=== PATIENT | female | born 1960 | race Caucasian/White ===

== ENCOUNTER 2018-08-04 09:00 | Outpatient (RCR) | payer MEDICAID, SELFPAY ==
--- NOTE | 2018-07-29 12:14 | HP.PTEVAL_ITS ---
Patient's Visit Information IVETTE SAMUEL is a 57 year old F referred to Physical Therapy by Hank Norton DPM with a diagnosis of Post Tib Tendonitits. Date of Evaluation: 07/29/18 Physical Therapist: Shira Hardy DPT - Visit Plan Frequency: 2x /Week Duration: 4 Weeks Plan: Ultrasound and manual therapy along posterior tib tunnel- exercise for balance and flex - Subjective Findings: Patient reports that she has tendonitis in the right foot- this flare up has been going on for a few months. Has had PT on this foot before and it was doing well- but she has seen a decline. They are planning to do new orthotics. Wears sneakers everyday. Pain is located along the medial side of the ankle. Does radiate to the mid calf but no pain in the toes. Describes the pain as dull and achy. No N/T in the toes. Is not doing anything for her foot. Eases: ice, anti-inflammatories. Best:5/10 Worst: 8/10 Agg: getting out of bed in the am. X-rays taken at Dr. Knight office. Sleep: disturbed- gets tight like a russell horse. Normally wears tennis shoes- does not wear shoes in the house- slippers. 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 PMHx: arthritis, thyroid Meds: synthroid, Meloxicam but has changed to a new med to see if it helps - Objective Posture: FH, RS, increased kyphosis- does correct with VC's but does not mainta. Gait: no deviation noted- mild pes planus. Stairs:asc/desc 8 recip with 1 HR. HR/TR: able no pain. SLS: 3 sec then LOB. Observation: moderate edema in posterior tib tunnel. Palpation: tendeer along posterior tib tunnel. ROM:DF: 3 degrees, PF: 60 degrees, Ever: 20 degrees, Inv: 10 degrees. Strength: ANkle: 4/5 throughout available range, Knee: 4+/5. Flex: Gastroc: severe, Soleus: mo derate - Goals Goal 1:: Patient will be I with HEP and progression Goal Time Frame: 4-6 Weeks Goal 2:: Patient will SLS for 15 sec without LOB Goal Time Frame: 4-6 Weeks Goal 3:: Patient will demo no tenderness to palpation Goal Time Frame: 4-6 Weeks Goal 4:: Patient will report 0/10 pain in the ankle for 1 week Goal Time Frame: 4-6 Weeks - Rehabilitation Potential Physical Therapy Diagnosis: Patient presents with hypomoblity- she has decreased ROM, strenth and muscular endurance leading to increased pain with ADL's. Rehabilitation Potential: Fair - Anticipated Interventions Patient/Client Instruction: Educate patient on: Benefits of Fitness Program Therapeutic Exercise to Include: Strength training, Endurance training, Balance training, Coordination, Agility training, Body mechanics, Postural training, Flexibilty training, Gait and locomotor training, Passive ROM, Active ROM, Dynamic Lumbar Stabilization For the Purpose of:: To improve muscle performance and motor function TENS: Yes Cryotherapy (ice pack, ice massage): Yes Thermo therapy (hot pack): Yes Ultrasound (thermal/non thermal): Yes Thank you for the opportunity to evaluate your patient. For Medicare and Medicare HMO plans, please review the plan of care and approve it. It will need to be FAXED BACK to us at [phone] for Medicare purposes. For Medicare only, by signing this I certify the plan of care. Please let me know if there are questions or concerns regarding this plan of care. Physician S ignature: Date:
--- NOTE | 2019-01-10 12:41 | HP.PT.NRP ---
HP - Discharge Summary (1) - Patient Information IVETTE SAMUEL was seen in my office for initial evaluation on 07/29/18. The following Plan of Care was established for this patient: Initial Frequency: 2x /Week Initial Duration: 4 Weeks - Anticipated Interventions Patient/Client Instruction: Educate patient on: Benefits of Fitness Program Therapeutic Exercise to Include: Strength training, Endurance training, Balance training, Coordination, Agility training, Body mechanics, Postural training, Flexibilty training, Gait and locomotor training, Passive ROM, Active ROM, Dynamic Lumbar Stabilization For the Purpose of:: To improve muscle performance and motor function TENS: Yes Cryotherapy (ice pack, ice massage): Yes Thermo therapy (hot pack): Yes Ultrasound (thermal/non thermal): Yes This patient was last seen in our office . Pertinent comments regarding their Physical therapy will appear below: Patient has not attended physical therapy is over 30 days- appropriate to be d/c from PT and return to MD as needed for further evaluation. At this point I will be discontinuing this patient from physical therapy. I would be happy to see this patient again in the future if found appropriate by the physician. Thank you! ALESHIA RojasT
== END 2018-08-04 19:00 | disposition home or self-care (01) ==
LOC: PT 09:00
PROVIDERS: Family Provider Family Medicine; PCP Family Medicine; Referring Provider Podiatrist; Visit Provider Podiatrist
DX: M76.821 Posterior tibial tendinitis, right leg (principal); M21.41 Flat foot [pes planus] (acquired), right foot
CPT/HCPCS: 97035; 97140; 97161

== ENCOUNTER → 2018-10-11 | Outpatient (CLI) | payer MEDICAID, SELFPAY ==
--- NOTE | 2018-10-11 13:11 | MRI_ITS ---
STUDY: MRI RIGHT ANKLE WITHOUT CONTRAST REASON FOR EXAM: Female, 57 years old. Ankle pain, posterior tibial tendinitis TECHNIQUE: Standardized fat and water weighted pulse sequences were obtained in all 3 orthogonal planes. COMPARISON: None. FINDINGS: Normal subcutis adipose space. 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 However, the distal tibialis posterior tendon is thickened with some abnormal signal consistent with tendinosis but without discrete tear. Mild tenosynovitis. There is tenosynovitis of the flexor digitorum longus tendon sheath, without a tendinosis or tendon tear. There is tenosynovitis of the flexor hallucis longus tendon sheath, with pooling of fluid in the Knot of [place], which may be acting as an entrapping lesion upon the plantar cutaneous nerves. Normal peroneus longus and brevis tendons. Normal tibialis anterior tendon. Normal extensor hallucis longus tendon. Normal extensor digitorum longus tendons. Normal Achilles tendon and teno-osseous insertion. Normal plantar fascia. Normal plantar calcaneal tubercles. Normal intrinsic muscles of the rearfoot. Normal distal tibiofibular syndesmotic ligamentous complex. Normal lateral ligamentous complex. Normal subtalar ligaments and sinus tarsi. Normal deltoid ligamentous complexes. Normal plantar calcaneonavicular (spring) ligament. Normal tibiotalar articulation. Normal talar dome. Normal subtalar articulations. Normal talonavicular articulation. Normal calcaneocuboid articulation. Normal navicular-cuneiform articulations. 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 However, associated tibialis posterior tendinitis and tenosynovitis but no discrete tendon tear. Flexor digitorum longus and flexor hallucis longus tenosynovitis with pooling of the fluid at the knot of Edwar. Electronically Signed: Adán Collins MD at 11:59 EDT Tel , Service support ,
== END | disposition home or self-care (01) ==
LOC: MRI 12:59
PROVIDERS: Family Provider Family Medicine; PCP Family Medicine; Referring Provider Podiatrist; Visit Provider Podiatrist
DX: M76.821 Posterior tibial tendinitis, right leg (principal)
CPT/HCPCS: 73721

== ENCOUNTER → 2019-02-24 | Outpatient (CLI) | payer MEDICAID, SELFPAY ==
[2019-02-24 12:49] LABS: Erythrocyte Sedimentation Rate 14 mm/hr (0-30)
[2019-02-24 13:03] LABS: Absolute Lymphocyte Count 1.29 X10^3/uL (0.83-4.51); Basophil# 0.07 X10^3/uL; Basophil% 1.5 % (0-1); Eosinophils% 2.1 % (0-5); Hematocrit 45.2 % (37-47); Hemoglobin 14.4 g/dL (12.0-15.0); Lymphocyte # 1.29 X10^3/ul (4.0); Lymphocyte % 27.6 % (19-41); Mean Corp Hgb Conc 31.9 g/dL (32-36); Mean Corpuscular Volume 90.9 fL (81-99); Mean Platelet Vol. 9.7 fl (6.2-12.0); Monocyte# 0.23 X10^3/uL; Monocyte% 4.9 % (0-10); NRBC Flagged by Analyzer 0 % (0-5); Neutrophil # 2.98 X10^3/uL (2.7-7.7); Neutrophil % 63.7 % (47-70); Platelet Count 301 K/mm3 (150-450); RBC Distribution Width CV 13.7 % (11.6-14.6); RBC Distribution Width SD 46.1 fl (35.1-43.9); Red Blood Count 4.97 M/mm3 (4.2-5.4); White Blood Count 4.7 K/mm3 (4.4-11.0)
[2019-02-24 13:16] LABS: Anion Gap 6 (5-15); BUN 19 mg/dL (7-18); BUN/Creat Ratio 24.3 RATIO (10-20); CRP, High Sensitivity Cardiac 9.22 mg/L; Calcium,Total 8.9 mg/dL (8.5-10.1); Chloride 104 mmol/L (98-107); Cholesterol 212 mg/dL (200); Creatinine, Serum 0.78 mg/dL (0.55-1.02); EST Glomerular Filtration Rate 80 mL/min (>60); Est Glom Filt Rate - Afr Amer 97 mL/min (>60); Free T3 2.8 pg/mL (2.18-3.98); Glucose 83 mg/dL (74-106); High Density Lipoprotein 60 mg/dL; Potassium 3.9 mmol/L (3.5-5.1); Rheumatoid Factor < 10.0 IU/mL (<15); Sodium Level 139 mmol/L (136-145); Thyroid Stim Hormone (TSH) 4.19 uIU/mL (0.358-3.74); Triglycerides 73 mg/dL; Very Low Density Lipoprotein 15 mg/dL (5-40)
[2019-02-24 13:22] LABS: Vitamin D,25 Hydroxy 30.4 ng/mL (29.95-100.01)
[2019-02-27 16:30] LABS: ANTINUCLEAR ANTIBODIES DIRECT Negative (Negative)
== END | disposition home or self-care (01) ==
LOC: MFPLAB 10:50
PROVIDERS: Family Provider Family Medicine; PCP Family Medicine; Referring Provider Family Medicine; Visit Provider Family Medicine
DX: Z00.00 Encounter for general adult medical examination without abnormal findings (principal); E03.9 Hypothyroidism, unspecified; M19.90 Unspecified osteoarthritis, unspecified site
CPT/HCPCS: 36415; 80048; 80061; 82306; 84436; 84443; 84481; 85025; 85652; 86038; 86141; 86431

== ENCOUNTER → 2019-06-05 11:16 | Outpatient (CLI) | payer OTHER, SELFPAY ==
[2019-06-05 13:26] LABS: Free T3 1.9 pg/mL (2.18-3.98); T4 Total, Thyroxin 13.5 ug/dL (4.8-13.9)
== END ==
PROVIDERS: PCP Family Medicine; Referring Provider Family Medicine; Visit Provider Family Medicine
DX: E03.9 Hypothyroidism, unspecified (principal)
CPT/HCPCS: 36415; 84436; 84443; 84481

== ENCOUNTER → 2019-09-15 | Outpatient (CLI) | payer OTHER, SELFPAY ==
[2019-09-15 12:25] LABS: Erythrocyte Sedimentation Rate 16 mm/hr (0-30)
[2019-09-15 12:32] LABS: AST(SGOT) 22 U/L (15-37); Alanine Aminotransfer ALT/SGPT 33 U/L (13-56); Alkaline Phosphatase 73 U/L (45-117); Anion Gap 4 (5-15); BUN 19 mg/dL (7-18); BUN/Creat Ratio 24.3 RATIO (10-20); CRP < 2.90 mg/L (0.0-3.0); Calcium,Total 9.1 mg/dL (8.5-10.1); Chloride 105 mmol/L (98-107); Creatinine, Serum 0.78 mg/dL (0.55-1.02); EST Glomerular Filtration Rate 80 mL/min (>60); Est Glom Filt Rate - Afr Amer 97 mL/min (>60); Globulin 3.9 g/dL (2.2-4.2); Glucose 86 mg/dL (74-106); Protein, Total 7.9 g/dL (6.4-8.2); Rheumatoid Factor < 10.0 IU/mL (<15); Sodium Level 138 mmol/L (136-145)
[2019-09-15 12:46] LABS: Absolute Lymphocyte Count 1.21 X10^3/uL (0.83-4.51); Absolute Neutrophil Count 2.3 X10^3/uL (2.0-7.7); Basophil# 0.03 X10^3/uL; Basophil% 0.8 % (0-1); Eosinophil# 0.05 X10^3/uL; Eosinophils% 1.3 % (0-5); Hematocrit 43.8 % (37-47); Hemoglobin 14.3 g/dL (12.0-15.0); Lymphocyte # 1.21 X10^3/ul (4.0); Lymphocyte % 31.2 % (19-41); Mean Corp Hgb Conc 32.6 g/dL (32-36); Mean Corpuscular Hgb 29.8 pg (27.0-32.0); Mean Corpuscular Volume 91.3 fL (81-99); Monocyte# 0.27 X10^3/uL; NRBC Flagged by Analyzer 0 % (0-5); Neutrophil # 2.31 X10^3/uL (2.7-7.7); Neutrophil % 59.4 % (47-70); Platelet Count 242 K/mm3 (150-450); RBC Distribution Width CV 13.8 % (11.6-14.6); RBC Distribution Width SD 46.2 fl (35.1-43.9); White Blood Count 3.9 K/mm3 (4.4-11.0)
[2019-09-15 13:37] LABS: Hepatitis B Surf AB - EMP Non-Reactive; Hepatitis B Surface Antigen Non-Reactive (Nonreactive); Hepatitis C Antibody Non-Reactive (Nonreactive)
[2019-09-17 09:23] LABS: ANTINUCLEAR ANTIBODIES DIRECT Negative (Negative)
[2019-09-19 05:55] LABS: CCP IgG Antibodies 8 units (0-19); Hepatitis B Core AB IgM Negative (Negative)
== END | disposition home or self-care (01) ==
LOC: MFPLAB 09:42
PROVIDERS: PCP Family Medicine; Visit Provider Internal Medicine Rheumatology
DX: M06.4 Inflammatory polyarthropathy (principal); M79.7 Fibromyalgia; M17.0 Bilateral primary osteoarthritis of knee; M15.4 Erosive (osteo)arthritis; M21.41 Flat foot [pes planus] (acquired), right foot; E03.9 Hypothyroidism, unspecified
CPT/HCPCS: 36415; 80053; 85025; 85652; 86038; 86140; 86200; 86431; 86705; 86706; 86803; 87340

== ENCOUNTER → 2020-01-30 | Outpatient (CLI) | payer OTHER, SELFPAY ==
[2019-10-30 14:00] VITALS: BMI 29.4
[2020-01-30 12:22] LABS: T4 Free Direct 1.33 ng/dL (0.76-1.46); Thyroid Stim Hormone (TSH) 2.07 uIU/mL (0.358-3.74)
== END | disposition home or self-care (01) ==
PROVIDERS: PCP Family Medicine; Referring Provider Internal Medicine Endocrinology, Diabetes & Metabolism; Visit Provider Internal Medicine Endocrinology, Diabetes & Metabolism
DX: E03.8 Other specified hypothyroidism (principal); E06.3 Autoimmune thyroiditis
CPT/HCPCS: 36415; 84439; 84443

== ENCOUNTER → 2020-08-06 10:34 | Outpatient (CLI) | payer OTHER, SELFPAY ==
[2019-10-30 14:00] VITALS: BMI 29.4
[2020-08-06 13:08] LABS: Anion Gap 4 (5-15); BUN 18 mg/dL (7-18); BUN/Creat Ratio 25.4 RATIO (10-20); Calcium,Total 8.9 mg/dL (8.5-10.1); Chloride 106 mmol/L (98-107); Cholesterol 232 mg/dL (200); Creatinine, Serum 0.71 mg/dL (0.55-1.02); EST Glomerular Filtration Rate 89 mL/min (>60); Est Glom Filt Rate - Afr Amer 108 mL/min (>60); Free T3 2.7 pg/mL (2.18-3.98); Glucose 77 mg/dL (74-106); High Density Lipoprotein 73 mg/dL; Potassium 3.9 mmol/L (3.5-5.1); Sodium Level 139 mmol/L (136-145); T4 Free Direct 1.26 ng/dL (0.76-1.46); Thyroid Stim Hormone (TSH) 5.45 uIU/mL (0.358-3.74); Triglycerides 57 mg/dL; Very Low Density Lipoprotein 11 mg/dL (5-40)
== END ==
PROVIDERS: PCP Family Medicine; Referring Provider Family Medicine; Visit Provider Family Medicine
DX: E03.9 Hypothyroidism, unspecified (principal)
CPT/HCPCS: 36415; 80048; 80061; 84439; 84443; 84481

== ENCOUNTER → 2020-08-16 | Outpatient (CLI) | payer OTHER, SELFPAY ==
[2019-10-30 14:00] VITALS: BMI 29.4
== END | disposition home or self-care (01) ==
LOC: MFPLAB 13:39 → LABSPEC 13:40
PROVIDERS: PCP Family Medicine; Referring Provider Family Medicine; Visit Provider Family Medicine
DX: Z20.822 Contact with and (suspected) exposure to COVID-19 (principal)
CPT/HCPCS: 87635; U0002

== ENCOUNTER → 2020-09-23 09:05 | Outpatient (CLI) | payer OTHER, SELFPAY ==
[2019-10-30 14:00] VITALS: BMI 29.4
[2020-09-23 10:24] LABS: Absolute Lymphocyte Count 1.09 X10^3/uL (0.83-4.51); Absolute Neutrophil Count 2.3 X10^3/uL (2.0-7.7); Basophil# 0.07 X10^3/uL; Basophil% 1.8 % (0-1); Eosinophil# 0.12 X10^3/uL; Eosinophils% 3.1 % (0-5); Hematocrit 43.6 % (37-47); Hemoglobin 13.7 g/dL (12.0-15.0); Lymphocyte # 1.09 X10^3/ul (0.83-4.51); Lymphocyte % 28.1 % (19-41); Mean Corp Hgb Conc 31.4 g/dL (32-36); Mean Corpuscular Hgb 28.7 pg (27.0-32.0); Mean Corpuscular Volume 91.2 fL (81-99); Mean Platelet Vol. 10.1 fl (6.2-12.0); Monocyte# 0.25 X10^3/uL; Monocyte% 6.4 % (0-10); NRBC Flagged by Analyzer 0 % (0-5); Neutrophil # 2.34 X10^3/uL (2.7-7.7); Neutrophil % 60.3 % (47-70); Platelet Count 243 K/mm3 (150-450); RBC Distribution Width CV 14.4 % (11.6-14.6); RBC Distribution Width SD 48.4 fl (35.1-43.9); Red Blood Count 4.78 M/mm3 (4.2-5.4); White Blood Count 3.9 K/mm3 (4.4-11.0)
[2020-09-23 11:12] LABS: Thyroid Stim Hormone (TSH) 0.08 uIU/mL (0.358-3.74)
== END ==
PROVIDERS: PCP Family Medicine; Visit Provider Family Medicine
DX: E03.9 Hypothyroidism, unspecified (principal)
CPT/HCPCS: 36415; 84443; 85025

== ENCOUNTER → 2020-11-25 16:12 | Outpatient (CLI) | payer OTHER, SELFPAY ==
[2019-10-30 14:00] VITALS: BMI 29.4
[2020-11-25 18:01] LABS: Erythrocyte Sedimentation Rate 6 mm/hr (0-30)
[2020-11-25 18:02] LABS: Absolute Lymphocyte Count 1.54 X10^3/uL (0.83-4.51); Absolute Neutrophil Count 3.8 X10^3/uL (2.0-7.7); Basophil# 0.06 X10^3/uL; Eosinophils% 1.7 % (0-5); Hematocrit 45.6 % (37-47); Hemoglobin 14.7 g/dL (12.0-15.0); Lymphocyte # 1.54 X10^3/ul (0.83-4.51); Lymphocyte % 25.8 % (19-41); Mean Corp Hgb Conc 32.2 g/dL (32-36); Mean Corpuscular Hgb 28.9 pg (27.0-32.0); Mean Corpuscular Volume 89.6 fL (81-99); Mean Platelet Vol. 10.1 fl (6.2-12.0); Monocyte# 0.43 X10^3/uL; Monocyte% 7.2 % (0-10); NRBC Flagged by Analyzer 0 % (0-5); Neutrophil # 3.84 X10^3/uL (2.7-7.7); Neutrophil % 64.1 % (47-70); Platelet Count 296 K/mm3 (150-450); RBC Distribution Width SD 46.5 fl (35.1-43.9); Red Blood Count 5.09 M/mm3 (4.2-5.4)
[2020-11-25 18:50] LABS: ALB/GLOB Ratio 1.2 RATIO (0.9-2.4); AST(SGOT) 23 U/L (15-37); Alanine Aminotransfer ALT/SGPT 32 U/L (13-56); Albumin, Serum 4.2 g/dL (3.2-5.0); Alkaline Phosphatase 81 U/L (45-117); Anion Gap 6 (5-15); BUN 18 mg/dL (7-18); BUN/Creat Ratio 26.2 RATIO (10-20); CRP < 2.90 mg/L (0.0-3.0); Calcium,Total 9.2 mg/dL (8.5-10.1); Chloride 104 mmol/L (98-107); Creatinine, Serum 0.69 mg/dL (0.55-1.02); EST Glomerular Filtration Rate 93 mL/min (>60); Est Glom Filt Rate - Afr Amer 112 mL/min (>60); Globulin 3.6 g/dL (2.2-4.2); Glucose 87 mg/dL (74-106); Potassium 3.6 mmol/L (3.5-5.1); Protein, Total 7.8 g/dL (6.4-8.2); Sodium Level 140 mmol/L (136-145)
== END ==
PROVIDERS: PCP Family Medicine; Visit Provider Internal Medicine Rheumatology
DX: M06.4 Inflammatory polyarthropathy (principal); M79.7 Fibromyalgia; M17.0 Bilateral primary osteoarthritis of knee; M21.41 Flat foot [pes planus] (acquired), right foot; E03.9 Hypothyroidism, unspecified
CPT/HCPCS: 36415; 80053; 85025; 85652; 86140

== ENCOUNTER → 2021-09-10 | Outpatient (CLI) | payer OTHER, SELFPAY ==
[2021-09-10 13:21] LABS: T4 Free Direct 1.51 ng/dL (0.76-1.46)
== END | disposition home or self-care (01) ==
LOC: BIMLAB 11:24
PROVIDERS: PCP Family Medicine; Referring Provider Internal Medicine Endocrinology, Diabetes & Metabolism; Visit Provider Internal Medicine Endocrinology, Diabetes & Metabolism
DX: E03.8 Other specified hypothyroidism (principal); E06.3 Autoimmune thyroiditis
CPT/HCPCS: 36415; 84439; 84443

== ENCOUNTER → 2022-01-20 | Outpatient (CLI) | payer OTHER, SELFPAY ==
[2022-01-20 12:13] LABS: T4 Free Direct 1.49 ng/dL (0.76-1.46); Thyroid Stim Hormone (TSH) 1.17 uIU/mL (0.358-3.74)
== END | disposition home or self-care (01) ==
LOC: LAB 10:29
PROVIDERS: PCP Family Medicine; Referring Provider Internal Medicine Endocrinology, Diabetes & Metabolism; Visit Provider Internal Medicine Endocrinology, Diabetes & Metabolism
DX: E03.8 Other specified hypothyroidism (principal); E06.3 Autoimmune thyroiditis
CPT/HCPCS: 36415; 84439; 84443

== ENCOUNTER → 2022-03-13 | Outpatient (CLI) | payer OTHER, SELFPAY ==
[2022-03-13 12:42] LABS: Absolute Lymphocyte Count 1.37 X10^3/uL (0.83-4.51); Absolute Neutrophil Count 3.1 X10^3/uL (2.0-7.7); Basophil# 0.05 X10^3/uL; Eosinophil# 0.08 X10^3/uL; Eosinophils% 1.6 % (0-5); Hematocrit 46.8 % (37-47); Hemoglobin 15.5 g/dL (12.0-15.0); Lymphocyte # 1.37 X10^3/ul (0.83-4.51); Lymphocyte % 27.7 % (19-41); Mean Corp Hgb Conc 33.1 g/dL (32-36); Mean Corpuscular Volume 90.5 fL (81-99); Mean Platelet Vol. 9.9 fl (6.2-12.0); Monocyte# 0.34 X10^3/uL; Monocyte% 6.9 % (0-10); NRBC Flagged by Analyzer 0 % (0-5); Neutrophil # 3.09 X10^3/uL (2.7-7.7); Neutrophil % 62.6 % (47-70); Platelet Count 302 K/mm3 (150-450); RBC Distribution Width SD 46.5 fl (35.1-43.9); Red Blood Count 5.17 M/mm3 (4.2-5.4); White Blood Count 4.9 K/mm3 (4.4-11.0)
[2022-03-13 13:12] LABS: ALB/GLOB Ratio 1.1 RATIO (0.9-2.4); AST(SGOT) 23 U/L (15-37); Alanine Aminotransfer ALT/SGPT 29 U/L (13-56); Albumin, Serum 4.1 g/dL (3.2-5.0); Alkaline Phosphatase 76 U/L (45-117); Anion Gap 9 (5-15); BUN 21 mg/dL (7-18); BUN/Creat Ratio 29.6 RATIO (10-20); CRP < 2.90 mg/L (0.0-3.0); Calcium,Total 9.3 mg/dL (8.5-10.1); Chloride 105 mmol/L (98-107); Cholesterol 248 mg/dL (200); Creatinine, Serum 0.71 mg/dL (0.55-1.02); EST Glomerular Filtration Rate 89 mL/min (>60); Est Glom Filt Rate - Afr Amer 107 mL/min (>60); Globulin 3.8 g/dL (2.2-4.2); Glucose 89 mg/dL (74-106); High Density Lipoprotein 63 mg/dL; Potassium 4.1 mmol/L (3.5-5.1); Protein, Total 7.9 g/dL (6.4-8.2); Sodium Level 140 mmol/L (136-145); Triglycerides 111 mg/dL; Very Low Density Lipoprotein 22 mg/dL (5-40)
[2022-03-13 14:01] LABS: Erythrocyte Sedimentation Rate 32 mm/hr (0-30)
== END | disposition home or self-care (01) ==
LOC: BFHLAB 10:27
PROVIDERS: PCP Family Medicine; Visit Provider Family Medicine
DX: Z00.00 Encounter for general adult medical examination without abnormal findings (principal); M13.0 Polyarthritis, unspecified
CPT/HCPCS: 36415; 80053; 80061; 85025; 85652; 86140

== ENCOUNTER → 2022-04-16 | Outpatient (CLI) | payer OTHER, SELFPAY ==
--- NOTE | 2022-04-16 11:51 | RAD_ITS ---
STUDY: X-RAY - LUMBAR SPINE REASON FOR EXAM: Female, 61 years old. LOWER BACK PAIN/ HIP PAIN TECHNIQUE: XR Spine Lumbar Min 4 Views COMPARISON: None FINDINGS: Normal lumbar lordosis. There is no substantial scoliosis. There is a normal alignment of the vertebrae. There is multilevel endplate spondylosis of the lumbar vertebrae. Normal disc space heights. Stool in the colon suggesting constipation. RAD/L/S Spine Min 4 Views IMPRESSION: There is multilevel endplate spondylosis of the lumbar vertebrae. Stool in the colon suggesting constipation. Electronically Signed: Kaiser Mcadams MD at 19:48 EST ,
== END | disposition home or self-care (01) ==
LOC: MTRAD 11:50
PROVIDERS: PCP Family Medicine; Referring Provider Family Medicine; Visit Provider Family Medicine
DX: M54.16 Radiculopathy, lumbar region (principal)
CPT/HCPCS: 72110

== ENCOUNTER → 2022-06-16 | Outpatient (CLI) | payer OTHER, SELFPAY | END | disposition home or self-care (01) | LOC: LABSPEC 15:36 | PROVIDERS: PCP Family Medicine; Visit Provider Family Medicine | DX: J06.9 Acute upper respiratory infection, unspecified (principal) | CPT/HCPCS: 87633 ==

== ENCOUNTER → 2022-07-17 | Outpatient (CLI) | payer OTHER, SELFPAY ==
[2022-07-17 13:10] LABS: T4 Free Direct 1.38 ng/dL (0.76-1.46); Thyroid Stim Hormone (TSH) 2.92 uIU/mL (0.358-3.74)
== END | disposition home or self-care (01) ==
LOC: LAB 11:54
PROVIDERS: PCP Family Medicine; Referring Provider Internal Medicine Endocrinology, Diabetes & Metabolism; Visit Provider Internal Medicine Endocrinology, Diabetes & Metabolism
DX: E03.8 Other specified hypothyroidism (principal); E06.3 Autoimmune thyroiditis
CPT/HCPCS: 36415; 84439; 84443

== ENCOUNTER → 2022-07-27 | Outpatient (CLI) | payer OTHER, SELFPAY ==
--- NOTE | 2022-07-27 17:03 | MRI_ITS ---
STUDY: MRI LUMBAR SPINE WITHOUT CONTRAST REASON FOR EXAM: Female, 61 years old. Left lumbar radiculopathy, s/p 6 weeks PT TECHNIQUE: Standardized fat and water weighted pulse sequences were obtained in the sagittal and axial planes. COMPARISON: None FINDINGS: T12-L1: Normal endplates. Normal disc height, hydration and morphology. Normal bilateral facet joints. Normal central canal and bilateral lateral recesses. Normal bilateral intervertebral neural foramina. Normal lumbar lordosis. There is grade 1 anterolisthesis at L4-5. There is no substantial scoliosis. Normal conus medullaris that terminates at the T12 level. L1-2: Normal endplates. Normal disc height, hydration and morphology. Normal bilateral facet joints. Normal central canal and bilateral lateral recesses. Normal bilateral intervertebral neural foramina. L2-3: Normal endplates. Normal disc height, hydration and morphology. Mild spurring of the bilateral facet joints. Normal central canal and bilateral lateral recesses. Normal bilateral intervertebral neural foramina. L3-4: Disc bulge. Spurring of the bilateral facet joints. Normal central canal and bilateral lateral recesses. Normal bilateral intervertebral neural foramina. L4-5: Disc bulge and spurring. Facet and ligamentum flavum hypertrophy. Moderate canal stenosis. Neural foramina are patent. L5-S1: Normal endplates. Normal disc height, hydration and morphology. Mild spurring of the bilateral facet joints. Normal central canal and bilateral lateral recesses. Normal bilateral intervertebral neural foramina. Normal visualized sacral ala. Normal visualized paraspinous soft tissue structures. MRI/Spine Lumbar (Routine) IMPRESSION: Degenerative change with L4-5 canal stenosis. Electronically Signed: Casey Arizmendi MD at 18:14 EDT ,
== END | disposition home or self-care (01) ==
LOC: MRI 16:52
PROVIDERS: PCP Family Medicine; Referring Provider Family Medicine; Visit Provider Family Medicine
DX: M54.16 Radiculopathy, lumbar region (principal)
CPT/HCPCS: 72148

== ENCOUNTER 2022-08-07 10:26 | Outpatient (RCR) | payer OTHER, SELFPAY | END 2022-08-07 10:35 | disposition home or self-care (01) | LOC: PT 10:26 | PROVIDERS: PCP Family Medicine; Referring Provider Family Medicine; Visit Provider Family Medicine | DX: M54.16 Radiculopathy, lumbar region (principal) ==

== ENCOUNTER → 2022-09-08 | Outpatient (CLI) | payer OTHER, SELFPAY ==
[2022-09-11 13:08] LABS: Lyme IgG P18 Ab Absent (.); Lyme IgG P23 Ab Absent (.); Lyme IgG P28 Ab Absent (.); Lyme IgG P30 Ab Absent (.); Lyme IgG P39 Ab Absent (.); Lyme IgG P41 Ab Present (.); Lyme IgG P45 Ab Absent (.); Lyme IgG P58 Ab Absent (.); Lyme IgG P66 Ab Absent (.); Lyme IgG P93 Ab Absent (.); Lyme IgG WB Interpretation Negative (.); Lyme IgM P23 Ab Absent (.); Lyme IgM P39 Ab Absent (.); Lyme IgM P41 Ab Absent (.); Lyme IgM WB Interpretation Negative (.)
== END | disposition home or self-care (01) ==
LOC: BFHLAB 10:20
PROVIDERS: PCP Family Medicine; Referring Provider Family Medicine; Visit Provider Family Medicine
DX: S30.860A Insect bite (nonvenomous) of lower back and pelvis, initial encounter (principal); W57.XXXA Bitten or stung by nonvenomous insect and other nonvenomous arthropods, initial encounter
CPT/HCPCS: 36415; 86617

== ENCOUNTER 2022-10-20 11:00 | Outpatient (RCR) | payer OTHER, SELFPAY ==
--- NOTE | 2022-04-27 10:58 | HP.PTEVAL ---
Patient's Visit Information IVETTE SAMUEL is a 61 year old F referred to Physical Therapy by Dr. Shital Cobian MD with a diagnosis of Lumbar Back Pain. Date of Evaluation: 04/27/22 Physical Therapist: Shira Hardy DPT - Visit Plan Frequency: 1x/Week Duration: 4 Weeks Plan: Aquatics: focus on LE and Core s/s. HEP Given IE: Postural education, lumbar roll, scapular retractions - Subjective Patient reports that she has had left hip pain for years that comes and goes. Now its progressed and its in the left side of her back radiates and radiates down to the toes. She has N/T in the whole left foot. Back pain started about 3 weeks ago but she has Fibro and arthritis- she takes Duflexican and Meloxicam but she still hurts and is tired. Back Pain: Worst: 12/17 Agg: walking Eases: heat, cold and medications Yesterday she felt okay but today the cold weather is making it worse. Best: 07/17. Describes the pain as dull and achy. The pain that radiates down her leg- she does not feel it in the leg just in the foot- the pain is there most of the time. Sleep: not disturbed. Went to chiro- weekly but it does not feel that it helped- adjustment made it worse. X-rays which showed multilevel endplate spondylosis of the lumbar vertebra. No MRI at this time. No loss or change in bowel or bladder. 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 She participates in [employer] 2x a week. PMHx/Meds: Synthroid, Meloxicam, Duflexican - Objective Posture: FH, RS- can correct with verbal cues but does not maintain. Gait: no deviation- good arm swing and trunk rotation. HR/TR: able with UE A. SLS: weight shift but does not SLS ROM: lumbar: severe restriction, pain with flexion- all other motions WFL, Hip/Knee/Ankle: WFL Strength: Core: poor, Hip: 4-/5 throughout Knee: 4/5, Ankle: 5/5. Flex: HS: severe, Gastroc: severe. Palpation: tender to touch on the left parapsinals of L3-sacrum and along bilateral gluts. Special Tests: dec numbness with prone positioning. Reflex: WFL at bilateral patella. Sensation: WFL to gross touch bilateral LE - Special Tests L/S Slump test left side: Positive L/S Slump test right side: Negative L/S Left Straight Leg Raise: Positive L/S Right Straight Leg Raise: Negative - Balance/Special Test Scores Oswestry Low Back Score: 12 - Goals Goal 1:: Patient will be I with HEP and progression Goal Time Frame: 4-6 Weeks Goal 2:: Patient will maintain proper posture t/o tx session to demo increased core s/s Goal Time Frame: 4-6 Weeks Goal 3:: Patient will report no radicular s/s for 1 week Goal Time Frame: 4-6 Weeks Goal 4:: Patient will report 80% improvement Goal Time Frame: 4-6 Weeks - Rehabilitation Potential Physical Therapy Diagnosis: Patient presents with hypomobility- she has decreased LE and core strength/stabilization, flex and muscular endurance leading to poor posture, increased pain with ADL's and radicular s/s in the left LE Rehabilitation Potential: Fair - Anticipated Interventions Patient/Client Instruction: Educate patient on: Benefits of Fitness Program Therapeutic Exercise to Include: Strength training, Endurance training, Balance training, Coordination, Agility training, Body mechanics, Postural training, Flexibilty training, Gait and locomotor training, Neuromotor development, In an aquatic setting, Dynamic Lumbar Stabilization, Scapular Strength/Stabilization For the Purpose of:: To improve muscle performance and motor function TENS: Yes Cryotherapy (ice pack, ice massage): Yes Thermo therapy (hot pack): Yes Ultrasound (thermal/non thermal): Yes For the Purpose of:: To decrease pain Thank you for the opportunity to evaluate your patient. For Medicare and Medicare HMO plans, please review the plan of care and approve it. It will need to be FAXED BACK to us at [phone] for Medicare purposes. For Medicare only, by signing this I certify the plan of care. Please let me know if there are questions or concerns regarding this plan of care. Physician Signature: Date:
--- NOTE | 2022-06-05 10:55 | HP.PTDCSUM_ITS ---
It has been my pleasure to treat IVETTE SAMUEL referred by Dr. Shital Cobian MD, with the diagnosis of Lumbar Back Pain for a total of 7 visit(s). Discharge Date: Please see the following information for a summary of their discharge status. Subjective: She reports that she doesn't really have pain in the back but does have numbness in her foot that comes and goes and achyness in her hip when she lays down. She does feel that therapy has helped some- and the numbness isnt there all day. She is using lumbar roll in her lumbar spine in the car. She is going to the gym in the AM and [place]. She would like to continue her gym program indep. LLE Pain Intensity (Out of 10): 8 % Improvement: 70 Objective/Function: Posture: FH, RS- can correct with verbal cues but does not maintain. Gait: no deviation- good arm swing and trunk rotation. HR/TR: able with UE A. SLS: weight shift but does not SLS ROM: lumbar: mod restriction, pain with flexion- all other motions WFL, Hip/Knee/Ankle: WFL Strength: Core: fair Hip: 4/5 throughout Knee: 4/5, Ankle: 5/5. Flex: HS: severe, Gastroc: severe. Palpation: tender to touch on the left parapsinals of L3-sacrum and along bilateral gluts. Reflex: WFL at bilateral patella. Sensation: WFL to gross touch bilateral LE Goal 1:: Patient will be I with HEP and progression Goal Progress: Progressing Goal 2:: Patient will maintain proper posture t/o tx session to demo increased core s/s Goal Progress: Progressing Goal 3:: Patient will report no radicular s/s for 1 week Goal Progress: Not Progressing Goal 4:: Patient will report 80% improvement Goal Progress: Progressing Plan: 06/05/22: Discharge to I HEP per pt request- encouraged HEP at pool at [facility]. *Add step ups and downs next. Aquatics: focus on LE and Core s/s If there are questions or concerns regarding this patient's physical therapy, [facility] feel free to call me at [phone]. Thank you for the referral of this patient. Sincerely, Shira Hardy, DPT Balance/Gait/Functional tests - Balance/Special Test Scores Oswestry Low Back Score: 11
--- NOTE | 2022-08-07 11:15 | HP.PTREVAL ---
Dr. Shital Cobian MD, It has been my pleasure to treat IVETTE SAMUEL over the last 8 visits for Lumbar Back Pain. Please see the progress note below for an update on the physical therapy plan of care! Subjective: Patient reports that the tingling in her foot was getting better in the pool but then she stopped and its getting worse again. The tingling is if she is sitting for a long time and gets up. If she goes and lays down immediately the tingling goes away. When she stands back up the tingling comes back immediately. She had an MRI last week and it showed Degenerative change with L4-5 canal stenosis. and they have having her meet with a back specialist next week. She would like to get in the pool one day and one day on land. She is off this summer- stating Aug 07- She feels that she has backslid from not being in the pool. She has achiness in her thigh as well as soreness in the back. Objective/Function: No significant changes since d/c with objective: Posture: FH, RS- can correct with verbal cues but does not maintain. Gait: no deviation- good arm swing and trunk rotation. HR/TR: able with UE A. SLS: weight shift but does not SLS ROM: lumbar: mod restriction, pain with flexion- all other motions WFL, Hip/Knee/Ankle: WFL Strength: Core: fair Hip: 4/5 throughout Knee: 4/5, Ankle: 5/5. Flex: HS: severe, Gastroc: severe. Palpation: tender to touch on the left parapsinals of L3-sacrum and along bilateral gluts. Reflex: WFL at bilateral patella. Sensation: WFL to gross touch bilateral LE Plan Plan: 08/07/22: Pt continues to have symptoms- is appropriate to continue pool 1x a week and land 1x a week- HEP on land for [facility]. 06/05/22: Discharge to I HEP per pt request- encouraged HEP at [facility] at [facility]. *Add step ups and downs next. Aquatics: focus on LE and Core s/s Balance/Gait/Functional tests - Balance/Special Test Scores Oswestry Low Back Score: 12 Goals Goal 1:: Patient will be I with HEP and progression Goal Time Frame: 4-6 Weeks Goal Progress: Progressing Goal 2:: Patient will maintain proper posture t/o tx session to demo increased core s/s Goal Time Frame: 4-6 Weeks Goal Progress: Progressing Goal 3:: Patient will report no radicular s/s for 1 week Goal Time Frame: 4-6 Weeks Goal Progress: Not Progressing Goal 4:: Patient will report 80% improvement Goal Time Frame: 4-6 Weeks Goal Progress: Progressing Anticipated Interventions Patient/Client Instruction: Educate patient on: Benefits of Fitness Program Therapeutic Exercise to Include: Strength training, Endurance training, Balance training, Coordination, Agility training, Body mechanics, Postural training, Flexibilty training, Gait and locomotor training, Neuromotor development, In an aquatic setting, Dynamic Lumbar Stabilization, Scapular Strength/Stabilization For the Purpose of:: To improve muscle performance and motor function TENS: Yes Cryotherapy (ice pack, ice massage): Yes Thermo therapy (hot pack): Yes Ultrasound (thermal/non thermal): Yes For the Purpose of:: To decrease pain Please do not hesitate to contact me at [phone] by phone or if you have questions or concerns regarding this new plan of care! Sincerely, ALESHIA RojasT
--- NOTE | 2022-09-24 13:32 | HP.PTREVAL_ITS ---
Dr. Shital Cobian MD, It has been my pleasure to treat IVETTE SAMUEL over the last 17 visits for Lumbar Back Pain. Please see the progress note below for an update on the physical therapy plan of care! Subjective: I HAVE NUMBENSS IN MY LEFT FOOT AND IF I SIT TOO LONG IT GETS WORSE. I ALSO HAVE PAIN IN MY L HIP. PATIENT ALSO REPORTS INTERMITTENT LBP. I DON'T WANT NO SHOTS. STATES SHE HAD A CONSULT WITH DR. GOODEN AND HE RECOMMENDED SHOTS. DENIES ANY FOLLOW UP WITH DR. CARLTON SINCE JULY 2022. Objective/Function: UPON EXAM TODAY THERE ARE NO SIGNIFCANT CHANGES EXCEPT: Lumbar mvmt loss: flex - MOD - C/O INCREASED CENTRAL LBP. ext - MOD - PATIENT DENIES INCREASED PAIN BUT INCREASED L FOOT NUMBNESS. R SG - MOD - DE NIES INCREASED PAIN. L SG - MOD - PATIENT C/O INCREASED LBP AND L FOOT NUMBNESS. Core strength: POOR. PATIENT IS APPROPRIATE TO RESUME PT TO WORK TOWARD INDEP EX PROGRAMS ON LAND AND IN THE WATER IF OK'D BY DR. CARLTON. PATIENT REPORTS DR. GOODEN DID NOT RECOMMEND PT. Plan Plan: RESUME AQUATIC THERAPY ONCE A WK AND LAND PT ONCE A WEEK PER ORIG POC WORKING TOWARD SAME GOALS X 10 VISITS. Balance/Gait/Functional tests - Balance/Special Test Scores Oswestry Low Back Score: 17 Goals Goal 1:: Patient will be I with HEP and progression Goal Time Frame: 4-6 Weeks Goal Progress: Progressing Goal 2:: Patient will maintain proper posture t/o tx session to demo increased core s/s Goal Time Frame: 4-6 Weeks Goal Progress: Progressing Goal 3:: Patient will report no radicular s/s for 1 week Goal Time Frame: 4-6 Weeks Goal Progress: Not Progressing Goal 4:: Patient will report 80% improvement Goal Time Frame: 4-6 Weeks Goal Progress: Progressing Anticipated Interventions Patient/Client Instruction: Educate patient on: Benefits of Fitness Program Therapeutic Exercise to Include: Strength training, Endurance training, Balance training, Coordination, Agility training, Body mechanics, Postural training, Flexibilty training, Gait and locomotor training, Neuromotor development, In an aquatic setting, Dynamic Lumbar Stabilization, Scapular Strength/Stabilization For the Purpose of:: To improve muscle performance and motor function TENS: Yes Cryotherapy (ice pack, ice massage): Yes Thermo therapy (hot pack): Yes Ultrasound (thermal/non thermal): Yes For the Purpose of:: To decrease pain Please do not hesitate to contact me at [phone] by phone or if you have questions or concerns regarding this new plan of care! Sincerely, Celine Lemons, PT, Cert MDT
== END 2022-10-20 19:00 | disposition home or self-care (01) ==
LOC: PT 11:00
PROVIDERS: PCP Family Medicine; Referring Provider Family Medicine; Visit Provider Family Medicine
DX: M54.50 Low back pain, unspecified (principal)
CPT/HCPCS: 97110; 97113; 97162; 97164

== ENCOUNTER → 2022-11-19 | Outpatient (CLI) | payer OTHER, SELFPAY ==
--- NOTE | 2022-11-19 10:33 | RAD_ITS ---
STUDY: X-RAY - UNILATERAL RIBS ( LEFT ) WITH CHEST REASON FOR EXAM: Female, 62 years old. Recent injury. Pain. TECHNIQUE - RIBS: 3 view(s) of the ribs. TECHNIQUE - CHEST: Single frontal view of the chest. COMPARISON: None. FINDINGS - RIBS: Generalized osteopenia with no displaced rib fracture identified. FINDINGS - CHEST: Low volume inspiration. There is no demonstrated pleural abnormality. Borderline cardiomegaly. Normal mediastinum and cj. Normal visualized pulmonary arteries. Normal visualized aortic arch and descending thoracic aorta. Normal visualized thoracic spine. Normal visualized ribs, clavicles, and shoulders. No abnormality of the visualized soft tissue structures of the upper abdomen. RAD/Ribs Uni Min 3V w/PA Chest IMPRESSION: RIBS: Osteopenia with no displaced rib fracture. CHEST: Borderline cardiomegaly with hypoaeration changes. No active or acute cardiopulmonary disease. Electronically Signed: Raymond Vo MD at 12:59 EDT ,
== END | disposition home or self-care (01) ==
LOC: RAD 10:31
PROVIDERS: PCP Family Medicine; Referring Provider Family Medicine; Visit Provider Family Medicine
DX: S29.9XXA Unspecified injury of thorax, initial encounter (principal); X58.XXXA Exposure to other specified factors, initial encounter
CPT/HCPCS: 71101

== ENCOUNTER → 2022-12-15 | Outpatient (CLI) | payer OTHER, SELFPAY ==
[2022-12-15 16:15] LABS: T4 Free Direct 1.51 ng/dL (0.76-1.46); Thyroid Stim Hormone (TSH) 2.18 uIU/mL (0.358-3.74)
== END | disposition home or self-care (01) ==
PROVIDERS: PCP Nurse Practitioner Family; Referring Provider Nurse Practitioner Family; Visit Provider Nurse Practitioner Family
DX: E03.9 Hypothyroidism, unspecified (principal)
CPT/HCPCS: 36415; 84439; 84443

== ENCOUNTER 2022-12-25 11:00 | Outpatient (RCR) | payer OTHER, SELFPAY ==
--- NOTE | 2022-12-25 11:19 | HP.PTDCSUM_ITS ---
Discharge Summary D/C summary: It has been my pleasure to treat IVETTE SAMUEL referred by Dr. Shital Cobian MD, with the diagnosis of LOW BACK PAIN for a total of 23 visit(s). Discharge Date: Please see the following information for a summary of their discharge status. Subjective Subjective: Patient reports that she feels that the pain medication keeps her going. She stopped taking the medication for 5 days and it was really bad. She feels that its summer and she is better. She has fibro so she knows that she will always have some soreness. She has a hard time getting to the pool- she feels that she can keep up the exercises when she can get there indep- she walks about 30 min after work- to keep her bone density up- since she sits so much for work. Pain LBP: Pain Intensity (Out of 10): 7 Left Foot: Pain Intensity (Out of 10): 0 Overall Improvement % Improvement: 80 Objective Objective/Function: Posture: FH, RS- can correct with verbal cues but does not maintain. Gait: no deviation- good arm swing and trunk rotation. HR/TR: able with UE A. SLS: weight shift but does not SLS ROM: lumbar: mod restriction, pain with flexion- all other motions WFL, Hip/Knee/Ankle: WFL Strength: Core: fair Hip: 4/5 throughout Knee: 4/5, Ankle: 5/5. Flex: HS: severe, Gastroc: severe. Palpation: tender to touch on the left parapsinals of L3-sacrum and along bilateral gluts. Reflex: WFL at bilateral patella. Sensation: WFL to gross touch bilateral LE Plan Plan: Discharge to [facility]- continue in pool at availability and walking as tolerated. D/C Information d/c sentence: If there are questions or concerns regarding this patient's physical therapy, please feel free to call me at [phone]. Thank you for the referral of this patient. Sincerely, Shira Hardy, DPT Balance/Gait/Functional tests Balance/Special Test Scores Oswestry Low Back Score: 15
== END 2022-12-25 15:20 | disposition home or self-care (01) ==
LOC: PT 11:00
PROVIDERS: PCP Family Medicine; Referring Provider Family Medicine; Visit Provider Family Medicine
DX: M48.061 Spinal stenosis, lumbar region without neurogenic claudication (principal)
CPT/HCPCS: 97110; 97113; 97164

== ENCOUNTER → 2023-04-16 | Outpatient (CLI) | payer OTHER, SELFPAY ==
[2023-04-16 15:49] LABS: Absolute Lymphocyte Count 1.33 X10^3/uL (0.83-4.51); Absolute Neutrophil Count 2.9 X10^3/uL (2.0-7.7); Basophil# 0.07 X10^3/uL; Basophil% 1.5 % (0-1); Eosinophil# 0.15 X10^3/uL; Eosinophils% 3.1 % (0-5); Hematocrit 48.1 % (37-47); Hemoglobin 14.8 g/dL (12.0-15.0); Lymphocyte # 1.33 X10^3/ul (0.83-4.51); Lymphocyte % 27.8 % (19-41); Mean Corp Hgb Conc 30.8 g/dL (32-36); Mean Corpuscular Hgb 27.9 pg (27.0-32.0); Mean Corpuscular Volume 90.8 fL (81-99); Mean Platelet Vol. 10.2 fl (6.2-12.0); Monocyte# 0.36 X10^3/uL; Monocyte% 7.5 % (0-10); NRBC Flagged by Analyzer 0 % (0-5); Neutrophil # 2.86 X10^3/uL (2.7-7.7); Neutrophil % 59.9 % (47-70); Platelet Count 305 K/mm3 (150-450); RBC Distribution Width CV 14.6 % (11.6-14.6); RBC Distribution Width SD 48.9 fl (35.1-43.9); White Blood Count 4.8 K/mm3 (4.4-11.0)
[2023-04-16 16:51] LABS: AST(SGOT) 98 U/L (15-37); Alanine Aminotransfer ALT/SGPT 376 U/L (13-56); Albumin, Serum 3.9 g/dL (3.2-5.0); Alkaline Phosphatase 182 U/L (45-117); Anion Gap 3 (5-15); BUN 21 mg/dL (7-18); BUN/Creat Ratio 27.7 RATIO (10-20); Calcium,Total 9.2 mg/dL (8.5-10.1); Chloride 106 mmol/L (98-107); Cholesterol 201 mg/dL (200); Creatinine, Serum 0.76 mg/dL (0.55-1.02); EST Glomerular Filtration Rate 82 mL/min (>60); Est Glom Filt Rate - Afr Amer 99 mL/min (>60); Globulin 3.9 g/dL (2.2-4.2); Glucose 86 mg/dL (74-106); High Density Lipoprotein 58 mg/dL; Protein, Total 7.8 g/dL (6.4-8.2); Sodium Level 140 mmol/L (136-145); Triglycerides 85 mg/dL; Very Low Density Lipoprotein 17 mg/dL (5-40)
[2023-04-17 08:58] LABS: Hemoglobin A1c 5.1 % (3.8-5.6)
== END | disposition home or self-care (01) ==
LOC: BFHLAB 11:23
PROVIDERS: PCP Family Medicine; Visit Provider Family Medicine
DX: Z00.00 Encounter for general adult medical examination without abnormal findings (principal); R63.1 Polydipsia
CPT/HCPCS: 36415; 80053; 80061; 83036; 85025

== ENCOUNTER → 2023-06-02 | Outpatient (CLI) | payer OTHER, SELFPAY ==
--- OUTSIDE RECORDS SUMMARY | 2023-06-02 11:37 | XMS RPT_ITS | CCD ---
Author Name Unknown Address [email or web address] [place] [address] Organization [facility] Care Team Providers Care Tool Setter Name Role Phone Usman Lackey MD Unavailable Jones DO, Jaspreet A Primary Care Provider Jones DO, Jaspreet A Primary Care Provider Jones DO, Jaspreet A Primary Care Provider Jones DO, Jaspreet A Primary Care Provider CAMI BOYCE Referring Unavailable JONES, JASPREET A Primary Care Unavailable CAMI BOYCE Referring Unavailable JONES, JASPREET A Primary Care Unavailable JONES, JASPREET A Primary Care Unavailable JONES, JASPREET A Primary Care Unavailable CAMI BOYCE Attending Unavailable Allergies Allergy Classification Reported Allergen(s) Allergy Type Date of Onset Reaction(s) Facility (2 sources) Penicillin; Translations: [PENICILLIN] Drug Allergy 11-15-2017 [facility] Work Phone: Medications Completed/Discontinued Medications Medication Drug Class(es) Dates Sig (Normalized) Sig (Original) [id number] 200 actuat albuterol 0.09 mg/actuat metered dose inhaler (7 sources) beta2-Adrenergic Agonist Start: 02-18-2019 End: 03-11-2022 take 2 puff(s) by inhalation every six hours as needed for wheezing albuterol HFA (PROAIR HFA) 90 mcg/actuation inhaler Indications: Atelectasis, bilateral , Viral URI with cough Inhale 2 Puffs as instructed every 6 hours as needed for Wheezing/Shortness of Breath. 1 Inhaler 0 02/18/2019 03/11/2022 Discontinued Problems Active Problems Problem Classification Problem Date Documented Date Episodic/Chronic Acquired foot deformities (1 source) Hallux rigidus, right foot; Translations: [Hallux rigidus, right foot] Onset: 05-29-2019 05-29-2019 Chronic Menopausal disorders (1 source) Atrophic vaginitis; Translations: [Postmenopausal atrophic vaginitis] Chronic Nonmalignant breast conditions (1 source) Mammographic breast tissue appearance; Translations: [Dense breast tissue on mammogram] 03-22-2023 Episodic Osteoarthritis (10 sources) Osteoarthritis of joint of bilateral hands; Translations: [Erosive (osteo)arthritis] Onset: 12-05-2018 12-05-2018 Chronic Other congenital anomalies (1 source) Other congenital malformations of lower limb(s), including pelvic girdle; Translations: [Other congenital malformations of lower limb(s), including pelvic girdle] Onset: 05-29-2019 05-29-2019 Chronic Other lower respiratory disease (1 source) Cough; Translations: [Cough] Episodic Other screening for suspected conditions (not mental disorders or infectious disease) (8 sources) Patient encounter status; Translations: [Encounter for screening mammogram for malignant neoplasm of breast] Onset: 03-22-2023 Episodic Other upper respiratory infections (1 source) Sore throat symptom; Translations: [Acute pharyngitis, unspecified] Episodic Thyroid disorders (10 sources) Hypothyroidism; Translations: [Hypothyroidism, unspecified] Onset: 01-06-2018 01-06-2018 Chronic Unclassified (1 source) Dense breast tissue on mammogram; Translations: [Dense breast tissue on mammogram] Onset: 03-22-2023 Past or Other Problems Problem Classification Problem Date Documented Da te Episodic/Chronic Acquired foot deformities (1 source) Flat foot [pes planus] (acquired), right foot; Translations: [Flat foot [pes planus] (acquired), right foot] Onset: 05-29-2019 05-29-2019 Episodic Other acquired deformities (1 source) Acquired deformity of joint of foot ; Translations: [Other acquired deformities of right foot] Onset: 05-29-2019 05-29-2019 Episodic Other connective tissue disease (1 source) Disorder of posterior tibial muscle tendon; Translations: [Unspecified disorder of synovium and tendon, unspecified ankle and foot] Onset: 05-29-2019 05-29-2019 Episodic Other connective tissue disease (1 source) Metatarsalgia, right foot; Translations: [Metatarsalgia, right foot] Onset: 05-29-2019 05-29-2019 Episodic Other connective tissue disease (1 source) Posterior tibial tendinitis, right leg; Translations: [Posterior tibial tendinitis, right leg] Onset: 05-29-2019 05-29-2019 Episodic Other non-traumatic joint disorders (1 source) Sinus tarsi syndrome; Translations: [Pain in right ankle and joints of right foot] Onset: 05-29-2019 05-29-2019 Episodic Unclassified (1 source) Problem Results Test Name Value Interpretation Reference Range Facil ity Vital Signs Date Time Vital Sign Value Performing Clinician Facility 03-11-2022 10:14-0400 Body height 152.4 cm Cami Boyce APRN.PROCESS TREATER Work Phone: [facility] 03-11-2022 10:14-0400 Body weight 74.39 kg Cami Boyce APRN.PROCESS TREATER Work Phone: [facility] 03-11-2022 10:14-0400 Diastolic blood pressure 78 mm[Hg] Cami Boyce APRN.PROCESS TREATER Work Phone: [facility] 03-11-2022 10:14-0400 Systolic blood pressure 126 mm[Hg] Cami Boyce APRN.PROCESS TREATER Work Phone: [facility] 10-03-2021 11:09-0400 Body temperature 99.19 [degF] Naheed Gunderson APRN.PROCESS TREATER Work Phone: [facility] 10-03-2021 11:09-0400 Body weight 72.58 kg Naheed Gunderson APRN.PROCESS TREATER Work Phone: [facility] 10-03-2021 11:09-0400 Diastolic blood pressure 78 mm[Hg] Naheed Gunderson APRN.PROCESS TREATER Work Phone: [facility] 10-03-2021 11:09-0400 Heart rate 94 /min Naheed Gunderson APRN.PROCESS TREATER Work Phone: [facility] 10-03-2021 11:09-0400 Respiratory rate 22 /min Naheed Gunderson APRN.PROCESS TREATER Work Phone: [facility] 10-03-2021 11:09-0400 SaO2% (BldA) [Mass fraction] 94 % Naheed Gunderson APRN.PROCESS TREATER Work Phone: [facility] 10-03-2021 11:09-0400 Systolic blood pressure 110 mm[Hg] Naheed Gunderson APRN.PROCESS TREATER Work Phone: [facility] NEGATED: Highlighted [id number] 13:57-0500 BMI (Body Mass Index) 29.92 kg/m2 Gillian Daniel SALESPERSON ART OBJECTS [facility] Work Phone: NEGATED: Highlighted [id number] 13:57-0500 Body weight 73.94 kg Gillian Daniel SALESPERSON ART OBJECTS [facility] Work Phone: NEGATED: Highlighted [id number] 13:57-0500 Body weight 74 kg Gillian Daniel SALESPERSON ART OBJECTS [facility] Work Phone: NEGATED: Highlighted [id number] 13:57-0500 BP Diastolic 84 mm[Hg] Gillian Daniel SALESPERSON ART OBJECTS [facility] Work Phone: NEGATED: Highlighted [id number] 13:57-0500 BP Systolic 129 mm[Hg] Gillian Daniel SALESPERSON ART OBJECTS [facility] Work Phone: NEGATED: Highlighted [id number] 13:57-0500 Heart rate 2+ Gillian Daniel SALESPERSON ART OBJECTS [facility] Work Phone: NEGATED: Highlighted [id number] 13:57-0500 Height 157.48 cm Gillian Daniel SALESPERSON ART OBJECTS [facility] Work Phone: NEGATED: Highlighted [id number] 13:57-0500 Height 157 cm Gillian Daniel SALESPERSON ART OBJECTS [facility] Work Phone: NEGATED: Highlighted [id number] 13:57-0500 Pulse (Heart Rate) 71 /min Gillian Sanchez SALESPERSON ART OBJECTS [facility] Work Phone: Encounters Encounter Date Encounter Type Care Provider Facility Start: 05-19-2023 End: 05-19-2023 ambulatory CAMI BOYCE Facility:[facility] Start: 04-20-2023 Telephone encounter Liane crane MD Work Phone: Mammography Procedures Date Procedure Procedure Detail Performing Clinician Start: 01-06-2022 KATHERIN ANDREWS RT Faustino Carpenter STRATEGIC ACCOUNT EXECUTIVE.PROCESS TREATER Work Phone: Start: 10-24-2021 End: 10-24-2021 Screening mammography bi 2-view breast inc cad Jennie Blakely MD Work Phone: Start: 10-03-2021 STREP A MOLECULAR (POC) Naheed Gunderson APRN.PROCESS TREATER Work Phone: Start: 10-23-2020 Mammography Naheed Gunderson APRN.PROCESS TREATER Work Phone: Start: 05-29-2019 End: 05-29-2019 Blood pressure within normal parameters - no follow-up required Usman Lackey MD Work Phone: Start: 05-29-2019 End: 05-29-2019 BMI documented as above normal parameters - follow-up documented Usman Lackey MD Work Phone: Start: 05-29-2019 End: 05-29-2019 Documentation of current medications Usman Lackey MD Work Phone: Start: 05-29-2019 End: 05-29-2019 Pain assessment documented as positive - follow-up documented Usman Lackey MD Work Phone: Start: 05-29-2019 End: 05-29-2019 Tobacco non-user Usman Lackey MD Work Phone: Start: 08-26-2018 Colonoscopy Naheed Gunderson APRN.PROCESS TREATER Work Phone: Start: 01-12-2018 Lipid 1996 panel - S martin or Plasma Screen [facility] Start: 01-06-2018 Adult depression screening assessment Naheed Gunderson APRN.PROCESS TREATER Work Phone: NEGATED: Highlighted rowStart: 05-29-2019 End: 05-29-2019 Documentation of current medications Gillian Sanchez LPN Plan of Treatment Date Care Activity Detail Author Start: 08-26-2028 Colonoscopy COLONOSCOPY [facility] Start: 08-26-2028 COLORECTAL CANCER SCREENING COLORECTAL CANCER SCREENING [facility] Start: 08-26-2028 Screening for malign ant neoplasm of colon [facility] Start: 03-22-2024 Mammography Mammogram Screening [facility] Start: 03-22-2024 Screening for malign ant neoplasm of breast Mammogram Screening [facility] Start: 07-16-2023 HPV TESTING HPV TESTING [facility] Start: 07-16-2023 PAP TESTING PAP TESTING [facility] Start: 07-16-2023 Screening for malign ant neoplasm of cervix [facility] Start: 01-12-2023 Lipid 1996 panel - Serum or Plasma Lipid Screening [facility] Start: 01-12-2023 Lipid panel Lipid Screening [facility] Start: 01-12-2023 LIPID SCREEN LIPID SCREEN [facility] Start: 01-08-2023 Covid-19 Vaccine ( season) Covid-19 Vaccine () [facility] Start: 01-08-2023 Influenza vaccination Influenza Vacc ine (#1) [facility] Start: 10-24-2022 Mammography [facility] Start: 05-10-2022 Depression Assessment Depression Ass essment [facility] Start: 01-08-2022 Influenza vaccination [facility] Start: 10-23-2021 Mammography MAMMOGRAM [facility] Start: 10-03-2021 End: 10-17-2021 Influenza virus A and B RNA and SARS-CoV-2 (COVID-19) N gene panel - Respiratory specimen by AVILA with probe detection [facility] Work Phone: Immunizations Immunization Date Immunization Notes Care Provider Ada thompson 01-15-2016 hepatitis A vaccine, adult dosage Naheed Gunderson APRN.PROCESS TREATER Work Phone: [facility] 05-07-2015 hepatitis A vaccine, adult dosage Naheed Gunderson APRN.PROCESS TREATER Work Phone: [facility] 05-11-2009 tetanus toxoid, redu ike diphtheria toxoid, and acellular pertussis vaccine, adsorbed Naheed Gunderson APRN.PROCESS TREATER Work Phone: [facility] Payers Date Payer Category Payer Unknown MMO MMO [employer] [id number] 2019-Present [phone] [address] [place] [address] PPO [id number] 2019 Unknown [id number] 2019 Unknown [id number] Social History Date Type Detail Facility Start: 11-15-2017 End: 03-11-2022 Tobacco smoking status NHIS Never smoked tobacco [facility] Start: 11-15-2017 End: 03-11-2022 Tobacco use and exposure Smokeless tobacco non-user [facility] Start: 10-03-2021 End: 03-16-2023 Alcohol intake Current non-drinker of alcohol (finding) [facility] Start: 1960 Sex Assigned At Not on file [facility] Start: 10-14-2021 End: 01-06-2022 Exposure to SARS-CoV-2 (event) Not sure [facility] Start: 01-06-2018 End: 03-16-2023 History of Social function [facility] Start: 01-06-2018 End: 03-16-2023 Tobacco use panel [facility] Adult Depression Screening Assessment 0 [facility] NEGATED: Highlighted rowStart: 05-29-2019 End: 05-29-2019 Alcohol use Alcohol use [facility] Work Phone: NEGATED: Highlighted rowStart: 05-29-2019 End: 05-29-2019 Details of drug misuse behavior Details of drug misuse behavior [facility] Work Phone: NEGATED: Highlighted rowStart: 05-29-2019 End: 05-29-2019 How many days of moderate to strenuous exercise, like a brisk walk, did you do in the last 7 days? How many days of moderate to strenuous exercise, like a brisk walk, did you do in the last 7 days? [facility] Work Phone: NEGATED: Highlighted rowStart: 05-29-2019 End: 05-29-2019 Assertion Never smoker [facility] Work Phone: Clinical Notes 10-03-2021 to 05-19-2023 Letter - Coordinator, Mammography - 03/23/2023 12:49 PM Mukesh Camacho Mammo Tech - 03/22/2023 11:10 AM ESTPatient InstructionsCami Boyce APRN.PROCESS TREATER - 03/11/2022 10:09 AM EDT Note Date & Type Note Facility 05-19-2023 Note HNO ID: [id number] Author: OLIVIA BELCHER RDMS Service: ? Author Type: Geothermal Operations Manager Type: Progress Notes Filed: 05/19/2023 14:19 Note Text: Radiology Service Progress Note PATIENT NAME: Ivette Samuel DATE OF SERVICE: May 19, 2023 TIME: 2:19 PM PATIENT IDENTITY VERIFICATION COMPLETED USING TWO (2) IDENTIFIERS: Name and Date of confirmed by patient verbally. FALL SCREENING: Has the patient had 2 falls in the last year or 1 fall with injury or currently using an Ambulatory Assistive Device (Walker, Cane, Wheelchair, Crutches, etc.)? No PATIENT GENDER DATA: Female. status: : No status: NO. PATIENT RELEVANT IMPLANT DATA REVIEWED: Not Applicable RADIOLOGY DEPARTMENT: Ultrasound PERIPHERAL IV DATA: Not applicable SIGNED BY: Olivia Belcher RDMS May 19, 2023 2:19 PM [facility] 05-19-2023 Note HNO ID: [id number] Author: MUKESH MARVIN Mammo Tech Service: ? Author Type: Technologist Type: Progress Notes Filed: 05/19/2023 11:23 Note Text: Radiology Service Progress Note PATIENT NAME: Ivette Samuel DATE OF SERVICE: May 19, 2023 TIME: 11:23 AM PATIENT IDENTITY VERIFICATION COMPLETED USING TWO (2) IDENTIFIERS: Name and Date of confirmed by patient verbally. FALL SCREENING: Has the patient had 2 falls in the last year or 1 fall with injury or currently using an Ambulatory Assistive Device (Walker, Cane, Wheelchair, Crutches, etc.)? No PATIENT GENDER DATA: Female. status: : No status: NO. PATIENT RELEVANT IMPLANT DATA REVIEWED: Not Applicable RADIOLOGY DEPARTMENT: Mammography PERIPHERAL IV DATA: Not applicable SIGNED BY: Mukesh Marvin [employer] May 19, 2023 11:23 AM [facility] 03-23-2023 Miscellaneous Notes March 23, 2023 PID: [id number] Ivette Samuel [address] [place] [address] Dear Ms. Samuel, Your recent breast imaging exam on 03/22/2023 showed a possible finding that requires additional imaging studies for a complete evaluation. Most such findings are probably benign (not cancer). Your mammogram demonstrates that you have dense breast tissue, which could hide abnormalities. Dense breast tissue, in and of itself, is a relatively common condition. Therefore, this information is not provided to cause undue concern; rather, it is to raise your awareness and promote discussion with your health care provider regarding the presence of dense breast tissue in addition to other risk factors. If you have a healthcare provider who ordered/prescribed your screening mammogram: Please call [phone] or [phone]: [phone] to schedule an appointment for your additional imaging (if you have not already done so). If you DO NOT have a healthcare provider (ie you did not have an order/prescription for your screening mammogram): Please call to schedule an appointment for your additional imaging (if you have not already done so). You must have an order/prescription from your physician when calling to schedule your appointment. If your order/prescription is not electronic, you must bring the hard copy with you on the day of your exam to avoid delays. Your imaging studies and reports are kept on file at [facility] as part of your permanent medical record, and are available for your continuing care. Thank you for allowing us to help in meeting your health care needs. Sincerely, Dr. Gruber Interpreting Radiologist [facility] (Additional imaging) documented in this encounter [facility] 03-22-2023 Note HNO ID: [id number] Author: Mukesh Marvin Mammo Tech Service: ? Author Type: Technologist Type: Progress Notes Filed: 03/22/2023 11:36 AM Note Text: Radiology Service Progress Note PATIENT NAME: Ivette Samuel DATE OF SERVICE: March 22, 2023 TIME: 11:35 AM PATIENT IDENTITY VERIFICATION COMPLETED USING TWO (2) IDENTIFIERS: Name and Date of confirmed by patient verbally. FALL SCREENING: Has the patient had 2 falls in the last year or 1 fall with injury or currently using an Ambulatory Assistive Device (Walker, Cane, Wheelchair, Crutches, etc.)? No PATIENT GENDER DATA: Female. status: : No status: NO. PATIENT RELEVANT IMPLANT DATA REVIEWED: Not Applicable RADIOLOGY DEPARTMENT: Mammography PERIPHERAL IV DATA: Not applicable SIGNED BY: Damien Morgan March 22, 2023 11:35 AM [facility] 03-22-2023 History of Presen t illness Narrative Radiology Service Progress Note PATIENT NAME: Ivette Samuel DATE OF SERVICE: March 22, 2023 TIME: 11:35 AM PATIENT IDENTITY VERIFICATION COMPLETED USING TWO (2) IDENTIFIERS: Name and Date of confirmed by patient verbally. FALL SCREENING: Has the patient had 2 falls in the last year or 1 fall with injury or currently using an Ambulatory Assistive Device (Walker, Cane, Wheelchair, Crutches, etc.)? No PATIENT GENDER DATA: Female. status: : No status: NO. PATIENT RELEVANT IMPLANT DATA REVIEWED: Not Applicable RADIOLOGY DEPARTMENT: Mammography PERIPHERAL IV DATA: Not applicable SIGNED BY: Damien Morgan March 22, 2023 11:35 AM documented in this encounter [facility] 03-16-2023 Note HNO ID: [id number] Author: Cami Boyce APRN.PROCESS TREATER Service: ? Author Type: Nurse Practitioner Type: Progress Notes Filed: 03/16/2023 12:21 PM Note Text: Sliver Machine Operator offered: Patient declines. Ivette is a 62 year old who presents for an annual gynecologic exam with complaints of weight gain. Thinks due to stress - son has been sick. Postmenopausal: Yes mid 50's HRT use: No. Last Pap: 07/22/2018 normal HPV: 07/20/2018 negative History of abnormal pap: No Last mammogram: 2021 - dx imaging right negative History of abnormal mammogram: Yes has needed additional imaging Sexually active: Yes History of STDS: None Patient concerns for STD exposure: No. Time with current partner: 43 years Pain with intercourse: No Postcoital bleeding: No Hot flashes: No Night sweats: Yes, occasional Vaginal dryness: Yes All documentation from previous visit of 03/11/2022 was copied and pasted, documentation has been reviewed and edited as necessary for today's visit. OB History T2 L2 SAB1 IAB0 Ectopic0 Multiple0 Live Births2 Inspector General History LMP: Postmenopausal Age at Menarche: Age at First : Age at Menopause: Inspector General History Comments: Sexual Activity: Yes; Male Contraception: No contraception data on record PAST MEDICAL HISTORY Diagnosis Date Fibromyalgia Hypothyroidism Osteoarthritis PAST SURGICAL HISTORY Procedure Laterality Date COLONOSCOPY FLX DX W/COLLJ SPEC WHEN PFRMD 08/26/2018 Colonoscopy 10 yr interval LAPAROSCOPY DIAGNOSTIC 1994 FAMILY HISTORY Problem Relation Age of Onset Hypothyroidism Mother Hypertension Mother Stroke Mother Tourette syndrome Son Diabetes Maternal Aunt Cancer Maternal Aunt Thyroid Maternal Aunt SOCIAL HISTORY Social History Tobacco Use Smoking status: Never Smokeless tobacco: Never Vaping Use Vaping Use: Never used Substance Use Topics Alcohol use: No Drug use: No REVIEW OF SYSTEMS Abdomen: No abdominal pain, nausea, vomiting, diarrhea, or constipation. No bloating, early satiety, indigestion, or increased flatulence. Bladder: No dysuria, gross hematuria, urinary frequency, urinary urgency, or incontinence Breast: No breast lumps, nipple d/c, overlying skin changes, redness or skin retraction Allergies and current medication updated:Yes EXAM: BP 118/82 Ht 5' 0 (1.52m) Wt 169 lb (76.7kg) BMI 33.01 kg/(m2). GENERAL: pleasant, female in no apparent distress HEENT: Normocephalic, atraumatic, mucus membranes moist, and no lesions NECK: Supple, full range of motion, no adenopathy, and thyroid normal DERMATOLOGY: Normal, without lesions, non-icteric, and non-hirsute BREAST: soft, non-tender, symmetric, no dominant mass, normal nipple-areolar complex, no lymphadenopathy, and no nipple discharge CHEST: Normal inspiratory effort ABDOMEN: soft, non-tender, and no masses PELVIC: external genitalia normal, normal Bartholin's glands, urethra, Keyes's glands, no vulvar lesions, no cervical lesions, physiologic discharge present, normal appearing perineal body and perianal region BIMANUAL: uterus normal size, shape and consistency, no adnexal masses, and non-tender RECTOVAGINAL: deferred. NEURO: alert and oriented x3,exam grossly non-focal EXTREMITIES: normal ASSESSMENT/PLAN: 1) Health maintenance: Pap/HPV up to date. Mammogram ordered Mammogram up to date Nutrition, exercise and routine health maintenance exams reviewed. Calcium/Vitamin D supplementation information provided. Colon cancer screening: up to date with screening Unintended weight gain: - Eat primarily whole foods. Limit carbs, especially processed carbs. - Do not drink your calories - 30 grams of protein for your first meal of the day decreases your hunger during the day by up to 40 % Premier Protein or generic 30 gm protein 1 gm sugar - Walk for 15 minutes immediately a meal. 2) Follow up one year or sooner as needed Cami Boyce APRN.MIRA [facility] 03-11-2022 Instructions Cami Boyce APRN.MIRA - 03/11/2022 10:42 AM EDT Silicone based lubricant like Astroglide. Replens vaginal moisturizer and lubricant. Revaree vaginal hyaluronic acid vaginal suppositories documented in this encounter [facility] 03-11-2022 History of Presen t illness Narrative Sliver Machine Operator offered: Patient declines. Ivette is a 61 year old who presents for an annual gynecologic exam with complaints, vaginal dryness. Postmenopausal: Yes HRT use: No. Last Pap: 07/22/2018 normal HPV: 07/20/2018 negative History of abnormal pap: No Last mammogram: 2021 normal History of abnormal mammogram: Yes has needed additional imaging Sexually active: Yes History of STDS: None Patient concerns for STD exposure: No. Time with current partner: 42 years Pain with intercourse: Yes Postcoital bleeding: No Hot flashes: No Night sweats: Yes, occasional Vaginal dryness: Yes OB History T2 L2 SAB1 IAB0 Ectopic0 Multiple0 Live Births2 Inspector General History LMP: Postmenopausal Age at Menarche: Age at First : Age at Menopause: Inspector General History Comments: Sexual Activity: No sexual activity data on record; No partner data on record Contraception: No contraception data on record PAST MEDICAL HISTORY Diagnosis Date Hypothyroidism Osteoarthritis PAST SURGICAL HISTORY Procedure Laterality Date COLONOSCOPY FLX DX W/COLLJ SPEC WHEN PFRMD 08/26/2018 Colonoscopy LAPAROSCOPY DIAGNOSTIC 1994 FAMILY HISTORY Problem Relation Age of Onset Thyroid Mother Hypertension Mother Stroke Mother Colon Cancer Father Diabetes Maternal Aunt Cancer Maternal Aunt Thyroid Maternal Aunt SOCIAL HISTORY Social History Tobacco Use Smoking status: Never Smokeless tobacco: Never Vaping Use Vaping Use: Never used Substance Use Topics Alcohol use: No Drug use: No REVIEW OF SYSTEMS Abdomen: No abdominal pain, nausea, vomiting, diarrhea, or constipation. No bloating, early satiety, indigestion, or increased flatulence. Bladder: No dysuria, gross hematuria, urinary frequency, urinary urgency, or incontinence Breast: No breast lumps, nipple d/c, overlying skin changes, redness or skin retraction Allergies and current medication updated:Yes EXAM: BP 126/78 Ht 5' 0 (1.52m) Wt 164 lb (74.4kg) BMI 32.03 kg/(m^2). GENERAL: pleasant, female in no apparent distress HEENT: Normocephalic, atraumatic, mucus membranes moist, and no lesions NECK: Supple, full range of motion, no adenopathy, and thyroid normal DERMATOLOGY: Normal, without lesions, non-icteric, and non-hirsute BREAST: soft, non-tender, symmetric, no dominant mass, normal nipple-areolar complex, no lymphadenopathy, and no nipple discharge CHEST: Normal inspiratory effort ABDOMEN: soft, non-tender, and no masses PELVIC: external genitalia normal, normal Bartholin's glands, urethra, Keyes's glands, no vulvar lesions, no cervical lesions, physiologic discharge present, normal appearing perineal body and perianal region, vaginal rucker and cervix reddened with atrophy BIMANUAL: uterus normal size, shape and consistency, no adnexal masses, and non-tender RECTOVAGINAL: deferred. NEURO: alert and oriented x3,exam grossly non-focal EXTREMITIES: normal ASSESSMENT/PLAN: 1) Health maintenance: Pap/HPV up to date. Mammogram ordered Mammogram up to date Nutrition, exercise and routine health maintenance exams reviewed. Calcium/Vitamin D supplementation information provided. Colon cancer screening: up to date with screening 2. Postmenopausal atrophic vaginitis - ICD9: 627.3, ICD10: N95.2 - discussed treatment options of vaginal moisturizer and lubricant for SI, vaginal hyaluronic acid and vaginal estrogen. Prefers Revaree hyaluronic acid vaginal suppositories - use explained. - Silicone based lubricant recommended. 3) Follow up one year or sooner as needed Cami Boyce APRN.MIRA documented in this encounter [facility] 01-06-2022 History of Presen t illness Narrative Radiology Service Progress Note PATIENT NAME: Ivette Samuel DATE OF SERVICE: January 06, 2022 TIME: 10:30 AM PATIENT IDENTITY VERIFICATION COMPLETED USING TWO (2) IDENTIFIERS: Name and Date of confirmed by patient verbally. FALL SCREENING: Has the patient had 2 falls in the last year or 1 fall with injury or currently using an Ambulatory Assistive Device (Walker, Cane, Wheelchair, Crutches, etc.)? No PATIENT GENDER DATA: Female. status: : No status: NO. PATIENT RELEVANT IMPLANT DATA REVIEWED: Not Applicable RADIOLOGY DEPARTMENT: Mammography PERIPHERAL IV DATA: Not applicable SIGNED BY: Damien Ding January 06, 2022 10:30 AM documented in this encounter [facility] 10-24-2021 Miscellaneous Notes October 24, 2021 PID: [id number] Ivette Samuel [address] [facility] [address] [address] [place] [address] Dear Ms. Samuel, Your recent breast imaging exam on 10/24/2021 showed a possible finding that requires additional imaging studies for a complete evaluation. Most such findings are probably benign (not cancer). Your mammogram demonstrates that you have dense breast tissue, which could hide abnormalities. Dense breast tissue, in and of itself, is a relatively common condition. Therefore, this information is not provided to cause undue concern; rather, it is to raise your awareness and promote discussion with your health care provider regarding the presence of dense breast tissue in addition to other risk factors. If you have a healthcare provider who ordered/prescribed your screening mammogram: Please call [phone] or [phone]: [phone] to schedule an appointment for your additional imaging (if you have not already done so). If you DO NOT have a healthcare provider (ie you did not have an order/prescription for your screening mammogram): Please call to schedule an appointment for your additional imaging (if you have not already done so). You must have an order/prescription from your physician when calling to schedule your appointment. If your order/prescription is not electronic, you must bring the hard copy with you on the day of your exam to avoid delays. Your imaging studies and reports are kept on file at [facility] as part of your permanent medical record, and are available for your continuing care. Thank you for allowing us to help in meeting your health care needs. Sincerely, Dr. Mitchell Interpreting Radiologist [facility] (Additional imaging) documented in this encounter [facility] 10-24-2021 History of Presen t illness Narrative Radiology Service Progress Note PATIENT NAME: Ivette Samuel DATE OF SERVICE: October 24, 2021 TIME: 2:03 PM PATIENT IDENTITY VERIFICATION COMPLETED USING TWO (2) IDENTIFIERS: Name and Date of confirmed by patient verbally. FALL SCREENING: Has the patient had 2 falls in the last year or 1 fall with injury or currently using an Ambulatory Assistive Device (Walker, Cane, Wheelchair, Crutches, etc.)? No PATIENT GENDER DATA: Female. status: : No status: NO. PATIENT RELEVANT IMPLANT DATA REVIEWED: Not Applicable RADIOLOGY DEPARTMENT: Mammography PERIPHERAL IV DATA: Not applicable SIGNED BY: Damien Samson October 24, 2021 2:03 PM documented in this encounter [facility] 10-04-2021 Miscellaneous Notes Phone call placed patient advised (see prior provider encounter) Patient verbalized understanding, agreed with plan of care. Beba Banegas LPN ----- Message from Jeniffer Knapp APRN.PROCESS TREATER sent at 10/04/2021 8:21 AM EDT ----- Disregard previous note- the COVID test is POSITIVE> please advise patient. The CDC recommends that people refrain from work and isolate themselves until the following criteria are met: At least 24 hours have passed since last fever without the use of fever-reducing medications Other symptoms have improved At least 5 days have passed since symptoms first appeared Jeniffer Knapp APRN.CNP documented in this encounter [facility] 10-03-2021 History of Presen t illness Narrative CC: Patient presents with: Cough: chills, YOVANI ear pain, congestion x2 days HPI: Ivette Samuel is a 60 year old female who presents to the office with complaint of head congestion, cough, nonproductive, ear symptoms and fever for a few days. Symptoms are staying the same. Associated symptoms includes sore throat bodyaches. Denies nausea, vomiting and diarrhea. Treatments tried include nothing so far. with no relief of symptoms. Sick contacts: unknown. History of asthma, frequent episodes of bronchitis, chronic bronchitis, bronchiectasis or COPD: No Smoker: No Seasonal/environmental allergies: No The ROS is otherwise negative. The patient's pmh, medications, allergies, and past visits are reviewed. PHYSICAL EXAM: BP 110/78 Pulse 94 Temp 37.3 C (99.2 F) Resp 22 Wt 72.6 kg (160 lb) SpO2 94% BMI 31.25 kg/m General appearance: alert, cooperative, pleasant, in no acute distress Head: Normocephalic Eyes: EOM's intact, conjunctiva pink and moist, no icterus, sclera white, non-injected Ears: Right ear: External ear/canal- Normal, TM - clear with good landmarks. Left ear: External ear/canal- Normal, TM - clear with good landmarks Oropharynx:mild erythema, without exudates present Heart: Negative. RRR without obvious murmur, gallop, or rubs. No ectopy. Lungs: clear to auscultation, without rales or wheeze, good air exchange PAST MEDICAL HISTORY Diagnosis Date Hypothyroidism Osteoarthritis PAST SURGICAL HISTORY Procedure Laterality Date COLONOSCOPY FLX DX W/COLLJ SPEC WHEN PFRMD 08/26/2018 Colonoscopy LAPAROSCOPY DIAGNOSTIC 1994 ALLERGIES Penicillin MEDICATIONS meloxicam (MOBIC) 15 mg tablet Take 1 tablet by mouth once daily. levothyroxine (SYNTHROID) 150 mcg tablet Take 1 tablet by mouth daily before breakfast. glucosamine/msm/chondroitin A (GLTTOUOHARK-VMNATV-QIU ORAL) Take by mouth. ascorbic acid, vitamin C, (VITAMIN C) 500 mg tablet Take 500 mg by mouth once daily. VITAMIN B COMPLEX ORAL Take by mouth. MULTI-VITAMIN ORAL Take by mouth. Cholecalciferol, Vitamin D3, (VITAMIN D-3) 2,000 unit cap Take by mouth. albuterol HFA (PROAIR HFA) 90 mcg/actuation inhaler Inhale 2 Puffs as instructed every 6 hours as needed for Wheezing/Shortness of Breath. FAMILY HISTORY Problem Relation Age of Onset Thyroid Mother Hypertension Mother Stroke Mother Colon Cancer Father Diabetes Maternal Aunt Cancer Maternal Aunt Thyroid Maternal Aunt Social History Tobacco Use Smoking status: Never Smoker Smokeless tobacco: Never Used Vaping Use Vaping Use: Never used Substance Use Topics Alcohol use: No Drug use: No ASSESSMENT/PLAN: 1. Cough - ICD9: 786.2, ICD10: R05.9 (primary diagnosis) - COVID WITH FLUA+B, ROUTINE - STREP A MOLECULAR (POC) 2. Sore throat - ICD9: 462, ICD10: J02.9 - STREP A MOLECULAR (POC) - negative At this time instructed to try over the counter medication for supportive therapy. Waiting on viral swab results. Potential red flag symptoms discussed with the patient. Reviewed appropriate action plan to take if red flag symptoms occur. Patient agreeable to treatment plan. Naheed Gunderson APRN.CNP documented in this encounter [facility] Diagnosis Encounter for gynecological examination (general) (routine) without abnormal findings Encounter for screening mammogram for breast cancer [facility] Diagnosis Abnormal mammogram- Primary Abnormal mammogram, unspecified [facility] Diagnosis Abnormal mammogram Abnormal mammogram, unspecified [facility] Diagnosis Encounter for gynecological examination with abnormal finding- Primary Routine gynecological examination Postmenopausal atrophic vaginitis Encounter for screening mammogram for breast cancer Dense breast tissue on mammogram [facility] Diagnosis Encounter for screening mammogram for breast cancer Dense breast tissue on mammogram [facility] Diagnostic Procedure Only (Routine) - Pending Review Specialty Diagnoses / Procedures Referred By Leny hilliard Referred To Contact [facility] Diagnoses Abnormal mammogram Procedures KATHERIN DIAGNOSTIC RT DIAGNOSTIC MAMMOGRAPHY COMPUTER-AIDED DETCJ UNI Sharlene Carpenter APRN.CNP [address] [place] [place] [address] [facility] [address] [place] [address] Referral ID Status Reason Start Date Expiration Date Visits Requested Visits Authorized [id number] Pending Review Auto-Generat ed Referral 10/27/2021 11/26/2022 1 1 * Diagnostic Procedure Only (Routine) - Pending Review Specialty Diagnoses / Procedures Referred By Leny hilliard Referred To Contact [facility] Diagnoses Abnormal mammogram Procedures US BREAST LTD RT US BREAST UNI REAL TIME WITH IMAGE LIMITED Sharlene Carpenter APRN.CNP [address] [place] [address] [facility] [address] [place] [address] Referral ID Status Reason Start Date Expiration Date Visits Requested Visits Authorized [id number] Pending Review Auto-Generat ed Referral 10/27/2021 11/26/2022 1 1 [facility] for referral (narrative)* Diagnostic Procedure Only (Routine) - Pending Review Specialty Diagnoses / Procedures Referred By Contac t Referred To Contact [facility] Diagnoses Encounter for screening mammogram for breast cancer Dense breast tissue on mammogram Procedures KATHERIN SCREENING W JULIANA SCREENING DIGITAL BREAST TOMOSYNTHESIS BI SCREENING MAMMOGRAPHY BI 2-VIEW BREAST INC Cami Stein APRN.PROCESS TREATER [address] [place] [address] [facility] [address] [place] [address] Referral ID Status Reason Start Date Expiration Date Visits Requested Visits Authorized [id number] Pending Review Auto-Generat ed Referral 03/11/2022 04/10/2023 1 1 [facility] for visit Narrative* Diagnostic Procedure Only (Routine) - Closed Specialty Diagnoses / Procedures Referred By Leny t Referred To Contact [facility] Diagnoses Abnormal mammogram Procedures KATHERIN DIAGNOSTIC RT DIAGNOSTIC MAMMOGRAPHY COMPUTER-AIDED DETCSharlene Urias APRN.PROCESS TREATER [address] [place] [place] [address] [facility] [address] [place] [address] Referral ID Status Reason Start Date Expiration Date V isits Requested Visits Authorized [id number] Closed Auto-Generate d Referral 10/27/2021 11/26/2022 1 1 [facility] for visit Narrative* Diagnostic Procedure Only (Routine) - Closed Specialty Diagnoses / Procedures Referred By Leny t Referred To Contact [facility] Diagnoses Encounter for screening mammogram for breast cancer Dense breast tissue on mammogram Procedures KATHERIN SCREENING W JULIANA SCREENING DIGITAL BREAST TOMOSYNTHESIS BI SCREENING MAMMOGRAPHY BI 2-VIEW BREAST INC Cami Stein APRN.PROCESS TREATER [address] [place] [place] [address] [facility] [address] [place] [address] Referral ID Status Reason Start Date Expiration Date V isits Requested Visits Authorized [id number] Closed Auto-Generate d Referral 03/11/2022 04/10/2023 1 1 [facility] Summary Purpose Family History No Family History Records FoundNo Family History Records FoundThere may be information available, but it has not been provided by the sender.No Family History Records FoundNo Family History Records Found Advance Directives No Advanced Directives Records FoundDocuments on File Type Date Recorded 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 Assessments There may be information available, but it has not been provided by the sender. Review of System There may be information available, but it has not been provided by the sender. History of Present Illness There may be information available, but it has not been provided by the sender. Health Concerns Infection Onset Date Last Indicated Resolved Time COVID-19 Rule-Out 10/03/2021 10/03/2021 Infection Onset Date Last Indicated Resolved Time COVID-19 Confirmed 10/03/2021 10/03/2021 Additional Source Comments INFORMATION SOURCE (unrecogn ized section and content) DATE CREATED AUTHOR AUTHOR'S ORGANIZ ATION 12/05/2018 [facility] DATE CREATED AUTHOR AUTHOR'S ORGANIZ ATION 11/22/2020 [facility] ([place] DATE CREATED AUTHOR AUTHOR'S ORGANIZ ATION 05/20/2023 [facility] Reason for Visit (unrecogniz ed section and content) Reason Comments Cough chills, YOVANI ear pain , congestion x2 days Reason Comments Results Reason Comments Orders Reason Comments Well Woman Reason Comments Mammogram Result Call Back Source Comments (unrecognize d section and content) In the event this informatio n is protected by the Federal Confidentiality of Alcohol and Drug Abuse Patient Records regulations: The Federal rules restrict any use of the information to criminally investigate or prosecute any alcohol or drug abuse patient.[facility] the event this information is protected by the Federal Confidentiality of Alcohol and Drug Abuse Patient Records regulations: The Federal rules restrict any use of the information to criminally investigate or prosecute any alcohol or drug abuse patient.[facility] the event this information is protected by the Federal Confidentiality of Alcohol and Drug Abuse Patient Records regulations: The Federal rules restrict any use of the information to criminally investigate or prosecute any alcohol or drug abuse patient.[facility] the event this information is protected by the Federal Confidentiality of Alcohol and Drug Abuse Patient Records regulations: The Federal rules restrict any use of the information to criminally investigate or prosecute any alcohol or drug abuse patient.[facility] the event this information is protected by the Federal Confidentiality of Alcohol and Drug Abuse Patient Records regulations: The Federal rules restrict any use of the information to criminally investigate or prosecute any alcohol or drug abuse patient.[facility] the event this information is protected by the Federal Confidentiality of Alcohol and Drug Abuse Patient Records regulations: The Federal rules restrict any use of the information to criminally investigate or prosecute any alcohol or drug abuse patient.[facility] the event this information is protected by the Federal Confidentiality of Alcohol and Drug Abuse Patient Records regulations: The Federal rules restrict any use of the information to criminally investigate or prosecute any alcohol or drug abuse patient.[facility] the event this information is protected by the Federal Confidentiality of Alcohol and Drug Abuse Patient Records regulations: The Federal rules restrict any use of the information to criminally investigate or prosecute any alcohol or drug abuse patient.[facility] the event this information is protected by the Federal Confidentiality of Alcohol and Drug Abuse Patient Records regulations: The Federal rules restrict any use of the information to criminally investigate or prosecute any alcohol or drug abuse patient.[facility] the event this information is protected by the Federal Confidentiality of Alcohol and Drug Abuse Patient Records regulations: The Federal rules restrict any use of the information to criminally investigate or prosecute any alcohol or drug abuse patient.[facility] Care Teams (unrecognized sec tion and content) Tool Setter Relationship Specialty Start Date End Date JonesJaspreet joe Odette, [address] [address] PCP - General Family Practice 10/03/21 Tool Setter Relationship Specialty Start Date End Date Jaspreet Goldman DO [address] [place], [place] [id number] PCP - General Family Practice 10/03/21 Tool Setter Relationship Specialty Start Date End Date Jaspreet Goldman DO [address] [place], [place] [id number] PCP - General Family Practice 10/03/21 Tool Setter Relationship Specialty Start Date End Date Jaspreet Goldman DO [address] [place], [place] [address] PCP - General Family Practice 10/03/21 Tool Setter Relationship Specialty Start Date End Date Jaspreet Goldman DO [address] [place] [address] PCP - General Family Practice 10/03/21 Tool Setter Relationship Specialty Start Date End Date Jaspreet Goldman DO [address] [place] [address] PCP - General Family Medicine 10/03/21 Tool Setter Relationship Specialty Start Date End Date Jaspreet Goldman DO [address] [place] [address] PCP - General Family Medicine 10/03/21 Tool Setter Relationship Specialty Start Date End Date Jaspreet Goldman DO [address] [place] [address] PCP - General Family Medicine 10/03/21 Tool Setter Relationship Specialty Start Date End Date Jaspreet Goldman DO [address] [place] [address] PCP - General Family Medicine 10/03/21 FOR RECORDS PERTAINING TO PATIENTS WHO ARE OR HAVE BEEN ENROLLED IN A CHEMICAL DEPENDENCY/SUBSTANCEABUSE PROGRAM, SOME INFORMATION MAY BE OMITTED. This clinical summary was aggregated from multiple sources. Caution should be exercised in using it in the provision of clinical care. This summary normalizes information from multiple sources, and as a consequence, information in this document may materially change the coding, format and clinical context of patient data. In addition, data may be omitted in some cases. CLINICAL DECISIONS SHOULD BE BASED ON THE PRIMARY CLINICAL RECORDS. [facility] [employer] [facility]. provides no warranty or guarantee of the accuracy or completeness of information in this document.
[2023-06-02 16:17] LABS: AST(SGOT) 24 U/L (15-37); Alanine Aminotransfer ALT/SGPT 28 U/L (13-56); Albumin, Serum 3.9 g/dL (3.2-5.0); Alkaline Phosphatase 83 U/L (45-117); Bilirubin, Direct 0.15 mg/dL (0.00-0.30); GGTP 49 U/L (5-55); Globulin 3.6 g/dL (2.2-4.2); Protein, Total 7.5 g/dL (6.4-8.2)
[2023-06-02 16:48] LABS: Hepatitis B Surface Antibody Non-Reactive; Hepatitis C Antibody Non-Reactive (Nonreactive)
[2023-06-04 11:09] LABS: ANTINUCLEAR ANTIBODIES DIRECT Negative (Negative)
[2023-06-08 00:06] LABS: HEPATITIS B SURFACE AG Negative (Negative); Hep C Antibodies Non Reactive (Non Reactive); Hepatitis A AB, Total Positive (Negative); Hepatitis A IgM Antibody Negative (Negative); Hepatitis B Core AB IgM Negative (Negative); Lyme IgG P18 Ab Absent (.); Lyme IgG P23 Ab Absent (.); Lyme IgG P28 Ab Absent (.); Lyme IgG P30 Ab Absent (.); Lyme IgG P39 Ab Absent (.); Lyme IgG P41 Ab Present (.); Lyme IgG P45 Ab Absent (.); Lyme IgG P58 Ab Present (.); Lyme IgG P66 Ab Absent (.); Lyme IgG P93 Ab Absent (.); Lyme IgG WB Interpretation Negative (.); Lyme IgM P23 Ab Absent (.); Lyme IgM P39 Ab Present (.); Lyme IgM P41 Ab Absent (.); Lyme IgM WB Interpretation Negative (.)
== END | disposition home or self-care (01) ==
LOC: BFHLAB 11:12
PROVIDERS: PCP Family Medicine; Visit Provider Family Medicine
DX: R74.8 Abnormal levels of other serum enzymes (principal); M13.0 Polyarthritis, unspecified; K75.9 Inflammatory liver disease, unspecified
CPT/HCPCS: 36415; 80074; 80076; 82977; 86038; 86225; 86235; 86617; 86706; 86708; 86803

== ENCOUNTER → 2024-02-07 | Outpatient (CLI) | payer OTHER, SELFPAY | END | disposition home or self-care (01) | LOC: LABSPEC 13:14 | PROVIDERS: PCP Nurse Practitioner Family; Referring Provider Nurse Practitioner Family; Visit Provider Nurse Practitioner Family | DX: N39.0 Urinary tract infection, site not specified (principal) | CPT/HCPCS: 87086; 87088; 87186 ==

== ENCOUNTER 2024-04-11 10:30 | Outpatient (RCR) | payer OTHER, SELFPAY ==
--- NOTE | 2024-02-28 12:33 | HP.PTEVAL_ITS ---
Patient's Visit Information Visit Information Visit Information: IVETTE SAMEUL is a 63 year old F referred to Physical Therapy by PETE Hedrick with a diagnosis of M54.2, M54.6 - NECK AND THORACIC PAIN. Date of Evaluation: 02/28/24 Physical Therapist: Celine Lemons PT, Cert MDT Visit Plan Frequency: 2x /Week Duration: 4-6 Weeks Plan: Scapular Strengthening and B Pec/UT/Levator/Scalene Stretching to help reduce stress on Cervical Spine with Daily Activities. US at 1.3 W/CM2 100% to R Neck Musculature in Sitting. Moist Heat to Neck as needed. Instruction in Proper Posture Control, Ergonomics with ADL's and Appropriate Activity Modifications. Postural Strengthening. HEP Instructions. 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 Disability: NO Present symptoms: CENTRAL NECK PAIN. L UPPER ARM PAIN. PATIENT DENIES YOVANI UE NUMBNESS AND TINGLING. Present since: NOVEMBER 2023 Pain Scale: Worst - 7/10 Least - 3/10 Currently: 6/10 Commenced as a result of: NO APPARENT REASON OTHER THAN STRESS FROM TAKING CARE OF 27 YEAR OLD SON THAT IS SICK AND HAS A LOT OF PHYSICAL ISSUES - AUTOIMMUNE DZ. Symptoms at onset: NECK AND UPPER BACK PAIN. PATIENT REPORTS UPPER BACK PAIN WENT AWAY WITH BACK ADJUSTMENTS BY MI[facility]. Worse: LYING DOWN, MOVING UP/TURNING IT, BUMPS RIDING ON VAN Better: ICY HOT, ADJUTMENTS FROM GINNA CALLOWAY CNP X 5-6 Disturbed sleep: YES Previous history/Previous treatment: NO PRIOR NECK OR UPPER BACK PROBLEMS This episode: ADJUSTMENTS BY GINNA CALLOWAY CNP X 5-6 INCLUDING NECK AND UPPER BACK. Dizziness: NO Tinnitus: NO Nausea: NO Shortness of Breath: NO Difficulty Swollowing: NO Gait: NORMAL Accidents: NO Unexplained weight loss: NO Imaging: NO PMH/Recent major surgery: FIBROMYALGIA, OA, HYPOTHYROIDISM. H/O CHRONIC HAND PAIN. Objective Objective: Sitting Posture/Standing Posture: FORWARD HEAD AND ROUNDED SHOULDERS. INCREASED KYPHOSIS Active Correction of posture: BETTER. DECREASED NECK PAIN WITH ACTIVE AND PASSIVE POSTURE CORRECTION BUT L UPPER ARM PAIN PROVOKED IF MAINTAINS CORRECTION ACTIVELY. REPORTS SIGNIFICANT NECK PAIN REDUCTION AFTER A FEW MINUTES OF SITTING WITH LUMBAR SUPPORT. Other Observations: INDEP GAIT INTO PT WITHOUT AD. Sensory deficit: YOVANI UE LIGHT TOUCH SENSATION GROSSLY INTACT AND SYMMETRICAL ROM deficit: R ARM ELEVATION TO 132 DEG , L ARM ELEVATION TO 120 DEG. ELBOW, FOREARM, WRIST AND HAND AROM WFL. Motor deficit: R SHLD 4-/5, ELBOW 4/5, R BACKSIDE GRINDER 25 LBS, L SHLD 4-/5, ELBOW 4/5, L BACKSIDE GRINDER 14 LBS. Reflexes: 1+ YOVANI UE'S Dural Signs: POSITIVE L UE. Cervical Mvmt Loss: Flex: NIL Pro: NIL Ext: GILA Ret: GILA RSB: GILA LSB: GILA R Rot: GILA L Rot: MOD Postural strength: POOR Balance/Special Test Scores Oswestry Low Back Score: 21 Goals Goal 1:: DECREASE C/O NECK AND UE PAIN BY AT LEAST 50% TO EASE ADL'S. Goal Time Frame: 4-6 Weeks Goal 2:: INCREASE PAINFREE CERVICAL ROM TO EASE ADL'S Goal Time Frame: 4-6 Weeks Goal 3:: PATIENT WILL BE ABLE TO MAINTAIN IMPROVED POSTURE THROUGHOUT THERAPY SESSION WITHOUT CUEING TO DEMONSTRATE IMPROVED POSTURAL AWARENESS, STRENGTH AND FLEXIBILTY Goal Time Frame: 4-6 Weeks Goal 4:: INDEP HEP Goal Time Frame: 4-6 Weeks Rehabilitation Potential Physical Therapy Diagnosis: NECK AND POSTURAL STIFFNESS AND WEAKNESS WITH C/O NECK AND L UE PAIN. Rehabilitation Potential: Good Anticipated Interventions Patient/Client Instruction: Educate patient on: Condition, Plan of Care and Risk Factors For the Purpose of:: To improve self management Therapeutic Exercise to Include: Strength training, Body mechanics, Postural training, Flexibilty training, Neuromotor development and Scapular Strength/Stabilization For the Purpose of:: To decrease pain, To increase ROM, To improve muscle performance and motor function, To improve ability to perform ADL's, To increase tolerance to activity/condition/position, To improve ability of physical actions for home/community/work/leisure, To decrease soft tissue restriction, To increase flexibility/ROM and To improve self management Cryotherapy (ice pack, ice massage): Yes Thermo therapy (hot pack): Yes Ultrasound (thermal/non thermal): Yes For the Purpose of:: To decrease pain, To decrease swelling/inflammation and To improve nutrient delivery to tissue Text: Thank you for the opportunity to evaluate your patient. For Medicare and Medicare HMO plans, please review the plan of care and approve it. It will need to be FAXED BACK to us at [phone] for Medicare purposes. For Medicare only, by signing this I certify the plan of care. Please let me know if there are questions or concerns regarding this plan of care. Physician Signature: Date:
== END 2024-04-11 19:00 | disposition home or self-care (01) ==
LOC: PT 10:30
PROVIDERS: PCP Nurse Practitioner Family; Referring Provider Nurse Practitioner Family; Visit Provider Nurse Practitioner Family
DX: M54.2 Cervicalgia (principal); M54.6 Pain in thoracic spine
CPT/HCPCS: 97035; 97110; 97162; 97530

== ENCOUNTER → 2024-04-18 | Outpatient (CLI) | payer OTHER, SELFPAY ==
--- NOTE | 2024-04-18 11:46 | RAD_ITS ---
INDICATION: PAIN, RADICULOPATHY EXAMINATION/TECHNIQUE: X-RAY - XR Spine Cervical 4 or 5 Views COMPARISON: No relevant prior comparison study available FINDINGS: VERTEBRAE: Preserved vertebral body height. No fracture. No spondylolisthesis. Preservation of the normal cervical lordosis. No significant facet arthropathy. The neural foramina appear patent. DISCS: There is multilevel degenerative disc disease. NECK SOFT TISSUES: No prevertebral soft tissue widening. LUNG APICES: Clear. RAD/Cerv Spine 4 or 5 Views IMPRESSION: Multilevel degenerative disc disease. Electronically Signed: Luba Casey MD at 9:18 EST ,
== END | disposition home or self-care (01) ==
LOC: MTRAD 11:45
PROVIDERS: PCP Nurse Practitioner Family; Referring Provider Family Medicine; Visit Provider Family Medicine
DX: M54.12 Radiculopathy, cervical region (principal)
CPT/HCPCS: 72050

== ENCOUNTER → 2024-05-04 | Outpatient (CLI) | payer OTHER, SELFPAY ==
--- NOTE | 2024-05-04 10:04 | MRI_ITS ---
STUDY: MRI CERVICAL SPINE WITHOUT CONTRAST REASON FOR EXAM: Female, 63 years old. LT CERVICAL RADICULOPATHY, neck pain TECHNIQUE: Standardized fat and water weighted pulse sequences were obtained in the sagittal and axial planes. COMPARISON: Cervical spine radiographs 04/18/2024. FINDINGS: Normal foramen magnum and brainstem-cervical cord junction. Normal craniovertebral junction. Normal anterior atlantoaxial articulation. Normal odontoid process. Normal cervical lordosis. No suspicious recent or remote fractures of the vertebral bodies and posterior osseous elements. C2-3: Normal endplates. Mild disc space height narrowing. Minimal degenerative retrolisthesis of C2 on C3 is unchanged. Normal central canal and intervertebral neuroforamina. Ankylosis of the C2-C3 facet joints. C3-4: Normal endplates. Mild disc space height narrowing. Mild degenerative retrolisthesis of C3 on C4. Normal central canal and intervertebral neuroforamina. C4-5: Mild Modic type I degenerative vertebral marrow edema underneath the vertebral endplates. Normal disc height. Abnormal edema of the left C4 and left C5 articular pillars and left facet joint. No joint effusion. Normal right facet joint. Normal central canal and intervertebral neuroforamina. C5-6: Normal endplates. Normal disc height, signal and morphology. Normal central canal and intervertebral neural foramina. C6-7: Normal endplates. Normal disc height, signal and morphology. Normal central canal and intervertebral neural foramina. C7-T1 and T1-T2: Normal endplates. Normal disc height, signal and morphology. Normal central canal and intervertebral neural foramina. T2-T3, T3-T4, T4-T5, T5-T6 and T6-T7: (Sagittal only). Normal endplates. Normal disc height, signal and morphology. Normal central canal and intervertebral neuroforamina. Normal cervical cord. Normal upper thoracic spinal cord. Normal included midline brainstem and cerebellum. Normal visualized soft tissue structures. MRI/Spine Cervical (Routine) IMPRESSION: 1. 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 This is most likely the source of patients neck pain and left cervical radiculopathy. 2. Ankylosis of the C2-C3 facet joints with minimal anterolisthesis of C2 on C3. 3. Mild degenerative retrolisthesis of C3 on C4. 4. Normal central canal and cervical intervertebral neuroforamina. 5. No MRI evidence of cervical extruded disc fragment or cervical disc protrusion. 6. Normal cervical spinal cord. Electronically Signed: Christiano Sotomayor MD at 16:13 EST ,
== END | disposition home or self-care (01) ==
LOC: MRI 09:59
PROVIDERS: PCP Family Medicine; Referring Provider Family Medicine; Visit Provider Family Medicine
DX: M54.12 Radiculopathy, cervical region (principal); M50.30 Other cervical disc degeneration, unspecified cervical region
CPT/HCPCS: 72141

== ENCOUNTER → 2024-07-17 | Outpatient (CLI) | payer OTHER, SELFPAY | END | disposition home or self-care (01) | PROVIDERS: PCP Family Medicine; Referring Provider Nurse Practitioner Family; Visit Provider Nurse Practitioner Family | DX: N39.0 Urinary tract infection, site not specified (principal) | CPT/HCPCS: 87086; 87088 ==

== ENCOUNTER → 2024-08-29 | Outpatient (CLI) | payer OTHER, SELFPAY ==
[2024-08-29 15:58] LABS: Absolute Lymphocyte Count 1.99 X10^3/uL (0.83-4.51); Absolute Neutrophil Count 2.8 X10^3/uL (2.0-7.7); Basophil# 0.09 X10^3/uL; Basophil% 1.7 % (0-1); Eosinophils% 3.7 % (0-5); Hemoglobin 14.7 g/dL (12.0-15.0); Lymphocyte # 1.99 X10^3/ul (0.83-4.51); Lymphocyte % 36.6 % (19-41); Mean Corpuscular Hgb 28.9 pg (27.0-32.0); Mean Corpuscular Volume 90.6 fL (81-99); Mean Platelet Vol. 9.5 fl (6.2-12.0); Monocyte% 5.5 % (0-10); NRBC Flagged by Analyzer 0 % (0-5); Neutrophil # 2.84 X10^3/uL (2.7-7.7); Neutrophil % 52.3 % (47-70); Platelet Count 318 K/mm3 (150-450); RBC Distribution Width CV 13.5 % (11.6-14.6); RBC Distribution Width SD 45.3 fl (35.1-43.9); Red Blood Count 5.08 M/mm3 (4.2-5.4); White Blood Count 5.4 K/mm3 (4.4-11.0)
[2024-08-29 16:43] LABS: Color, Urine Straw (Yellow); Glucose, Dipstick Normal (Normal); Ketone-Dipstick Negative (Negative); Leukocyte Esterase-Dipstick Negative /ul (Negative); Nitrite-Dipstick Negative (Negative); Occult Blood-Urine Negative /ul (Negative); Protein-Dipstick Negative (Negative); Specific Gravity, Urine 1.015 (1.002-1.030); Urine Bilirubin Dipstick Negative (Negative); Urine Clarity Clear (Clear); Urine Urobilinogen Normal (Normal)
[2024-08-29 16:58] LABS: ALB/GLOB Ratio 1.3 RATIO (0.9-2.4); AST(SGOT) 23 U/L (<=31); Alanine Aminotransfer ALT/SGPT 22 U/L (<=34); Albumin, Serum 4.3 g/dL (3.4-4.8); Alkaline Phosphatase 80 U/L (35-104); Anion Gap 11 (5-15); BUN 14 mg/dL (4-19); BUN/Creat Ratio 19.2 RATIO (10-20); Calcium,Total 9.5 mg/dL (7.6-11.0); Carbon Dioxide 26.8 mmol/L (21.0-32.0); Chloride 102 mmol/L (98-108); Creatinine, Serum 0.72 mg/dL (0.70-1.20); EST Glomerular Filtration Rate 93 (>60); Globulin 3.2 g/dL (2.2-4.2); Glucose 85 mg/dL (70-99); Potassium 4.1 mmol/L (3.3-5.1); Protein, Total 7.5 g/dL (5.9-8.4); Sodium Level 139 mmol/L (133-145); Total Bilirubin 0.34 mg/dL (0.00-1.30); Vitamin B12 520 pg/mL (180-914); Vitamin D,25 Hydroxy 14.8 ng/mL (30-100)
[2024-08-31 13:08] LABS: ANTINUCLEAR ANTIBODIES DIRECT Negative (Negative)
== END | disposition home or self-care (01) ==
LOC: MTLAB 13:40
PROVIDERS: PCP Family Medicine; Referring Provider Family Medicine; Visit Provider Family Medicine
DX: R35.0 Frequency of micturition (principal); R53.83 Other fatigue; R76.8 Other specified abnormal immunological findings in serum; E03.9 Hypothyroidism, unspecified
CPT/HCPCS: 36415; 80053; 81002; 82306; 82607; 84439; 84443; 85025; 86038; 86225; 86235; 87086; 87088

== ENCOUNTER → 2024-12-02 | Outpatient (CLI) | payer OTHER, SELFPAY ==
--- NOTE | 2024-12-02 10:29 | US_ITS ---
PROCEDURE: KIDNEY AND BLADDER 12/02/2024 REASON FOR EXAM: UTI TECHNIQUE: KIDNEY AND BLADDER COMPARISON: none FINDINGS: Right kidney measures 10.9 cm and left kidney measures 10.2 cm. Extrarenal pelvis of the right kidney. Normal echotexture of bilateral kidneys. No hydronephrosis. No renal stones. Urinary bladder has postvoid volume of 129ml suggestive of urinary retention. US/Kidney and Bladder IMPRESSION: Urinary retention. No hydronephrosis. Reading Location: [facility]
--- OUTSIDE RECORDS SUMMARY | 2024-12-02 10:31 | XMS RPT_ITS | CCD ---
Author Organization [facility] Care Team Providers Care Road Crew Member Name Role Phone Usman Lackey MD Unavailable Dr. Srini Farooq Primary Care Provider Dr. Srini Farooq Referring Provider Dr. Mateus Dixon Attending Provider [phone] Jaspreet Carlton DO A Primary Care Provider Jaspreet Carlton DO A Primary Care Provider Jaspreet Carlton DO A Primary Care Provider Dr. Srini Farooq Referring Provider Dr. Mateus Dixon Attending Provider [phone] Dr. Jaspreet Carlton Primary Care Provider Dr. Jaspreet Carlton Referring Provider Dr. Yuriy Wallace Attending Provider [phone] Jaspreet Carlton DO A Primary Care Provider Jaspreet Carlton DO A Primary Care Provider DR JASPREET CARLTON DO A Primary Care Physician [phone] FAN CHAN Referring Unavailable JASPREET CARLTON Primary Care Unavailable Brodie OIL AND GAS LEASE PUMPER-C, Ginna Primary Care Provider Brodie OIL AND GAS LEASE PUMPER-CGinna Attending Provider [phone] Brodie OIL AND GAS LEASE PUMPER-C, Ginna Referring Provider [phone] Jaspreet Carlton DO Attending Provider Dr. Jaspreet Carlton DO Referring Provider Dr. Jaspreet Carlton DO Primary Care Provider Dr. Jaspreet Carlton DO Attending Provider [phone] Bianka TAYLOR, Dr. Vogel Referring Provider [phone] Brodei OIL AND GAS LEASE PUMPER-C, Ginna Attending Provider Brodie OIL AND GAS LEASE PUMPER-C, Ginna Referring Provider [phone] FAN SHETH DO Attending Unavailable BIANKA TAYLOR, DR VOGEL A Primary Care Unavailab le BRODIE BEAM DYER OPERATOR, GINNA Attending Unavailable BIANKA , DR JASPREET Pino Primary Care Unavailab le Bianka, Jaspreet Attending Unavailable Bianka, Jaspreet Referring Unavailable Bianka, Jaspreet Primary Care Unavailable Yanet Grimm Attending Unavailable Yanet Grimm Referring Unavailable Bianka, Jaspreet Primary Care Unavailable Brodie, Ginna Primary Care Unavailable Brodie, Ginna Attending Unavailable Brodie, Ginna Referring Unavailable Brodie, Ginna Primary Care Unavailable Bianka, Jaspreet Attending Unavailable Bianka, Jaspreet Referring Unavailable Bianka, Jaspreet Primary Care Unavailable Bianka, Jaspreet Attending Unavailable Bianka, Jaspreet Referring Unavailable Brodie, Ginna Referring Unavailable Brodie, Ginna Primary Care Unavailable Brodie, Ginna Attending Unavailable Bianka, Jaspreet Primary Care Unavailable Brodie, Ginna Attending Unavailable Brodie, Ginna Referring Unavailable KEENANSHARLENE Referring Unavailable BIANKA, JASPREET A Primary Care Unavailable BIANKA, JASPREET A Primary Care Unavailable ALVARO DUMAS Attending Unavailable KEENANSHARLENE MONTELONGO Attending Unavailable BIANKA, JASPREET A Primary Care Unavailable FAN CHAN Referring Unavailable BIANKA, JASPREET A Primary Care Unavailable BIANKA, JASPREET A Primary Care Unavailable MIKAL GRUBER Attending Unavailable Allergies Allergy Classification Reported Allergen(s) Allergy Type Date of Onset Reaction(s) Facility (11 sources) Penicillin; Translations: [PENICILLIN] Drug Allergy 8 Unknown, Rash [facility] Work Phone: (2 sources) Environmental Allergies: Uncoded; Translations: [Environmental Allergies: Uncoded] Allergy to substance 3 NEEDS [facility] (8 sources) Sulfonamides (Antibiotic); Translations: [SULFA (SULFONAMIDE ANTIBIOTICS)] Drug Allergy 5 Rash [facility] Medications Current Medications Medication Drug Class(es) Dates Sig (Normalized) Sig (Original) ascorbic acid 500 mg oral tablet (20 sources) Vitamin C take 1 tablet by mouth once daily ascorbic acid, vitamin C, (VITAMIN C) 500 mg tablet Take 500 mg by mouth once daily. Active Comment on above: Take 500 mg by mouth once daily. cephalexin 500 mg oral capsule (2 sources) Cephalosporin Antibacterial Start: 11-22-2024 End: 11-27-2024 take 1 capsule by mouth twice daily cephALEXin (KEFLEX) 500 mg capsule Indications: Urinary tract infection without hematuria, site unspecified Take 1 capsule by mouth two times a day for 5 days. 10 capsule 11/22/2024 11/27/2024 Active cholecalciferol 0.05 mg oral capsule (20 sources) Vitamin D Cholecalciferol, Vitamin D3, 50 mcg (2,000 unit) cap Take by mouth. Active Cholecalciferol, Vitamin D3, (VITAMIN D-3) 2,000 unit cap Take by mouth. 0 Active Comment on above: Take by mouth. DULoxetine 30 mg delayed release oral capsule (12 sources) Serotonin and Norepinephrine Reuptake Inhibitor Start: 02-09-2022 End: 03-17-2024 Duloxetine 30 mg capsule,delayed release(DR/EC) Active 30 mg PO August 19, 2022 12:00am Comment on above: TAKE 1 CAPSULE BY MO [facility] EVERY DAY FOR 30 DAYS levothyroxine sodium 0.137 mg oral tablet (20 sources) l-Thyroxine Start: 12-20-2021 SYNTHROID 137 mcg tablet 135 mcg. 12/20/2021 Active Start: 07-18-2021 End: 07-17-2022 take 1 tablet by mouth once daily Levothyroxine 137 mcg tablet Discontinued 137 ug PO DAILY July 17, 2022 2:41pm July 17, 2022 3:17pm Start: 03-06-2019 End: 03-17-2024 take 1 tablet by mouth once daily Levothyroxine (Synthroid) 150 mcg tablet Discontinued 150 ug PO DAILY October 30, 2019 2:45pm July 18, 2021 12:10pm Comment on above: Take 1 tablet by kristy daily before breakfast. 135 mcg. meloxicam 15 mg oral tablet (20 sources) Nonsteroidal Anti-inflammatory Drug Start: 01-26-2020 take 1 tablet by mouth once daily meloxicam (MOBIC) 15 mg tablet Take 1 tablet by mouth once daily. 30 tablet 5 01/26/2020 Active Comment on above: Take 1 tablet by kristy once daily. MULTI-VITAMIN ORAL (20 sources) MULTI-VITAMIN OR AL Take by mouth. Active MULTI-VITAMIN OR AL Take by mouth. 0 Active Comment on above: Take by mouth. nitrofurantoin, macrocrystals 25 mg / nitrofurantoin, monohydrate 75 mg oral capsule (4 sources) Nitrofuran Antibacterial Start: End: take 1 capsule by mouth twice daily at mealtime nitrofurantoin monohydrate and macrocrystal (MACROBID) 100 mg capsule Indications: Recurrent UTI (urinary tract infection) Take 1 capsule by mouth two times a day with meals for 7 days. 14 capsule 09/18/2024 09/25/2024 Active predniSONE 20 mg oral tablet (1 source) Start: End: predniSONE 20 mg oral tablet Dose : 40 mg = 2 tab(s), Oral, qDay, Take with food, X 7 day(s), # 14 tab(s), 0 Refill(s), 09/25/24 10:13:00 PM EDT Start Date: 09/18/24 Stop Date: 09/25/24 Status: Ordered Quantity: 14.0 Unit: tab(s) Repeat number: 1 triamcinolone acetonide 1 mg/ml topical cream (7 sources) Corticosteroid Start: triamcinolone acetonide (KENALOG) 0.1 % cream Indications: Allergic dermatitis Apply 1 application to affected area three times a day. Apply sparingly to area for rash/itching. 30 g 09/18/2024 Active Completed/Discontinued Medications Medication Drug Class(es) Dates Sig (Normalized) Sig (Original) [id number] actuat albuterol 0.09 mg/actuat metered dose inhaler (7 sources) beta2-Adrenergic Agonist Start: 02-18-2019 End: 03-11-2022 take 2 puff(s) by inhalation every six hours as needed for wheezing albuterol HFA (PROAIR HFA) 90 mcg/actuation inhaler Indications: Atelectasis, bilateral , Viral URI with cough Inhale 2 Puffs as instructed every 6 hours as needed for Wheezing/Shortness of Breath. 1 Inhaler 0 02/18/2019 03/11/2022 Discontinued Comment on above: Inhale 2 Puffs as in structed every 6 hours as needed for Wheezing/Shortness of Breath. clobetasol propionate 0.5 mg/ml topical cream (7 sources) Corticosteroid Start: 03-17-2024 End: 09-18-2024 clobetasol (TEMOVATE) 0.05 % cream Apply to affected area 2x/day for 2 weeks, then 1x/day for a week, than 1-3x/week for maintenance. 60 g 1 03/17/2024 09/18/2024 Discontinued diclofenac sodium 75 mg delayed release oral tablet (1 source) Nonsteroidal Anti-inflammatory Drug Start: 05-29-2019 DICLOFENAC SODIUM 75 MG TBEC 1 tablet twice daily DICLOFENAC SODIUM [id number] Susie Gonzalez LPN glucosamine/msm/c hondroitin A (GLUCOSAMINE-STEPHON DR-MSM ORAL) (7 sources) End: 03-11-2022 glucosamine/msm/ch ondroitin A (GLUCOSAMINE-CHOND R-MSM ORAL) Take by mouth. 0 03/11/2022 Discontinued glucosamine/msm/ chondroitin A (LFBNAYTYIBR-BVFEKA-XND ORAL) Take by mouth. 0 Active Comment on above: Take by mouth. VITAMIN B COMPLEX ORAL (11 sources) End: 03-17-2024 VITAMIN B COMPLEX ORAL Take by mouth. 03/17/2024 Discontinued (Other) VITAMIN B COMPLE X ORAL Take by mouth. 0 Active Comment on above: Take by mouth. Problems Active Problems Problem Classification Problem Date Documented Date Episodic/Chronic Acquired foot deformities (1 source) Hallux rigidus, right foot; Translations: [Hallux rigidus, right foot] Onset: 05-29-2019 05-29-2019 Chronic Administrative/social admission (20 sources) Patient encounter status; Translations: [Encounter for pre-employment examination] Episodic Allergic reactions (4 sources) Allergic disorder of skin; Translations: [Allergic contact dermatitis, unspecified cause] Onset: 09-18-2024 09-18-2024 Episodic Genitourinary symptoms and ill-defined conditions (5 sources) Dysuria; Translations: [Dysuria] Onset: 09-05-2024 Episodic Menopausal disorders (1 source) Atrophic vaginitis; Translations: [Postmenopausal atrophic vaginitis] Chronic Nonmalignant breast conditions (1 source) Mammographic breast tissue appearance; Translations: [Dense breast tissue on mammogram] 03-22-2023 Episodic Osteoarthritis (20 sources) Osteoarthritis of joint of bilateral hands; Translations: [Erosive (osteo)arthritis] Onset: 12-05-2018 12-05-2018 Chronic Other acquired deformities (7 sources) Degenerative spondylolisthesis; Translations: [Spondylolisthesis, site unspecified] 08-19-2022 Episodic Other congenital anomalies (1 source) Other congenital malformations of lower limb(s), including pelvic girdle; Translations: [Other congenital malformations of lower limb(s), including pelvic girdle] Onset: 05-29-2019 05-29-2019 Chronic Other lower respiratory disease (1 source) Cough; Translations: [Cough] Episodic Other screening for suspected conditions (not mental disorders or infectious disease) (8 sources) Mammography abnormal; Translations: [Other abnormal and inconclusive findings on diagnostic imaging of breast] Onset: 03-24-2024 Episodic Other upper respiratory infections (1 source) Sore throat symptom; Translations: [Acute pharyngitis, unspecified] Episodic Thyroid disorders (20 sources) 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; Translations: [Other specified hypothyroidism] Onset: 01-06-2018 Chronic Urinary tract infections (6 sources) Recurrent urinary tract infection; Translations: [Urinary tract infection, site not specified] Onset: 07-27-2024 09-18-2024 Episodic Past or Other Problems Problem Classification Problem [...] of right foot] Onset: 05-29-2019 05-29-2019 Episodic Spondylosis; intervertebral disc disorders; other back problems (16 sources) Lumbosacral radiculopathy; Translations: [Radiculopathy, lumbosacral region] Onset: 05-31-2024 08-19-2022 Episodic Comment on above: left side Unclassified (1 source) Problem Unclassified (1 source) Patient encounter status 09-22-2024 Results Test Name Value Interpretation Reference Range [facility] Cx Nom (U) ORGANISM ID: 1 >=100,000 CFU/ml Escherichia coli ORGANISM ID: 1 (ESCHERICHIA COLI) ANTIBIOTIC INTERPRETATION KHURRAM STATUS REFERENCE RANGE Ampicillin R >=32 F Susceptible <=8 , Intermediate >8 , Resistant >16 Cefazolin S <=4 F Susceptible 0-16 , Intermediate <0 or >16 , Resistant >16 For uncomplicated urinary tract infections, cefazolin results can be used to predict susceptibility or resistance to cephalexin. Ceftriaxone S <=1 F Susceptible <=1 , Intermediate >1 , Resistant >=4 Cefepime S <=1 F Susceptible <=2 , Susceptible-Dose Dependent >2 , Resistant >=16 Ertapenem S <=0.5 F Susceptible <=0.5 , Intermediate >.5 , Resistant >1 Meropenem S <=0.25 F Susceptible <=1 , Intermediate >1 , Resistant >2 Ampicillin/Sulbact I 16 F Susceptible <=8 , Intermediate >8 , Resistant >16 Piperacillin/Tazobac S <=4 F Susceptible <16 , Susceptible-Dose Dependent >=16 , Resistant >=32 Gentamicin S <=1 F Susceptible <=2 , Intermediate >2 , Resistant >=8 Tobramycin S <=1 F Susceptible <4 , Intermediate >=4 , Resistant >=8 Trimeth sulfameth S <=20 F Susceptible <=40 , Resistant >40 Ciprofloxacin S <=0.25 F Susceptible <0.5 , Intermediate >=.5 , Resistant >=1 Nitrofurantoin S <=16 F Susceptible <=32 , Intermediate >32 , Resistant >64 Abnormal [facility] Comment on above: Performed By: #### 6 30-4 ####[facility] [id number] [place] [id number] [facility] CNOVon 11-22-2024 CNOV Office Visit ([facility]) -------- PETRONA SANTIZO ([id number]) 1960 F Date Time Provider Department 11/22/24 11:45 AM ALVARO DUMAS During your visit today, we recorded the following information about you: Temperature Pulse Respiration Blood pressure 98.3 degrees 75/minute 20/minute 110/84 Weight 76 kg Alvaro Dumas APRN.CNP 11/22/2024 12:51 PM Signed Subjective Patient ID: Petrona is a 64 year old female who presents for Urinary Problem (Possible bladder infection, urgency, pain). The history is provided by the patient. No veterinarian small animal was used. Patient presents to office from home via personal vehicle with UTI s/s x2d +burning with urination +pressure +frequency +suprapubic pain Worsening during car rides S/s unrelieved with drinking cranberry juice and taking Azo Appt schedule for US of bladder on 12/02 and urologist December in [place] No fever, chills, N/V/D Denies STI risk, decline STI testing, no sexual intercourse in 2y Hx hypothyroid taking synthyroid daily Allergic to PCN and sulfa, denies anaphylaxis reaction to penicillin Admits to stressful job and family, son ASD and has medical issues No smoking, ETOH or street drug use PAST MEDICAL HISTORY Diagnosis Date Breast cyst, left Simple cyst 2023 Fibromyalgia Hypothyroidism Osteoarthritis Osteopenia 09/2024 PAST SURGICAL HISTORY Procedure Laterality Date COLONOSCOPY FLX DX W/COLLJ SPEC WHEN PFRMD 08/26/2018 Colonoscopy 10 yr interval LAPAROSCOPY DIAGNOSTIC 1994 ALLERGIES Penicillin and Sulfa (Sulfonamide Antibiotics) MEDICATIONS triamcinolone acetonide (KENALOG) 0.1 % cream Apply 1 application to affected area three times a day. Apply sparingly to area for rash/itching. SYNTHROID 137 mcg tablet 135 mcg. meloxicam (MOBIC) 15 mg tablet Take 1 tablet by mouth once daily. ascorbic acid, vitamin C, (VITAMIN C) 500 mg tablet Take 500 mg by mouth once daily. MULTI-VITAMIN ORAL Take by mouth. Cholecalciferol, Vitamin D3, 50 mcg (2,000 unit) cap Take by mouth. FAMILY HISTORY Problem Relation Age of Onset Hypothyroidism Mother Hypertension Mother Stroke Mother Tourette syndrome Son Diabetes Maternal Aunt Cancer Maternal Aunt Thyroid Maternal Aunt Social History Tobacco Use Smoking status: Never Smokeless tobacco: Never Vaping Use Vaping status: Never Used Substance Use Topics Alcohol use: No Drug use: No Objective BP 110/84 Pulse 75 Temp 36.8 ?C (98.3 ?F) Resp 20 Wt 76 kg (167 lb 8.8 oz) SpO2 96% BMI 28.53 kg/m? Physical Exam Vitals and nursing note reviewed. Constitutional: Appearance: Normal appearance. HENT: Head: Normocephalic. Right Ear: Tympanic membrane normal. Left Ear: Tympanic membrane normal. Mouth/Throat: Mouth: Mucous membranes are dry. Eyes: Extraocular Movements: Extraocular movements intact. Pupils: Pupils are equal, round, and reactive to light. Cardiovascular: Rate and Rhythm: Normal rate. Pulses: Normal pulses. Radial pulses are 2+ on the right side and 2+ on the left side. Heart sounds: Normal heart sounds. Pulmonary: Effort: Pulmonary effort is normal. Breath sounds: Normal breath sounds and air entry. Abdominal: General: Bowel sounds are normal. Palpations: Abdomen is soft. Tenderness: There is no right CVA tenderness or left CVA tenderness. Genitourinary: Comments: +suprapubic tenderness Musculoskeletal: General: Normal range of motion. Cervical back: Full passive range of motion without pain, normal range of motion and neck supple. Right lower leg: No edema. Left lower leg: No edema. Skin: General: Skin is warm and dry. Capillary Refill: Capillary refill takes less than 2 seconds. Neurological: General: No focal deficit present. Mental Status: She is alert and oriented to person, place, and time. Psychiatric: Attention and Perception: Attention normal. Behavior: Behavior normal. Thought Content: Thought content normal. Judgment: Judgment normal. Assessment AND Plan Urgency of urination Orders: UA DIP, URINE (POC) ASSESSMENT/PLAN: 1. Urgency of urination - ICD9: 788.63, ICD10: R39.15 (primary diagnosis) 2. Urinary tract infection without hematuria, site unspecified - ICD9: 599.0, ICD10: N39.0 - UA DIP, URINE (POC) UA positive for large mitch esterase and small hematuria - BACTERIAL CULTURE, URINE Will call if urine culture results are positive - CEPHALEXIN 500 MG CAPSULE Begin treatment with Keflex BID for 5 days and taken until completion - Patient education for prevention given including: increase PO fluids, good hand hygiene, good pericare, wiping from front to back, wearing cotton underwear and removing wet clothing - Conversation provided on coping mechanisms for stress including exercise, walking and speaking with counselor Allison Casas NP student TEACHING PROVIDER ( (more content not included)... Normal [facility] UA DIP, URINE (POC)on 2024 BILIRUBIN UA (POCT) Negative Negative [facility] CLARITY UA (POCT) Cloudy [facility] COLOR UA (POCT) Light yellow [facility] GLUCOSE UA (POCT) Negative Negative mg/dL [facility] Hemoglobin Ql (U) Small Abnormal Negative [facility] Interpretation and review of laboratory results Abnormal [facility] KETONE UA (POCT) Negative Negative mg/dL [facility] LEUKOCYTES UA (POCT) Large Abnormal [facility] NITRITE UA (POCT) Negative [facility] PH UA (POCT) 6 4.5 - 8.0 [facility] Protein Ql (U) Negative Negative mg/dL [facility] SPECIFIC GRAVITY UA (POCT) 1.015 1.005 - 1.030 [facility] UROBILINOGEN UA (POCT) 0.2 Mariah l E.U./dL [facility] Location:[address], [place], [place], [id number] [place] [address] POINT OF [facility]ARE [facility] 09-25-2024 [facility] -------- PETRONA SANTIZO ([id number]) 1960 F Date Time Provider Department 09/25/24 ALLEGRA GAMING [facility] During your visit today, we recorded the following information about you: Allegra Gaming APRN.CNP 09/25/2024 9:31 AM Signed Patient has not read her mychart results. Please reach out and inform her of the message related to the results Please advise Laila Escalante LPN 09/25/2024 1:56 PM Signed Pt updated on all testing results in her chart. Laila Escalante LPN Allergies As of Date: 09/25/2024 Noted Allergy Reaction PENICILLIN 11/15/2017 16 - Unknown SULFA (SULFONAMIDE ANTIBIOTICS) 09/18/2024 2 - Rash Date Reviewed: 09/18/2024 Reviewed by: Mikal Gruber APRN.QUALITY ASSURANCE SUPERVISOR TRIM - Fully Assessed Reason for Visit: Results [95] Prescriptions as of 09/25/2024 - nitrofurantoin monohydrate and macrocrystal (MACROBID) 100 mg capsule Take 1 capsule by mouth two times a day with meals for 7 days. - triamcinolone acetonide (KENALOG) 0.1 % cream Apply 1 application to affected area three times a day. Apply sparingly to area for rash/itching. - SYNTHROID 137 mcg tablet 135 mcg. - meloxicam (MOBIC) 15 mg tablet Take 1 tablet by mouth once daily. - ascorbic acid, vitamin C, (VITAMIN C) 500 mg tablet Take 500 mg by mouth once daily. - MULTI-VITAMIN ORAL Take by mouth. - Cholecalciferol, Vitamin D3, 50 mcg (2,000 unit) cap Take by mouth. 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 [*07/19/2021 Encounter Status:Closed by LAILA ESCALANTE on 09/25/24 Normal [facility] BD DXA - AXIAL SKELETONon BD DXA - AXIAL SKELETON * * *Final Report* * * DATE OF EXAM: Sep 22 2024 11:36AM [id number] - BD DXA - AXIAL SKELETON / PROCEDURE REASON: Encounter for screening for osteoporosis * * * * Physician Interpretation * * * * EXAMINATION: DXA BONE DENSITOMETRY BD DXA - AXIAL SKELETON, BD DXA TRABECLR BONE SCORE (TBS) PATIENT DEMOGRAPHICS: Age: 63 years, Gender: Female SCANNER INFORMATION: DXA Model: [facility] - [employer] C [id number] Date Scanned: 09/22/2024 11:36 AM CLINICAL HISTORY: DIAGNOSTIC Encounter for screening for osteoporosis . RISK FACTORS FOR OSTEOPOROSIS AND ASSOCIATED FRACTURES REPORTED BY THIS PATIENT: Please refer to Bone Health Questionnaire in the EMR CURRENT THERAPY: Please refer to Bone Health Questionnaire in the EMR TECHNICAL LIMITATIONS: None RESULTS: Lumbar spine (L1, L2, L3, L4): 0.863 g/cm2, T-score -1.7, Z-score 0.1 Right Femoral Neck: 0.673 g/cm2, T-score -1.6, Z-score -0.1 Right Total Hip: 0.867 g/cm2, T-score -0.6, Z-score 0.6 Left Femoral Neck: 0.576 g/cm2, T-score -1.7, Z-score -0.2 Left Total Hip: 0.855 g/cm2, T-score -0.7, Z-score 0.5 No comparison data - the patient has not had a previous bone density in the [facility] or the previous bone density was performed on a different DXA machine (new, updated model or different location) within the [facility]. VERTEBRAL FRACTURE ASSESSMENT Not performed. TRABECULAR BONE ASSESSMENT TBS score: 1.313 Bone micro-architecture: Normal (> 1.310) IMPRESSION: THE LOWEST T-SCORE IS -1.7 IN THE SPINE AND LEFT HIP 1) DIAGNOSIS (based on BMD alone): OSTEOPENIA Caution: Medical conditions other than osteoporosis may cause low bone density, such as osteomalacia or renal osteodystrophy. Clinical correlation is necessary. 2) FRACTURE RISK (Based on TBS adjusted FRAX): 10-year absolute fracture risk: - major osteoporotic fracture = 8.5 % - hip fracture = 0.9 % - A diagnosis of Osteoporosis, a 10 year probability of hip fracture greater than or equal to 3% or a 10 year probability of any major osteoporosis-related fracture greater than or equal to 20% should be considered for treatment. - DXA scanner generated FRAX calculations may slightly differ from online FRAX calculations due to differences in software versions. - All recommendations and calculations are to be considered as guidelines and should not replace sound clinical judgement - Caution: Fracture risk may be increased independent of BMD in patients with corticosteroid use, age greater than 65 years, or a history of prior fragility fracture. RECOMMENDATIONS: Follow-up in 2 years or as clinically indicated. Patients that are taking corticosteroids, are transplant recipients or have hyperparathyroidism should have annual follow-up. Follow-up scans should always be done on the same machine for accurate comparison. FOR MORE INFORMATION ABOUT DIAGNOSIS AND TREATMENT: [facility] Center for Osteoporosis and Metabolic Bone Disease:? www.ccf.org/arthritis/os ester National Osteoporosis Foundation:? www.nof.org International Society of Clinical Densitometry www.iscd.org Clear Coat Sprayer: MAX Transcribe Date/Time: Sep 22 2024 12:28P Dictated by : KENDRICK QUINONES MD This examination was interpreted and the report reviewed and electronically signed by: KENDRICK QUINONES MD on Sep 22 2024 12:30PM EST [id number] Normal [facility] BD DXA TRABECLR BONE SCORE ( TBS)on 09-22-2024 BD DXA TRABECLR BONE SCORE (TBS) * * *Final Report* * * DATE OF EXAM: Sep 22 2024 11:36AM [id number] - BD DXA TRABECLR BONE SCORE (TBS) / PROCEDURE REASON: Encounter for screening for osteoporosis * * * * Physician Interpretation * * * * EXAMINATION: DXA BONE DENSITOMETRY BD DXA - AXIAL SKELETON, BD DXA TRABECLR BONE SCORE (TBS) PATIENT DEMOGRAPHICS: Age: 63 years, Gender: Female SCANNER INFORMATION: DXA Model: [id number] - [employer] C [id number] Date Scanned: 09/22/2024 11:36 AM CLINICAL HISTORY: DIAGNOSTIC Encounter for screening for osteoporosis . RISK FACTORS FOR OSTEOPOROSIS AND ASSOCIATED FRACTURES REPORTED BY THIS PATIENT: Please refer to Bone Health Questionnaire in the EMR CURRENT THERAPY: Please refer to Bone Health Questionnaire in the EMR TECHNICAL LIMITATIONS: None RESULTS: Lumbar spine (L1, L2, L3, L4): 0.863 g/cm2, T-score -1.7, Z-score 0.1 Right Femoral Neck: 0.673 g/cm2, T-score -1.6, Z-score -0.1 Right Total Hip: 0.867 g/cm2, T-score -0.6, Z-score 0.6 Left Femoral Neck: 0.576 g/cm2, T-score -1.7, Z-score -0.2 Left Total Hip: 0.855 g/cm2, T-score -0.7, Z-score 0.5 No comparison data - the patient has not had a previous bone density in the [facility] or the previous bone density was performed on a different DXA machine (new, updated model or different location) within the [facility]. VERTEBRAL FRACTURE ASSESSMENT Not performed. TRABECULAR BONE ASSESSMENT TBS score: 1.313 Bone micro-architecture: Normal (> 1.310) IMPRESSION: THE LOWEST T-SCORE IS -1.7 IN THE SPINE AND LEFT HIP 1) DIAGNOSIS (based on BMD alone): OSTEOPENIA Caution: Medical conditions other than osteoporosis may cause low bone density, such as osteomalacia or renal osteodystrophy. Clinical correlation is necessary. 2) FRACTURE RISK (Based on TBS adjusted FRAX): 10-year absolute fracture risk: - major osteoporotic fracture = 8.5 % - hip fracture = 0.9 % - A diagnosis of Osteoporosis, a 10 year probability of hip fracture greater than or equal to 3% or a 10 year probability of any major osteoporosis-related fracture greater than or equal to 20% should be considered for treatment. - DXA scanner generated FRAX calculations may slightly differ from online FRAX calculations due to differences in software versions. - All recommendations and calculations are to be considered as guidelines and should not replace sound clinical judgement - Caution: Fracture risk may be increased independent of BMD in patients with corticosteroid use, age greater than 65 years, or a history of prior fragility fracture. RECOMMENDATIONS: Follow-up in 2 years or as clinically indicated. Patients that are taking corticosteroids, are transplant recipients or have hyperparathyroidism should have annual follow-up. Follow-up scans should always be done on the same machine for accurate comparison. FOR MORE INFORMATION ABOUT DIAGNOSIS AND TREATMENT: [facility] Center for Osteoporosis and Metabolic Bone Disease:? www.ccf.org/arthritis/os ester National Osteoporosis Foundation:? www.nof.org International Society of Clinical Densitometry www.iscd.org Clear Coat Sprayer: MAX Transcribe Date/Time: Sep 22 2024 12:28P Dictated by : KENDRICK QUINONES MD This examination was interpreted and the report reviewed and electronically signed by: KENDRICK QUINONES MD on Sep 22 2024 12:30PM EST [id number] -[id number] Normal [facility] DXA Femur [T-score] Bone den alma 09-22-2024 * * *Final Report* * * DATE OF EXAM: Sep 22 2024 11:36AM WRB 0801 - BD DXA TRABECLR BONE SCORE (TBS) / PROCEDURE REASON: Encounter for screening for osteoporosis * * * * Physician Interpretation * * * * EXAMINATION: DXA BONE DENSITOMETRY BD DXA - AXIAL SKELETON, BD DXA TRABECLR BONE SCORE (TBS) PATIENT DEMOGRAPHICS: Age: 63 years, Gender: Female SCANNER INFORMATION: DXA Model: MESIn - [employer] C [id number] Date Scanned: 09/22/2024 11:36 AM CLINICAL HISTORY: DIAGNOSTIC Encounter for screening for osteoporosis . RISK FACTORS FOR OSTEOPOROSIS AND ASSOCIATED FRACTURES REPORTED BY THIS PATIENT: Please refer to Bone Health Questionnaire in the EMR CURRENT THERAPY: Please refer to Bone Health Questionnaire in the EMR TECHNICAL LIMITATIONS: None RESULTS: Lumbar spine (L1, L2, L3, L4): 0.863 g/cm2, T-score -1.7, Z-score 0.1 Right Femoral Neck: 0.673 g/cm2, T-score -1.6, Z-score -0.1 Right Total Hip: 0.867 g/cm2, T-score -0.6, Z-score 0.6 Left Femoral Neck: 0.576 g/cm2, T-score -1.7, Z-score -0.2 Left Total Hip: 0.855 g/cm2, T-score -0.7, Z-score 0.5 No comparison data - the patient has not had a previous bone density in the [facility] or the previous bone density was performed on a different DXA machine (new, updated model or different location) within the [facility]. VERTEBRAL FRACTURE ASSESSMENT Not performed. TRABECULAR BONE ASSESSMENT TBS score: 1.313 Bone micro-architecture: Normal (> 1.310) DIVISION OF RADIOLOGY Provider, [facility] - 09/22/2024 * * *Final Report* * * DATE OF EXAM: Sep 22 2024 11:36AM WRB 0801 - BD DXA TRABECLR BONE SCORE (TBS) / PROCEDURE REASON: Encounter for screening for osteoporosis * * * * Physician Interpretation * * * * EXAMINATION: DXA BONE DENSITOMETRY BD DXA - AXIAL SKELETON, BD DXA TRABECLR BONE SCORE (TBS) PATIENT DEMOGRAPHICS: Age: 63 years, Gender: Female SCANNER INFORMATION: DXA Model: dev9k - [employer] C [id number] Date Scanned: 09/22/2024 11:36 AM CLINICAL HISTORY: DIAGNOSTIC Encounter for screening for osteoporosis . RISK FACTORS FOR OSTEOPOROSIS AND ASSOCIATED FRACTURES REPORTED BY THIS PATIENT: Please refer to Bone Health Questionnaire in the EMR CURRENT THERAPY: Please refer to Bone Health Questionnaire in the EMR TECHNICAL LIMITATIONS: None RESULTS: Lumbar spine (L1, L2, L3, L4): 0.863 g/cm2, T-score -1.7, Z-score 0.1 Right Femoral Neck: 0.673 g/cm2, T-score -1.6, Z-score -0.1 Right Total Hip: 0.867 g/cm2, T-score -0.6, Z-score 0.6 Left Femoral Neck: 0.576 g/cm2, T-score -1.7, Z-score -0.2 Left Total Hip: 0.855 g/cm2, T-score -0.7, Z-score 0.5 No comparison data - the patient has not had a previous bone density in the [facility] or the previous bone density was performed on a different DXA machine (new, updated model or different location) within the [facility]. VERTEBRAL FRACTURE ASSESSMENT Not performed. TRABECULAR BONE ASSESSMENT TBS score: 1.313 Bone micro-architecture: Normal (> 1.310) IMPRESSION IMPRESSION: THE LOWEST T-SCORE IS -1.7 IN THE SPINE AND LEFT HIP 1) DIAGNOSIS (based on BMD alone): OSTEOPENIA Caution: Medical conditions other than osteoporosis may cause low bone density, such as osteomalacia or renal osteodystrophy. Clinical correlation is necessary. 2) FRACTURE RISK (Based on TBS adjusted FRAX): 10-year absolute fracture risk: - major osteoporotic fracture = 8.5 % - hip fracture = 0.9 % - A diagnosis of Osteoporosis, a 10 year probability of hip fracture greater than or equal to 3% or a 10 year probability of any major osteoporosis-related fracture greater than or equal to 20% should be considered for treatment. - DXA scanner generated FRAX calculations may slightly differ from online FRAX calculations due to differences in software versions. - All recommendations and calculations are to be considered as guidelines and should not replace sound clinical judgement - Caution: Fracture risk may be increased independent of BMD in patients with corticosteroid use, age greater than 65 years, or a history of prior fragility fracture. RECOMMENDATIONS: Follow-up in 2 years or as clinically indicated. Patients that are taking corticosteroids, are transplant recipients or have hyperparathyroidism should have annual follow-up. Follow-up scans should always be done on the same machine for accurate comparison. FOR MORE INFORMATION ABOUT DIAGNOSIS AND TREATMENT: [facility] Center for Osteoporosis and Metabolic Bone Disease:? www.ccf.org/arthritis/os ester National Osteoporosis Foundation:? www.nof.org International Society of Clinical Densitometry www.iscd.org Clear Coat Sprayer: MAX Transcribe Date/Time: Sep 22 2024 12:28P Dictated by : KENDRICK QUINONES MD This examination was interpreted and the report reviewed and electronically signed by: KENDRICK QUINONES MD on Sep 22 2024 12:30PM EST [facility] DXA Skeletal system.axial Vi ews for bone densityon 09-22-2024 * * *Final Report* * * DATE OF EXAM: Sep 22 2024 11:36AM WRB 0804 - BD DXA - AXIAL SKELETON / PROCEDURE REASON: Encounter for screening for osteoporosis * * * * Physician Interpretation * * * * EXAMINATION: DXA BONE DENSITOMETRY BD DXA - AXIAL SKELETON, BD DXA TRABECLR BONE SCORE (TBS) PATIENT DEMOGRAPHICS: Age: 63 years, Gender: Female SCANNER INFORMATION: DXA Model: dev9k - [employer] C [id number] Date Scanned: 09/22/2024 11:36 AM CLINICAL HISTORY: DIAGNOSTIC Encounter for screening for osteoporosis . RISK FACTORS FOR OSTEOPOROSIS AND ASSOCIATED FRACTURES REPORTED BY THIS PATIENT: Please refer to Bone Health Questionnaire in the EMR CURRENT THERAPY: Please refer to Bone Health Questionnaire in the EMR TECHNICAL LIMITATIONS: None RESULTS: Lumbar spine (L1, L2, L3, L4): 0.863 g/cm2, T-score -1.7, Z-score 0.1 Right Femoral Neck: 0.673 g/cm2, T-score -1.6, Z-score -0.1 Right Total Hip: 0.867 g/cm2, T-score -0.6, Z-score 0.6 Left Femoral Neck: 0.576 g/cm2, T-score -1.7, Z-score -0.2 Left Total Hip: 0.855 g/cm2, T-score -0.7, Z-score 0.5 No comparison data - the patient has not had a previous bone density in the [facility] or the previous bone density was performed on a different DXA machine (new, updated model or different location) within the [facility]. VERTEBRAL FRACTURE ASSESSMENT Not performed. TRABECULAR BONE ASSESSMENT TBS score: 1.313 Bone micro-architecture: Normal (> 1.310) DIVISION OF RADIOLOGY Provider, Karolyn Atwood - 09/22/2024 * * *Final Report* * * DATE OF EXAM: Sep 22 2024 11:36AM WRB 0804 - BD DXA - AXIAL SKELETON / PROCEDURE REASON: Encounter for screening for osteoporosis * * * * Physician Interpretation * * * * EXAMINATION: DXA BONE DENSITOMETRY BD DXA - AXIAL SKELETON, BD DXA TRABECLR BONE SCORE (TBS) PATIENT DEMOGRAPHICS: Age: 63 years, Gender: Female SCANNER INFORMATION: DXA Model: dev9k - [employer] C [id number] Date Scanned: 09/22/2024 11:36 AM CLINICAL HISTORY: DIAGNOSTIC Encounter for screening for osteoporosis . RISK FACTORS FOR OSTEOPOROSIS AND ASSOCIATED FRACTURES REPORTED BY THIS PATIENT: Please refer to Bone Health Questionnaire in the EMR CURRENT THERAPY: Please refer to Bone Health Questionnaire in the EMR TECHNICAL LIMITATIONS: None RESULTS: Lumbar spine (L1, L2, L3, L4): 0.863 g/cm2, T-score -1.7, Z-score 0.1 Right Femoral Neck: 0.673 g/cm2, T-score -1.6, Z-score -0.1 Right Total Hip: 0.867 g/cm2, T-score -0.6, Z-score 0.6 Left Femoral Neck: 0.576 g/cm2, T-score -1.7, Z-score -0.2 Left Total Hip: 0.855 g/cm2, T-score -0.7, Z-score 0.5 No comparison data - the patient has not had a previous bone density in the [facility] or the previous bone density was performed on a different DXA machine (new, updated model or different location) within the [facility]. VERTEBRAL FRACTURE ASSESSMENT Not performed. TRABECULAR BONE ASSESSMENT TBS score: 1.313 Bone micro-architecture: Normal (> 1.310) IMPRESSION IMPRESSION: THE LOWEST T-SCORE IS -1.7 IN THE SPINE AND LEFT HIP 1) DIAGNOSIS (based on BMD alone): OSTEOPENIA Caution: Medical conditions other than osteoporosis may cause low bone density, such as osteomalacia or renal osteodystrophy. Clinical correlation is necessary. 2) FRACTURE RISK (Based on TBS adjusted FRAX): 10-year absolute fracture risk: - major osteoporotic fracture = 8.5 % - hip fracture = 0.9 % - A diagnosis of Osteoporosis, a 10 year probability of hip fracture greater than or equal to 3% or a 10 year probability of any major osteoporosis-related fracture greater than or equal to 20% should be considered for treatment. - DXA scanner generated FRAX calculations may slightly differ from online FRAX calculations due to differences in software versions. - All recommendations and calculations are to be considered as guidelines and should not replace sound clinical judgement - Caution: Fracture risk may be increased independent of BMD in patients with corticosteroid use, age greater than 65 years, or a history of prior fragility fracture. RECOMMENDATIONS: Follow-up in 2 years or as clinically indicated. Patients that are taking corticosteroids, are transplant recipients or have hyperparathyroidism should have annual follow-up. Follow-up scans should always be done on the same machine for accurate comparison. FOR MORE INFORMATION ABOUT DIAGNOSIS AND TREATMENT: [facility] Center for Osteoporosis and Metabolic Bone Disease:? www.ccf.org/arthritis/os ester National Osteoporosis Foundation:? www.nof.org International Society of Clinical Densitometry www.iscd.org Clear Coat Sprayer: MAX Transcribe Date/Time: Sep 22 2024 12:28P Dictated by : KENDRICK QUINONES MD This examination was interpreted and the report reviewed and electronically signed by: KENDRICK QUINONES MD on Sep 22 2024 12:30PM [facility] No Panel InformationOrdered By: [facility] Provider on 09-22-2024 LOWEST T-SCORE -1.7 [facility] No Panel Informationon 09-22 IMPRESSION: THE LOWEST T-SCORE IS -1.7 IN THE SPINE AND LEFT HIP 1) DIAGNOSIS (based on BMD alone): OSTEOPENIA Caution: Medical conditions other than osteoporosis may cause low bone density, such as osteomalacia or renal osteodystrophy. Clinical correlation is necessary. 2) FRACTURE RISK (Based on TBS adjusted FRAX): 10-year absolute fracture risk: - major osteoporotic fracture = 8.5 % - hip fracture = 0.9 % - A diagnosis of Osteoporosis, a 10 year probability of hip fracture greater than or equal to 3% or a 10 year probability of any major osteoporosis-related fracture greater than or equal to 20% should be considered for treatment. - DXA scanner generated FRAX calculations may slightly differ from online FRAX calculations due to differences in software versions. - All recommendations and calculations are to be considered as guidelines and should not replace sound clinical judgement - Caution: Fracture risk may be increased independent of BMD in patients with corticosteroid use, age greater than 65 years, or a history of prior fragility fracture. RECOMMENDATIONS: Follow-up in 2 years or as clinically indicated. Patients that are taking corticosteroids, are transplant recipients or have hyperparathyroidism should have annual follow-up. Follow-up scans should always be done on the same machine for accurate comparison. FOR MORE INFORMATION ABOUT DIAGNOSIS AND TREATMENT: [facility] Center for Osteoporosis and Metabolic Bone Disease:? www.ccf.org/arthritis/os ester National Osteoporosis Foundation:? www.nof.org International Society of Clinical Densitometry www.iscd.org Clear Coat Sprayer: MAX Transcribe Date/Time: Sep 22 2024 12:28P Dictated by : KENDRICK QUINONES MD This examination was interpreted and the report reviewed and electronically signed by: KENDRICK QUINONES MD on Sep 22 2024 12:30PM [facility] DIVISION OF RADIOLOGY Radiology Study observation (narrative) [facility] Bacteria Ur Culton Bacteria identified Cx Nom (U) ORGANISM ID: 1 10,000 -<50,000 CFU/ml Normal urogenital lizet Normal [facility] Comment on above: Performed By: #### 6 30-4 ####[facility] LABCLIA [id number] [address] [facility] CNOVon 09-18-2024 CNOV Office Visit (UCWSTR ) -------- PETRONA SANTIZO ([id number]) 1960 F Date Time Provider Department 09/18/24 10:30 AM MIKAL GRUBER During your visit today, we recorded the following information about you: Temperature Pulse Respiration Blood pressure 98.8 degrees 95/minute 16/minute 128/82 Weight 77 kg Mikal Gruber APRN.CNP 09/18/2024 10:58 AM Signed Urinary Problem-When to Seek Help? Symptoms of a urinary problem may lead to a bladder infection. Women are at greater risk of a urinary tract infection than are men. Most urinary tract infections in women are caused by bacteria and involve the lower urinary tract including the bladder and urethra. Symptoms: Pain or burning when passing urine, urgency, frequency, blood in the urine, difficult emptying your bladder, and lower abdominal fullness or pressure. Common Causes: Sexual intercourse, menopause, constipation, uncontrolled diabetes, dehydration and feminine products such as tampons, and kidney stones. When to Get Help: Seek medical attention if you get frequent bladder infections, urinary concerns such as leakage, blood in the urine or frequent need to urinate. You may be recommended to get help from a specialist, such as a urologist. Diagnosis AND Treatment: Lab testing may include: urinalysis, and urine culture that can be collected in the lab or walk-in clinic. Most bladder infections can easily be treated. A physician, nurse practitioner or physician assistant professor of anthropology may treat with a short course of an antibiotic. Delaying treatment can lead to worsening symptoms, like a kidney infection. Self-Care: Avoid a full bladder, bubble baths, bath oils, food and beverages that may irritate the bladder such as caffeine. Avoid spermicide foam and diaphragms Void before and after sexual intercourse Wipe front to back after using the bathroom. Stay hydrated Stop Smoking Follow-up Care: Follow up testing is not needed in healthy young women if symptoms resolve. Mikal Gruber APRN.[facility] 09/18/2024 12:16 PM Addendum [facility] CLINIC NOTE Subjective Petrona Santizo is a 63 year old year old who presents to [facility] care today with complaint of C/o Frequency, urgency, burning with urination. Presence of blood in urine none. Color is yellow in appearance without odor. Denies suprapubic pain, flank pain or back pain. History of UTI's over the past year 3+, denies any history of kidney/renal or genital health issues in the past. Sates she will be seeing a Urology specialist in the next month. Was given Sulfa for the last UTI last week, yet now she has skin rash as well- itchy and red. Denies headaches, fever, sore throat, cough, shortness of breath, chest pains, Nausea, vomiting, changes in bowel or skin rashes. Aside from symptoms as described above, patient has no other complaints at this time. HPI: see above Review of Systems Constitutional: Negative for chills, fatigue and fever. Respiratory: Negative for cough, shortness of breath and wheezing. Cardiovascular: Negative for chest pain, palpitations and leg swelling. Gastrointestinal: Negative for diarrhea, nausea and vomiting. Genitourinary: Positive for dysuria, frequency and urgency. Negative for vaginal discharge. Musculoskeletal: Negative for myalgias. Skin: Positive for rash (itchy red rash). ALLERGIES Allergen Reactions Penicillin Unknown Sulfa (Sulfonamide * Rash Current Outpatient Medications on File Prior to Visit Medication Sig SYNTHROID 137 mcg tablet 135 mcg. meloxicam (MOBIC) 15 mg tablet Take 1 tablet by mouth once daily. ascorbic acid, vitamin C, (VITAMIN C) 500 mg tablet Take 500 mg by mouth once daily. MULTI-VITAMIN ORAL Take by mouth. Cholecalciferol, Vitamin D3, 50 mcg (2,000 unit) cap Take by mouth. No current facility-administered medications on file prior to visit. 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 Physical Exam Constitutional: General: She is not in acute distress. Appearance: Normal appearance. She is not ill-appearing or toxic-appearing. Cardiovascular: Rate and Rhythm: Normal rate and regular rhythm. Pulses: Normal pulses. Heart sounds: Normal heart sounds. No murmur heard. Pulmonary: Effort: Pulmonary effort is normal. Breath sounds: Normal breath sounds. Abdominal: General: Bowel sounds are normal. There is no distension. Palpations: Abdomen is soft. Tenderness: There is no abdominal tenderness (no suprapubic tenderness). There (more content not included)... Normal [facility] LABORATORYOrdered By: Flavio Godwin on 09-18-2024 Appearance (U) Slightly Cloudy *ABN* (09/18/24 8:22 PM) Invalid Interpretation Code Clear AO Auto Urine SS Bacteria LM.HPF (Urine sed) [#/Area] Negative (09/18/24 8:22 PM) Normal Negative AO Auto Urine SS Bilirubin Ql (U) Negative (09/18/24 8:22 PM) Normal Negative AO Auto Urine SS Color (U) Yellow (09/18/24 8:22 PM) Normal AO Auto Urine SS Glucose Test strip (U) [Mass/Vol] Negative Normal Negative AO Auto Urine SS Hemoglobin Auto test strip (U) [Mass/Vol] Negative (09/18/24 8:22 PM) Normal Negative AO Auto Urine SS Ketones Ql (U) Negative Normal Negative AO Auto Urine SS UA Leuk Est Trace (09/18/24 8:22 PM) Normal Negative AO Auto Urine SS UA Nitrite Negative (09/18/24 8:22 PM) Normal Negative AO Auto Urine SS UA pH 6.0 (09/18/24 8:22 PM) Normal 5.0 - 8.0 AO Auto Urine SS UA Protein Negative Normal Negative AO Auto Urine SS UA RBC Negative Normal 0-2 AO Auto Urine SS UA Renal Epithelial Rare /HPF Normal AO Au to Urine SS UA Spec Grav <=1.005 *ABN* (09/18/24 8:22 PM) Invalid Interpretation Code 1.015-1.025 AO Auto Urine SS UA Specimen Type Not Given (09/18/24 8:22 PM) Normal AO Auto Urine SS UA Squam Epithelial 3-5 /HPF Normal 0-20 AO Au to Urine SS UA Urobilinogen 0.2 E.U./dL Normal 0.2-1.0 AO Auto Urine SS WBC LM.HPF (Urine sed) [#/Area] 0-2 /HPF Normal 0-5 AO Auto Urine SS UAon 09-18-2024 Color (U) Yellow Normal [facility] Comment on above: Performed By: #### U AMIC, UA #### [address] [address] Glucose (U) [Mass/Vol] Negative Normal Negative [facility] Comment on above: Performed By: #### U AMIC, UA #### [id number] [place], [place] [address] Ketones Ql (U) Negative Normal Negative [facility] Comment on above: Performed By: #### U AMIC, UA #### [address] [place] [address] UA Appear Slightly Cloudy Abnormal Clear [facility] Comment on above: Performed By: #### U AMIC, UA #### [place] [address] UA Blood Negative Normal Negative [facility] Comment on above: Performed By: #### U AMIC, UA #### [place] [address] UA Leuk Est Trace Normal Negative [facility] Comment on above: Performed By: #### U AMIC, UA #### [place] [address] UA Nitrite Negative Normal Negative [facility] Comment on above: Performed By: #### U AMIC, UA #### [place] [address] UA pH 6.0 Normal 5.0 - 8.0 [facility] Comment on above: Performed By: #### U AMIC, UA #### [place] [address] UA Protein Negative Normal Negative [facility] Comment on above: Performed By: #### U AMIC, UA #### [place] [address] UA Spec Grav <=1.005 Abnormal 1.015-1.025 [facility] Comment on above: Performed By: #### U AMIC, UA #### [place] [address] UA Specimen Type Not Given Normal [facility] Comment on above: Performed By: #### U AMIC, UA #### [place] [address] UA Urobilinogen 0.2 E.U./dL Normal 0.2-1.0 [facility] Comment on above: Performed By: #### U AMIC, UA #### [place] [address] Urobilinogen (U) [Mass/Vol] Negative Normal Negative [facility] Comment on above: Performed By: #### U AMIC, UA #### [facility] [address] [place], [place] [address] UA DIP, URINE (POC)on 2024 BILIRUBIN UA (POCT) Negative Negative [facility] CLARITY UA (POCT) Clear [facility] COLOR UA (POCT) Yellow [facility] GLUCOSE UA (POCT) Negative Negative mg/dL [facility] Hemoglobin Ql (U) Trace-intact Abnormal Negative [facility] Interpretation and review of laboratory results Abnormal [facility] KETONE UA (POCT) Negative Negative mg/dL [facility] LEUKOCYTES U[facility] (POCT) [facility] NITRITE UA (POCT) Negative Negative [facility] PH UA (POCT) 6 4.5 - 8.0 [facility] [facility] Protein Ql (U) Negative Negative mg/dL [facility] SPECIFIC GRAVITY UA (POCT) 1.02 1.005 - 1.030 [facility] UROBILINOGEN UA (POCT) 2 Abnormal Mariah l E.U./dL [facility] Location:[address], [id number] [place] [address] POINT OF CARE [facility] UAMICon 09-18-2024 UA Bacteria Negative Normal Negative [facility] Comment on above: Performed By: #### U AMIC, UA #### [address] [place], [place] [address] UA RBC Negative Normal 0-2 [facility] Comment on above: Performed By: #### U AMIC, UA #### [address] [place], [place] [address] UA Renal Epithelial Rare Normal [facility] Comment on above: Performed By: #### U AMIC, UA #### [address] [place], [place] [address] UA Squam Epithelial 3-5 Normal 0-20 [facility] Comment on above: Performed By: #### U AMIC, UA #### [address] [place], [place] [address] UA WBC 0-2 Normal 0-5 [facility] Comment on above: Performed By: #### U AMIC, UA #### [address] [place], [place] [address] COLLIN w/ Reflex Mult Confirmon 09-15-2024 ANTI-DNA (DS)AB TNP Normal [facility] Comment on above: Performed By: #### L 503.0106, L100.0100, L400.2010, L3100.5450, L500.4050, L506.1001, L506.0400, M100.2200, L501.9520 #### [facility] [address] [place], [address] ANTI-KANDI-1 TNP Normal [facility] Comment on above: Performed By: #### L 503.0106, L100.0100, L400.2010, L3100.5450, L500.4050, L506.1001, L506.0400, M100.2200, L501.9520 #### [facility] [address] [place], [place], [id number] ANTI-SS-A TNP Normal [facility] Comment on above: Performed By: #### L 503.0106, L100.0100, L4.2010, L3100.5450, L500.4050, L506.1001, L506.0400, M100.2200, L501.9520 #### [facility] [address] [place], [place], [id number] Urine Cultureon 09-01-2024 URC Below infection leve l. Mixed Gram Positive Organisms [place] Count 1000-10,000 MIX[facility] Mixed contaminants. Submit a new specimen if indicated. Normal [facility] Comment on above: Performed By: #### L 503.0106, L100.0100, L400.2010, L3100.5450, L500.4050, L506.1001, L506.0400, M100.2200, L501.9520 #### [facility] [address] [place], [address] CBC W/Diff, Automatedon 04-2 -2024 Absolute Lymph 1.99 X10 3/uL Normal 0.83-4.51 [facility] Comment on above: Performed By: #### L 503.0106, L100.0100, L400.2010, L3100.5450, L500.4050, L506.1001, L506.0400, M100.2200, L501.9520 #### [facility] [address] [place], [address] Absolute Neut 2.8 X10 3/uL Normal 2.0-7.7 [facility] Comment on above: Performed By: #### L 503.0106, L100.0100, L400.2010, L3100.5450, L500.4050, L506.1001, L506.0400, M100.2200, L501.9520 #### [facility] [address] [place], [address] Basophils/100 WBC (Bld) 1.7 % High 0-1 [facility] Comment on above: Performed By: #### L 503.0106, L100.0100, L4.2010, L3100.5450, L500.4050, L506.1001, L506.0400, M100.2200, L501.9520 #### [facility] [address] [place], [address] Eosinophils/100 WBC (Bld) 3.7 % Normal 0-5 [facility] Comment on above: Performed By: #### L 503.0106, L100.0100, L400.2010, L3100.5450, L500.4050, L506.1001, L506.0400, M100.2200, L501.9520 #### [facility] [address] [place], [address] Erythrocyte distribution width (RBC) [Ratio] 13.5 % Normal 11.6-14.6 [facility] Comment on above: Performed By: #### L 503.0106, L100.0100, L400.2010, L3100.5450, L500.4050, L506.1001, L506.0400, M100.2200, L501.9520 #### [facility] [address] [place], [address] Hematocrit (Bld) [Volume fraction] 46.0 % Normal 37-47 [facility] Comment on above: Performed By: #### L 503.0106, L100.0100, L4.2010, L3100.5450, L500.4050, L506.1001, L506.0400, M100.2200, L501.9520 #### [facility] [address] [place], [address] Hemoglobin (Bld) [Mass/Vol] 14.7 g/dL Normal 12.0-15.0 [facility] Comment on above: Performed By: #### L 503.0106, L100.0100, L4.2010, L3100.5450, L500.4050, L506.1001, L506.0400, M100.2200, L501.9520 #### [facility] [address] [place], [address] IG% 0.200 Normal 0.0-0.9 [facility] Comment on above: Result Comment: IG% - Immature Granulocytes (promyelocytes, myelocytes and metamyelocytes) > 1% indicates that a LEFT SHIFT is Present. Performed By: #### L 503.0106, L100.0100, L400.2010, L3100.5450, L500.4050, L506.1001, L506.0400, M100.2200, L501.9520 #### [facility] [address] [place], [address] Lymphocytes/100 WBC (Bld) 36.6 % Normal 19-41 [facility] Comment on above: Performed By: #### L 503.0106, L100.0100, L400.2010, L3100.5450, L500.4050, L506.1001, L506.0400, M100.2200, L501.9520 #### [facility] [address] [place], [address] MCH (RBC) [Entitic mass] 28.9 pg Normal 27.0-32.0 [facility] Comment on above: Performed By: #### L 503.0106, L100.0100, L400.2010, L3100.5450, L500.4050, L506.1001, L506.0400, M100.2200, L501.9520 #### [facility] [address] [place], [address] MCHC (RBC) [Mass/Vol] 32.0 g/dL Normal 32-36 [facility] Comment on above: Performed By: #### L 503.0106, L100.0100, L400.2010, L3100.5450, L500.4050, L506.1001, L506.0400, M100.2200, L501.9520 #### [facility] [address] [place], [address] MCV (RBC) [Entitic vol] 90.6 fL Normal 81-99 [facility] Comment on above: Performed By: #### L 503.0106, L100.0100, L400.2010, L3100.5450, L500.4050, L506.1001, L506.0400, M100.2200, L501.9520 #### [facility] [address] [place], [address] Monocytes/100 WBC (Bld) 5.5 % Normal 0-10 [facility] Comment on above: Performed By: #### L 503.0106, L100.0100, L400.2010, L3100.5450, L500.4050, L506.1001, L506.0400, M100.2200, L501.9520 #### [facility] [address] [place], [address] Neutrophils/100 WBC (Bld) 52.3 % Normal 47-70 [facility] Comment on above: Performed By: #### L 503.0106, L100.0100, L400.2010, L3100.5450, L500.4050, L506.1001, L506.0400, M100.2200, L501.9520 #### [facility] [address] [place], [address] Nucleated RBC (Bld) [#/Vol] 0 10*3/uL Normal 0-5 [facility] Comment on above: Performed By: #### L 503.0106, L100.0100, L4.2010, L3100.5450, L500.4050, L506.1001, L506.0400, M100.2200, L501.9520 #### [facility] [address] [place], [address] Platelet mean volume (Bld) [Entitic vol] 9.5 fL Normal 6.2-12.0 [facility] Comment on above: Performed By: #### L 503.0106, L100.0100, L400.2010, L3100.5450, L500.4050, L506.1001, L506.0400, M100.2200, L501.9520 #### [facility] [address] [place], [address] Platelets (Bld) [#/Vol] 318 10*3/uL Normal 150-450 [facility] Comment on above: Performed By: #### L 503.0106, L100.0100, L400.2010, L3100.5450, L500.4050, L506.1001, L506.0400, M100.2200, L501.9520 #### [facility] [address] [place], [address] RBC (Bld) [#/Vol] 5.08 10*6/uL Normal 4.2-5.4 [facility] Comment on above: Performed By: #### L 503.0106, L100.0100, L400.2010, L3100.5450, L500.4050, L506.1001, L506.0400, M100.2200, L501.9520 #### [facility] [address] [place], [address] RDW SD 45.3 fl High 35.1-43.9 [facility] Comment on above: Performed By: #### L 503.0106, L100.0100, L400.2010, L3100.5450, L500.4050, L506.1001, L506.0400, M100.2200, L501.9520 #### [facility] [address] [place], [address] WBC (Bld) [#/Vol] 5.4 10*3/uL Normal 4.4-11.0 [facility] Comment on above: Performed By: #### L 503.0106, L100.0100, L400.2010, L3100.5450, L500.4050, L506.1001, L506.0400, M100.2200, L501.9520 #### [facility] [address] [place], [address] Comprehensive Metabolic Prof [facility] 08-29-2024 Albumin [Mass/Vol] 4.3 g/dL Normal 3.4-4.8 [facility] Comment on above: Performed By: #### L 503.0106, L100.0100, L400.2010, L3100.5450, L500.4050, L506.1001, L506.0400, M100.2200, L501.9520 #### [facility] [address] [place], [address] Albumin/Globulin [Mass ratio] 1.3 {ratio} Normal 0.9-2.4 [facility] Comment on above: Performed By: #### L 503.0106, L100.0100, L400.2010, L3100.5450, L500.4050, L506.1001, L506.0400, M100.2200, L501.9520 #### [facility] [address] [place], [address] ALK PHOS 80 U/L Normal 35-104 [facility] Comment on above: Performed By: #### L 503.0106, L100.0100, L400.2010, L3100.5450, L500.4050, L506.1001, L506.0400, M100.2200, L501.9520 #### [facility] [address] [place], [address] ALT [Catalytic activity/Vol] 22 U/L Normal <=34 [facility] Comment on above: Performed By: #### L 503.0106, L100.0100, L4.2010, L3100.5450, L500.4050, L506.1001, L506.0400, M100.2200, L501.9520 #### [facility] [address] [place], [address] AST [Catalytic activity/Vol] 23 U/L Normal <=31 [facility] Comment on above: Performed By: #### L 503.0106, L100.0100, L400.2010, L3100.5450, L500.4050, L506.1001, L506.0400, M100.2200, L501.9520 #### [facility] [address] [place], [address] Bilirubin [Mass/Vol] 0.34 mg/dL Normal 0.00-1.30 [facility] Comment on above: Performed By: #### L 503.0106, L100.0100, L400.2010, L3100.5450, L500.4050, L506.1001, L506.0400, M100.2200, L501.9520 #### [facility] [address] [place], [address] BUN/CRE 19.2 RATIO Normal 10-20 [facility] Comment on above: Performed By: #### L 503.0106, L100.0100, L400.2010, L3100.5450, L500.4050, L506.1001, L506.0400, M100.2200, L501.9520 #### [facility] [address] [place], [address] Calcium [Mass/Vol] 9.5 mg/dL Normal 7.6-11.0 [facility] Comment on above: Performed By: #### L 503.0106, L100.0100, L400.2010, L3100.5450, L500.4050, L506.1001, L506.0400, M100.2200, L501.9520 #### [facility] [address] [place], [address] Chloride [Moles/Vol] 102 mmol/L Normal 98-108 [facility] Comment on above: Performed By: #### L 503.0106, L100.0100, L400.2010, L3100.5450, L500.4050, L506.1001, L506.0400, M100.2200, L501.9520 #### [facility] [address] [place], [address] CO2 [Moles/Vol] 26.8 mmol/L Normal 21.0-32.0 [facility] Comment on above: Performed By: #### L 503.0106, L100.0100, L4.2010, L3100.5450, L500.4050, L506.1001, L506.0400, M100.2200, L501.9520 #### [facility] [address] [place], [address] Creatinine [Mass/Vol] 0.72 mg/dL Normal 0.70-1.20 [facility] Comment on above: Performed By: #### L 503.0106, L100.0100, L400.2010, L3100.5450, L500.4050, L506.1001, L506.0400, M100.2200, L501.9520 #### [facility] [address] [place], [address] GAP 11 Normal 5-15 [facility] Comment on above: Performed By: #### L 503.0106, L100.0100, L4.2010, L3100.5450, L500.4050, L506.1001, L506.0400, M100.2200, L501.9520 #### [facility] [address] [place], [address] GFR/1.73 sq M.predicted among non-blacks MDRD (S/P/Bld) [Vol rate/Area] 93 mL/min/{1.73_m2} Normal >60 [facility] Comment on above: Result Comment: mL/m in/1.73m2 CKD-EPI Creatinine Equation (2020) Performed By: #### L 503.0106, L100.0100, L4.2010, L3100.5450, L500.4050, L506.1001, L506.0400, M100.2200, L501.9520 #### [facility] [address] [place], [address] Globulin (S) [Mass/Vol] 3.2 g/dL Normal 2.2-4.2 [facility] Comment on above: Performed By: #### L 503.0106, L100.0100, L4, L3100.5450, L500.4050, L506.1001, L506.0400, M100.2200, L501.9520 #### [facility] [address] [place], [address] Glucose [Mass/Vol] 85 mg/dL Normal 70-99 [facility] Comment on above: Performed By: #### L 503.0106, L100.0100, L400.2010, L3100.5450, L500.4050, L506.1001, L506.0400, M100.2200, L501.9520 #### [facility] [address] [place], [address] Potassium [Moles/Vol] 4.1 mmol/L Normal 3.3-5.1 [facility] Comment on above: Performed By: #### L 503.0106, L100.0100, L4.2010, L3100.5450, L500.4050, L506.1001, L506.0400, M100.2200, L501.9520 #### [facility] [address] [place], [address] Sodium [Moles/Vol] 139 mmol/L Normal 133-145 [facility] Comment on above: Performed By: #### L 503.0106, L100.0100, L400.2010, L3100.5450, L500.4050, L506.1001, L506.0400, M100.2200, L501.9520 #### [facility] [address] [place], [address] T PROT 7.5 g/dL Normal 5.9-8.4 [facility] Comment on above: Performed By: #### L 503.0106, L100.0100, L400.2010, L3100.5450, L500.4050, L506.1001, L506.0400, M100.2200, L501.9520 #### [facility] [address] [place], [address] Urea nitrogen [Mass/Vol] 14 mg/dL Normal 4-19 [facility] Comment on above: Performed By: #### L 503.0106, L100.0100, L400.2010, L3100.5450, L500.4050, L506.1001, L506.0400, M100.2200, L501.9520 #### [facility] [address] [place], [address] T4 Free Directon 08-29-2024 T4 FREE DIRECT 1.80 ng/dL High 0.76-1.46 [facility] Comment on above: Performed By: #### L 503.0106, L100.0100, L400.2010, L3100.5450, L500.4050, L506.1001, L506.0400, M100.2200, L501.9520 #### [facility] [address] [place], [address] Thyroid Stim Hormone (TSH)on 08-29-2024 TSH 2.390 uIU/mL Normal 0.300-4.200 [facility] Comment on above: Performed By: #### L 503.0106, L100.0100, L4.2010, L3100.5450, L500.4050, L506.1001, L506.0400, M100.2200, L501.9520 #### [facility] [address] [place], [address] Urinalysis, Routine (Dipstic k)on 08-29-2024 BILIRUBIN URINE Negative Normal Negative [facility] Comment on above: Order Comment: Urine , Random Performed By: #### L 503.0106, L100.0100, L400.2010, L3100.5450, L500.4050, L506.1001, L506.0400, M100.2200, L501.9520 #### [facility] [address] [place], [address] Clarity (U) Clear Normal Clear [facility] Comment on above: Order Comment: Urine , Random Performed By: #### L 503.0106, L100.0100, L400.2010, L3100.5450, L500.4050, L506.1001, L506.0400, M100.2200, L501.9520 #### [facility] [address] [place], [address] Color (U) Straw Normal Yellow [facility] Comment on above: Order Comment: Urine , Random Performed By: #### L 503.0106, L100.0100, L400.2010, L3100.5450, L500.4050, L506.1001, L506.0400, M100.2200, L501.9520 #### [facility] [address] [place], [address] GLUCOSE, UR Normal Normal Normal [facility] Comment on above: Order Comment: Urine , Random Performed By: #### L 503.0106, L100.0100, L400.2010, L3100.5450, L500.4050, L506.1001, L506.0400, M100.2200, L501.9520 #### [facility] [address] [place], [address] KETONE UR Negative Normal Negative [facility] Comment on above: Order Comment: Urine , Random Performed By: #### L 503.0106, L100.0100, L400.2010, L3100.5450, L500.4050, L506.1001, L506.0400, M100.2200, L501.9520 #### [facility] [address] [place], [address] LEUK ESTERASE Negative Normal Negative [facility] Comment on above: Order Comment: Urine , Random Performed By: #### L 503.0106, L100.0100, L400.2010, L3100.5450, L500.4050, L506.1001, L506.0400, M100.2200, L501.9520 #### [facility] [address] [place], [address] Nitrite Ql (U) Negative Normal Negative [facility] Comment on above: Order Comment: Urine , Random Performed By: #### L 503.0106, L100.0100, L400.2010, L3100.5450, L500.4050, L506.1001, L506.0400, M100.2200, L501.9520 #### [facility] [address] [place], [address] OCCULT BLOOD-UR Negative Normal Negative [facility] Comment on above: Order Comment: Urine , Random Performed By: #### L 503.0106, L100.0100, L4.2010, L3100.5450, L500.4050, L506.1001, L506.0400, M100.2200, L501.9520 #### [facility] [address] [place], [address] pH UR 6.0 Normal 5.0 - 8.0 [facility] Comment on above: Order Comment: Urine , Random Performed By: #### L 503.0106, L100.0100, L4.2010, L3100.5450, L500.4050, L506.1001, L506.0400, M100.2200, L501.9520 #### [facility] [address] [place], [address] PROT DIPSTX Negative Normal Negative [facility] Comment on above: Order Comment: Urine , Random Performed By: #### L 503.0106, L100.0100, L400.2010, L3100.5450, L500.4050, L506.1001, L506.0400, M100.2200, L501.9520 #### [facility] [address] [place], [address] SP.GR. DIPSTX 1.015 Normal 1.002-1.030 [facility] Comment on above: Order Comment: Urine , Random Performed By: #### L 503.0106, L100.0100, L4.2010, L3100.5450, L500.4050, L506.1001, L506.0400, M100.2200, L501.9520 #### [facility] [address] [facility] [place], [address] UROBILI Normal Normal Normal [facility] Comment on above: Order Comment: Urine , Random Performed By: #### L 503.0106, L100.0100, L4, L3100.5450, L500.4050, L506.1001, L506.0400, M100.2200, L501.9520 #### [facility] [address] [facility] [place], [address] Vitamin B12on 08-29-2024 Cobalamin (Vitamin B12) [Mass/Vol] 520 pg/mL Normal 180-914 [facility] Comment on above: Performed By: #### L 503.0106, L100.0100, , L3100.5450, L500.4050, L506.1001, L506.0400, M100.2200, L501.9520 #### [facility] [address] [facility] [place], [address] Vitamin D,25 Hydroxyon 08-29 Vitamin D 25-OH 14.8 ng/mL Low 30-100 [facility] Comment on above: Result Comment: Yari min D Status Deficiency: <20 ng/mL (50nmol/L) Insufficiency: 20-30 ng/mL (50-75 nmol/L) Sufficiency: 30-100 ng/mL (75-250 nmol/L) Toxicity: >100 ng/mL (>250 nmol/L) Performed By: #### L 503.0106, L100.0100, L4, L3100.5450, L500.4050, L506.1001, L506.0400, M100.2200, L501.9520 #### [facility] [address] [facility] [place] [place], [address] Urine Cultureon 07-18-2024 URC Mixed Gram Pos Gram Neg Org [place] Count 50,000-80,000 MIX[facility] Mixed contaminants. Submit a new specimen if indicated. Normal [facility] Comment on above: Performed By: #### L 503.0106, L100.0100, L400.2011, L3100.5450, L500.4050, L506.1001, L506.0400, M100.2200, L501.9520 #### [facility] [address] [place], [address] Urine cultureOrdered By: Nancy Calloway on 07-17-2024 Bacteria identified Cx Nom (U) Mixed Gram Pos & Gram Neg Org Abnormal [facility] Spine Cervical (Routine)on 1 07-05-2023 Spine Cervical (Routine) [facility] [address] [place] [address] Spine Cervical (Routine) MR#: [id number] Acct: [id number] Name: PETRONA SANTIZO Rep #: [id number] : 1960 F 63 From: Christiano Sotomayor MD PCP: Dr. Jaspreet Carlton DO Status: REG CLI Study: Spine Cervical (Routine) Date of Exam: Exam# [id number] Ordering Dr: Jaspreet Carlton DO [id number] STUDY: MRI CERVICAL SPINE WITHOUT CONTRAST REASON FOR EXAM: Female, 63 years old. LT CERVICAL RADICULOPATHY, neck pain TECHNIQUE: Standardized fat and water weighted pulse sequences were obtained in the sagittal and axial planes. COMPARISON: Cervical spine radiographs 04/18/2024. FINDINGS: Normal foramen magnum and brainstem-cervical cord junction. Normal craniovertebral junction. Normal anterior atlantoaxial articulation. Normal odontoid process. Normal cervical lordosis. No suspicious recent or remote fractures of the vertebral bodies and posterior osseous elements. C2-3: Normal endplates. Mild disc space height narrowing. Minimal degenerative retrolisthesis of C2 on C3 is unchanged. Normal central canal and intervertebral neuroforamina. Ankylosis of the C2-C3 facet joints. C3-4: Normal endplates. Mild disc space height narrowing. Mild degenerative retrolisthesis of C3 on C4. Normal central canal and intervertebral neuroforamina. C4-5: Mild Modic type I degenerative vertebral marrow edema underneath the vertebral endplates. Normal disc height. Abnormal edema of the left C4 and left C5 articular pillars and left facet joint. No joint effusion. Normal right facet joint. Normal central canal and intervertebral neuroforamina. C5-6: Normal endplates. Normal disc height, signal and morphology. Normal central canal and intervertebral neural foramina. C6-7: Normal endplates. Normal disc height, signal and morphology. Normal central canal and intervertebral neural foramina. C7-T1 and T1-T2: Normal endplates. Normal disc height, signal and morphology. Normal central canal and intervertebral neural foramina. T2-T3, T3-T4, T4-T5, T5-T6 and T6-T7: (Sagittal only). Normal endplates. Normal disc height, signal and morphology. Normal central canal and intervertebral neuroforamina. Normal cervical cord. Normal upper thoracic spinal cord. Normal included midline brainstem and cerebellum. Normal visualized soft tissue structures. MRI/Spine Cervical (Routine) IMPRESSION: 1. 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 This is most likely the source of patients neck pain and left cervical radiculopathy. 2. Ankylosis of the C2-C3 facet joints with minimal anterolisthesis of C2 on C3. 3. Mild degenerative retrolisthesis of C3 on C4. 4. Normal central canal and cervical intervertebral neuroforamina. 5. No MRI evidence of cervical extruded disc fragment or cervical disc protrusion. 6. Normal cervical spinal cord. Electronically Signed: Christiano Sotomayor MD at 16:13 EST , CC: Dr. Jaspreet Carlton DO Clear Coat Sprayer: Signed Normal [facility] Cerv Spine 4 or 5 Viewson Cerv Spine 4 or 5 Views [facility] [address] [place] [address] Cerv Spine 4 or 5 Views MR#: [id number] Acct: [id number] Name: PETRONA SANTIZO Rep #: [id number] : 1960 F 63 From: Luba Casey MD PCP: PETE Hedrick Status: REG CLI Study: Cerv Spine 4 or 5 Views Date of Exam: 04/18/24 Exam# [id number] Ordering Dr: Jaspreet Carlton DO [id number] INDICATION: PAIN, RADICULOPATHY EXAMINATION/TECHNIQUE: X-RAY - XR Spine Cervical 4 or 5 Views COMPARISON: No relevant prior comparison study available FINDINGS: VERTEBRAE: Preserved vertebral body height. No fracture. No spondylolisthesis. Preservation of the normal cervical lordosis. No significant facet arthropathy. The neural foramina appear patent. DISCS: There is multilevel degenerative disc disease. NECK SOFT TISSUES: No prevertebral soft tissue widening. LUNG APICES: Clear. RAD/Cerv Spine 4 or 5 Views IMPRESSION: Multilevel degenerative disc disease. Electronically Signed: Luba Casey MD at 9:18 EST , CC: PETE Calloway; Dr. Jaspreet Carlton DO [employer]ayer: Signed [facility] [place] 04-17-2024 MIRAN Telephone (OBGYWM) -------- DARLYNPETRONA ([id number]) 1960 F Date Time Provider Department 04/17/24 FAN CHAN During your visit today, we recorded the following information about you: Fan Chan APRN.CNP 04/17/2024 7:18 AM Signed Please notify patient: Normal mammo. Because your breast tissue is dense, you are eligible for supplemental imaging with whole breast ultrasound. This test improves breast cancer detection and may result in the need for additional testing (biopsy, six-month follow up imaging or both). If you want to have this supplemental screening test, please check with your insurance to see if it is covered and what your dko-xi-vctbai expense will be. Please reach out through [employer] or by phone if you would like an order placed or if you would like to schedule an appointment to discuss further with an available provider. Whole breast ultrasound does not replace annual mammograms; this test is in addition to regular mammograms which are the most important way to screen for breast cancer. Can plan for annual mammo if US is declined. Fan Chan APRN.Starr Espinosa RN 04/17/2024 8:37 AM Signed Left message for patient to call office. GERMANIA Erwin Trisha, RN 04/17/2024 9:00 AM Signed Patient notified. Declined for now. Will call back for orders if she chooses to proceed. Alissa Nichols RN Allergies As of Date: 04/17/2024 Noted Allergy Reaction PENICILLIN 11/15/2017 16 - Unknown Date Reviewed: 03/17/2024 Reviewed by: Keenan, Sharlene, FAMILY MEDIATOR.QUALITY ASSURANCE SUPERVISOR TRIM - Fully Assessed Reason for Visit: Results [95] Prescriptions as of 04/17/2024 - clobetasol (TEMOVATE) 0.05 % cream Apply to affected area 2x/day for 2 weeks, then 1x/day for a week, than 1-3x/week for maintenance. - SYNTHROID 137 mcg tablet 135 mcg. - meloxicam (MOBIC) 15 mg tablet Take 1 tablet by mouth once daily. - ascorbic acid, vitamin C, (VITAMIN C) 500 mg tablet Take 500 mg by mouth once daily. - MULTI-VITAMIN ORAL Take by mouth. - Cholecalciferol, Vitamin D3, 50 mcg (2,000 unit) cap Take by mouth. 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 Return to annual screening mammogram is recommended. Annual mammogram will be due in 1 year. BI-RADS Category 1: Negative RISK: Based on the Tyrer-Cuzick (TC) risk assessment model, this patient has a 14.4% lifetime risk of developing breast cancer, meaning they are at average risk for developing breast cancer. However, this is only an estimate based on available history provided on the patient's questionnaire. We encourage all patients to talk with their providers about these results, further recommendations for managing breast health, and appropriate supplemental screening options if the patient has dense breast tissue. Interpreting Radiologist: Fabiola Maxwell M.D. Electronically signed on: 04/15/2024 Clear Coat Sprayer: JOSE Transcrikatherine Date/Time: Apr 15 2024 9:53A Dictated by : FABIOLA MAXWELL MD This examination was interpreted and the report reviewed and electronically signed by: FABIOLA MAXWELL MD on Apr 15 2024 10:06AM [facility] * * *Final Report* * * DATE OF EXAM: Apr 15 2024 10:01AM [facility] 0628 - MARCUS DIAG W JULIANA LT / PROCEDURE REASON: R92.8-Abnormal mammogram * * * * Physician Interpretation * * * * [facility] [address] [place] [address] #[id number] - MARCUS BOG W JULIANA LT HISTORY: Patient is 63 years old and is seen for diagnostic evaluation of abnormal mammogram in the left breast. Patient states no personal history of breast cancer. Patient states no personal history of other cancers. COMPARISON STUDIES: The present examination has been compared to prior imaging studies dated 03/22/2023 (mammogram), 05/19/2023 (ultrasound), 05/19/2023 (mammogram), 03/24/2024 (mammogram) and 04/15/2024 (ultrasound). MAMMOGRAM TECHNIQUE: The study was acquired using full field digital technology and interpreted from soft copy. Digital Breast Tomosynthesis (DBT) images were obtained and used to assist in the interpretation of this examination. Computer-aided detection was utilized by the radiologist in the interpretation of this examination. MAMMOGRAM FINDINGS: The breast is heterogeneously dense, which may obscure small masses. No suspicious masses, calcifications or other abnormalities are seen in the left breast. The previously described finding does not persist on the present exam. [facility] Provider, Karolyn Beaulieu [facility] - 04/15/2024 * * *Final Report* * * DATE OF EXAM: Apr 15 2024 10:01AM [facility] 0628 - MARCUS BOG W JULIANA / PROCEDURE REASON: R92.8-Abnormal mammogram * * * * Physician Interpretation * * * * [facility] [address] [place] [id number] #[id number] - MARCUS DIAG W JULIANA LT HISTORY: Patient is 63 years old and is seen for diagnostic evaluation of abnormal mammogram in the left breast. Patient states no personal history of breast cancer. Patient states no personal history of other cancers. COMPARISON STUDIES: The present examination has been compared to prior imaging studies dated 03/22/2023 (mammogram), 05/19/2023 (ultrasound), 05/19/2023 (mammogram), 03/24/2024 (mammogram) and 04/15/2024 (ultrasound). MAMMOGRAM TECHNIQUE: The study was acquired using full field digital technology and interpreted from soft copy. Digital Breast Tomosynthesis (DBT) images were obtained and used to assist in the interpretation of this examination. Computer-aided detection was utilized by the radiologist in the interpretation of this examination. MAMMOGRAM FINDINGS: The breast is heterogeneously dense, which may obscure small masses. No suspicious masses, calcifications or other abnormalities are seen in the left breast. The previously described finding does not persist on the present exam. IMPRESSION IMPRESSION: There is no mammographic evidence of malignancy. Return to annual screening mammogram is recommended. Annual mammogram will be due in 1 year. BI-RADS Category 1: Negative RISK: Based on the Tyrer-Cuzick (TC) risk assessment model, this patient has a 14.4% lifetime risk of developing breast cancer, meaning they are at average risk for developing breast cancer. However, this is only an estimate based on available history provided on the patient's questionnaire. We encourage all patients to talk with their providers about these results, further recommendations for managing breast health, and appropriate supplemental screening options if the patient has dense breast tissue. Interpreting Radiologist: Fabiola Maxwell M.D. Electronically signed on: 04/15/2024 Clear Coat Sprayer: JOSE Transcrikatherine Date/Time: Apr 15 2024 9:53A Dictated by : FABIOLA MAXWELL MD This examination was interpreted and the report reviewed and electronically signed by: FABIOLA MAXWELL MD on Apr 15 2024 10:06AM EST [facility] Radiology Study observation (narrative) [facility] DBT Breast - left diagnostic for implantOrdered By: Ccf Provider on 04-15-2024 [facility] MARCUS DIAG W JULIANA LTon 024 MARCUS DIAG W JULIANA LT * * *Final Report* * * DATE OF EXAM: Apr 15 2024 10:01AM [facility] 0628 - MARCUS SORIANOG W JULIANA LT / PROCEDURE REASON: R92.8-Abnormal mammogram * * * * Physician Interpretation * * * * [place] [id number] #[id number] - MARCUS SORIANOG W JULIANA LT HISTORY: Patient is 63 years old and is seen for diagnostic evaluation of abnormal mammogram in the left breast. Patient states no personal history of breast cancer. Patient states no personal history of other cancers. COMPARISON STUDIES: The present examination has been compared to prior imaging studies dated 03/22/2023 (mammogram), 05/19/2023 (ultrasound), 05/19/2023 (mammogram), 03/24/2024 (mammogram) and 04/15/2024 (ultrasound). MAMMOGRAM TECHNIQUE: The study was acquired using full field digital technology and interpreted from soft copy. Digital Breast Tomosynthesis (DBT) images were obtained and used to assist in the interpretation of this examination. Computer-aided detection was utilized by the radiologist in the interpretation of this examination. MAMMOGRAM FINDINGS: The breast is heterogeneously dense, which may obscure small masses. No suspicious masses, calcifications or other abnormalities are seen in the left breast. The previously described finding does not persist on the present exam. IMPRESSION: There is no mammographic evidence of malignancy. Return to annual screening mammogram is recommended. Annual mammogram will be due in 1 year. BI-RADS Category 1: Negative RISK: Based on the Tyrer-Cuzick (TC) risk assessment model, this patient has a 14.4% lifetime risk of developing breast cancer, meaning they are at average risk for developing breast cancer. However, this is only an estimate based on available history provided on the patient's questionnaire. We encourage all patients to talk with their providers about these results, further recommendations for managing breast health, and appropriate supplemental screening options if the patient has dense breast tissue. Interpreting Radiologist: Fabiola Maxwell M.D. Electronically signed on: 04/15/2024 Clear Coat Sprayer: JOSE Transcribe Date/Time: Apr 15 2024 9:53A Dictated by : FABIOLA MAXWELL MD This examination was interpreted and the report reviewed and electronically signed by: FABIOLA MAXWELL MD on Apr 15 2024 10:06AM EST [id number] Normal [facility] 04-04-2024 Antinuclear Ab Pattern Nuclear homogeneous Normal [facility] Comment on above: Result Comment: Perf ormed By: [facility] [employer] [address] [place] [address] Jet Worker: Mahesh Hansen III, M.D. CLIA#: [id number] Performed By: #### U SEEMA, UA #### [address] [address] Antinuclear Ab Screen Positive Abnormal Negative [facility] Comment on above: Result Comment: Anti -nuclear antibody test is used as an aid in diagnosis of systemic autoimmune diseases. Where positive and clinically warranted, follow-up using disease-specific testing is recommended. Low positive titers are not uncommon with advanced age, certain chronic infections, and malignancies among others. Test methodology: Indirect fluorescence immunoassay (IFA) using HEp-2 cells. Performed By: [facility] [employer] [address] [place] [address] Jet Worker: Mahesh Hansen III, M.D. CLIA#: [id number] Performed By: #### U SEEMA, UA #### [place] [address] Antinuclear Ab Titer 1:80 Normal [facility] Comment on above: Result Comment: Perf ormed By: [facility] [employer] [address] [place] [address] Jet Worker: Mahesh Hansen III, M.D. CLIA#: [id number] Performed By: #### U SEEMA, UA #### [address] [address] .Auto Diffon 04-01-2024 Basophil, Absolute 0.0 10 3/mcL Normal 0.0-0.2 [facility] Comment on above: Performed By: #### C MP, CBC, ADIFF, LIPID, ANAIFS, FT4, ANEU, TSH, GFR #### [address] [address] Basophils/100 WBC (Bld) 1.3 % Normal 0.0-2.5 [facility] Comment on above: Performed By: #### C MP, CBC, ADIFF, LIPID, ANAIFS, FT4, ANEU, TSH, GFR #### [address] [address] Eosinophil, Absolute 0.1 10 3/mcL Normal 0.0-0.7 [facility] Comment on above: Performed By: #### C MP, CBC, ADIFF, LIPID, ANAIFS, FT4, ANEU, TSH, GFR #### [address] [address] Eosinophils/100 WBC (Bld) 2.4 % Normal 0.0-7.0 [facility] Comment on above: Performed By: #### C MP, CBC, ADIFF, LIPID, ANAIFS, FT4, ANEU, TSH, GFR #### [address] [address] Lymphocyte, Absolute 1.1 10 3/mcL Normal 0.9-4.3 [facility] Comment on above: Performed By: #### C MP, CBC, ADIFF, LIPID, ANAIFS, FT4, ANEU, TSH, GFR #### [address] [address] Lymphocytes/100 WBC (Bld) 30.9 % Normal 20.0-40.0 [facility] Comment on above: Performed By: #### C MP, CBC, ADIFF, LIPID, ANAIFS, FT4, ANEU, TSH, GFR #### [address] [address] Monocyte, Absolute 0.3 10 3/mcL Normal 0.1-1.4 [facility] Comment on above: Performed By: #### C MP, CBC, ADIFF, LIPID, ANAIFS, FT4, ANEU, TSH, GFR #### [address] [address] Monocytes/100 WBC (Bld) 7.7 % Normal 2.0-13.0 [facility] Comment on above: Performed By: #### C MP, CBC, ADIFF, LIPID, ANAIFS, FT4, ANEU, TSH, GFR #### [address] [address] Neutrophils/100 WBC (Bld) 57.7 % Normal 50.0-75.0 [facility] Comment on above: Performed By: #### C MP, CBC, ADIFF, LIPID, ANAIFS, FT4, ANEU, TSH, GFR #### [address] [address] .GFRon 04-01-2024 GFR 88 ml/min/1.73sqm Normal [facility] Comment on above: Result Comment: GFR Population mean for , Non- Americans Ages 20-29 = 116 mL/min/1.73 sq.m. Ages 30-39 = 107 mL/min/1.73 sq.m. Ages 40-49 = 99 mL/min/1.73 sq.m. Ages 50-59 = 93 mL/min/1.73 sq.m. Ages 60-69 = 85 mL/min/1.73 sq.m. Ages 70+ = 75 mL/min/1.73 sq.m. Chronic Kidney Disease: Less than 60 mL/min/1.73 square meters End Stage Renal Disease: Less than 15 mL/min/1.73 square meters Performed By: #### C MP, CBC, ADIFF, LIPID, ANAIFS, FT4, ANEU, TSH, GFR #### [address] [address] GFR Non- 72 ml/min/1.73sqm [facility] Comment on above: Result Comment: GFR Population mean for , Non- Americans Ages 20-29 = 116 mL/min/1.73 sq.m. Ages 30-39 = 107 mL/min/1.73 sq.m. Ages 40-49 = 99 mL/min/1.73 sq.m. Ages 50-59 = 93 mL/min/1.73 sq.m. Ages 60-69 = 85 mL/min/1.73 sq.m. Ages 70+ = 75 mL/min/1.73 sq.m. Chronic Kidney Disease: Less than 60 mL/min/1.73 square meters End Stage Renal Disease: Less than 15 mL/min/1.73 square meters Performed By: #### C MP, CBC, ADIFF, LIPID, ANAIFS, FT4, ANEU, TSH, GFR #### [address] [address] .NEUABSon 04-01-2024 Neutrophil, Absolute 2.1 10 3/mcL Low 2.3-8.1 [facility] Comment on above: Performed By: #### C MP, CBC, ADIFF, LIPID, ANAIFS, FT4, ANEU, TSH, GFR #### [address] [address] CBCon 04-01-2024 Erythrocyte distribution width (RBC) [Ratio] 14.2 % Normal 11.5-15.5 [facility] Comment on above: Performed By: #### C MP, CBC, ADIFF, LIPID, ANAIFS, FT4, ANEU, TSH, GFR #### [address] [address] Hematocrit (Bld) [Volume fraction] 45.9 % Normal 34.0-46.0 [facility] Comment on above: Performed By: #### C MP, CBC, ADIFF, LIPID, ANAIFS, FT4, ANEU, TSH, GFR #### [address] [address] Hgb 15.2 G/dL Normal 12.0-16.0 [facility] Comment on above: Performed By: #### C MP, CBC, ADIFF, LIPID, ANAIFS, FT4, ANEU, TSH, GFR #### [address] [address] MCH (RBC) [Entitic mass] 29.6 pg Normal 27.0-33.0 [facility] Comment on above: Performed By: #### C MP, CBC, ADIFF, LIPID, ANAIFS, FT4, ANEU, TSH, GFR #### [address] [address] MCHC 33.1 G/dL Normal 32.0-36.0 [facility] Comment on above: Performed By: #### C MP, CBC, ADIFF, LIPID, ANAIFS, FT4, ANEU, TSH, GFR #### [address] [address] MCV (RBC) [Entitic vol] 89.4 fL Normal 80.0-99.0 [facility] Comment on above: Performed By: #### C MP, CBC, ADIFF, LIPID, ANAIFS, FT4, ANEU, TSH, GFR #### [address] [address] Platelet 269 10 3/mcL Normal 150-450 [facility] Comment on above: Performed By: #### C MP, CBC, ADIFF, LIPID, ANAIFS, FT4, ANEU, TSH, GFR #### [address] [address] Platelet mean volume (Bld) [Entitic vol] 7.7 fL Normal 6.6-10.5 [facility] Comment on above: Performed By: #### C MP, CBC, ADIFF, LIPID, ANAIFS, FT4, ANEU, TSH, GFR #### [address] [address] RBC 5.13 10 6/mcL Normal 4.10-5.30 [facility] Comment on above: Performed By: #### C MP, CBC, ADIFF, LIPID, ANAIFS, FT4, ANEU, TSH, GFR #### [address] [address] WBC 3.6 10 3/mcL Low 4.5-10.8 [facility] Comment on above: Performed By: #### C MP, CBC, ADIFF, LIPID, ANAIFS, FT4, ANEU, TSH, GFR #### [address] [address] CMPon 04-01-2024 Albumin Level 3.9 G/dL Normal 3.4-4.8 [facility] Comment on above: Performed By: #### C MP, CBC, ADIFF, LIPID, ANAIFS, FT4, ANEU, TSH, GFR #### [address] [address] Albumin/Globulin [Mass ratio] 1.2 {ratio} Normal 1.1-2.5 [facility] Comment on above: Performed By: #### C MP, CBC, ADIFF, LIPID, ANAIFS, FT4, ANEU, TSH, GFR #### [place] [address] ALP [Catalytic activity/Vol] 87 U/L Normal 40-135 [facility] Comment on above: Performed By: #### C MP, CBC, ADIFF, LIPID, ANAIFS, FT4, ANEU, TSH, GFR #### [place] [address] ALT [Catalytic activity/Vol] 30 U/L Normal 14-59 [facility] Comment on above: Performed By: #### C MP, CBC, ADIFF, LIPID, ANAIFS, FT4, ANEU, TSH, GFR #### [place] [address] AST [Catalytic activity/Vol] 17 U/L Normal 10-40 [facility] Comment on above: Performed By: #### C MP, CBC, ADIFF, LIPID, ANAIFS, FT4, ANEU, TSH, GFR #### [place] [address] Bili Total 0.7 mg/dL Normal 0.2-1.0 [facility] Comment on above: Result Comment: Use of this assay is not recommended for patients undergoing treatment with eltrombopag due to the potential for falsely elevated results. Performed By: #### C MP, CBC, ADIFF, LIPID, ANAIFS, FT4, ANEU, TSH, GFR #### [place] [address] BUN/Creatinine Ratio 19 ratio Normal 7-27 [facility] Comment on above: Performed By: #### C MP, CBC, ADIFF, LIPID, ANAIFS, FT4, ANEU, TSH, GFR #### [place] [address] Calcium [Mass/Vol] 9.2 mg/dL Normal 8.4-10.2 [facility] Comment on above: Performed By: #### C MP, CBC, ADIFF, LIPID, ANAIFS, FT4, ANEU, TSH, GFR #### [place] [id number] Chloride [Moles/Vol] 105 mmol/L Normal 98-107 [facility] Comment on above: Performed By: #### C MP, CBC, ADIFF, LIPID, ANAIFS, FT4, ANEU, TSH, GFR #### [address] [address] CO2 [Moles/Vol] 33 mmol/L High 23-31 [facility] Comment on above: Performed By: #### C MP, CBC, ADIFF, LIPID, ANAIFS, FT4, ANEU, TSH, GFR #### [address] [address] Creatinine [Mass/Vol] 0.80 mg/dL Normal 0.55-1.02 [facility] Comment on above: Result Comment: Test ing performed on Siemens Dimension EXL analyzer using a modified kinetic [place]iana technique. Performed By: #### C MP, CBC, ADIFF, LIPID, ANAIFS, FT4, ANEU, TSH, GFR #### [address] [address] Electrolyte Balance 5.0 mEq/L Normal 4.0-15.0 [facility] Comment on above: Performed By: #### C MP, CBC, ADIFF, LIPID, ANAIFS, FT4, ANEU, TSH, GFR #### [address] [address] Globulin 3.2 G/dL Normal [facility] Comment on above: Performed By: #### C MP, CBC, ADIFF, LIPID, ANAIFS, FT4, ANEU, TSH, GFR #### [address] [address] Glucose [Mass/Vol] 85 mg/dL Normal 80-115 [facility] Comment on above: Performed By: #### C MP, CBC, ADIFF, LIPID, ANAIFS, FT4, ANEU, TSH, GFR #### [address] [address] Potassium [Moles/Vol] 4.4 mmol/L Normal 3.5-5.1 [facility] Comment on above: Performed By: #### C MP, CBC, ADIFF, LIPID, ANAIFS, FT4, ANEU, TSH, GFR #### [address] [address] Sodium [Moles/Vol] 143 mmol/L Normal 136-145 [facility] Comment on above: Performed By: #### C MP, CBC, ADIFF, LIPID, ANAIFS, FT4, ANEU, TSH, GFR #### [address] [address] Total Protein 7.1 G/dL Normal 6.4-8.2 [facility] Comment on above: Performed By: #### C MP, CBC, ADIFF, LIPID, ANAIFS, FT4, ANEU, TSH, GFR #### [address] [address] Urea nitrogen [Mass/Vol] 15 mg/dL Normal 7-18 [facility] Comment on above: Performed By: #### C MP, CBC, ADIFF, LIPID, ANAIFS, FT4, ANEU, TSH, GFR #### [address] [address] FT4on 04-01-2024 Free T4 [Mass/Vol] 1.30 ng/dL Normal 0.76-1.46 [facility] Comment on above: Performed By: #### C MP, CBC, ADIFF, LIPID, ANAIFS, FT4, ANEU, TSH, GFR #### [address] [address] LABORATORYOrdered By: SYSTEM SYSTEM on 04-01-2024 Albumin BCP dye [Mass/Vol] 3.9 G/dL Normal 3.4 - 4.8 G/dL AO ADM SS Albumin/Globulin [Mass ratio] 1.2 {ratio} Normal 1.1 - 2.5 ratio AO ADM SS ALP [Catalytic activity/Vol] 87 U/L Normal 40 - 135 U/L AO ADM SS ALT With P-5'-P [Catalytic activity/Vol] 30 U/L Normal 14 - 59 U/L AO ADM SS AST With P-5'-P [Catalytic activity/Vol] 17 U/L Normal 10 - 40 U/L AO ADM SS Basophils (Bld) [#/Vol] 0.0 103/mcL Normal 0.0 - 0.2 10^3/mcL AO Workflow SS Basophils/100 WBC (Bld) 1.3 % Normal 0.0 - 2.5 % AO Workflow SS Bilirubin [Mass/Vol] 0.7 mg/dL Normal 0.2 - 1 .0 mg/dL AO ADM SS Comment on above: Interpretive Data: U se of this assay is not recommended for patients undergoing treatment with eltrombopag due to the potential for falsely elevated results. Calcium [Mass/Vol] 9.2 mg/dL Normal 8.4 - 10. 2 mg/dL AO ADM SS Chloride [Moles/Vol] 105 mmol/L Normal 98 - 10 7 mmol/L AO ADM SS CO2 [Moles/Vol] 33 mmol/L High 23 - 31 mmol/L AO ADM SS Creatinine [Mass/Vol] 0.80 mg/dL Normal 0.55 - 1.02 mg/dL AO ADM SS Comment on above: Interpretive Data: T esting performed on Siemens Dimension EXL analyzer using a modified kinetic [place] technique. Electrolyte Balance 5.0 mEq/L Normal 4.0 - 15 .0 mEq/L AO ADM SS Eosinophil, Absolute 0.1 103/mcL Normal 0.0 - 0 .7 10^3/mcL AO Workflow SS Eosinophils/100 WBC (Bld) 2.4 % Normal 0.0 - 7.0 % AO Workflow SS Erythrocyte distribution width (RBC) [Ratio] 14.2 % Normal 11.5 - 15.5 % AO Workflow SS Free T4 [Mass/Vol] 1.30 ng/dL Normal 0.76 - 1. 46 ng/dL AO ADM SS GFR/1.73 sq M.predicted among blacks MDRD (S/P/Bld) [Vol rate/Area] 88 ml/min/1.73sqm Invalid Interpretation Code AO Chemistry S Comment on above: Interpretive Data: GFR Population mean for , Non- Americans Ages 20-29 = 116 mL/min/1.73 sq.m. Ages 30-39 = 107 mL/min/1.73 sq.m. Ages 40-49 = 99 mL/min/1.73 sq.m. Ages 50-59 = 93 mL/min/1.73 sq.m. Ages 60-69 = 85 mL/min/1.73 sq.m. Ages 70+ = 75 mL/min/1.73 sq.m. Chronic Kidney Disease: Less than 60 mL/min/1.73 square meters End Stage Renal Disease: Less than 15 mL/min/1.73 square meters GFR/1.73 sq M.predicted among non-blacks MDRD (S/P/Bld) [Vol rate/Area] 72 ml/min/1.73sqm Invalid Interpretation Code AO Chemistry S Comment on above: Interpretive Data: GFR Population mean for , Non- Americans Ages 20-29 = 116 mL/min/1.73 sq.m. Ages 30-39 = 107 mL/min/1.73 sq.m. Ages 40-49 = 99 mL/min/1.73 sq.m. Ages 50-59 = 93 mL/min/1.73 sq.m. Ages 60-69 = 85 mL/min/1.73 sq.m. Ages 70+ = 75 mL/min/1.73 sq.m. Chronic Kidney Disease: Less than 60 mL/min/1.73 square meters End Stage Renal Disease: Less than 15 mL/min/1.73 square meters Globulin 3.2 G/dL Invalid Interpretation Code AO ADM SS Glucose [Mass/Vol] 85 mg/dL Normal 80 - 115 mg/dL AO ADM SS Hematocrit (Bld) [Volume fraction] 45.9 % Normal 34.0 - 46.0 % AO Workflow SS Hemoglobin (Bld) [Mass/Vol] 15.2 G/dL Normal 12.0 - 16.0 G/dL AO Workflow SS Lymphocytes (Bld) [#/Vol] 1.1 103/mcL Normal 0.9 - 4.3 10^3/mcL AO Workflow SS Lymphocytes/100 WBC (Bld) 30.9 % Normal 20.0 - 40.0 % AO Workflow SS MCH (RBC) [Entitic mass] 29.6 pg Normal 27.0 - 33.0 pg AO Workflow SS MCHC 33.1 G/dL Normal 32.0 - 36.0 G/dL AO Workflow SS MCV (RBC) [Entitic vol] 89.4 fL Normal 80.0 - 99.0 fL AO Workflow SS Monocytes (Bld) [#/Vol] 0.3 103/mcL Normal 0.1 - 1.4 10^3/mcL AO Workflow SS Monocytes/100 WBC (Bld) 7.7 % Normal 2.0 - 13.0 % AO Workflow SS Neutrophils (Bld) [#/Vol] 2.1 103/mcL Low 2.3 - 8.1 10^3/mcL AO Workflow SS Neutrophils/100 WBC (Bld) 57.7 % Normal 50.0 - 75.0 % AO Workflow SS Platelet mean volume (Bld) [Entitic vol] 7.7 fL Normal 6.6 - 10.5 fL AO Workflow SS Platelets (Bld) [#/Vol] 269 103/mcL Normal 150 - 450 10^3/mcL AO Workflow SS Potassium [Moles/Vol] 4.4 mmol/L Normal 3.5 - 5.1 mmol/L AO ADM SS Protein [Mass/Vol] 7.1 G/dL Normal 6.4 - 8.2 G/dL AO ADM SS RBC (Bld) [#/Vol] 5.13 106/mcL Normal 4.10 - 5.3 0 10^6/mcL AO Workflow SS Sodium [Moles/Vol] 143 mmol/L Normal 136 - 145 mmol/L AO ADM SS TSH Qn 0.67 m[IU]/L Normal 0.36 - 3.74 mcIU/mL AO ADM SS Urea nitrogen [Mass/Vol] 15 mg/dL Normal 7 - 18 mg/dL AO ADM SS Urea nitrogen/Creatinine [Mass ratio] 19 ratio Normal 7 - 27 ratio AO ADM SS WBC (Bld) [#/Vol] 3.6 103/mcL Low 4.5 - 10.8 10^3/mcL AO Workflow SS LABORATORYOrdered By: Patricia Appiah on 04-01-2024 Cholesterol [Mass/Vol] 255 mg/dL High 0 - 2 00 mg/dL AO ADM SS Comment on above: Interpretive Data: C holesterol Reference Interval: Less than 200 Desirable 200-239 Borderline high risk 240 and above High risk Cholesterol in HDL [Mass/Vol] 63 mg/dL High 40 - 60 mg/dL AO ADM SS Cholesterol in LDL [Mass/Vol] 176 mg/dL High 0 - 130 mg/dL AO ADM SS Triglyceride [Mass/Vol] 79 mg/dL Normal 0 - 150 mg/dL AO ADM SS Comment on above: Interpretive Data: T riglyceride Reference Interval: Less than 150 Normal 150-199 Borderline high risk 200-499 High risk 500 or higher Very high risk LIPIDon 04-01-2024 Cholesterol [Mass/Vol] 255 mg/dL High 0-200 [facility] Comment on above: Result Comment: Chol esterol Reference Interval: Less than 200 Desirable 200-239 Borderline high risk 240 and above High risk Performed By: #### C MP, CBC, ADIFF, LIPID, ANAIFS, FT4, ANEU, TSH, GFR #### [address] [address] Cholesterol in HDL [Mass/Vol] 63 mg/dL High 40-60 [facility] Comment on above: Performed By: #### C MP, CBC, ADIFF, LIPID, ANAIFS, FT4, ANEU, TSH, GFR #### [address] [address] Cholesterol in LDL [Mass/Vol] 176 mg/dL High 0-130 [facility] Comment on above: Performed By: #### C MP, CBC, ADIFF, LIPID, ANAIFS, FT4, ANEU, TSH, GFR #### [address] [address] Triglyceride [Mass/Vol] 79 mg/dL Normal 0-150 [facility] Comment on above: Result Comment: Trig lyceride Reference Interval: Less than 150 Normal 150-199 Borderline high risk 200-499 High risk 500 or higher Very high risk Performed By: #### C MP, CBC, ADIFF, LIPID, ANAIFS, FT4, ANEU, TSH, GFR #### [address] [address] TSHon 04-01-2024 TSH Qn 0.67 m[IU]/L Normal 0.36-3.74 [facility] Comment on above: Performed By: #### C MP, CBC, ADIFF, LIPID, ANAIFS, FT4, ANEU, TSH, GFR #### [address] [address] CNPNon 03-29-2024 CNPN Telephone ([facility]) -------- RHONDANorrisNahidPETRONA Pisano ([id number]) 1960 F Date Time Provider Department 03/29/24 GIRMA CARLOS During your visit today, we recorded the following information about you: Allergies As of Date: 03/29/2024 Noted Allergy Reaction PENICILLIN 11/15/2017 16 - Unknown Date Reviewed: 03/17/2024 Reviewed by: Sharlene Hussein APRN.QUALITY ASSURANCE SUPERVISOR TRIM - Fully Assessed Reason for Visit: Mammogram Result Call Back [[id number]] Cmt: left breast diag mamm cb per Prescriptions as of 03/29/2024 - clobetasol (TEMOVATE) 0.05 % cream Apply to affected area 2x/day for 2 weeks, then 1x/day for a week, than 1-3x/week for maintenance. - SYNTHROID 137 mcg tablet 135 mcg. - meloxicam (MOBIC) 15 mg tablet Take 1 tablet by mouth once daily. - ascorbic acid, vitamin C, (VITAMIN C) 500 mg tablet Take 500 mg by mouth once daily. - MULTI-VITAMIN ORAL Take by mouth. - Cholecalciferol, Vitamin D3, 50 mcg (2,000 unit) cap Take by mouth. 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 MIRAN Telephone ([facility]) -------- PETRONA SANTIZO ([id number]) 1960 F Date Time Provider Department 03/29/24 FAN CHAN During your visit today, we recorded the following information about you: Fan Chan APRN.MIRA 03/29/2024 10:33 AM Signed Please call patient and make sure she knows diagnostic breast imaging has been ordered. Fan Chan APRN.Debo López RN 03/29/2024 11:01 AM Signed Left message to call office. GERMANIA Simmons Trisha, RN 03/29/2024 11:35 AM Signed Patient notified and transferred to breast imaging scheduling department. Alissa Nichols RN Allergies As of Date: 03/29/2024 Noted Allergy Reaction PENICILLIN 11/15/2017 16 - Unknown Date Reviewed: 03/17/2024 Reviewed by: Sharlene Hussein APRN.QUALITY ASSURANCE SUPERVISOR TRIM - Fully Assessed Reason for Visit: Results [95] Primary Visit Diagnosis:Abnormal mammogram [R92.8] Order(s):US BREAST LTD LEFT [[id number]] Order #: [id number] FUTURE MARCUS DIAGNOSTIC LEFT [[id number]] Order #: [id number] FUTURE Prescriptions as of 03/29/2024 - clobetasol (TEMOVATE) 0.05 % cream Apply to affected area 2x/day for 2 weeks, then 1x/day for a week, than 1-3x/week for maintenance. - SYNTHROID 137 mcg tablet 135 mcg. - meloxicam (MOBIC) 15 mg tablet Take 1 tablet by mouth once daily. - ascorbic acid, vitamin C, (VITAMIN C) 500 mg tablet Take 500 mg by mouth once daily. - MULTI-VITAMIN ORAL Take by mouth. - Cholecalciferol, Vitamin D3, 50 mcg (2,000 unit) cap Take by mouth. 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 Patient states no personal history of breast cancer. Patient states no personal history of other cancers. COMPARISON STUDIES: The present examination has been compared to prior imaging studies dated 08/01/2018 (mammogram), 10/16/2019 (mammogram), 10/23/2020 (mammogram), 10/24/2021 (mammogram) and 03/22/2023 (mammogram). MAMMOGRAM TECHNIQUE: The study was acquired using full field digital technology and interpreted from soft copy. Digital Breast Tomosynthesis (DBT) images were obtained and used to assist in the interpretation of this examination. Computer-aided detection was utilized by the radiologist in the interpretation of this examination. MAMMOGRAM FINDINGS: The breasts are heterogeneously dense, which may obscure small masses. There is an asymmetry in the posterior depth medial left breast. No suspicious masses, calcifications or other abnormalities are seen in the right breast. IMPRESSION: Asymmetry in the left breast requires additional evaluation. Diagnostic mammogram with possible ultrasound is recommended. BI-RADS Category 0: Incomplete: Needs Additional Imaging Evaluation RISK: Based on the Tyrer-Cuzick (TC) risk assessment model, this patient has a 11.0% lifetime risk of developing breast cancer, meaning they are at average risk for developing breast cancer. However, this is only an estimate based on available history provided on the patient's questionnaire. We encourage all patients to talk with their providers about these results, further recommendations for managing breast health, and appropriate supplemental screening options if the patient has dense breast tissue. Interpreting Radiologist: Girma Carlos M.D. Electronically signed on: 03/28/2024 Clear Coat Sprayer: JOSE Transcribe Date/Time: Mar 24 2024 10:46A Dictated by: GIRMA CARLOS MD This examination was interpreted and the report reviewed and electronically signed by: GIRMA CARLOS MD on Mar 28 2024 10:32PM EST [id number] Normal [facility] CNOVon 03-17-2024 CNOV Office Visit (OBGYWM ) -------- PETRONA SANTIZO ([id number]) 1960 F Date Time Provider Department 03/17/24 11:00 AM SHARLENE HUSSEIN OBGYWM During your visit today, we recorded the following information about you: Blood pressure Weight Height 114/74 69.1 kg 1.632 m Sharlene Hussein APRN.CNP 03/17/2024 11:29 AM Signed Glass Cutting Machine Feeder offered: Patient declines. Russ is a 63 year old who presents for an annual gynecologic exam without complaints. Postmenopausal: Yes mid 50's HRT use: No. Last Pap: 07/22/2018 normal HPV: 07/20/2018 negative History of abnormal pap: No Last mammogram: 2022 abnormal, follow up benign History of abnormal mammogram: Yes has needed additional imaging Sexually active: not currently OB History T2 L2 SAB1 IAB0 Ectopic0 Multiple0 Live Births2 Benefit Specialist History LMP: Postmenopausal Age at Menarche: Age at First : Age at Menopause: Benefit Specialist History Comments: Sexual Activity: Yes; Male Contraception: No contraception data on record PAST MEDICAL HISTORY Diagnosis Date Breast cyst, left Simple cyst 2023 Fibromyalgia Hypothyroidism Osteoarthritis PAST SURGICAL HISTORY Procedure Laterality Date COLONOSCOPY FLX DX W/COLLJ SPEC WHEN PFRMD 08/26/2018 Colonoscopy 10 yr interval LAPAROSCOPY DIAGNOSTIC 1995 FAMILY HISTORY Problem Relation Age of Onset Hypothyroidism Mother Hypertension Mother Stroke Mother Tourette syndrome Son Diabetes Maternal Aunt Cancer Maternal Aunt Thyroid Maternal Aunt SOCIAL HISTORY Social History Tobacco Use Smoking status: Never Smokeless tobacco: Never Vaping Use Vaping status: Never Used Substance Use Topics Alcohol use: No Drug use: No REVIEW OF SYSTEMS Abdomen: No abdominal pain, nausea, vomiting, diarrhea, or constipation. No bloating, early satiety, indigestion, or increased flatulence. Bladder: No dysuria, gross hematuria, urinary frequency, urinary urgency, or incontinence Breast: No breast lumps, nipple d/c, overlying skin changes, redness or skin retraction Allergies and current medication updated:Yes SENSITIVE EXAM: The sensitive examination was discussed with the Patient or Patient's Authorized Oyster Tonger. As applicable, any other physician, advance practice provider, medical student, or other health professional student that will be observing or involved in the sensitive examination for educational or training purposes was discussed with the Patient or Authorized Oyster Tonger. The Patient or Authorized Oyster Tonger has agreed to proceed with the sensitive examination. (Sensitive examination includes inspection and/or palpation of the breasts, pelvis, prostate and anorectal regions). EXAM: There were no vitals taken for this visit. GENERAL: pleasant, female in no apparent distress HEENT: Normocephalic, atraumatic, mucus membranes moist, and no lesions DERMATOLOGY: Normal, without lesions, non-icteric, and non-hirsute BREAST: soft, non-tender, symmetric, no dominant mass, normal nipple-areolar complex, no lymphadenopathy, and no nipple discharge CHEST: Normal inspiratory effort ABDOMEN: soft, non-tender, and no masses PELVIC: external genitalia normal, normal Bartholin's glands, urethra, [place]'s glands, no vulvar lesions, no cervical lesions, physiologic discharge present, normal appearing perineal body and perianal region, +possible Lichen sclerosus to the perineum and anus areas BIMANUAL: uterus normal size, shape and consistency, no adnexal masses, and non-tender RECTOVAGINAL: deferred. NEURO: alert and oriented x3,exam grossly non-focal EXTREMITIES: normal ASSESSMENT/PLAN: 1) Health maintenance: Pap done with HPV. Mammogram ordered Nutrition, exercise and routine health maintenance exams reviewed. Calcium/Vitamin D supplementation information provided. Colon cancer screening: up to date with screening BMD: ordered 2) Follow up one year or sooner as needed 3) Clobetasol cream ordered Sharlene Hussein APRN.QUALITY ASSURANCE SUPERVISOR TRIM Allergies As of Date: 03/17/2024 Noted Allergy Reaction PENICILLIN 11/15/2017 16 - Unknown Date Reviewed: 03/17/2024 Reviewed by: Sharlene Hussein APRN.QUALITY ASSURANCE SUPERVISOR TRIM - Fully Assessed Reason for Visit: Well Woman [1463] Primary Visit Diagnosis:Encounter for gynecological examination (general) (routine) without abnormal findings [Z01.419] Other Visit Diagnoses:Encounter for screening for human papillomavirus (HPV) [Z11.51] Pap smear for cervical cancer screening [Z12.4] Encounter for screening mammogram for breast cancer [Z12.31] Encounter for screening for osteoporosis [Z13.820] Order(s):MARCUS SCREENING W JULIANA [[id number]] Order #: [id number] FUTURE PAP TEST [[id number]] Order #: [id number]. #:[id number] DXA-AXIAL SKELETON [[id number]] Order #: [id number] FUTURE BD DXA TRABECULAR BONE SCORE (TBS) [[id number]] Order #: [id number] FUTURE cl (more content not included)... Normal [facility] HIGH RISK HUMAN PAPILLOMA RENE (HPV), PCR FOR DETECTION AND GENOTYPINGon 03-17-2024 HPV 16 Ag Ql (Unsp spec) Not detected Normal Not detected [facility] Comment on above: Order Comment: Speci men Type: FLUID SPECIMENOrdering Facility: [facility] Address: [address] [place] [address] Performed By: #### H PVHRT ####[facility] [id number] [place] [address] [place] HPV 18 Ag Ql (Unsp spec) Not detected Normal Not detected [facility] Comment on above: Order Comment: Speci men Type: FLUID SPECIMENOrdering Facility: [facility] Address: [address] [place] [address] Performed By: #### H PVHRT ####[facility] [id number] [place] [address] [place] HPV 31+33+35+39+45+51+52+5 6+58+59+66+68 DNA AVILA+probe Ql (Cvx) Not detected Normal Not detected [facility] Comment on above: Order Comment: Speci men Type: FLUID SPECIMENOrdering Facility: [facility] Address: [address] [place] [address] Result Comment: High Risk HPV Other Type includes HPV types 31, 33, 35, 39, 45, 51, 52, 56, 58, 59, 66 and 68. Performed By: #### H PVHRT ####[facility] [id number] [place] [address] [place] PAP TESTon 03-17-2024 ADEQUACY Satisfactory for interpretation. Normal [facility] Comment on above: Order Comment: Speci men Type: FLUID SPECIMENOrdering Facility: [facility] Address: [address] [place] [address] Performed By: #### L [id number] ####[facility] [id number] [place] [address] [place] CASE REPORT Normal [facility] Comment on above: Order Comment: Speci men Type: FLUID SPECIMENOrdering Facility: [facility] Address: [address] [place] [address] Result Comment: Gyne cologic Cytology Report Case: [id number] Authorizing Provider: Sharlene Hussein APRN.QUALITY ASSURANCE SUPERVISOR TRIM Collected: 03/17/2024 11:20 AM Ordering Location: OB/Gynecology Received: 03/17/2024 12:20 PM First Screen: Ashish, Fan, CT, ASCP Specimen: Pap Test, ThinPrep, Cervix Performed By: #### L [id number] ####[facility] LAB[facility] [id number] [place] [address] [place] CLINICAL HISTORY, CYTOLOGY, WOOD INSPECTOR Normal [facility] Comment on above: Order Comment: Speci men Type: FLUID SPECIMENOrdering Facility: [facility] Address: [address] [place] [address] Result Comment: No M enses, Other (Specify) Post Menopausal Performed By: #### L [id number] ####[facility] [id number] [address] [id number] [address] [place] CYTOLOGY PAP OTHER INTERPRETATION Atrophic specimen. Normal [facility] Comment on above: Order Comment: Speci men Type: FLUID SPECIMENOrdering Facility: [facility] Address: [address] [place] [address] Performed By: #### L [id number] ####[facility] [id number] [facility] [address] [address] [place] FINAL PERFORMING LAB Normal [facility] Comment on above: Order Comment: Speci men Type: FLUID SPECIMENOrdering Facility: [facility] Address: [address] [place], [place] [id number] Result Comment: Tech nical component, fire observer screening performed at [facility], [address] [place] [address] CLIA# [id number] Diagnostic interpretation performed at [facility], [address] [place] [address] CLIA# [id number] Locomotive Mechanic: Mahesh Hansen M.D. Performed By: #### L [id number] ####[facility] [id number] [address] [address] [place] INTERPRETATION, CYTOLOGY, WOOD INSPECTOR Normal [facility] Comment on above: Order Comment: Speci men Type: FLUID SPECIMENOrdering Facility: [facility] Address: [address] [place] [address] Result Comment: Nega tive for intraepithelial lesion or malignancy. Performed By: #### L [id number] ####[facility] [id number] [address] [address] [place] PAP DISCLAIMER COMMENT The Pap Smear is a screening test for cervical cancer. False negative results occur with all screening tests, emphasizing the need for rescreening at recommended intervals, and clinical correlation. Normal [facility] Comment on above: Order Comment: Speci men Type: FLUID SPECIMENOrdering Facility: [facility] Address: [address] [place] [address] Performed By: #### L [id number] ####[facility] [id number] [place] [address] [place] PAP ELECTRICAL TEST TECHNICIAN COMMENT This specimen has be en analyzed by the ThinPrep Imaging System, an automated imaging and review system, which assists the laboratory in evaluating cells on ThinPrep Pap tests. Following automated imaging, selected urbano from every slide are reviewed by a fire observer. Normal [facility] Comment on above: Order Comment: Speci men Type: FLUID SPECIMENOrdering Facility: [facility] Address: [address] [id number] Performed By: #### L [id number] ####[facility] [id number] [place] [address] [place] Inital Evaluation (1) - PTon 02-28-2024 Inital Evaluation (1) - PT [facility] [place] [address] / REHABILITATION SERVICES INITIAL EVALUATION MR#: [id number] Acct: [id number] Name: PETRONA SANTIZO Rep #: [id number] : 1960 63 From: Celine Lemons PT, Cert. MDT Referring Dr.: PETE Hedrick Status: REG R CR Insurance: [facility] SELF PAY INSURANCE Patient's Visit Information Visit Information Visit Information: PETRONA SANTIZO is a 63 year old F referred to Physical Therapy by PETE Hedrick with a diagnosis of M54.2, M54.6 - NECK AND THORACIC PAIN. Date of Evaluation: 02/28/24 Physical Therapist: Celine Lemons PT, Cert MDT Visit Plan Frequency: 2x /Week Duration: 4-6 Weeks Plan: Scapular Strengthening and B Pec/UT/Levator/Scalene Stretching to help reduce stress on Cervical Spine with Daily Activities. US at 1.3 W/CM2 100% to R Neck Musculature in Sitting. Moist Heat to Neck as needed. Instruction in Proper Posture Control, Ergonomics with ADL's and Appropriate Activity Modifications. Postural Strengthening. HEP Instructions. 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 Disability: NO Present symptoms: CENTRAL NECK PAIN. L UPPER ARM PAIN. PATIENT DENIES YOVANI UE NUMBNESS AND TINGLING. Present since: NOVEMBER 2023 Pain Scale: Worst - 7/10 Least - 3/10 Currently: 10/17 Commenced as a result of: NO APPARENT REASON OTHER THAN STRESS FROM TAKING CARE OF 27 YEAR OLD SON THAT IS SICK AND HAS A LOT OF PHYSICAL ISSUES - AUTOIMMUNE DZ. Symptoms at onset: NECK AND UPPER BACK PAIN. PATIENT REPORTS UPPER BACK PAIN WENT AWAY WITH BACK ADJUSTMENTS BY QUALITY ASSURANCE SUPERVISOR TRIM. Worse: LYING DOWN, MOVING UP/TURNING IT, BUMPS RIDING ON VAN Better: ICY HOT, ADJUTMENTS FROM GINNA CALLOWAY CNP X 5-6 Disturbed sleep: YES Previous history/Previous treatment: NO PRIOR NECK OR UPPER BACK PROBLEMS This episode: ADJUSTMENTS BY GINNA CALLOWAY CNP X 5-6 INCLUDING NECK AND UPPER BACK. Dizziness: NO Tinnitus: NO Nausea: NO Shortness of Breath: NO Difficulty Swollowing: NO Gait: NORMAL Accidents: NO Unexplained weight loss: NO Imaging: NO PMH/Recent major surgery: FIBROMYALGIA, OA, HYPOTHYROIDISM. H/O CHRONIC HAND PAIN. Objective Objective: Sitting Posture/Standing Posture: FORWARD HEAD AND ROUNDED SHOULDERS. INCREASED KYPHOSIS Active Correction of posture: BETTER. DECREASED NECK PAIN WITH ACTIVE AND PASSIVE POSTURE CORRECTION BUT L UPPER ARM PAIN PROVOKED IF MAINTAINS CORRECTION ACTIVELY. REPORTS SIGNIFICANT NECK PAIN REDUCTION AFTER A FEW MINUTES OF SITTING WITH LUMBAR SUPPORT. Other Observations: INDEP GAIT INTO PT WITHOUT AD. Sensory deficit: YOVANI UE LIGHT TOUCH SENSATION GROSSLY INTACT AND SYMMETRICAL ROM deficit: R ARM ELEVATION TO 132 DEG , L ARM ELEVATION TO 120 DEG. ELBOW, FOREARM, WRIST AND HAND AROM WFL. Motor deficit: R SHLD 4-/5, ELBOW 4/5, R TALENT ACQUISITION COORDINATOR 25 LBS, L SHLD 4-/5, ELBOW 4/5, L TALENT ACQUISITION COORDINATOR 14 LBS. Reflexes: 1+ YOVANI UE'S Dural Signs: POSITIVE L UE. Cervical Mvmt Loss: Flex: NIL Pro: NIL Ext: GILA Ret: GILA RSB: GILA LSB: GILA R Rot: GILA L Rot: MOD Postural strength: POOR Balance/Special Test Scores Oswestry Low Back Score: 21 Goals Goal 1:: DECREASE C/O NECK AND UE PAIN BY AT LEAST 50% TO EASE ADL'S. Goal Time Frame: 4-6 Weeks Goal 2:: INCREASE PAINFREE CERVICAL ROM TO EASE ADL'S Goal Time Frame: 4-6 Weeks Goal 3:: PATIENT WILL BE ABLE TO MAINTAIN IMPROVED POSTURE THROUGHOUT THERAPY SESSION WITHOUT CUEING TO DEMONSTRATE IMPROVED POSTURAL AWARENESS, STRENGTH AND FLEXIBILTY Goal Time Frame: 4-6 Weeks Goal 4:: INDEP HEP Goal Time Frame: 4-6 Weeks Rehabilitation Potential Physical Therapy Diagnosis: NECK AND POSTURAL STIFFNESS AND WEAKNESS WITH C/O NECK AND L UE PAIN. Rehabilitation Potential: Good Anticipated Interventions Patient/Client Instruction: Educate patient on: Condition, Plan of Care and Risk Factors For the Purpose of:: To improve self management Therapeutic Exercise to Include: Strength training, Body mechanics, Postural training, Flexibilty training, Neuromotor development and Scapular Strength/Stabilization For the Purpose of:: To decrease pain, To increase ROM, To improve muscle performance and motor function, To improve ability to perform ADL's, To increase tolerance to activity/condition/posit ion, To improve ability of physical actions for home/community/work/leis ure, To decrease soft tissue restriction, To increase flexibility/ROM and To improve self management Cryotherapy (ice pack, ice massage): Yes Thermo therapy (hot pack): Yes Ultrasound (thermal/non thermal): Yes For the Purpose of:: To decrease pain, To decrease swelling/inflammation and To improve nutrient delivery to tissue Text: Thank you for the opportunity (more content not included)... [facility] Urine Cultureon 02-09-2024 [facility] Presumptive E. coli [place] Count >100,000 Presumptive E. coli: REACTION Ampicillin Islt KHURRAM >=32 Ampicillin+Sulbac Islt KHURRAM 16 I ceFAZolin Islt KHURRAM <=4 S Cefepime Islt KHURRAM <=0.12 S cefTRIAXone Islt KHURRAM <=0.25 S Ciprofloxacin Islt KHURRAM <=0.25 S B-Lactamase Extended Susc Islt NEG Gentamicin Islt KHURRAM <=1 S Imipenem Islt KHURRAM <=0.25 S levoFLOXacin Islt KHURRAM <=0.12 S Nitrofurantoin Islt KHURRAM <=16 S Pip+Tazo Islt KHURRAM <=4 S Tobramycin Islt KHURRAM <=1 S TMP SMX Islt KHURRAM <=20 S Normal [facility] Comment on above: Performed By: #### L 503.0106, L100.0100, L400.2010, L3100.5450, L500.4050, L506.1001, L506.0400, M100.2200, L501.9520 #### [facility] [address] [place], [address] Basophil percentageOrdered B y: Jaspreet Carlton on 06-02-2023 Bilirubin [Mass/Vol] 0.60 mg/dL 0.20-1.00 [facility] Comment on above: For patients on eltr ombopag therapy, use of Dimension Baker TBIL is not recommended. Protein [Mass/Vol] 7.5 g/dL 6.4-8.2 [facility] Direct bilirubinOrdered By: Jaspreet Carlton on 06-02-2023 Bilirubin.direct [Mass/Vol] 0.15 mg/dL 0.00-0.30 [facility] - Chemistry and C hemistry - challengeOrdered By: Jaspreet Carlton on 06-02-2023 ALP [Catalytic activity/Vol] 83 U/L 45-117 [facility] ALT [Catalytic activity/Vol] 28 U/L 13-56 [facility] Amylase [Catalytic activity/Vol] 49 U/L 5-55 [facility] Globulin (S) [Mass/Vol] 3.6 g/dL 2.2-4.2 [facility] No Panel InformationOrdered By: Jaspreet Carlton on 06-02-2023 Anti-Nuclear Antibody Screen Negative Negative [facility] Comment on above: Performed at: - [address] [id number] Director: Jose Lundberg PhD, Phone: [phone] Cent[employer] B Antibody Not Reportable [facility] Hepatitis C Antibody Non-Reactive Nonreactive [facility] Comment on above: Non Reactive: < 0.8 Equivocal: >/= 0.8 to < 1.0 Reactive: >/= 1.0[facility] recommends that a reactive/equivocal HCV antibody result be followed up by the HCV Nucleic Acid Amplificationtest ([id number]) KANDI-1 Antibody Not Reportable [facility] CYBER SECURITY ADMINISTRATOR Antibody Not Reportable [facility] SS-B IgG antibody assayOrder ed By: Jaspreet Carlton on 06-02-2023 Sjogrens syndrome-B extractable nuclear IgG Qn (S) Not Reportable [facility] Serum DNA double strand anti body assay (units/volume)Ordered By: Jaspreet Carlton on 06-02-2023 DNA double strand Ab Qn (S) Not Reportable [facility] Serum Scl-70 antibody assay (units/volume)Ordered By: Jaspreet Carlton on 06-02-2023 SCL-70 extractable nuclear Ab Qn (S) Not Reportable [facility] Serum hepatitis B virus surf jasmine antibody IgG detectionOrdered By: Jaspreet Carlton on 06-02-2023 HBV surface IgG Ql (S) Non-Reactive [facility] Comment on above: Non Reactive: Incons istent with immunity less than <10 mIU/mL Reactive: Consistent with immunity greater than or equal to 10 mIU/mL Lopez antibody assayOrdered By: Jaspreet Carlton on 06-02-2023 Lopez extractable nuclear Ab (S) [Titer] Not Reportable [facility] Thin prep Papanicolaou smear with manual screeningOrdered By: Jaspreet Carlton on 06-02-2023 Thin prep Papanicolaou smear with manual screening 3.9 g/dL 3.2-5.0 [facility] Thin prep Papanicolaou smear with manual screening 24 U/L 15-37 [facility] Absolute lymphocyte countOrd ered By: Jaspreet Carlton on 04-16-2023 Lymphocytes Auto (Unsp spec) [#/Vol] 1.33 10*3/uL 0.83-4.51 [facility] Basophil percentageOrdered B y: Jaspreet Carlton on 04-16-2023 Basophils/100 WBC (Bld) 1.5 % 0-1 [facility] Bilirubin [Mass/Vol] 0.50 mg/dL 0.20-1.00 [facility] Comment on above: For patients on eltr ombopag therapy, use of Dimension Baker TBIL is not recommended. Chloride [Moles/Vol] 106 mmol/L 98-107 [facility] Cholesterol [Mass/Vol] 201 mg/dL <200 [facility] Comment on above: <200 mg/dL Desirable 200-240 mg/dL Borderline >240 mg/dL High Risk Eosinophils/100 WBC (Bld) 3.1 % 0-5 [facility] Glucose [Mass/Vol] 86 mg/dL 74-106 [facility] Neutrophils (Bld) [#/Vol] 2.9 10*3/uL 2.0-7.7 [facility] Neutrophils/100 WBC (Bld) 59.9 % 47-70 [facility] Potassium [Moles/Vol] 4.0 mmol/L 3.5-5.1 [facility] Protein [Mass/Vol] 7.8 g/dL 6.4-8.2 [facility] Sodium [Moles/Vol] 140 mmol/L 136-145 [facility] Triglyceride [Mass/Vol] 85 mg/dL <199 [facility] Comment on above: The drugs N-Acetylcy steine and Metamizole may falsely depress this assay.Serum Triglycerides Reference Interval Normal <150 mg/dL Borderline high 150 - 199 mg/dL High 200 - 499 mg/dL Very High > or = 500 mg/dL WBC (Bld) [#/Vol] 4.8 10*3/uL 4.4-11.0 [facility] Blood erythrocytes count (nu mber/volume)Ordered By: Jaspreet Carlton on 04-16-2023 RBC (Bld) [#/Vol] 5.30 10*6/uL 4.2-5.4 [facility] Blood hemoglobin measurement (mass/volume)Ordered By: Jaspreet Carlton on 04-16-2023 Hemoglobin (Bld) [Mass/Vol] 14.8 g/dL 12.0-15.0 [facility] Blood lymphocytes/100 leukoc ytesOrdered By: Jaspreet Carlton on 04-16-2023 Lymphocytes/100 WBC (Bld) 27.8 % 19-41 [facility] Blood monocytes/100 leukocyt esOrdered By: Jaspreet Carlton on 04-16-2023 Monocytes/100 WBC (Bld) 7.5 % 0-10 [facility] Blood platelet mean volumeOr dered By: Jaspreet Carlton on 04-16-2023 Platelet mean volume (Bld) [Entitic vol] 10.2 fL 6.2-12.0 [facility] Determination of erythrocyte mean corpuscular volume (MCV)Ordered By: Jaspreet Carlton on 04-16-2023 MCV (RBC) [Entitic vol] 90.8 fL 81-99 [facility] Hematocrit Auto (Bld) [Volum e fraction]Ordered By: Jaspreet Carlton on 04-16-2023 Hematocrit (Bld) [Volume fraction] 48.1 % 37-47 [facility] Laboratory - Chemistry and C hemistry - challengeOrdered By: Jaspreet Carlton on 04-16-2023 ALP [Catalytic activity/Vol] 182 U/L 45-117 [facility] ALT [Catalytic activity/Vol] 376 U/L 13-56 [facility] CO2 [Moles/Vol] 31.0 mmol/L 21.0-32.0 [facility] Globulin (S) [Mass/Vol] 3.9 g/dL 2.2-4.2 [facility] Urea nitrogen/Creatinine [Mass ratio] 27.7 mg/mg 10-20 [facility] Laboratory - Hematology and Cell countsOrdered By: Jaspreet Carlton on 04-16-2023 Erythrocyte distribution width (RBC) [Entitic vol] 48.9 fL 35.1-43.9 [facility] Erythrocyte distribution width (RBC) [Ratio] 14.6 % 11.6-14.6 [facility] Immature granulocytes/100 WBC (Bld) 0.200 % 0.0-0.9 [facility] Comment on above: IG% - Immature Granu locytes (promyelocytes, myelocytes and metamyelocytes) > 1% indicates that a LEFT SHIFT is Present. MCH (RBC) [Entitic mass] 27.9 pg 27.0-32.0 [facility] Nucleated RBC/100 WBC (Bld) [Ratio] 0 % 0-5 [facility] MCHC Auto (RBC) [Mass/Vol]Or dered By: Jaspreet Carlton on 04-16-2023 MCHC (RBC) [Mass/Vol] 30.8 g/dL 32-36 [facility] No Panel InformationOrdered By: Jaspreet Carlton on 12-08-2023 Estimated GFR (MDRD) Amer 99 mL/min >60 [facility] Comment on above: GFR Calc Estimated GFR (MDRD) Non-Af Amer 82 mL/min >60 [facility] Comment on above: Non- GFR Calc Platelets bldOrdered By: Yael Carlton on 04-16-2023 Platelets (Bld) [#/Vol] 305 10*3/uL 150-450 [facility] Serum or plasma albumin paulina urement (mass/volume)Ordered By: Jaspreet Carlton on 04-16-2023 Albumin [Mass/Vol] 3.9 g/dL 3.2-5.0 [facility] Serum or plasma albumin/glob ulin mass ratioOrdered By: Jaspreet Carlton on 04-16-2023 Albumin/Globulin [Mass ratio] 1.0 {ratio} 0.9-2.4 [facility] Serum or plasma calcium paulina urement (mass/volume)Ordered By: Jaspreet Carlton on 04-16-2023 Calcium [Mass/Vol] 9.2 mg/dL 8.5-10.1 [facility] Serum or plasma cholesterol in HDL measurement (mass/volume)Ordered By: Jaspreet Carlton on 04-16-2023 Cholesterol in HDL [Mass/Vol] 58 mg/dL >40 [facility] Comment on above: The drugs N-Acetylcy steine and Metamizole may falsely depress this assay. Reference Range HDL <40 mg/dL Low HDL Cholesterol HDL >or= 60 mg/dL High HDL Cholesterol Serum or plasma cholesterol in VLDL measurement (mass/volume)Ordered By: Jaspreet Carlton on 04-16-2023 Cholesterol in VLDL [Mass/Vol] 17 mg/dL 5-40 [facility] Serum or plasma creatinine m easurement (mass/volume)Ordered By: Jaspreet Carlton on 04-16-2023 Creatinine [Mass/Vol] 0.76 mg/dL 0.55-1.02 [facility] Comment on above: The validity of the calculated GFR & GFRAA in patients over 70 years has not been determined. Clinical correlation is essential. Serum or plasma low density lipoprotein (LDL) cholesterol measurement (mass/volume)Ordered By: Jaspreet Carlton on 04-16-2023 Cholesterol in LDL [Mass/Vol] 126 mg/dL 0-130 [facility] Serum or plasma urea nitroge n measurement (mass/volume)Ordered By: Jaspreet Carlton on 04-16-2023 Urea nitrogen [Mass/Vol] 21 mg/dL 7-18 [facility] Thin prep Papanicolaou smear with manual screeningOrdered By: Jaspreet Carlton on 04-16-2023 Thin prep Papanicolaou smear with manual screening 98 U/L 15-37 [facility] Thin prep Papanicolaou smear with manual screening 3 5-15 [facility] Whole blood hemoglobin A1c/t otal hemoglobin ratio (mass fraction)Ordered By: Jaspreet Carlton on 04-16-2023 HbA1c (Bld) [Mass fraction] 5.1 % 3.8-5.6 [facility] Comment on above: Normal < 5.7 % Predi abetic 5.7 - 6.4 % Diabetic >or= 6.5 % Please note range changes. Laboratory - Chemistry and C hemistry - challengeOrdered By: Ginna Calloway on 12-15-2022 Free T4 [Mass/Vol] 1.51 ng/dL 0.76-1.46 [facility] No Panel InformationOrdered By: Ginna Calloway on 12-15-2022 Thyroid Stimulating Hormone (TSH) 2.18 uIU/mL 0.358-3.74 [facility] Cerebrospinal fluid Borrelia burgdorferi 18kd IgG antibody detection by immunoblotOrdered By: Dr. Carlton on 09-08-2022 B. burgdorferi 18kD IgG IB Ql (CSF) Absent . [facility] Cerebrospinal fluid Borrelia burgdorferi 23kD IgG antibody detection by immunoblotOrdered By: Dr. Carlton on 09-08-2022 B. burgdorferi 23kD IgG IB Ql (CSF) Absent . [facility] Cerebrospinal fluid Borrelia burgdorferi 23kD IgM antibody detection by immunoblotOrdered By: Dr. Carlton on 09-08-2022 B. burgdorferi 23kD IgM IB Ql (CSF) Absent . [facility] Cerebrospinal fluid Borrelia burgdorferi 28kD IgG antibody detection by immunoblotOrdered By: Dr. Carlton on 09-08-2022 B. burgdorferi 28kD IgG IB Ql (CSF) Absent . [facility] Cerebrospinal fluid Borrelia burgdorferi 39kD IgG antibody detection by immunoblotOrdered By: Dr. Carlton on 09-08-2022 B. burgdorferi 39kD IgG IB Ql (CSF) Absent . [facility] Cerebrospinal fluid Borrelia burgdorferi 39kD IgM antibody detection by immunoblotOrdered By: Dr. Carlton on 09-08-2022 B. burgdorferi 39kD IgM IB Ql (CSF) Absent . [facility] Cerebrospinal fluid Borrelia burgdorferi 41kD IgM antibody detection by immunoblotOrdered By: Dr. Carlton on 09-08-2022 B. burgdorferi 41kD IgM IB Ql (CSF) Absent . [facility] No Panel InformationOrdered By: Dr. Carlton on 09-08-2022 Lyme Disease IgG Ab 30 kDa Band Absent . [facility] Lyme Disease IgG Ab 93 kDa Band Absent . [facility] Lyme Disease IgG West Blot Interp Negative . [facility] Comment on above: Positive: 5 of the f ollowing Borrelia-specific bands: 18,23,28,30,39,41,45,58, 66, and 93. Negative: No bands or banding patterns which do not meet positive criteria. Lyme Disease IgM Ab (Western Blot) Negative . [facility] Comment on above: Note: An equivocal o r positive EIA result followed by anegative Line Blot result is considered NEGATIVE. Anequivocal or positive EIA result followed by a positiveLine Blot is considered POSITIVE by the CDC.Positive: 2 of the following bands: 23,39 or 41Negative: No bands or banding patterns which do not meetpositive criteria.Criteria for positivity are those recommended byCDC/ASTPHLD. p23=Osp C, b50=ruipvezyqBwvm:Sera from individuals with the following may cross reactin the Lyme Line Blot assays: other spirochetal diseases(periodontal disease, leptospirosis, relapsing fever, yaws,and pinta); connective autoimmune (Rheumatoid Arthritis andSystemic Lupus Erythematosus and also individuals withAntinuclear Antibody); other infections (Rubens MountainSpotted Fever; Korina-Redmond Virus, and Cytomegalovirus).Please Note: Lyme immunoblot alone is not recommended forthe diagnosis of Lyme disease. Current guidelines recommendthe use of a two-tiered approach to Lyme serology testingto improve the sensitivity and specificity of testing.[facility] offers test code 201590 Lyme Disease Serology withReflex to aid in the diagnosis of Lyme Disease.Performed at: [address] [id number] Director: Larisa Savage MD, Phone: [phone] Serum Borrelia burgdorferi 4 1kD IgG antibody detection by immunoblotOrdered By: Dr. Carlton on 09-08-2022 B. burgdorferi 41kD IgG IB Ql (S) Present . [facility] Serum Borrelia burgdorferi 6 6kD IgG antibody detection by immunoblotOrdered By: Dr. Carlton on 09-08-2022 B. burgdorferi 66kD IgG IB Ql (S) Absent . [facility] Synovial fluid Borrelia oscar dorferi 45kD IgG antibody detection by immunoblotOrdered By: Dr. Carlton on 09-08-2022 B. burgdorferi 45kD IgG IB Ql (Syn fld) Absent . [facility] Synovial fluid Borrelia oscar dorferi 58kD IgG antibody detection by immunoblotOrdered By: Dr. Carlton on 09-08-2022 B. burgdorferi 58kD IgG IB Ql (Syn fld) Absent . [facility] Laboratory - Chemistry and C hemistry - challengeOrdered By: Dr. Dixon on 07-17-2022 Free T4 [Mass/Vol] 1.38 ng/dL 0.76-1.46 [facility] No Panel InformationOrdered By: Dr. Dixon on 07-17-2022 Thyroid Stimulating Hormone (TSH) 2.92 uIU/mL 0.358-3.74 [facility] Laboratory - Microbiology an d Antimicrobial susceptibilityOrdered By: Dr. Carlton on 06-16-2022 Respiratory pathogens DNA and RNA 12b panel AVILA+probe (Unsp spec) [facility] Absolute lymphocyte countOrd ered By: Dr. Carlton on 03-13-2022 Lymphocytes Auto (Unsp spec) [#/Vol] 1.37 10*3/uL 0.83-4.51 [facility] Basophil percentageOrdered B y: Dr. Carlton on 03-13-2022 Basophils/100 WBC (Bld) 1.0 % 0-1 [facility] Bilirubin [Mass/Vol] 0.50 mg/dL 0.20-1.00 [facility] Comment on above: For patients on eltr ombopag therapy, use of Dimension Baker TBIL is not recommended. Chloride [Moles/Vol] 105 mmol/L 98-107 [facility] Cholesterol [Mass/Vol] 248 mg/dL <200 [facility] Comment on above: <200 mg/dL Desirable 200-240 mg/dL Borderline >240 mg/dL High Risk Eosinophils/100 WBC (Bld) 1.6 % 0-5 [facility] Glucose [Mass/Vol] 89 mg/dL 74-106 [facility] Neutrophils (Bld) [#/Vol] 3.1 10*3/uL 2.0-7.7 [facility] Neutrophils/100 WBC (Bld) 62.6 % 47-70 [facility] Potassium [Moles/Vol] 4.1 mmol/L 3.5-5.1 [facility] Protein [Mass/Vol] 7.9 g/dL 6.4-8.2 [facility] Sodium [Moles/Vol] 140 mmol/L 136-145 [facility] Triglyceride [Mass/Vol] 111 mg/dL <199 [facility] Comment on above: The drugs N-Acetylcy steine and Metamizole may falsely depress this assay.Serum Triglycerides Reference Interval Normal <150 mg/dL Borderline high 150 - 199 mg/dL High 200 - 499 mg/dL Very High > or = 500 mg/dL WBC (Bld) [#/Vol] 4.9 10*3/uL 4.4-11.0 [facility] Blood erythrocytes count (nu mber/volume)Ordered By: Dr. Carlton on 03-13-2022 RBC (Bld) [#/Vol] 5.17 10*6/uL 4.2-5.4 [facility] Blood hemoglobin measurement (mass/volume)Ordered By: Dr. Carlton on 03-13-2022 Hemoglobin (Bld) [Mass/Vol] 15.5 g/dL 12.0-15.0 [facility] Blood lymphocytes/100 leukoc ytesOrdered By: Dr. Carlton on 03-13-2022 Lymphocytes/100 WBC (Bld) 27.7 % 19-41 [facility] Blood monocytes/100 leukocyt esOrdered By: Dr. Carlton on 03-13-2022 Monocytes/100 WBC (Bld) 6.9 % 0-10 [facility] Blood platelet mean volumeOr dered By: Dr. Carlton on 03-13-2022 Platelet mean volume (Bld) [Entitic vol] 9.9 fL 6.2-12.0 [facility] Determination of erythrocyte mean corpuscular volume (MCV)Ordered By: Dr. Carlton on 03-13-2022 MCV (RBC) [Entitic vol] 90.5 fL 81-99 [facility] Erythrocyte sedimentation ra teOrdered By: Dr. Carlton on 03-13-2022 ESR (Bld) [Velocity] 32 mm/h 0-30 [facility] Hematocrit Auto (Bld) [Volum e fraction]Ordered By: Dr. Carlton on 03-13-2022 Hematocrit (Bld) [Volume fraction] 46.8 % 37-47 [facility] Laboratory - Chemistry and C hemistry - challengeOrdered By: Dr. Carlton on 03-13-2022 ALP [Catalytic activity/Vol] 76 U/L 45-117 [facility] ALT [Catalytic activity/Vol] 29 U/L 13-56 [facility] CO2 [Moles/Vol] 26.0 mmol/L 21.0-32.0 [facility] Globulin (S) [Mass/Vol] 3.8 g/dL 2.2-4.2 [facility] Urea nitrogen/Creatinine [Mass ratio] 29.6 mg/mg 10-20 [facility] Laboratory - Hematology and Cell countsOrdered By: Dr. Carlton on 03-13-2022 Erythrocyte distribution width (RBC) [Entitic vol] 46.5 fL 35.1-43.9 [facility] Erythrocyte distribution width (RBC) [Ratio] 14.0 % 11.6-14.6 [facility] Immature granulocytes/100 WBC (Bld) 0.200 % 0.0-0.9 [facility] Comment on above: IG% - Immature Granu locytes (promyelocytes, myelocytes and metamyelocytes) > 1% indicates that a LEFT SHIFT is Present. MCH (RBC) [Entitic mass] 30.0 pg 27.0-32.0 [facility] Nucleated RBC/100 WBC (Bld) [Ratio] 0 % 0-5 [facility] MCHC Auto (RBC) [Mass/Vol]Or dered By: Dr. Carlton on 03-13-2022 MCHC (RBC) [Mass/Vol] 33.1 g/dL 32-36 [facility] No Panel InformationOrdered By: Dr. Carlton on 03-13-2022 Estimated GFR (MDRD) Amer 107 mL/min >60 [facility] Comment on above: GFR Calc Estimated GFR (MDRD) Non-Af Amer 89 mL/min >60 [facility] Comment on above: Non- GFR Calc Platelets bldOrdered By: Dr. Carlton on 03-13-2022 Platelets (Bld) [#/Vol] 302 10*3/uL 150-450 [facility] Serum or plasma C reactive p rotein measurement (mass/volume)Ordered By: Dr. Carlton on 03-13-2022 CRP [Mass/Vol] mg/L 0.0-3.0 [facility] Comment on above: C-Reactive Protein ( CRP) provides useful information for thediagnosis, therapy and monitoring of inflammatory processesand associated diseases. For the evaluation of Relative Riskfor Cardiovascular Disease, a High Sensitivity CRP (HSCRP)should be ordered. Serum or plasma albumin paulina urement (mass/volume)Ordered By: Dr. Carlton on 03-13-2022 Albumin [Mass/Vol] 4.1 g/dL 3.2-5.0 [facility] Serum or plasma albumin/glob ulin mass ratioOrdered By: Dr. Carlton on 03-13-2022 Albumin/Globulin [Mass ratio] 1.1 {ratio} 0.9-2.4 [facility] Serum or plasma calcium paulina urement (mass/volume)Ordered By: Dr. Carlton on 03-13-2022 Calcium [Mass/Vol] 9.3 mg/dL 8.5-10.1 [facility] Serum or plasma cholesterol in HDL measurement (mass/volume)Ordered By: Dr. Carlton on 03-13-2022 Cholesterol in HDL [Mass/Vol] 63 mg/dL >40 [facility] Comment on above: The drugs N-Acetylcy steine and Metamizole may falsely depress this assay. Reference Range HDL <40 mg/dL Low HDL Cholesterol HDL >or= 60 mg/dL High HDL Cholesterol Serum or plasma cholesterol in VLDL measurement (mass/volume)Ordered By: Dr. Carlton on 03-13-2022 Cholesterol in VLDL [Mass/Vol] 22 mg/dL 5-40 [facility] Serum or plasma creatinine m easurement (mass/volume)Ordered By: Dr. Carlton on 03-13-2022 Creatinine [Mass/Vol] 0.71 mg/dL 0.55-1.02 [facility] Comment on above: The validity of the calculated GFR & GFRAA in patients over 70 years has not been determined. Clinical correlation is essential. Serum or plasma low density lipoprotein (LDL) cholesterol measurement (mass/volume)Ordered By: Dr. Carlton on 03-13-2022 Cholesterol in LDL [Mass/Vol] 163 mg/dL 0-130 [facility] Serum or plasma urea nitroge n measurement (mass/volume)Ordered By: Dr. Carlton on 03-13-2022 Urea nitrogen [Mass/Vol] 21 mg/dL 7-18 [facility] Thin prep Papanicolaou smear with manual screeningOrdered By: Dr. Carlton on 03-13-2022 Thin prep Papanicolaou smear with manual screening 23 U/L 15-37 [facility] Thin prep Papanicolaou smear with manual screening 9 5-15 [facility] Laboratory - Chemistry and C hemistry - challengeon 01-20-2022 Free T4 [Mass/Vol] 1.49 ng/dL 0.76-1.46 [facility] Work Phone: No Panel Informationon 01-20 Thyroid Stimulating Hormone (TSH) 1.17 uIU/mL 0.358-3.74 [facility] Work Phone: MARCUS DIAG W JULIANA RTon 01-06- 022 [facility] MARCUS SCREEN[facility]LECULAR (POC)on Procedural Control Valid [facility] Strep A (POCT) Negative Negative [facility] Laboratory - Chemistry and C hemistry - challengeon 09-10-2021 Free T4 [Mass/Vol] 1.51 ng/dL 0.76-1.46 [facility] Work Phone: No Panel Informationon 09-10 Thyroid Stimulating Hormone (TSH) 0.60 uIU/mL 0.358-3.74 [facility] Work Phone: FT4on 11-21-2020 Free T4 [Mass/Vol] 1.38 ng/dL Normal 0.76-1.46 [facility] (MD) Comment on above: Performed By: #### T SH, FT4 #### [id number] [place], [place] [address] TSHon 11-21-2020 TSH Qn 0.34 m[IU]/L Low 0.36-3.74 [facility] ([place]) Comment on above: Performed By: #### T SH, FT4 #### [address] [address] Clinical Summary: HMSPatient IDon 05-29-2019 OOP [facility] Work Phone: Office Visit: New - [facility] visi t with practice, Rm: 9on 05-29-2019 NEGATED: Highlighted rowMRI (magnetic resonance imaging) history of the right lower extremity on 10/11/2018 at [facility] [place] [facility] Work Phone: NEGATED: Highlighted rowTobacco smoking status NHIS Tobacco smoking status NHIS [facility] Work Phone: NEGATED: Highlighted rowxray history of the left foot on 01/17/2019 at [facility] [place] [facility] Work Phone: Clinical Summary: Scanned Hi story Summaryon 05-27-2019 Data entered by patient, allergy list Penicillin [facility] Work Phone: data entered by patient, Employer Name employed [facility] Work Phone: Data entered by patient, medication list [id number] tablet before breakfast-once a dayDiclofencac sodium-75 mg-1 table-twice a day [facility] Work Phone: data entered by patient, mother's medical history High blood pressureStroke/TIA [facility] Work Phone: data entered by patient, past medical history ArthritisHypothyroidism [facility] Work Phone: data entered by patient, social history, marital status [facility] Work Phone: Housing Type: apartment, house, mcc, trailer, none apartment [facility] Work Phone: housing unit size (asthma environmental history, housing) (from single family to don't know) 1 floor [facility] Work Phone: mother of patient is alive or [facility] Work Phone: Number of dependent children No [facility] Work Phone: ROXANAOVon 12-05-2018 [facility]OV Office Visit (RHBATH ) -------- PETRONA SANTIZO ([id number]) 1960 F Date Time Provider Department 12/05/18 4:00 PM MAMIE SOTO RHBATH During your visit today, we recorded the following information about you: Pulse Blood pressure Weight Height 70/minute 124/86 68.9 kg 1.524 m Mamie Soto MD 12/05/2018 4:33 PM Signed RHEUMATOLOGY PROGRESS NOTE Patient is here for a follow up visit for Patient presents with: Results: discuss testing from 07/27/2018. HPI: Petrona Santizo is a 58 year old female who presents erosive OA. Pain in the right hand and more pain in the knees for the last 1 week. Also had tendinitis in the ankle for which she had MRI and doing physical therapy now. It's getting increasingly difficult for her to work. Brief Rheumatological history - Petrona Santizo is a 57 year old female who presents with hand pain. Worsening bilateral hand pain since the last few months. She attributes the worsening pain to stress at her work. She took Aleve, Mobic, nabumetone, diclofenac for pain. She also has several GI issues and following up with GI. Moved from [place]. She has tendonitis in feet and going for PT. Stiff ness lasts all day. Bumps on her fingers. No recent hand x rays. 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 Sometimes knee pain. She has hypothyroidism. ? Family history of autoimmune disease: none Smoking status: Tobacco Use: Never Interval Review of Systems CONSTITUTIONAL: Recent Weight change: No Fever: No EYES: Dryness in nose: No Dryness of mouth: No Oral ulcers: No CARDIOVASCULAR: Pain in chest: No RESPIRATORY: Shortness of breath: No Cough: No GASTROINTESTINAL: Nausea: No Vomiting: No Changes in bowel movements: No Jaundice: No Heartburn: No MUSCULOSKELETAL: Per HPI INTEGUMENTARY: Rash: No HEMATOLOGIC/LYMPHATIC: Anemia: No NEUROLOGICAL SYSTEM: Headaches: No Sensitivity or pain of hands and/or feet: No PSYCHIATRIC: Anxiety: No Poor sleep: No PAST MEDICAL HISTORY Diagnosis Date - Hypothyroidism - Osteoarthritis PAST SURGICAL HISTORY Procedure Laterality Date - COLONOSCOP W/ OR W/O [facility] SPEC 08/26/2018 Colonoscopy - LAPAROSCOPY DIAGNOSTIC 1995 History Review: I have reviewed and modified as needed, the following during this visit: Allergies, Past Medical History, Past Surgical History, Past Family History, Past Social History. BP 124/86 Pulse 70 Ht 152.4 cm (5') Wt 68.9 kg (152 lb) SpO2 98% BMI 29.69 kg/m? Physical Exam GENERAL: Well appearing, alert, comfortable, in no acute distress, well-hydrated, well nourished. HEENT: Negative for external ears normal. Canals are clear. Both TMs visualized and are normal. Eye Exam normal. External nose normal, no nasal ulcer or throat ulcer. NECK: NECK Supple, no adenopathy; thyroid symmetric, normal size, no bruits CARDIAC: regular rate and rhythm, No murmur asculated. and Equal peripheral pulses RESPIRATORY: Lungs clear to auscultation. No wheezing, rhonchi, rales VASCULAR: RRR without murmur, gallop, or rubs. No ectopy. NEURO: Motor and sensory exam normal MOTOR: Normal; including tone, gait, stressed gait, power and coordination. SKIN: Negative for alopecia, skin rash, malar rash, skin lesion, skin ulcer, pits, thickening, color changes, telangiectasias, nail changes, nail ridging, nail pitting, onycholysis MUSCULOSKELETAL: DIPS: Abnormal, Heberden's nodes PIPS: Abnormal, Will's nodes severe pain on several PIPs in the right hand. MCPs: Normal Wrists: Normal Elbows: Normal Shoulders: Normal C-Spine: Normal Hips: Normal Knees: Normal Ankles: Normal MTPs / Toes: Normal Arches: Normal Lab Results: Glucose 70 07/27/2018 ALT 27 07/27/2018 WBC 5.51 07/27/2018 Hemoglobin 14.9 07/27/2018 Platelet Count 295 07/27/2018 WSR 12 01/12/2018 Serology: COLLIN 1:160, RF neg Ds DNA 41 CCP, lopez neg Radiology: IMPRESSION: Bilateral erosive osteoarthritis. Assessment and Plan (M15.4) Erosive osteoarthritis of both hands 57-year-old female is here for evaluation and management recommendations for bilateral hand pain more on the right. No synovitis on exam. She denies psoriasis, dactylitis, colitis. Suspicion for inflammatory arthritis is low. Workup as below. She likely has primary osteoarthritis versus erosive osteoarthritis involving her hands, worse on the right. She requests a referral to occupational therapy. She was recently prescribed diclofenac and she was advised to take that but not with other nonsteroidal medications. ? Positive COLLIN in the past is likely related to the history of hypothyroidism. No clear signs of lupus or other connective tissue diseases. Low titer COLLNI and borderline double-stranded DNA but no symptoms of lupus. 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 Sometimes for erosive osteoarthritis hydroxychloroquine on low-dose methotrexate can be tried but not always effective. She seems to be in a flareup of erosive osteoarthritis. A low-dose prednisone has a role in this. She was advised to discuss about disability paperwork with her primary care physician we will be happy to send information and diagnoses. She will also discuss about pain management with her primary care physician. Office Visit on 12/05/18 - XR KNEE SURVEY ARTHRITIS 1V AP BILAT Medication orders placed this encounter predniSONE (DELTASONE) 5 mg tablet Sig: Take 1 tablet by mouth once daily. Dispense: 7 tablet Refill: 1 Return in about 5 months (around 05/07/2019) for osteoarthritis. Mamie Soto MD Referring Provider: SELF [200] Allergies As of Date: 12/05/2018 Noted Allergy Reaction PENICILLIN 11/15/2017 16 - Unknown Date Reviewed: 12/05/2018 Reviewed by: Jacqui [facility] - Fully Assessed Reason for Visit: Results [95] Cmt: discuss testing from 07/27/2018. Visit Diagnosis:Erosive osteoarthritis of both hands [M15.4] Order(s):XR KNEE SURVEY ARTHRITIS 1V AP BILAT [[id number]] Order #: [id number] FUTURE predniSONE (DELTASONE) 5 mg tabletTake 1 tablet by mouth once daily.Disp: 7 tabletRfl: 1 Prescriptions as of 12/05/2018 Sig: NITROFURANTOIN MONOHYDRATE AND * Take 1 capsule by mouth twice* CARBAMIDE PEROXIDE 6.5 % EAR * Use 5 Drops in the right ear * [id number]-SIH ORAL Take by mouth. ASCORBIC ACID (VITAMIN C) 500* Take 500 mg by mouth once parish* VITAMIN B COMPLEX ORAL Take by mouth. MULTI-VITAMIN ORAL Take by mouth. CHOLECALCIFEROL (VITAMIN D3) * Take by mouth. LEVOTHYROXINE 150 MCG TABLET Take 1 tablet by mouth daily * PREDNISONE 5 MG TABLET Take 1 tablet by mouth once d* MELOXICAM 15 MG TABLET TAKE 1 TABLET BY MOUTH EVERY * Patient not taking: Reported on 12/05/2018 Problem List As Of Date 12/05/2018 Noted Resolved Hypothyroidism [E03.9] INVALID FOR* Erosive osteoarthritis of both hands [M15.4] INVALID FOR* Prescriptions ordered this encounter Disp Refills Start End PREDNISONE 5 MG TABLET 7 ta* 1 12/05/2018 Route: ORAL Sig: Take 1 tablet by mouth once daily. Disposition: Return in about 5 months (around 05/07/2019) for osteoarthritis. Follow-up and Disposition History Recorded -------- Questionnaire: CHANDRIKA DAS YEARLY ADL ASSESSMENT Toileting -> Independent Bathing -> Independent Upper Body Dressing -> Independent Lower Body Dressing -> Independent Grooming/Hygiene -> Independent Self Feeding -> Independent Home Management (laundry/cleaning/chores /simple meal prep) -> Independent Letter Text Encounter Status:Closed by MAMIE SOTO MD on 12/05/18 [facility] PROGRESSon 12-05-2018 PROGRESS HNO ID: [id number] Author: Mamie Soto Service: ? Author Type: Physician Type: Progress Notes Filed: 12/05/2018 4:33 PM Note Text: RHEUMATOLOGY PROGRESS NOTE Patient is here for a follow up visit for Patient presents with: Results: discuss testing from 07/27/2018. HPI: Petrona Santizo is a 58 year old female who presents erosive OA. Pain in the right hand and more pain in the knees for the last 1 week. Also had tendinitis in the ankle for which she had MRI and doing physical therapy now. It's getting increasingly difficult for her to work. Brief Rheumatological history - Petrona Santizo is a 57 year old female who presents with hand pain. Worsening bilateral hand pain since the last few months. She attributes the worsening pain to stress at her work. She took Aleve, Mobic, nabumetone, diclofenac for pain. She also has several GI issues and following up with GI. Moved from [place]. She has tendonitis in feet and going for PT. Stiff ness lasts all day. Bumps on her fingers. No recent hand x rays. 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 Sometimes knee pain. She has hypothyroidism. ? Family history of autoimmune disease: none Smoking status: Tobacco Use: Never Interval Review of Systems CONSTITUTIONAL: Recent Weight change: No Fever: No EYES: Dryness in nose: No Dryness of mouth: No Oral ulcers: No CARDIOVASCULAR: Pain in chest: No RESPIRATORY: Shortness of breath: No Cough: No GASTROINTESTINAL: Nausea: No Vomiting: No Changes in bowel movements: No Jaundice: No Heartburn: No MUSCULOSKELETAL: Per HPI INTEGUMENTARY: Rash: No HEMATOLOGIC/LYMPHATIC: Anemia: No NEUROLOGICAL SYSTEM: Headaches: No Sensitivity or pain of hands and/or feet: No PSYCHIATRIC: Anxiety: No Poor sleep: No PAST MEDICAL HISTORY Diagnosis Date - Hypothyroidism - Osteoarthritis PAST SURGICAL HISTORY Procedure Laterality Date [facility] Colonoscopy - LAPAROSCOPY DIAGNOSTIC 1995 History Review: I have reviewed and modified as needed, the following during this visit: Allergies, Past Medical History, Past Surgical History, Past Family History, Past Social History. BP 124/86 Pulse 70 Ht 152.4 cm (5') Wt 68.9 kg (152 lb) SpO2 98% BMI 29.69 kg/m? Physical Exam GENERAL: Well appearing, alert, comfortable, in no acute distress, well-hydrated, well nourished. HEENT: Negative for external ears normal. Canals are clear. Both TMs visualized and are normal. Eye Exam normal. External nose normal, no nasal ulcer or throat ulcer. NECK: NECK Supple, no adenopathy; thyroid symmetric, normal size, no bruits CARDIAC: regular rate and rhythm, No murmur asculated. and Equal peripheral pulses RESPIRATORY: Lungs clear to auscultation. No wheezing, rhonchi, rales VASCULAR: RRR without murmur, gallop, or rubs. No ectopy. NEURO: Motor and sensory exam normal MOTOR: Normal; including tone, gait, stressed gait, power and coordination. SKIN: Negative for alopecia, skin rash, malar rash, skin lesion, skin ulcer, pits, thickening, color changes, telangiectasias, nail changes, nail ridging, nail pitting, onycholysis MUSCULOSKELETAL: DIPS: Abnormal, Heberden's nodes PIPS: Abnormal, Will's nodes severe pain on several PIPs in the right hand. MCPs: Normal Wrists: Normal Elbows: Normal Shoulders: Normal C-Spine: Normal Hips: Normal Knees: Normal Ankles: Normal MTPs / Toes: Normal Arches: Normal Lab Results: Glucose 70 07/27/2018 ALT 27 07/27/2018 WBC 5.51 07/27/2018 Hemoglobin 14.9 07/27/2018 Platelet Count 295 07/27/2018 WSR 12 01/12/2018 Serology: COLLIN 1:160, RF neg Ds DNA 41 CCP, lopez neg Radiology: IMPRESSION: Bilateral erosive osteoarthritis. Assessment and Plan (M15.4) Erosive osteoarthritis of both hands 57-year-old female is here for evaluation and management recommendations for bilateral hand pain more on the right. No synovitis on exam. She denies psoriasis, dactylitis, colitis. Suspicion for inflammatory arthritis is low. Workup as below. She likely has primary osteoarthritis versus erosive osteoarthritis involving her hands, worse on the right. She requests a referral to occupational therapy. She was recently prescribed diclofenac and she was advised to take that but not with other nonsteroidal medications. ? Positive COLLIN in the past is likely related to the history of hypothyroidism. No clear signs of lupus or other connective tissue diseases. Low titer COLLIN and borderline double-stranded DNA but no symptoms of lupus. 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 Sometimes for erosive osteoarthritis hydroxychloroquine on low-dose methotrexate can be tried but not always effective. She seems to be in a flareup of erosive osteoarthritis. A low-dose prednisone has a role in this. She was advised to discuss about disability paperwork with her primary care physician we will be happy to send information and diagnoses. She will also discuss about pain management with her primary care physician. Office Visit on 12/05/18 - XR KNEE SURVEY ARTHRITIS 1V AP BILAT Medication orders placed this encounter predniSONE (DELTASONE) 5 mg tablet Sig: Take 1 tablet by mouth once daily. Dispense: 7 tablet Refill: 1 Return in about 5 months (around 05/07/2019) for osteoarthritis. Mamie Soto MD [facility] CCP Antibody, IgGon 07-30-19 19 CCP Antibody, IgG SEE BELOW [facility] Comment on above: Result Comment: CCP Antibody, IgG <15 <20 Units < 20 units: Negative 20-39 units: Weak Positive 40-59 units: Moderate Positive > 60 units: Strong Positive The following results were obtained with the [employer] QU[employer] Lite CCP3 IgG PINA. Anti-CCP values obtained with different manufacturers' assay methods may not be used interchangeably. The magnitude of the reported IgG levels cannot be correlated to an endpoint titer. Performing Laboratory: [facility] [address] [place] [address] Performed By: #### C CPX #### [address] [address] DS-DNA Abon 07-29-2018 DS-DNA Ab SEE BELOW Normal [facility] Comment on above: Result Comment: DNA Antibody w/ Conf. 41 H <30 IU/mL Equivocal for ds DNA Antibodies Negative: <30 IU/mL Equivocal: 30-74 IU/mL Positive: >74 IU/mL Performing Laboratory: [facility] [address] [place] [address] Performed By: #### D NADX #### [address] [address] Lopez Abs IgGon 07-29-2018 Lopez Abs IgG SEE BELOW Normal [facility] Comment on above: Result Comment: Sm A ntibody <0.2 <1.0 AI Negative Negative: <1.0 AI Positive: >0.9 AI Performing Laboratory: [facility] [address] [place] [address] Performed By: #### S MABX #### [address] [address] Total 25-OH Vitamin Don 07-09 Total 25-OH Vitamin D 38.0 ng/mL Normal 30.0-100.0 [facility] Comment on above: Performed By: #### 2 5VD1 #### [address] [address] CNOVon 07-27-2018 CNOV Office Visit (RHBATH ) -------- PETRONA SANTIZO ([id number]) 1960 F Date Time Provider Department 07/27/18 2:30 PM MAMIE SOTO RHBMIKHAIL During your visit today, we recorded the following information about you: Weight Height 66.2 kg 1.524 m Mamie Soto MD 07/27/2018 4:15 PM Signed RHEUMATOLOGY NEW PATIENT NOTE REFERRING PHYSICIAN: Self CHIEF COMPLAINT: Patient presents with: Arthritis: increasing pain in hands. HPI: Petrona Santizo is a 57 year old female who presents with hand pain. Worsening bilateral hand pain since the last few months. She attributes the worsening pain to stress at her work. She took Aleve, Mobic, nabumetone, diclofenac for pain. She also has several GI issues and following up with GI. Moved from [place]. She has tendonitis in feet and going for PT. Stiff ness lasts all day. Bumps on her fingers. No recent hand x rays. 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 Sometimes knee pain. She has hypothyroidism. Family history of autoimmune disease: none Smoking status: Tobacco Use: Never Rheumatology REVIEW OF SYSTEMS: Constitutional: Recent Weight Change: No Fatigue: No Fever: No Night sweats: No Heent: Alopecia: No H/o Inflammatory eye disease (iritis/scleritis): No Hearing loss: No Frequent sinusitis: No Oral ulcers: No Sicca: No Parotid swelling: No Hoarseness: No Dysphagia: No Heme/lymph: Lymphadenopathy: No Hematological abnormalities (anemia, thrombocytopenia, leukopenia): No Abnormal bleeding: No Skin: Malar or discoid lesions: No Photosensitivity: No Other rashes: No Raynaud's phenomenon: No Hives: No Tightness: No Nodules/bumps: No Easy Bruising: No Nail changes: No H/o psoriasis: No Gastroenterology: Nausea: {No Vomiting: No Change in bowel movements: No Heartburn: No Respiratory: Dry cough/SOB: No Cardiovascular: Pain in chest: No Musculoskeletal: Per HPI Joint pain or swelling: No Prolonged morning stiffness: No Back pain or neck pain: No Muscle weakness: No Genitourinary: Vaginal dryness: No Rash/ulcers: No Neurological: Headaches: No Sensitivity or pain of hands and/or feet: No Psychiatry: Anxiety: No Depression: No Poor sleep: No H/o loss: No H/o thrombosis: No Increased susceptibility to infection: No PAST MEDICAL HISTORY Diagnosis Date - Hypothyroidism - Osteoarthritis PAST SURGICAL HISTORY Procedure Laterality Date - LAPAROSCOPY DIAGNOSTIC 1994 Current Outpatient Medications: glucosamine/msm/chondroi tin A (DFUDKYSEUEP-DWALMD-IFH ORAL) Take by mouth. ascorbic acid, vitamin C, (VITAMIN C) 500 mg tablet Take 500 mg by mouth once daily. VITAMIN B COMPLEX ORAL Take by mouth. MULTI-VITAMIN ORAL Take by mouth. Cholecalciferol, Vitamin D3, (VITAMIN D-3) 2,000 unit cap Take by mouth. meloxicam (MOBIC) 15 mg tablet TAKE 1 TABLET BY MOUTH EVERY DAY levothyroxine (SYNTHROID) 150 mcg tablet Take 1 tablet by mouth daily before breakfast. No current facility-administered medications for this visit. ALLERGIES Allergen Reactions - Penicillin Unknown FAMILY HISTORY Problem Relation Age of Onset - Thyroid Mother - Hypertension Mother - Stroke Mother - Colon Cancer Father - Diabetes Maternal Aunt - Cancer Maternal Aunt - Thyroid Maternal Aunt Social History Socioeconomic History Marital status: Spouse name: Not on file Number of children: Not on file Years of education: Not on file Highest education level: Not on file Social Needs Financial resource strain: Not on file Food insecurity - worry: Not on file Food insecurity - inability: Not on file Transportation needs - medical: Not on file Transportation needs - non-medical: Not on file Occupational History Not on file Tobacco Use Smoking status: Never Smoker Smokeless tobacco: Never Used Substance and Sexual Activity Alcohol use: No Drug use: No Sexual activity: Not on file Other Topics Concerns: Not on file Social History Narrative Not on file Occupation: Employer And Job Title: None on file Years Of Education Completed: Not specified Marital Status: History Review: I have reviewed and modified as needed, the following during this visit: Allergies, Past Medical History, Past Surgical History, Past Family History, Past Social History. Ht 152.4 cm (5') Wt 66.2 kg (146 lb) BMI 28.51 kg/m? Physical Exam GENERAL: Well appearing, alert, comfortable, in no acute distress, well-hydrated, well nourished. HEENT: Negative for external ears normal. Canals are clear. Both TMs visualized and are normal. Eye Exam normal. External nose normal, no nasal ulcer or throat ulcer. NECK: NECK Supple, no adenopathy; thyroid symmetric, normal size, no bruits CARDIAC: regular rate and rhythm, No murmur asculated. and Equal peripheral pulses RESPIRATORY: Lungs clear to auscultation. No wheezing, rhonchi, rales VASCULAR: RRR without murmur, gallop, or rubs. No ectopy. ABDOMEN: Soft, non tender. BS active. No masses or organomegaly. LYMPHATIC: Negative for adenopathy in the neck, axillae, groin, supraclavicular and auricular. NEURO: Motor and sensory exam normal MOTOR: Normal; including tone, gait, stressed gait, power and coordination. SKIN: Negative for alopecia, skin rash, malar rash, skin lesion, skin ulcer, pits, thickening, color changes, telangiectasias, nail changes, nail ridging, nail pitting, onycholysis MUSCULOSKELETAL: DIPS: Abnormal, Heberden's nodes PIPS: Abnormal, Will's nodes MCPs: Normal Wrists: Normal Elbows: Normal Shoulders: Normal C-Spine: Normal Hips: Normal Knees: Normal Ankles: Normal MTPs / Toes: Normal Arches: Normal Summary of old labs/radiology: Review/request of outside labs and imaging: Pertinent labs: Glucose 88 01/12/2018 ALT 18 01/12/2018 WBC 4.84 01/12/2018 Hemoglobin 14.1 01/12/2018 Platelet Count 255 01/12/2018 WSR 12 01/12/2018 Serology: COLLIN 1:160, RF neg Pertinent imaging: Assessment and Plan (R76.8) COLLIN positive (primary encounter diagnosis) (M25.50) Pain in joint, multiple sites (M19.041, M19.042) Primary osteoarthritis of both hands 57-year-old female is here for evaluation and management recommendations for bilateral hand pain more on the right. No synovitis on exam. She denies psoriasis, dactylitis, colitis. Suspicion for inflammatory arthritis is low. Workup as below. She likely has primary osteoarthritis versus erosive osteoarthritis involving her hands, worse on the right. She requests a referral to occupational therapy. She was recently prescribed diclofenac and she was advised to take that but not with other nonsteroidal medications. Advised to follow-up to discuss lab results and x-ray findings. Positive COLLIN in the past is likely related to the history of hypothyroidism. No clear signs of lupus or other connective tissue diseases. Workup as below. Office Visit on 07/27/18 - XR HAND GENERAL 3V PA/LAT/OBL LT - XR HAND GENERAL 3V PA/LAT/OBL RT - CCP ANTIBODY IGG - DNA ANTIBODY DS BLD - LOPEZ IGG AB - CBC + DIFF - COMP METABOLIC PANEL - VITAMIN D 25 HYDROXY - CONSULT TO OCCUPATIONAL THERAPY/HAND THERAPY (AG) No orders of the defined types were placed in this encounter. Return in about 3 weeks (around 08/17/2018) for discuss lab results. Mamie Soto MD Referring Provider: SELF [200] Allergies As of Date: 07/27/2018 Noted Allergy Reaction PENICILLIN 11/15/2017 16 - Unknown Date Reviewed: 07/27/2018 Reviewed by: Jacqui Curran - Fully Assessed Reason for Visit: Arthritis [10] Cmt: increasing pain in hands. Primary Visit Diagnosis:COLLIN positive [R76.8] Other Visit Diagnoses:Pain in joint, multiple sites [M25.50] Primary osteoarthritis of both hands [M19.041, M19.042] Order(s):CCP ANTIBODY IGG [SQCCP] Order #: [id number] FUTURE DNA ANTIBODY DS BLD [SQDNAAB] Order #: [id number] FUTURE LOPEZ IGG AB [SQSMAB] Order #: [id number] FUTURE CBC + DIFF [SQCBCDIF] Order #: [id number] FUTURE COMP METABOLIC PANEL [SQCMP] Order #: [id number] FUTURE VITAMIN D 25 HYDROXY [SQVITD] Order #: [id number] FUTURE XR HAND GENERAL 3V PA/LAT/OBL LT [[id number]] Order #: [id number] FUTURE XR HAND GENERAL 3V PA/LAT/OBL RT [[id number]] Order #: [id number] FUTURE CONSULT TO OCCUPATIONAL THERAPY/HAND THERAPY (AG) [[id number]] Order #: [id number]: 1 Prescriptions as of 07/27/2018 Sig: [id number] ORAL Take by mouth. ASCORBIC ACID (VITAMIN C) 500* Take 500 mg by mouth once parish* VITAMIN B COMPLEX ORAL Take by mouth. MULTI-VITAMIN ORAL Take by mouth. CHOLECALCIFEROL (VITAMIN D3) * Take by mouth. MELOXICAM 15 MG TABLET TAKE 1 TABLET BY MOUTH EVERY * LEVOTHYROXINE 150 MCG TABLET Take 1 tablet by mouth daily * Problem List As Of Date 07/27/2018 Noted Resolved Hypothyroidism [E03.9] INVALID FOR* Rheumatoid arthritis involving multiple sites w*INVALID FOR* Medications Discontinued During This Encounter benzonatate (TESSALON PERLES) 100 mg* 30 c* 1 04/26/2018 07/27/2018 Route: ORAL Sig: Take 1 capsule by mouth three times daily as needed for Cough. Patient not taking: Reported on 07/15/2018 Disc: Course of therapy completed Disposition: Return in about 3 weeks (around 08/17/2018) for discuss lab results. Follow-up and Disposition History Recorded -------- Questionnaire: CHANDRIKA DAS YEARLY ADL ASSESSMENT Toileting -> Independent Bathing -> Independent Upper Body Dressing -> Independent Lower Body Dressing -> Independent Grooming/Hygiene -> Independent Self Feeding -> Independent Home Management (laundry/cleaning/chores /simple meal prep) -> Independent Letter Text Encounter Status:Closed by MAMIE SOTO MD on 07/27/18 Normal [facility] Comprehensive Panelon 2018 ALP [Catalytic activity/Vol] 79 U/L Normal 46-116 [facility] Comment on above: Performed By: #### P 14 #### [facility] [address] [place], [place] [address] Protein [Mass/Vol] 8.0 g/dL Normal 6.4-8.2 [facility] Comment on above: Performed By: #### P 14 #### [facility] [address] [place], [place] [address] ALT [Catalytic activity/Vol] 27 U/L Normal 12-78 [facility] Comment on above: Performed By: #### P 14 #### [facility] [address] [place], [place] [address] Bilirubin [Mass/Vol] 0.5 mg/dL Normal 0.2-1.0 [facility] Comment on above: Performed By: #### P 14 #### [facility] [address] [place], [place] [address] Creatinine [Mass/Vol] 0.73 mg/dL Normal 0.51-0.95 [facility] Comment on above: Performed By: #### P 14 #### [facility] [address] [place], [place] [address] AST [Catalytic activity/Vol] 21 U/L Normal 9-37 [facility] Comment on above: Performed By: #### P 14 #### [facility] [address] [place], [place] [address] Glucose [Mass/Vol] 70 mg/dL Normal 70-99 [facility] Comment on above: Performed By: #### P 14 #### [facility] [address] [place], [place] [address] Albumin [Mass/Vol] 4.5 g/dL Normal 3.4-5.0 [facility] Comment on above: Performed By: #### P 14 #### [facility] [address] [place], [place] [address] Anion gap [Moles/Vol] 8 mmol/L Normal 8-16 [facility] Comment on above: Performed By: #### P 14 #### [facility] [address] [place], [place] [address] CO2 [Moles/Vol] 32 mmol/L Normal 21-32 [facility] Comment on above: Performed By: #### P 14 #### [facility] [address] [place], [place] [address] Urea nitrogen [Mass/Vol] 15 mg/dL Normal 7-18 [facility] Comment on above: Performed By: #### P 14 #### [facility] [address] [place], [place] [address] Calcium [Mass/Vol] 9.5 mg/dL Normal 8.5-10.1 [facility] Comment on above: Performed By: #### P 14 #### [facility] [address] [place], [place] [address] Chloride [Moles/Vol] 103 mmol/L Normal 98-107 [facility] Comment on above: Performed By: #### P 14 #### [facility] [address] [place], [place] [address] Potassium [Moles/Vol] 4.2 mmol/L Normal 3.5-5.1 [facility] Comment on above: Performed By: #### P 14 #### [facility] [address] [place], [place] [address] Sodium [Moles/Vol] 139 mmol/L Normal 136-145 [facility] Comment on above: Performed By: #### P 14 #### [facility] [address] [place] [address] Hemogram/Diffon 07-27-2018 Abs Immature Grans 0.03 thou/cmm Normal 0.00-0.05 [facility] Comment on above: Performed By: #### C BCD1 #### [facility] [address] [place] [address] Abs. Baso 0.05 thou/cmm Normal 0.01-0.08 [facility] Comment on above: Performed By: #### C BCD1 #### [facility] [address] [place] [address] Abs. [place] 0.35 thou/cmm Normal 0.27-0.70 [facility] [facility] Comment [facility] above: Performed By: #### C BCD1 #### [facility] [address] [place] [address] Abs. Neut (ANC) 3.32 thou/cmm Normal 1.56-6.13 [facility] Comment on above: Performed By: #### C BCD1 #### [facility] [address] [place] [address] Basophils/100 WBC (Bld) 0.9 % Normal [facility] Comment on above: Performed By: #### C BCD1 #### [facility] [address] [place] [address] Eosinophils (Bld) [#/Vol] 0.09 thou/cmm Normal 0.00-0.31 [facility] Comment on above: Performed By: #### C BCD1 #### [facility] [address] [place] [address] Eosinophils/100 WBC (Bld) 1.6 % Normal [facility] Comment on above: Performed By: #### C BCD1 #### [facility] [address] [place] [address] Erythrocyte distribution width (RBC) [Ratio] 14.0 % Normal 11.7-14.4 [facility] Comment on above: Performed By: #### C BCD1 #### [place] [address] Hematocrit (Bld) [Volume fraction] 46.5 % High 34.1-44.9 [facility] Comment on above: Performed By: #### C BCD1 #### [facility] [address] [place], [place] [address] Hemoglobin (Bld) [Mass/Vol] 14.9 g/dL Normal 11.2-15.7 [facility] Comment on above: Performed By: #### C BCD1 #### [facility] [address] [place], [place] [address] Immature Grans 0.50 % Normal [facility] Comment on above: Performed By: #### C BCD1 #### [facility] [address] [place], [place] [address] Lymphocytes (Bld) [#/Vol] 1.67 thou/cmm Normal 1.18-3.74 [facility] Comment on above: Performed By: #### C BCD1 #### [address] [address] Lymphocytes/100 WBC (Bld) 30.3 % Normal [facility] Comment on above: Performed By: #### C BCD1 #### [facility] [address] [place], [place] [address] MCH (RBC) [Entitic mass] 29.0 pg Normal 25.6-32.2 [facility] Comment on above: Performed By: #### C BCD1 #### [address] [address] MCHC (RBC) [Mass/Vol] 32.0 % Normal 31.6-34.8 [facility] Comment on above: Performed By: #### C BCD1 #### [facility] [address] [place], [place] [address] MCV (RBC) [Entitic vol] 90.5 fL Normal 79.4-94.8 [facility] Comment on above: Performed By: #### C BCD1 #### [facility] [address] [place], [place] [address] Monocytes/100 WBC (Bld) 6.4 % Normal [facility] Comment on above: Performed By: #### C BCD1 #### [facility] [address] [place] [address] Platelet mean volume (Bld) [Entitic vol] 10.0 fL Normal 9.4-12.3 [facility] Comment on above: Performed By: #### C BCD1 #### [facility] [address] [place] [address] Platelets (Bld) [#/Vol] 295 thou/cmm Normal 182-369 [facility] Comment on above: Performed By: #### C BCD1 #### [place] [address] RBC (Bld) [#/Vol] 5.14 mil/cmm Normal 3.93-5.22 [facility] Comment on above: Performed By: #### C BCD1 #### [place] [address] RDW SD 46.8 fl High 36.4-46.3 [facility] Comment on above: Performed By: #### C BCD1 #### [place] [address] Seg Neutrophil 60.3 % Normal [facility] Comment on above: Performed By: #### C BCD1 #### [place] [address] WBC (Bld) [#/Vol] 5.51 thou/cmm Normal 3.98-10.04 [facility] Comment on above: Performed By: #### C BCD1 #### [place] [address] MDRD GFRon 07-27-2018 GFR/1.73 sq M predicted among non-blacks MDRD (S/P/Bld) [Vol rate/Area] mL/min/{1.73_m2} Normal >60mL/min/1. 73m2 [facility] Comment on above: Result Comment: If t he patient is , multiply the result by 1.210. Performed By: #### G FR #### [place] [address] PROGRESSon 07-27-2018 PROGRESS HNO ID: [id number] Author: Mamie Soto Service: ? Author Type: Physician Type: Progress Notes Filed: 07/27/2018 4:15 PM Note Text: RHEUMATOLOGY NEW PATIENT NOTE REFERRING PHYSICIAN: Self CHIEF COMPLAINT: Patient presents with: Arthritis: increasing pain in hands. HPI: Petrona Santizo is a 57 year old female who presents with hand pain. Worsening bilateral hand pain since the last few months. She attributes the worsening pain to stress at her work. She took Aleve, Mobic, nabumetone, diclofenac for pain. She also has several GI issues and following up with GI. Moved from [place]. She has tendonitis in feet and going for PT. Stiff ness lasts all day. Bumps on her fingers. No recent hand x rays. 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 Sometimes knee pain. She has hypothyroidism. Family history of autoimmune disease: none Smoking status: Tobacco Use: Never Rheumatology REVIEW OF SYSTEMS: Constitutional: Recent Weight Change: No Fatigue: No Fever: No Night sweats: No Heent: Alopecia: No H/o Inflammatory eye disease (iritis/scleritis): No Hearing loss: No Frequent sinusitis: No Oral ulcers: No Sicca: No Parotid swelling: No Hoarseness: No Dysphagia: No Heme/lymph: Lymphadenopathy: No Hematological abnormalities (anemia, thrombocytopenia, leukopenia): No Abnormal bleeding: No Skin: Malar or discoid lesions: No Photosensitivity: No Other rashes: No Raynaud's phenomenon: No Hives: No Tightness: No Nodules/bumps: No Easy Bruising: No Nail changes: No H/o psoriasis: No Gastroenterology: Nausea: {No Vomiting: No Change in bowel movements: No Heartburn: No Respiratory: Dry cough/SOB: No Cardiovascular: Pain in chest: No Musculoskeletal: Per HPI Joint pain or swelling: No Prolonged morning stiffness: No Back pain or neck pain: No Muscle weakness: No Genitourinary: Vaginal dryness: No Rash/ulcers: No Neurological: Headaches: No Sensitivity or pain of hands and/or feet: No Psychiatry: Anxiety: No Depression: No Poor sleep: No H/o loss: No H/o thrombosis: No Increased susceptibility to infection: No PAST MEDICAL HISTORY Diagnosis Date - Hypothyroidism - Osteoarthritis PAST SURGICAL HISTORY Procedure Laterality Date - LAPAROSCOPY DIAGNOSTIC 1994 Current Outpatient Medications: glucosamine/msm/chondroi tin A ([id number] ORAL) Take by mouth. ascorbic acid, vitamin C, (VITAMIN C) 500 mg tablet Take 500 mg by mouth once daily. VITAMIN B COMPLEX ORAL Take by mouth. MULTI-VITAMIN ORAL Take by mouth. Cholecalciferol, Vitamin D3, (VITAMIN D-3) 2,000 unit cap Take by mouth. meloxicam (MOBIC) 15 mg tablet TAKE 1 TABLET BY MOUTH EVERY DAY levothyroxine (SYNTHROID) 150 mcg tablet Take 1 tablet by mouth daily before breakfast. No current facility-administered medications for this visit. ALLERGIES Allergen Reactions - Penicillin Unknown FAMILY HISTORY Problem Relation Age of Onset - Thyroid Mother - Hypertension Mother - Stroke Mother - Colon Cancer Father - Diabetes Maternal Aunt - Cancer Maternal Aunt - Thyroid Maternal Aunt Social History Socioeconomic History Marital status: Spouse name: Not on file Number of children: Not on file Years of education: Not on file Highest education level: Not on file Social Needs Financial resource strain: Not on file Food insecurity - worry: Not on file Food insecurity - inability: Not on file Transportation needs - medical: Not on file Transportation needs - non-medical: Not on file Occupational History Not on file Tobacco Use Smoking status: Never Smoker Smokeless tobacco: Never Used Substance and Sexual Activity Alcohol use: No Drug use: No Sexual activity: Not on file Other Topics Concerns: Not on file Social History Narrative Not on file Occupation: Employer And Job Title: None on file Years Of Education Completed: Not specified Marital Status: History Review: I have reviewed and modified as needed, the following during this visit: Allergies, Past Medical History, Past Surgical History, Past Family History, Past Social History. Ht 152.4 cm (5') Wt 66.2 kg (146 lb) BMI 28.51 kg/m? Physical Exam GENERAL: Well appearing, alert, comfortable, in no acute distress, well-hydrated, well nourished. HEENT: Negative for external ears normal. Canals are clear. Both TMs visualized and are normal. Eye Exam normal. External nose normal, no nasal ulcer or throat ulcer. NECK: NECK Supple, no adenopathy; thyroid symmetric, normal size, no bruits CARDIAC: regular rate and rhythm, No murmur asculated. and Equal peripheral pulses RESPIRATORY: Lungs clear to auscultation. No wheezing, rhonchi, rales VASCULAR: RRR without murmur, gallop, or rubs. No ectopy. ABDOMEN: Soft, non tender. BS active. No masses or organomegaly. LYMPHATIC: Negative for adenopathy in the neck, axillae, groin, supraclavicular and auricular. NEURO: Motor and sensory exam normal MOTOR: Normal; including tone, gait, stressed gait, power and coordination. SKIN: Negative for alopecia, skin rash, malar rash, skin lesion, skin ulcer, pits, thickening, color changes, telangiectasias, nail changes, nail ridging, nail pitting, onycholysis MUSCULOSKELETAL: DIPS: Abnormal, Heberden's nodes PIPS: Abnormal, Will's nodes MCPs: Normal Wrists: Normal Elbows: Normal Shoulders: Normal C-Spine: Normal Hips: Normal Knees: Normal Ankles: Normal MTPs / Toes: Normal Arches: Normal Summary of old labs/radiology: Review/request of outside labs and imaging: Pertinent labs: Glucose 88 01/12/2018 ALT 18 01/12/2018 WBC 4.84 01/12/2018 Hemoglobin 14.1 01/12/2018 Platelet Count 255 01/12/2018 WSR 12 01/12/2018 Serology: COLLIN 1:160, RF neg Pertinent imaging: Assessment and Plan (R76.8) COLLIN positive (primary encounter diagnosis) (M25.50) Pain in joint, multiple sites (M19.041, M19.042) Primary osteoarthritis of both hands 57-year-old female is here for evaluation and management recommendations for bilateral hand pain more on the right. No synovitis on exam. She denies psoriasis, dactylitis, colitis. Suspicion for inflammatory arthritis is low. Workup as below. She likely has primary osteoarthritis versus erosive osteoarthritis involving her hands, worse on the right. She requests a referral to occupational therapy. She was recently prescribed diclofenac and she was advised to take that but not with other nonsteroidal medications. Advised to follow-up to discuss lab results and x-ray findings. Positive COLLIN in the past is likely related to the history of hypothyroidism. No clear signs of lupus or other connective tissue diseases. Workup as below. Office Visit on 07/27/18 - XR HAND GENERAL 3V PA/LAT/OBL LT - XR HAND GENERAL 3V PA/LAT/OBL RT - CCP ANTIBODY IGG - DNA ANTIBODY DS BLD - LOPEZ IGG AB - CBC + DIFF - COMP METABOLIC PANEL - VITAMIN D 25 HYDROXY - CONSULT TO OCCUPATIONAL THERAPY/HAND THERAPY (AG) No orders of the defined types were placed in this encounter. Return in about 3 weeks (around 08/17/2018) for discuss lab results. Mamie Soto MD [facility] Vital Signs Date Time Vital Sign Value Performing Clinician Facility 11-22-2024 11:54-0400 Body mass index (BMI) [Ratio] 28.53 kg/m2 Alvaro Dumas APRN.QUALITY ASSURANCE SUPERVISOR TRIM Work Phone: [facility] 11-22-2024 11:54-0400 Body temperature 98.29 [degF] Alvaro Dumas APRN.QUALITY ASSURANCE SUPERVISOR TRIM Work Phone: [facility] 11-22-2024 11:54-0400 Body weight 76 kg Alvaro Dumas APRN.QUALITY ASSURANCE SUPERVISOR TRIM Work Phone: [facility] 11-22-2024 11:54-0400 Diastolic blood pressure 84 mm[Hg] Alvaro Dumas APRN.QUALITY ASSURANCE SUPERVISOR TRIM Work Phone: [facility] 11-22-2024 11:54-0400 Heart rate 75 /min Alvaro Dumas APRN.QUALITY ASSURANCE SUPERVISOR TRIM Work Phone: [facility] 11-22-2024 11:54-0400 Respiratory rate 20 /min Alvaro Dumas APRN.QUALITY ASSURANCE SUPERVISOR TRIM Work Phone: [facility] 11-22-2024 11:54-0400 SaO2% (BldA) [Mass fraction] 96 % Alvaro Dumas APRN.QUALITY ASSURANCE SUPERVISOR TRIM Work Phone: [facility] 11-22-2024 11:54-0400 Systolic blood pressure 110 mm[Hg] Alvaro Dumas APRN.QUALITY ASSURANCE SUPERVISOR TRIM Work Phone: [facility] 09-18-2024 20:14-0400 Body weight 77.3 kg FAN SHETH DO [facility] 09-18-2024 20:14-0400 Diastolic Blood Pressure Non-Invasive 77 mm[Hg] FAN SHETH DO [facility] 09-18-2024 20:14-0400 Heart rate 96 /min FAN SHETH DO [facility] 09-18-2024 20:14-0400 Respiratory rate 20 /min FAN SHETH DO [facility] 09-18-2024 20:14-0400 Systolic Blood Pressure Non-Invasive 132 mm[Hg] FAN SHETH DO [facility] 09-18-2024 10:42-0400 Body mass index (BMI) [Ratio] 28.91 kg/m2 Mikal Gruber APRN.QUALITY ASSURANCE SUPERVISOR TRIM Work Phone: [facility] 09-18-2024 10:42-0400 Body temperature 98.8 [degF] Mikal Gruber APRN.QUALITY ASSURANCE SUPERVISOR TRIM Work Phone: [facility] 09-18-2024 10:42-0400 Body weight 77 kg Mikal Gruber APRN.QUALITY ASSURANCE SUPERVISOR TRIM Work Phone: [facility] 09-18-2024 10:42-0400 Diastolic blood pressure 82 mm[Hg] Mikal Gruber APRN.QUALITY ASSURANCE SUPERVISOR TRIM Work Phone: [facility] 09-18-2024 10:42-0400 Heart rate 95 /min Mikal Gruber APRN.QUALITY ASSURANCE SUPERVISOR TRIM Work Phone: [facility] 09-18-2024 10:42-0400 Respiratory rate 16 /min Mikal Gruber APRN.QUALITY ASSURANCE SUPERVISOR TRIM Work Phone: [facility] 09-18-2024 10:42-0400 SaO2% (BldA) [Mass fraction] 98 % Mikal Gruber APRN.QUALITY ASSURANCE SUPERVISOR TRIM Work Phone: [facility] 09-18-2024 10:42-0400 Systolic blood pressure 128 mm[Hg] Mikal Gruber APRN.QUALITY ASSURANCE SUPERVISOR TRIM Work Phone: [facility] 03-17-2024 10:49-0500 Body height 163.2 cm Sharlene Hussein APRN.QUALITY ASSURANCE SUPERVISOR TRIM Work Phone: [facility] 03-17-2024 10:49-0500 Body mass index (BMI) [Ratio] 25.94 kg/m2 Sharlene Austin FAMILY MEDIATOR.QUALITY ASSURANCE SUPERVISOR TRIM Work Phone: [facility] 03-17-2024 10:49-0500 Body weight 69.08 kg Sharlene Austin FAMILY MEDIATOR.QUALITY ASSURANCE SUPERVISOR TRIM Work Phone: [facility] 03-17-2024 10:49-0500 Diastolic blood pressure 74 mm[Hg] Sharlene Austin FAMILY MEDIATOR.QUALITY ASSURANCE SUPERVISOR TRIM Work Phone: [facility] 03-17-2024 10:49-0500 Systolic blood pressure 114 mm[Hg] Sharlene Keenan FAMILY MEDIATOR.QUALITY ASSURANCE SUPERVISOR TRIM Work Phone: [facility] 08-19-2022 11:37-0400 Body height 160.[address] Srini Farooq Work Phone: [facility] 08-19-2022 11:37-0400 Body mass index (BMI) [Ratio] 29.7 kg/m2 Dr. Srini Farooq Work Phone: [facility] 08-19-2022 11:37-0400 Body weight 76.[address] Srini Farooq Work Phone: [facility] 07-17-2022 10:57-0500 Body temperature 97.3 [degF] Dr. Srini Farooq Work Phone: [facility] 07-17-2022 10:57-0500 Body weight 76.[address] Srini Farooq Work Phone: [facility] 07-17-2022 10:57-0500 Diastolic blood pressure 85 mm[Hg] Dr. Srini Fraooq Work Phone: [facility] 07-17-2022 10:57-0500 Heart rate 75 /min Dr. Srini Farooq Work Phone: [facility] 07-17-2022 10:57-0500 Respiratory rate 16 /min Dr. Srini Farooq Work Phone: [facility] 07-17-2022 10:57-0500 SaO2% (BldA) [Mass fraction] 94 % Dr. Srini Farooq Work Phone: [facility] 07-17-2022 10:57-0500 Systolic blood pressure 130 mm[Hg] Dr. Srini Farooq Work Phone: [facility] 03-11-2022 10:14-0400 Body height 152.4 cm Cami Lin APRN.QUALITY ASSURANCE SUPERVISOR TRIM Work Phone: [facility] 03-11-2022 10:14-0400 Body weight 74.39 kg Cami Lin APRN.QUALITY ASSURANCE SUPERVISOR TRIM Work Phone: [facility] 03-11-2022 10:14-0400 Diastolic blood pressure 78 mm[Hg] Cami Lin APRN.QUALITY ASSURANCE SUPERVISOR TRIM Work Phone: [facility] 03-11-2022 10:14-0400 Systolic blood pressure 126 mm[Hg] Cami Lin APRN.QUALITY ASSURANCE SUPERVISOR TRIM Work Phone: [facility] 10-03-2021 11:09-0400 Body temperature 99.19 [degF] Alvaro Dumas APRN.QUALITY ASSURANCE SUPERVISOR TRIM Work Phone: [facility] 10-03-2021 11:09-0400 Body weight 72.58 kg Alvaro Dumas APRN.QUALITY ASSURANCE SUPERVISOR TRIM Work Phone: [facility] 10-03-2021 11:09-0400 Diastolic blood pressure 78 mm[Hg] Alvaro Dumas APRN.QUALITY ASSURANCE SUPERVISOR TRIM Work Phone: [facility] 10-03-2021 11:09-0400 Heart rate 94 /min Alvaro Dumas APRN.QUALITY ASSURANCE SUPERVISOR TRIM Work Phone: [facility] 10-03-2021 11:09-0400 Respiratory rate 22 /min Alvaro Dumas APRN.QUALITY ASSURANCE SUPERVISOR TRIM Work Phone: [facility] 10-03-2021 11:09-0400 SaO2% (BldA) [Mass fraction] 94 % Alvaro Dumas APRN.QUALITY ASSURANCE SUPERVISOR TRIM Work Phone: [facility] 10-03-2021 11:09-0400 Systolic blood pressure 110 mm[Hg] Alvaro Dumas APRN.CNP Work Phone: [facility] 07-18-2021 10:01-0500 Body height 156.[address] Srini Farooq Work Phone: [facility] Work Phone: 07-18-2021 10:01-0500 Body mass index (BMI) [Ratio] 30.9 kg/m2 Dr. Srini Farooq Work Phone: [facility] Work Phone: 07-18-2021 10:01-0500 Body temperature 97.3 [degF] Dr. Srini Farooq Work Phone: [facility] Work Phone: 07-18-2021 10:01-0500 Body weight 75.[address] Srini Farooq Work Phone: [facility] Work Phone: 07-18-2021 10:01-0500 Diastolic blood pressure 90 mm[Hg] Dr. Srini Farooq Work Phone: [facility] Work Phone: 07-18-2021 10:01-0500 Heart rate 86 /min Dr. Srini Farooq Work Phone: [facility] Work Phone: 07-18-2021 10:01-0500 Respiratory rate 18 /min Dr. Srini Farooq Work Phone: [facility] Work Phone: 07-18-2021 10:01-0500 SaO2% (BldA) [Mass fraction] 96 % Dr. Srini Farooq Work Phone: [facility] Work Phone: 07-18-2021 10:01-0500 Systolic blood pressure 118 mm[Hg] Dr. Srini Farooq Work Phone: [facility] Work Phone: NEGATED: Highlighted [id number] 13:57-0500 BMI (Body Mass Index) 29.92 kg/m2 Gillian Daniel CELLULAR EQUIPMENT INSTALLER [facility] Work Phone: NEGATED: Highlighted [id number] 13:57-0500 Body weight 73.94 kg Gillian Daniel CELLULAR EQUIPMENT INSTALLER [facility] Work Phone: NEGATED: Highlighted [id number] 13:57-0500 Body weight 74 kg Gillian Daniel CELLULAR EQUIPMENT INSTALLER [facility] Work Phone: NEGATED: Highlighted [id number] 13:57-0500 BP Diastolic 84 mm[Hg] Gillian Daniel CELLULAR EQUIPMENT INSTALLER [facility] Work Phone: NEGATED: Highlighted [id number] 13:57-0500 BP Systolic 129 mm[Hg] Gillian Daniel CELLULAR EQUIPMENT INSTALLER [facility] Work Phone: NEGATED: Highlighted [id number] 13:57-0500 Heart rate 2+ Gillian Daniel CELLULAR EQUIPMENT INSTALLER [facility] Work Phone: NEGATED: Highlighted [id number] 13:57-0500 Height 157.48 cm Gillian Daniel CELLULAR EQUIPMENT INSTALLER [facility] Work Phone: NEGATED: Highlighted [id number] 13:57-0500 Height 157 cm Gillian Daniel CELLULAR EQUIPMENT INSTALLER [facility] Work Phone: NEGATED: Highlighted [id number] 13:57-0500 Pulse (Heart Rate) 71 /min Gillian Daniel CELLULAR EQUIPMENT INSTALLER [facility] [place] [facility] Work Phone: Encounters Encounter Date Encounter Type Care Provider Facility Start: 12-02-2024 ambulatory [facility] Facility: [facility] Start: 11-24-2024 End: 11-24-2024 Follow-up encounter Manoj Dixon APRN.CNP Work Phone: [facility] Start: 11-22-2024 End: 11-22-2024 ambulatory [facility] Facility:[facility] Start: 11-22-2024 End: 11-22-2024 Patient encounter procedure Alvaro Dumas APRN.QUALITY ASSURANCE SUPERVISOR TRIM Work Phone: [facility] Comment on above: Urgency of urination (Primary Dx); Urinary tract infection without hematuria, site unspecified Start: 09-25-2024 End: 09-25-2024 Telephone encounter Allegra Gaming APRN.QUALITY ASSURANCE SUPERVISOR TRIM Work Phone: [facility] Comment on above: Results Start: 09-22-2024 End: 09-25-2024 Follow-up encounter Sharlene Hussein APRN.QUALITY ASSURANCE SUPERVISOR TRIM Work Phone: OB/Gynecology Start: 09-22-2024 ambulatory SHARLENEPATRICIA DEMPSEYKEENAN Facility: [facility] Start: 09-22-2024 End: 09-22-2024 Subsequent hospital visit by physician Bone Density [facility] Work Phone: Radiology Comment on above: Encounter for screen ing for osteoporosis [Z13.820] Start: 09-19-2024 End: 11-19-2024 Follow-up encounter Allegra Gaming APRN.QUALITY ASSURANCE SUPERVISOR TRIM Work Phone: [facility] Start: 09-18-2024 End: 09-18-2024 Emergency department patient visit FAN SHETH [facility] Start: 09-18-2024 End: 09-18-2024 Patient encounter procedure Mikal Gruber APRN.QUALITY ASSURANCE SUPERVISOR TRIM Work Phone: [facility] Comment on above: Recurrent UTI (urina ry tract infection) (Primary Dx); Allergic dermatitis Start: 09-18-2024 End: 09-18-2024 ambulatory [facility] Facility:[facility] Start: 08-29-2024 End: 08-29-2024 [facility] Start: 07-17-2024 End: 07-17-2024 ambulatory Ginna FREEMAN Work Phone: [facility] Work Phone: Start: 07-17-2024 End: 07-17-2024 Patient encounter procedure Ginna Calloway OIL AND GAS LEASE PUMPERYarelis -Laboratory, Specimen Work Phone: Start: 07-17-2024 End: 07-17-2024 ambulatory Jaspreet [facility] Facility[facility] Start: 05-04-2024 End: 05-04-[address] Jaspreet Carlton DO -MRI - [facility] Work Phone: Start: 05-04-2024 End: 05-04-2024 ambulatory [facility] Facility:[facility] Start: 04-18-2024 End: 04-18-[address] Jaspreet Carlton DO -Radiology, [place] Work Phone: Start: 04-18-2024 End: 04-18-2024 ambulatory Ginna Calloway Facility:[facility] Start: 04-17-2024 End: 04-17-2024 Telephone encounter Fan Chan APRN.QUALITY ASSURANCE SUPERVISOR TRIM Work Phone: OB/Gynecology Comment on above: Results Start: 04-15-2024 ambulatory FAN CHAN Facility:[facility] Start: 04-15-2024 End: 04-15-2024 Subsequent hospital visit by physician Screen/Diagnostic Mammo [facility] Work Phone: Mammography Comment on above: Abnormal mammogram [ R92.8] Start: 04-11-2024 End: 04-11-2024 ambulatory Ginna Calloway Facility:[facility] Start: 04-11-2024 Registered Recurring Ginna Calloway OIL AND GAS LEASE PUMPER -C -Physical Therapy Work Phone: Start: 04-01-2024 End: 04-01-2024 ambulatory GINNA CALLOWAY BEAM DYER OPERATOR Facility[facility] Start: 04-01-2024 End: 04-01-2024 Patient encounter procedure GINNA CALLOWAY BEAM DYER OPERATOR [facility] Start: 03-29-2024 End: 03-29-2024 Telephone encounter Fan Chan APRN.QUALITY ASSURANCE SUPERVISOR TRIM Work Phone: OB/Gynecology Comment on above: Results Mammogram Result Russ l Back (left breast diag mamm cb per ah) Start: 03-24-2024 End: 03-24-2024 ambulatory FAN TRONCOSOSOUMYA Facility:[facility] Start: 03-24-2024 End: 03-24-2024 Subsequent hospital visit by physician Screen Mammo [facility] Mammogram Comment on above: Encounter for screen ing mammogram for malignant neoplasm of breast [Z12.31] Start: 03-17-2024 End: 03-17-2024 ambulatory SHARLENE KEENAN Facility:[facility] Start: 03-17-2024 End: 03-17-2024 Patient encounter procedure Sharlene Hussein APRN.QUALITY ASSURANCE SUPERVISOR TRIM Work Phone: OB/Gynecology Comment on above: Encounter for gyneco logical examination (general) (routine) without abnormal findings (Primary Dx); Encounter for screening for human papillomavirus (HPV); Pap smear for cervical cancer screening; Encounter for screening mammogram for breast cancer; Encounter for screening for osteoporosis Start: 03-17-2024 End: 03-17-2024 Patient encounter status Sharlene Hussein FAMILY MEDIATOR.QUALITY ASSURANCE SUPERVISOR TRIM Work Phone: [facility] Start: 02-07-2024 End: 02-07-2024 ambulatory Ginna Brodie [facility] Start: 06-02-2023 End: 06-02-2023 ambulatory [facility] Work Phone: Start: 06-02-2023 End: 06-02-2023 [facility] Start: 04-20-2023 Telephone encounter Liane crane MD Work Phone: Mammography Comment on above: Mammogram Result Russ l Back Start: 04-16-2023 End: 04-16-2023 ambulatory [facility] Work Phone: Start: 04-16-2023 End: 04-16-2023 [facility] Start: 03-23-2023 Documentation procedure Mammog kusum Coordinator [facility] Start: 03-23-2023 Letter encounter Mammography Coordinator [facility] Department Start: 03-22-2023 End: 03-22-2023 Subsequent hospital visit by physician Screen Mammo [facility] Mammogram Comment on above: Encounter for screen ing mammogram for breast cancer [Z12.31] Start: 12-25-2022 End: 12-25-2022 ambulatory [facility] Work Phone: Start: 12-25-2022 End: 12-25-2022 Discharged Rec[facility]ring [facility] Work Phone: Start: 12-15-2022 End: 12-15-2022 ambulatory [facility] Work Phone: Start: 12-15-2022 End: 12-15-2022 [facility] encounter [facility] Start: 11-25-2022 Registered Recurring [facility] Work Phone: Start: 11-19-2022 End: 11-19-2022 Patient encounter procedure [facility], [facility] Work Phone: Start: 2022 End: [address] Srini Farooq Work Phone: [facility] Work Phone: Start: 2022 End: [address] Srini Farooq Work Phone: [facility] Start: 09-08-2022 End: 09-08-[address] Srini Farooq [facility] Start: 08-19-2022 End: 08-19-[address] Srini Farooq Work Phone: [facility] Start: 08-07-2022 End: 08-07-[address] Srini Farooq Work Phone: [facility] Work Phone: Start: 08-07-2022 End: 08-07-[address] Srini Farooq Work Phone: [facility] Start: 07-27-2022 End: 07-27-[address] Srini Farooq Work Phone: [facility] Work Phone: Start: 07-27-2022 End: 07-27-[address] Srini Farooq Work Phone: [facility] Start: 07-17-2022 End: 07-17-[address] Srini Farooq Work Phone: [facility] Work Phone: Start: 07-17-2022 End: 07-17-[address] Srini Farooq Work Phone: [facility] Start: 06-16-2022 End: 06-16-[address] Srini Farooq Work Phone: [facility], Spec[facility] Start: 06-05-2022 End: 06-05-2022 ambulatory [facility] Work Phone: Start: 06-05-2022 End: 06-05-2022 Discharged Recurring [facility] Start: 06-05-[address] Srini Farooq Work Phone: [facility] Start: 04-16-2022 End: 04-16-2022 Patient encounter procedure [facility], [place] Start: 03-13-2022 End: 03-13-2022 ambulatory [facility] Work Phone: Start: 03-13-2022 End: 03-13-2022 Patient encounter procedure [facility] [place] [facility] Start: 03-11-2022 End: 03-11-2022 Patient encounter procedure Cami Lin APRN.[facility] Work Phone: OB/Gynecology Comment on above: Encounter for gyneco logical examination with abnormal finding (Primary Dx); Postmenopausal atrophic vaginitis; Encounter for screening mammogram for breast cancer; Dense breast tissue on mammogram Start: 03-11-2022 End: 03-11-2022 Patient encounter status Cami Lin APRN.CNP Work Phone: OB/Gynecology Start: 01-20-2022 End: 01-20-2022 ambulatory [facility] Work Phone: Start: 01-20-2022 End: 01-20-2022 Patient encounter procedure [facility] Start: 01-06-2022 End: 01-06-2022 Subsequent hospital visit by physician Diagnostic Mammo [facility] Mammogram Start: 10-27-2021 Telephone encounter Sharlene delaney APRN.QUALITY ASSURANCE SUPERVISOR TRIM Work Phone: OB/Gynecology Comment on above: Orders Start: 10-24-2021 Documentation procedure Mammog kusum Coordinator [facility] Start: 10-24-2021 Letter encounter Mammography Coordinator [facility] Department Start: 10-24-2021 End: 10-24-2021 Patient encounter status Screen [facility] Mammogram Start: 10-24-2021 End: 10-24-2021 Subsequent hospital visit by physician Screen Mammo [facility] Mammogram Comment on above: Encounter for gyneco logical examination (general) (routine) without abnormal findings [Z01.419] Start: 10-04-2021 Telephone encounter Jeniffer Kruse APRN.QUALITY ASSURANCE SUPERVISOR TRIM Work Phone: [facility] Comment on above: Results Start: 10-03-2021 End: 10-03-2021 Patient encounter procedure Alvaro Dumas APRN.QUALITY ASSURANCE SUPERVISOR TRIM Work Phone: [facility] Comment on above: Cough (Primary Dx); Sore throat Start: 09-10-2021 End: 09-10-[address] Srini Farooq Work Phone: [facility] Start: 07-18-2021 End: 07-18-[address] Srini Farooq Work Phone: [facility] Start: 05-29-2019 End: 05-29-2019 Patient encounter procedure sUman Lackey MD Work Phone: [facility] [place] [facility] Work Phone: Procedures Date Procedure Procedure Detail Performing Clinician Start: 11-22-2024 Urnls dip stick/tabl et rgnt auto w/o microscopy Saleem García MD Work Phone: Start: 09-22-2024 BD DXA TRABECULAR TOI NE SCORE (TBS) Sharlene Hussein FAMILY MEDIATOR.QUALITY ASSURANCE SUPERVISOR TRIM Work Phone: Start: 09-22-2024 Dxa bone density alysia dy 1/> sites axial skel Sharlene Hussein FAMILY MEDIATOR.QUALITY ASSURANCE SUPERVISOR TRIM Work Phone: Start: 09-18-2024 Urnls dip stick/tabl et rgnt auto w/o microscopy Allegra Gaming FAMILY MEDIATOR.QUALITY ASSURANCE SUPERVISOR TRIM Work Phone: Start: 07-17-2024 Urine culture Ginna shields OIL AND GAS LEASE PUMPER-C Work Phone: Start: 05-04-2024 MRI of cervical spine R juan josé Brodie [employer]ER-C Work Phone: Start: 04-18-2024 X-ray of cervical spine Ginna Brodie [employer] AND [employer] LE[employer] PU[employer]ER-C Work Phone: Start: 04-15-2024 Digital breast tomosynthesis unilateral Fan Chan FAMILY MEDIATOR.QUALITY ASSURANCE SUPERVISOR TRIM Work Phone: Start: 11-19-2022 X-ray of chest posteroanterior view Start: 07-27-2022 MRI of lumbar spine Dr. Srini Farooq Work Phone: Start: 04-16-2022 X-ray of lumbosacral spine Start: 01-06-2022 MARCUS DIAG W JULIANA RT Faustino Hussein FAMILY MEDIATOR.QUALITY ASSURANCE SUPERVISOR TRIM Work Phone: Start: 10-24-2021 End: 10-24-2021 Screening mammography bi 2-view breast inc cad Jennie Blakely MD Work Phone: Start: 10-03-2021 STREP A MOLECULAR (POC) Alvaro Dumas APRN.QUALITY ASSURANCE SUPERVISOR TRIM Work Phone: Start: 10-23-2020 Mammography Alvaro Dumas APRN.QUALITY ASSURANCE SUPERVISOR TRIM Work Phone: Start: 05-29-2019 End: 05-29-2019 Blood [...] Lackey MD Work Phone: Start: 08-26-2018 Colonoscopy Alvaro Dumas APRN.[facility] Work Phone: Start: 01-12-2018 Lipid 1996 panel - S martin or Plasma Screen Wstr Start: 01-06-2018 Adult depression scr eening assessment Alvaro Dumas APRN.[facility] Work Phone: Respiratory Panel (PCR) Dr. Srini Farooq Work Phone: NEGATED: Highlighted rowStart: 05-29-2019 End: 05-29-2019 Documentation of current medications Gillian Sanchez LPN Plan of Treatment Date Care Activity Detail Author Start: 10-19-2034 RSV Vaccine (1 - 1-d ose 75+ series) RSV Vaccine (1 - 1-dose 75+ series) [facility] Start: 03-17-2029 Screening for malign ant neoplasm of cervix Cervical Cancer Screening [facility] Start: 08-26-2028 Colonoscopy COLONOSCOPY [facility] Start: 08-26-2028 COLORECTAL CANCER SCREENING COLORECTAL CANCER SCREENING [facility] Start: 08-26-2028 Screening for malign ant neoplasm of colon [facility] Start: 03-26-2025 End: 03-26-2025 Patient encounter procedure 03/26/2025 10:50 AM EST Appointment Mammogram [address] [place] [id number] Encounter for screening mammogram for breast cancer [Z12.31] Mammogram Comment on above: Encounter for screen ing mammogram for breast cancer [Z12.31] Start: 03-24-2025 End: 04-16-2025 DBT Breast - bilateral screening MARCUS SCREENING W JULIANA Radiology Routine Encounter for screening mammogram for breast cancer Expected: 03/24/2025, Expires: 04/16/2025 [facility] Work Phone: Comment on above: Expected: 03/24/2025 , Expires: 04/16/2025 Start: 03-24-2025 Screening for malign ant neoplasm of breast Mammogram Screening [facility] Start: 03-20-2025 End: 03-20-2025 Patient encounter procedure 03/20/2025 1:00 PM EST Office Visit OB/Gynecology [address] [id number] Sharlene Hussein APRN.QUALITY ASSURANCE SUPERVISOR TRIM [address] [place] [id number] Annual OB/Gynecology Comment on above: Annual Start: 01-08-2025 Influenza vaccination [facility] Start: 10-19-2024 Advance Directive Discussion Advance Directive Discussion [facility] Start: 09-22-2024 End: 09-22-2024 Patient encounter procedure 09/22/2024 11:15 AM EDT Appointment Radiology [address] [phone] DXA-AXIAL SKELETON [[id number]] Radiology Comment on above: DXA-AXIAL SKELETON [ [id number]] Start: 05-18-2024 End: 05-18-2024 Patient encounter procedure 05/18/2024 11:15 AM EST Appointment Radiology [address] [place] [id number] Encounter for screening for osteoporosis [Z13.820] Radiology Comment on above: Encounter for screen ing for osteoporosis [Z13.820] Start: 04-15-2024 End: 04-15-2024 Patient encounter procedure 04/15/2024 9:40 AM EST Appointment Mammography [address] [place] [address] left breast diag mamm cb per Mammography Comment on above: left breast diag marcus m cb per Start: 03-24-2024 End: 03-24-2024 Patient encounter procedure 03/24/2024 11:10 AM EST Appointment Mammogram [address] [place] [address] Encounter for screening mammogram for malignant neoplasm of breast [Z12.31] Mammogram Comment on above: Encounter for screen ing mammogram for malignant neoplasm of breast [Z12.31] Start: 03-22-2024 Mammography Mammogram Screening [facility] Start: 03-22-2024 Screening for malign ant neoplasm of breast Mammogram Screening [facility] Start: 01-09-2024 Covid-19 Vaccine () Covid-19 Vaccine () [facility] Start: 01-09-2024 Influenza vaccination Influenza Vacc ine (#1) [facility] Start: 07-16-2023 HPV TESTING HPV TESTING [facility] Start: 07-16-2023 PAP TESTING PAP TESTING [facility] Start: 07-16-2023 Screening for malign ant neoplasm of cervix [facility] Start: 06-02-2023 Borrelia burgdorferi blot test [facility] Start: 01-12-2023 Lipid 1996 panel - S martin or Plasma Lipid Screening [facility] Start: 01-12-2023 Lipid panel Lipid Screening [facility] Start: 01-12-2023 LIPID SCREEN LIPID SCREEN [facility] Start: 01-08-2023 Covid-19 Vaccine () Covid-19 Vaccine () [facility] Start: 01-08-2023 Influenza vaccination Influenza Vacc ine (#1) [facility] Start: 10-24-2022 Mammography [facility] Start: 08-19-2022 Patient referral [facility] Work Phone: Start: 05-10-2022 Depression Assessment Depression Ass essment [facility] Start: 01-08-2022 Influenza vaccination [facility] Start: 10-23-2021 Mammography MAMMOGRAM [facility] Start: 10-03-2021 End: 10-17-2021 Influenza virus A and B RNA and SARS-CoV-2 (COVID-19) N gene panel - Respiratory specimen by AVILA with probe detection [facility] Work Phone: Comment on above: Expected: 10/03/2021 , Expires: 10/17/2021 Start: 07-27-2021 DIABETES SCREEN DIABETES SCREEN [facility] Start: 07-27-2021 Diabetes Screening Diabetes Screenin g [facility] Start: 05-28-2021 COVID-19 VACCINE (3 - Booster for Pfizer series) COVID-19 VACCINE (3 - Booster for Pfizer series) [facility] Start: 05-10-2021 DEPRESSION ASSESSMENT DEPRESSION ASS [facility] Start: 02-20-2021 COVID-19 VACCINE (3 - Booster for Pfizer series) COVID-19 VACCINE (3 - Booster for Pfizer series) [facility] Start: 2019 RSV Vaccine (1 - 1-d ose 60+ series) RSV Vaccine (1 - 1-dose 60+ series) [facility] Start: 08-14-2019 End: 08-14-2019 Appointment Appointment [facility] Work Phone: Start: 08-11-2019 ANNUAL PCP TEAM FINANCIAL MANAGEMENT CONSULTANT GONZALO DISEASE VISIT ANNUAL PCP TEAM CHRONIC DISEASE VISIT [facility] Start: 05-29-2019 End: 05-29-2019 Appointment Appointment [facility] Work Phone: Start: 05-29-2019 End: 05-29-2019 Radex foot complete minimum 3 views XR FOOT 3+ VWS-RT [facility] Work Phone: Start: 05-11-2019 Urine microalbumin profile [facility] Start: 01-06-2019 Adult depression screening assessment DEPRESSION SCREENING [facility] Start: 10-19-2009 Pneumococcal Vaccine : 50+ (1 of 1 - PCV) Pneumococcal Vaccine: 50+ (1 of 1 - PCV) [facility] Start: 10-19-2009 SHINGRIX VACCINE (1 of 2) SHINGRIX VACCINE (1 of 2) [facility] Start: 10-19-2004 COLOGUARD (FIT-DNA) COLOGUARD (FIT-D NA) [facility] Start: 10-19-[address] COLONOGRAPHY [facility] Start: 10-19-2004 FECAL OCCULT BLOOD FECAL OCCULT BLOO D [facility] Start: 10-19-2004 Screening for malign ant neoplasm of colon [facility] Start: 10-19-2004 SIGMOIDOSCOPY SIGMOIDOSCOPY [facility] Start: 10-19-1977 Annual PCP Team Child Care Nurse gonzalo Disease Visit Annual PCP Team Chronic Disease Visit [facility] Start: 10-19-1977 Anxiety Screening Anxiety Screening [facility] Start: 10-19-1977 Depression Screening Depression Scre ening [facility] Start: 10-19-1977 HEPATITIS C SCREENING HEPATITIS C [facility] Start: 10-19-1977 Hepatitis C screening Hepatitis C [facility] Start: 10-19-1977 HIV SCREENING HIV SCREENING [facility] Start: 10-19-1977 HIV screening HIV Screening [facility] Bacteria identified in Urine by Culture BACTERIAL CULTURE, URINE Microbiology Routine Recurrent UTI (urinary tract infection) 09/18/2024 12:02 PM EDT [facility] Work Phone: Bacteria identified in Urine by Culture BACTERIAL CULTURE, URINE Microbiology Routine Urgency of urination Ordered: 11/22/2024 [facility] Work Phone: Comment on above: Ordered: 11/22/2024 End: 04-16-2025 BD DXA TRABECULAR BONE SCORE (TBS) BD DXA TRABECULAR BONE SCORE (TBS) Radiology Routine Encounter for screening for osteoporosis 1 Occurrences starting 03/17/2024 until 04/16/2025 [facility] Comment on above: 1 Occurrences starti ng 03/17/2024 until 04/16/2025 DBT Breast - bilater al screening MARCUS SCREENING W JULIANA Radiology Routine Encounter for screening mammogram for malignant neoplasm of breast 03/24/2024 11:00 AM EST [facility] Work Phone: End: 11-26-2022 Diagnostic mammography computer-aided detcj uni MARCUS DIAGNOSTIC RT Radiology Routine Abnormal mammogram 1 Occurrences starting 10/27/2021 until 11/26/2022 [facility] Work Phone: Comment on above: 1 Occurrences starti ng 10/27/2021 until 11/26/2022 End: 04-16-2025 DXA Skeletal system.axial Views for bone density DXA-AXIAL SKELETON Radiology Routine Encounter for screening for osteoporosis 1 Occurrences starting 03/17/2024 until 04/16/2025 [facility] Comment on above: 1 Occurrences starti ng 03/17/2024 until 04/16/2025 Hepatitis A virus Ab [Presence] in [facility] Hepatitis A virus Ig M Ab [Presence] in [facility] Hepatitis B core antibody measurement, IgM type [facility] Hepatitis B surface antigen measurement [facility] Hepatitis C antibody measurement [facility] Laboratory data interpretation [facility] End: 04-10-2023 MARCUS SCREENING W JULIANA MARCUS SCREENING W JULIANA Radiology Routine Encounter for screening mammogram for breast cancer Dense breast tissue on mammogram 1 Occurrences starting 03/11/2022 until 04/10/2023 [facility] Work Phone: Comment on above: 1 Occurrences starti ng 03/11/2022 until 04/10/2023 MARCUS SCREENING W JULIANA MARCUS SCREENI NG W JULIANA Radiology Routine Encounter for screening mammogram for breast cancer Dense breast tissue on mammogram 03/22/2023 11:36 AM EST [facility] Work Phone: End: 04-28-2025 MG Breast - left Diagnostic for implant MARCUS DIAGNOSTIC LEFT Radiology Routine Abnormal mammogram 1 Occurrences starting 03/29/2024 until 04/28/2025 [facility] Comment on above: 1 Occurrences starti ng 03/29/2024 until 04/28/2025 PAP TEST PAP TEST Lab [facility] Encounter for screening for human papillomavirus (HPV) Pap smear for cervical cancer screening 03/17/2024 11:20 AM EST [facility] Patient referral [facility] Work Phone: End: 04-28-2025 US Breast - left limited US BREAST LTD LEFT Radiology Routine Abnormal mammogram 1 Occurrences starting 03/29/2024 until 04/28/2025 [facility] Work Phone: Comment on above: 1 Occurrences starti ng 03/29/2024 until 04/28/2025 End: 11-26-2022 Us breast uni real time with image limited US BREAST LTD RT Radiology Routine Abnormal mammogram 1 Occurrences starting 10/27/2021 until 11/26/2022 [facility] Work Phone: Comment on above: 1 Occurrences starti ng 10/27/2021 until 11/26/2022 [facility] Immunizations Immunization Date Immunization Notes Care Provider Ada thompson 01-15-2016 hepatitis A vaccine, adult dosage Alvaro Neptali FAMILY MEDIATOR.QUALITY ASSURANCE SUPERVISOR TRIM Work Phone: [facility] 05-07-2015 hepatitis A vaccine, adult dosage Alvaro Neptali FAMILY MEDIATOR.QUALITY ASSURANCE SUPERVISOR TRIM Work Phone: [facility] 05-11-2009 tetanus toxoid, redu ike diphtheria toxoid, and acellular pertussis vaccine, adsorbed Alvaro Neptali FAMILY MEDIATOR.QUALITY ASSURANCE SUPERVISOR TRIM Work Phone: [facility] Payers Date Payer Category Payer Self-pay [id number] 2019 Private Health Insurance MMO SUP [employer] PPO [id number] 2019 Unknown MMO MMO [employer] [id number] 2019-Present [phone] [address] [place] [address] PPO [id number] 2019 Unknown [id number] 2019 Unknown [id number] 1960 Unknown [id number] 1959 Unknown [id number] Unknown [id number] Unknown [id number] Unknown [id number] Unknown [id number] Unknown [id number] Unknown [id number] Unknown [id number] Unknown [id number] Social History Date Type Detail Facility Start: 1960 Sex Assigned At Female [facility] Start: 11-15-2017 End: 03-11-2022 Tobacco smoking status NHIS Never smoked tobacco [facility] Start: 11-15-2017 End: 03-11-2022 Tobacco use and exposure Smokeless tobacco non-user [facility] Start: 10-03-2021 End: 09-22-2024 Alcohol intake Current non-drinker of alcohol (finding) [facility] Start: 1960 Sex Assigned At Not on file [facility] Start: 10-14-2021 End: 01-06-2022 Exposure to SARS-CoV-2 (event) Not sure [facility] Start: 01-06-2018 End: 03-16-2023 History of Social function [facility] Start: 01-06-2018 End: 03-16-2023 Tobacco use panel [facility] Adult Depression Screening Assessment 0 [facility] Tobacco smoking status [facility] Tobacco smoking status NHIS Unknown if ever smoked [facility] Work Phone: Start: 02-09-2021 End: 07-27-2024 Sex Female (finding) [facility] NEGATED: Highlighted rowStart: 05-29-2019 End: 05-29-2019 Alcohol use Alcohol use [facility] Work Phone: NEGATED: Highlighted rowStart: 05-29-2019 End: 05-29-2019 Details of drug misuse behavior Details of drug misuse behavior [facility] Work Phone: NEGATED: Highlighted rowStart: 05-29-2019 End: 05-29-2019 How many days of moderate to strenuous exercise, like a brisk walk, did you do in the last 7 days? How many days of moderate to strenuous exercise, like a brisk walk, did you do in the last 7 days? [facility] Work Phone: NEGATED: Highlighted rowStart: 05-29-2019 End: 05-29-2019 Assertion Never smoker [facility] Work Phone: Clinical Notes 10-03-2021 to 11-24-2024 Telephone Encounter - Laila Escalante LPN - 11/24/2024 9:36 AM EDTTelephone Encounter - Laila Escalante LPN - 11/24/2024 9:36 AM EDTTelephone Encounter - Kayley Arceo PA - 11/24/2024 8:57 AM EDT Note Date & Type Note Facility 11-24-2024 Telephone encounter Note Patient given results and verbalized understanding of instructions given. Laila Escalante LPN [facility] 11-24-2024 Miscellaneous Notes Patient given results and verbalized understanding of instructions given. Laila Escalante LPN Please contact patient let her know she did have a UTI. She is on the appropriate antibiotic continue as prescribed if symptoms are worsening follow-up with PCP documented in this encounter [facility] 11-24-2024 Telephone encounter Note Please contact patient let her know she did have a UTI. She is on the appropriate antibiotic continue as prescribed if symptoms are worsening follow-up with PCP [facility] Work Phone: 11-22-2024 Note HNO ID: [id number] Author: ALVARO DUMAS APRN.QUALITY ASSURANCE SUPERVISOR TRIM Service: ? Author Type: Nurse Practitioner Type: Progress Notes Filed: 11/22/2024 12:51 Note Text: Subjective Patient ID: Petrona is a 64 year old female who presents for Urinary Problem (Possible bladder infection, urgency, pain). The history is provided by the patient. No veterinarian small animal was used. Patient presents to office from home via personal vehicle with UTI s/s x2d +burning with urination +pressure +frequency +suprapubic pain Worsening during car rides S/s unrelieved with drinking cranberry juice and taking Azo Appt schedule for US of bladder on 12/02 and urologist December in [place] No fever, chills, N/V/D Denies STI risk, decline STI testing, no sexual intercourse in 2y Hx hypothyroid taking synthyroid daily Allergic to PCN and sulfa, denies anaphylaxis reaction to penicillin Admits to stressful job and family, son ASD and has medical issues No smoking, ETOH or street drug use PAST MEDICAL HISTORY Diagnosis Date Breast cyst, left Simple cyst 2023 Fibromyalgia Hypothyroidism Osteoarthritis Osteopenia 09/2024 PAST SURGICAL HISTORY Procedure Laterality Date COLONOSCOPY FLX DX W/COLLJ SPEC WHEN PFRMD 08/26/2018 Colonoscopy 10 yr interval LAPAROSCOPY DIAGNOSTIC 1994 ALLERGIES Penicillin and Sulfa (Sulfonamide Antibiotics) MEDICATIONS triamcinolone acetonide (KENALOG) 0.1 % cream Apply 1 application to affected area three times a day. Apply sparingly to area for rash/itching. SYNTHROID 137 mcg tablet 135 mcg. meloxicam (MOBIC) 15 mg tablet Take 1 tablet by mouth once daily. ascorbic acid, vitamin C, (VITAMIN C) 500 mg tablet Take 500 mg by mouth once daily. MULTI-VITAMIN ORAL Take by mouth. Cholecalciferol, Vitamin D3, 50 mcg (2,000 unit) cap Take by mouth. FAMILY HISTORY Problem Relation Age of Onset Hypothyroidism Mother Hypertension Mother Stroke Mother Tourette syndrome Son Diabetes Maternal Aunt Cancer Maternal Aunt Thyroid Maternal Aunt Social History Tobacco Use Smoking status: Never Smokeless tobacco: Never Vaping Use Vaping status: Never Used Substance Use Topics Alcohol use: No Drug use: No Objective BP 110/84 Pulse 75 Temp 36.8 ?C (98.3 ?F) Resp 20 Wt 76 kg (167 lb 8.8 oz) SpO2 96% BMI 28.53 kg/m? Physical Exam Vitals and nursing note reviewed. Constitutional: Appearance: Normal appearance. HENT: Head: Normocephalic. Right Ear: Tympanic membrane normal. Left Ear: Tympanic membrane normal. Mouth/Throat: Mouth: Mucous membranes are dry. Eyes: Extraocular Movements: Extraocular movements intact. Pupils: Pupils are equal, round, and reactive to light. Cardiovascular: Rate and Rhythm: Normal rate. Pulses: Normal pulses. Radial pulses are 2+ on the right side and 2+ on the left side. Heart sounds: Normal heart sounds. Pulmonary: Effort: Pulmonary effort is normal. Breath sounds: Normal breath sounds and air entry. Abdominal: General: Bowel sounds are normal. Palpations: Abdomen is soft. Tenderness: There is no right CVA tenderness or left CVA tenderness. Genitourinary: Comments: +suprapubic tenderness Musculoskeletal: General: Normal range of motion. Cervical back: Full passive range of motion without pain, normal range of motion and neck supple. Right lower leg: No edema. Left lower leg: No edema. Skin: General: Skin is warm and dry. Capillary Refill: Capillary refill takes less than 2 seconds. Neurological: General: No focal deficit present. Mental Status: She is alert and oriented to person, place, and time. Psychiatric: Attention and Perception: Attention normal. Behavior: Behavior normal. Thought Content: Thought content normal. Judgment: Judgment normal. Assessment AND Plan Urgency of urination Orders: UA DIP, URINE (POC) ASSESSMENT/PLAN: 1. Urgency of urination - ICD9: 788.63, ICD10: R39.15 (primary diagnosis) 2. Urinary tract infection without hematuria, site unspecified - ICD9: 599.0, ICD10: N39.0 - UA DIP, URINE (POC) UA positive for large mitch esterase and small hematuria - BACTERIAL CULTURE, URINE Will call if urine culture results are positive - CEPHALEXIN 500 MG CAPSULE Begin treatment with Keflex BID for 5 days and taken until completion - Patient education for prevention given including: increase PO fluids, good hand hygiene, good pericare, wiping from front to back, wearing cotton underwear and removing wet clothing - Conversation provided on coping mechanisms for stress including exercise, walking and speaking with counselor Allison Casas NP student TEACHING PROVIDER (Physician/PA/FAMILY MEDIATOR) NOTE OF PERSONAL INVOLVEMENT IN CARE: I have personally seen and examined the patient and performed the medical decision-making components. I have reviewed the Advanced Practice Registered Nurse (FAMILY MEDIATOR) Student's documentation and verified the findings in the note (more content not included)... [facility] 11-22-2024 History of Presen t illness Narrative Subjective Patient ID: Petrona is a 64 year old female who presents for Urinary Problem (Possible bladder infection, urgency, pain). The history is provided by the patient. No veterinarian small animal was used. Patient presents to office from home via personal vehicle with UTI s/s x2d +burning with urination +pressure +frequency +suprapubic pain Worsening during car rides S/s unrelieved with drinking cranberry juice and taking Azo Appt schedule for US of bladder on 12/02 and urologist December in [place] No fever, chills, N/V/D Denies STI risk, decline STI testing, no sexual intercourse in 2y Hx hypothyroid taking synthyroid daily Allergic to PCN and sulfa, denies anaphylaxis reaction to penicillin Admits to stressful job and family, son ASD and has medical issues No smoking, ETOH or street drug use PAST MEDICAL HISTORY Diagnosis Date Breast cyst, left Simple cyst 2023 Fibromyalgia Hypothyroidism Osteoarthritis Osteopenia 09/2024 PAST SURGICAL HISTORY Procedure Laterality Date COLONOSCOPY FLX DX W/COLLJ SPEC WHEN PFRMD 08/26/2018 Colonoscopy 10 yr interval LAPAROSCOPY DIAGNOSTIC 1994 ALLERGIES Penicillin and Sulfa (Sulfonamide Antibiotics) MEDICATIONS triamcinolone acetonide (KENALOG) 0.1 % cream Apply 1 application to affected area three times a day. Apply sparingly to area for rash/itching. SYNTHROID 137 mcg tablet 135 mcg. meloxicam (MOBIC) 15 mg tablet Take 1 tablet by mouth once daily. ascorbic acid, vitamin C, (VITAMIN C) 500 mg tablet Take 500 mg by mouth once daily. MULTI-VITAMIN ORAL Take by mouth. Cholecalciferol, Vitamin D3, 50 mcg (2,000 unit) cap Take by mouth. FAMILY HISTORY Problem Relation Age of Onset Hypothyroidism Mother Hypertension Mother Stroke Mother Tourette syndrome Son Diabetes Maternal Aunt Cancer Maternal Aunt Thyroid Maternal Aunt Social History Tobacco Use Smoking status: Never Smokeless tobacco: Never Vaping Use Vaping status: Never Used Substance Use Topics Alcohol use: No Drug use: No Objective BP 110/84 Pulse 75 Temp 36.8 C (98.3 F) Resp 20 Wt 76 kg (167 lb 8.8 oz) SpO2 96% BMI 28.53 kg/m Physical Exam Vitals and nursing note reviewed. Constitutional: Appearance: Normal appearance. HENT: Head: Normocephalic. Right Ear: Tympanic membrane normal. Left Ear: Tympanic membrane normal. Mouth/Throat: Mouth: Mucous membranes are dry. Eyes: Extraocular Movements: Extraocular movements intact. Pupils: Pupils are equal, round, and reactive to light. Cardiovascular: Rate and Rhythm: Normal rate. Pulses: Normal pulses. Radial pulses are 2+ on the right side and 2+ on the left side. Heart sounds: Normal heart sounds. Pulmonary: Effort: Pulmonary effort is normal. Breath sounds: Normal breath sounds and air entry. Abdominal: General: Bowel sounds are normal. Palpations: Abdomen is soft. Tenderness: There is no right CVA tenderness or left CVA tenderness. Genitourinary: Comments: +suprapubic tenderness Musculoskeletal: General: Normal range of motion. Cervical back: Full passive range of motion without pain, normal range of motion and neck supple. Right lower leg: No edema. Left lower leg: No edema. Skin: General: Skin is warm and dry. Capillary Refill: Capillary refill takes less than 2 seconds. Neurological: General: No focal deficit present. Mental Status: She is alert and oriented to person, place, and time. Psychiatric: Attention and Perception: Attention normal. Behavior: Behavior normal. Thought Content: Thought content normal. Judgment: Judgment normal. Assessment & Plan Urgency of urination Orders: UA DIP, URINE (POC) ASSESSMENT/PLAN: 1. Urgency of urination - ICD9: 788.63, ICD10: R39.15 (primary diagnosis) 2. Urinary tract infection without hematuria, site unspecified - ICD9: 599.0, ICD10: N39.0 - UA DIP, URINE (POC) UA positive for large mitch esterase and small hematuria - BACTERIAL CULTURE, URINE Will call if urine culture results are positive - CEPHALEXIN 500 MG CAPSULE Begin treatment with Keflex BID for 5 days and taken until completion - Patient education for prevention given including: increase PO fluids, good hand hygiene, good pericare, wiping from front to back, wearing cotton underwear and removing wet clothing - Conversation provided on coping mechanisms for stress including exercise, walking and speaking with counselor Allison Casas NP student TEACHING PROVIDER (Physician/PA/FAMILY MEDIATOR) NOTE OF PERSONAL INVOLVEMENT IN CARE: I have personally seen and examined the patient and performed the medical decision-making components. I have reviewed the Advanced Practice Registered Nurse (FAMILY MEDIATOR) Student's documentation and verified the findings in the note as written. Any additions or changes are noted in bold/italics. Signature: Alvaro Dumas Date: 11/22/2024 Time: 12:51 PM documented in this encounter [facility] 09-25-2024 Telephone encounter Note This nurse updated pt about her results from bone density testing. Laila Escalante LPN [facility] 09-25-2024 Miscellaneous Notes This nurse updated pt about her results from bone density testing. Laila Escalante LPN documented in this encounter [facility] 09-25-2024 Telephone encounter Note Pt updated on all testing results in her chart. Laila Escalante LPN [facility] 09-25-2024 Miscellaneous Notes Pt updated on all testing results in her chart. Laila Escalante LPN Patient has not read her mychart results. Please reach out and inform her of the message related to the results Please advise documented in this encounter [facility] 09-25-2024 Telephone encounter Note Patient has not read her mychart results. Please reach out and inform her of the message related to the results Please advise [facility] Work Phone: 09-22-2024 History of Presen t illness Narrative Radiology Service Progress Note PATIENT NAME: Petrona Santizo DATE OF SERVICE: September 22, 2024 TIME: 11:14 AM PATIENT IDENTITY VERIFICATION COMPLETED USING TWO (2) IDENTIFIERS: Name and Date of confirmed by patient verbally. FALL SCREENING: Has the patient had 2 falls in the last year or 1 fall with injury or currently using an Ambulatory Assistive Device (Walker, Cane, Wheelchair, Crutches, etc.)? No PATIENT GENDER DATA: Assigned female at . status: : No status: NO. PATIENT RELEVANT IMPLANT DATA REVIEWED: Not Applicable PATIENT PRESENTS WITH AN IMPLANTABLE OR ATTACHED FERN CUTTER: No RADIOLOGY DEPARTMENT: Bone Density PERIPHERAL IV DATA: Not applicable SIGNED BY: RT Jose(John) September 22, 2024 11:14 AM documented in this encounter [facility] 09-22-2024 Note HNO ID: [id number] Author: ANDREA FLANAGAN RT(R) Service: ? Author Type: Technologist Type: Progress Notes Filed: 09/22/2024 11:23 Note Text: Radiology Service Progress Note PATIENT NAME: Petrona Santizo DATE OF SERVICE: September 22, 2024 TIME: 11:14 AM PATIENT IDENTITY VERIFICATION COMPLETED USING TWO (2) IDENTIFIERS: Name and Date of confirmed by patient verbally. FALL SCREENING: Has the patient had 2 falls in the last year or 1 fall with injury or currently using an Ambulatory Assistive Device (Walker, Cane, Wheelchair, Crutches, etc.)? No PATIENT GENDER DATA: Assigned female at . status: : No status: NO. PATIENT RELEVANT IMPLANT DATA REVIEWED: Not Applicable PATIENT PRESENTS WITH AN IMPLANTABLE OR ATTACHED FERN CUTTER: No RADIOLOGY DEPARTMENT: Bone Density PERIPHERAL IV DATA: Not applicable SIGNED BY: RT Jose(John) September 22, 2024 11:14 AM [facility] 09-19-2024 Hospital Discharg e instructions Patient Education 09/18/2024 22:01:14 Hives (Adult) Hives (Adult) Hives are pink or red bumps on the skin. These bumps are also known as wheals. The bumps can itch, burn, or sting. Hives can occur anywhere on the body. They vary in size and shape and can form in clusters. Individual hives can appear and go away quickly. New hives may develop as old ones fade. Hives are common and usually harmless. Occasionally hives are a sign of a serious allergy. Hives are often caused by an allergic reaction. It may be an allergic reaction to foods such as fruit, shellfish, chocolate, nuts, or tomatoes. It may be a reaction to pollens, animal fur, or mold spores. Medicines, chemicals, and insect bites can also cause hives. And hives can be caused by hot sun or cold air. The cause of hives can be difficult to find. You may be given medicines to relieve swelling and itching. Follow all instructions when using these medicines. The hives will usually fade in a few days, but can last up to 2 weeks. Home care Follow these tips: Try to find the cause of the hives and eliminate it. Discuss possible causes with your healthcare provider. Future reactions to the same allergen may be worse. Don t scratch the hives. Scratching will delay healing. To reduce itching, apply cool, wet compresses to the skin. Dress in soft, loose cotton clothing. Don t bathe in hot water. This can make the itching worse. Apply an ice pack or cool pack wrapped in a thin towel to your skin. This will help reduce redness and itching. But if your hives were caused by exposure to cold, then do not apply more cold to them. You may use over-the counter antihistamines to reduce itching. Some older antihistamines, such as diphenhydramine and chlorpheniramine, are inexpensive. But they need to be taken often and may make you sleepy. They are best used at bedtime. Don t use diphenhydramine if you have glaucoma or have trouble urinating because of an enlarged prostate. Newer antihistamines, such as loratadine, cetirizine, and fexofenadine, are generally more expensive. But they tend to have fewer side effects, such as drowsiness. They can be taken less often. Another type of antihistamine is used to treat heartburn. This type includes ranitidine, nizatidine, famotidine, and cimetidine. These are sometimes used along with the above antihistamines if a single medicine is not working. Follow-up care Follow up with your healthcare provider if your symptoms don't get better in 2 days. Ask your provider about allergy testing if you have had a severe reaction, or have had several episodes of hives. He or she can use the allergy testing to find out what you are allergic to. When to seek medical advice Call your healthcare provider right away if any of these occur: Fever of 100.4 F (38.0 C) or higher, or as directed by your healthcare provider Redness, swelling, or pain Foul-smelling fluid coming from the rash Call 911 Call 911 if any of the following occur: Swelling of the face, throat, or tongue Trouble breathing or swallowing Dizziness, weakness, or fainting [id number] [employer]. [address] [place] [address]. All rights reserved. This information is not intended as a substitute for professional medical care. Always follow your healthcare professional's instructions. 09/18/2024 22:01:13 Dysuria Dysuria Painful urination (dysuria) is often caused by a problem in the urinary tract. Dysuria is pain felt during urination. It is often described as a burning. Learn more about this problem and how it can be treated. What causes dysuria? Possible causes include: Infection with a bacteria or virus such as a urinary tract infection (UTI or a sexually transmitted infection (STI) Sensitivity or allergy to chemicals such as those found in lotions and other products Prostate or bladder problems Radiation therapy to the pelvic area How is dysuria diagnosed? Your healthcare provider will examine you. He or she will ask about your symptoms and health. After talking with you and doing a physical exam, your healthcare provider may know what is causing your dysuria. He or she will usually request a sample of your urine. Tests of your urine, or a "urinalysis," are done. A urinalysis may include: Looking at the urine sample (visual exam) Checking for substances (chemical exam) Looking at a small amount under a microscope (microscopic exam) Some parts of the urinalysis may be done in the provider's office and some in a lab. And, the urine sample may be checked for bacteria and yeast (urine culture). Your healthcare provider will tell you more about these tests if they are needed. How is dysuria treated? Treatment depends on the cause. If you have a bacterial infection, you may need antibiotics. You may be given medicines to make it easier for you to urinate and help relieve pain. Your healthcare provider can tell you more about your treatment options. Untreated, symptoms may get worse. When to call your healthcare provider Call the healthcare provider right away if you have any of the following: Fever of 100.4 F (38 C) or higher No improvement after three days of treatment Trouble urinating because of pain New or increased discharge from the vagina or penis Rash or joint pain Increased back or abdominal pain Enlarged painful lymph nodes (lumps) in the groinTh [id number] [employer]. [address] [place] [address], [place] [address]. All rights reserved. This information is not intended as a substitute for professional medical care. Always follow your healthcare professional's instructions. Follow Up Care 09/18/2024 19:53:34 With:Go to emergency room if symptoms worsen Address:Unknown When:2-4 days With:JASPREET CARLTON DO Address: [facility] [id number]- When:2-4 days [facility] 09-18-2024 Emergency department Discharge summary Discharge Instructions Thank you for allowing [facility] to assist you with your healthcare needs. The following is important discharge information regarding your hospital visit. Diagnosis from Today's Visit Dysuria Hives What to Do Next Instructions from Your Care Team Please take steroids as prescribed. May purchase [id number] Azo for relief of urinary discomfort symptoms. No qualifying data available. Post Acute Orders No qualifying data available. You Need to Schedule the Following Appointments Follow Up with Go to emergency room if symptoms worsen When:Within 2-4 days Follow Up with JASPREET CARLTON DO When:Within 2-4 days Where[place] [id number]- Allergies penicillin Medications Please ask your primary doctor or pharmacist before taking any other medication not listed, including over the counter drugs, herbal medications, vitamins and or supplements as they may interact with your home medications. What How Much When Instructions Last Dose New predniSONE (predniSONE 20 mg oral tablet) 2 tab(s) by mouth Once a day Duration: 7 Days Take with food Printed Prescription Please take this list to your next doctor s visit. Bring all medications you take, including over the counter medications, herbals and other supplements with you to your doctor s visit. Patients and families are reminded to discard old lists and to update any records with all medication providers or retail pharmacies. Education Materials Hives (Adult) Hives are pink or red bumps on the skin. These bumps are also known as wheals. The bumps can itch, burn, or sting. Hives can occur anywhere on the body. They vary in size and shape and can form in clusters. Individual hives can appear and go away quickly. New hives may develop as old ones fade. Hives are common and usually harmless. Occasionally hives are a sign of a serious allergy. Hives are often caused by an allergic reaction. It may be an allergic reaction to foods such as fruit, shellfish, chocolate, nuts, or tomatoes. It may be a reaction to pollens, animal fur, or mold spores. Medicines, chemicals, and insect bites can also cause hives. And hives can be caused by hot sun or cold air. The cause of hives can be difficult to find. You may be given medicines to relieve swelling and itching. Follow all instructions when using these medicines. The hives will usually fade in a few days, but can last up to 2 weeks. Home care Follow these tips: Try to find the cause of the hives and eliminate it. Discuss possible causes with your healthcare provider. Future reactions to the same allergen may be worse. Don t scratch the hives. Scratching will delay healing. To reduce itching, apply cool, wet compresses to the skin. Dress in soft, loose cotton clothing. Don t bathe in hot water. This can make the itching worse. Apply an ice pack or cool pack wrapped in a thin towel to your skin. This will help reduce redness and itching. But if your hives were caused by exposure to cold, then do not apply more cold to them. You may use over-the counter antihistamines to reduce itching. Some older antihistamines, such as diphenhydramine and chlorpheniramine, are inexpensive. But they need to be taken often and may make you sleepy. They are best used at bedtime. Don t use diphenhydramine if you have glaucoma or have trouble urinating because of an enlarged prostate. Newer antihistamines, such as loratadine, cetirizine, and fexofenadine, are generally more expensive. But they tend to have fewer side effects, such as drowsiness. They can be taken less often. Another type of antihistamine is used to treat heartburn. This type includes ranitidine, nizatidine, famotidine, and cimetidine. These are sometimes used along with the above antihistamines if a single medicine is not working. Follow-up care Follow up with your healthcare provider if your symptoms don't get better in 2 days. Ask your provider about allergy testing if you have had a severe reaction, or have had several episodes of hives. He or she can use the allergy testing to find out what you are allergic to. When to seek medical advice Call your healthcare provider right away if any of these occur: Fever of 100.4 F (38.0 C) or higher, or as directed by your healthcare provider Redness, swelling, or pain Foul-smelling fluid coming from the rash Call 911 Call 911 if any of the following occur: Swelling of the face, throat, or tongue Trouble breathing or swallowing Dizziness, weakness, or fainting [id number] [employer]. [address] [place] [address]. All rights reserved. This information is not intended as a substitute for professional medical care. Always follow your healthcare professional's instructions. Dysuria Painful urination (dysuria) is often caused by a problem in the urinary tract. Dysuria is pain felt during urination. It is often described as a burning. Learn more about this problem and how it can be treated. What causes dysuria? Possible causes include: Infection with a bacteria or virus such as a urinary tract infection (UTI or a sexually transmitted infection (STI) Sensitivity or allergy to chemicals such as those found in lotions and other products Prostate or bladder problems Radiation therapy to the pelvic area How is dysuria diagnosed? Your healthcare provider will examine you. He or she will ask about your symptoms and health. After talking with you and doing a physical exam, your healthcare provider may know what is causing your dysuria. He or she will usually request a sample of your urine. Tests of your urine, or a "urinalysis," are done. A urinalysis may include: Looking at the urine sample (visual exam) Checking for substances (chemical exam) Looking at a small amount under a microscope (microscopic exam) Some parts of the urinalysis may be done in the provider's office and some in a lab. And, the urine sample may be checked for bacteria and yeast (urine culture). Your healthcare provider will tell you more about these tests if they are needed. How is dysuria treated? Treatment depends on the cause. If you have a bacterial infection, you may need antibiotics. You may be given medicines to make it easier for you to urinate and help relieve pain. Your healthcare provider can tell you more about your treatment options. Untreated, symptoms may get worse. When to call your healthcare provider Call the healthcare provider right away if you have any of the following: Fever of 100.4 F (38 C) or higher No improvement after three days of treatment Trouble urinating because of pain New or increased discharge from the vagina or penis Rash or joint pain Increased back or abdominal pain Enlarged painful lymph nodes (lumps) in the groinTh [id number] [employer]. [address] [place] [address]. All rights reserved. This information is not intended as a substitute for professional medical care. Always follow your healthcare professional's instructions. Additional Information VACCINATE! IT SAVES LIVES! Members of the community who have not yet received the COVID-19 vaccine and would like to receive it can visit one of [facility] vaccine clinics. There are many vaccine clinic locations within the [facility]. For locations and available times, please visit [email or web address] It is important to note that some COVID mobile vaccine clinics are held outdoors and may be canceled in rainy or stormy conditions. To learn more about pediatric vaccinations (ages 5-11), we invite you to visit the [facility] webpage. [email or web address] To learn more about the COVID-19 vaccine, we invite you to visit the CDC website for a list of frequently asked questions. https://www.cdc.gov/coronavirus/ 2019-ncov/vaccines/faq.html [facility] Access Instructions: Stay connected with your healthcare team and access your personal medical information anytime with the [facility]. If you would like a full copy of your medical records please contact the [facility] Medical Records Department Wednesday through Wednesday between 8a.m. and 4:30p.m. Please follow the directions below to access the portal: 1.Access the email account you provided upon registration to the [facility].2.Look for an invitation email from [facility].3.Open the email and access the invitation link: Accept Invitation to [facility]4.Fill in the required urbano to create your account. Sign into [email or web address] with your username and password that you created in the above steps to stay up to date. You can then view a summary of results, a summary of your visits, and the ability to download your summaries to your computer or send the information securely to a physician. Remember that your healthcare information is confidential, so carefully consider who you will allow to register on the [facility] for access to your information. You can also access the [facility] Patient Portal on the [employer]. Simply click on "Health Records" under "Health Data" and then click on the [facility] logo. HOW TO SAFELY DISPOSE OF PRESCRIPTION MEDICATIONS Please use one of the following methods to safely dispose of your unused medications. 1.Use a drug disposal kit: the drug disposal pouch allows you to safely discard your old and unused drugs. Ask your nurse to give you one when you are discharged.2.Visit a local take-back location: Many local pharmacies and police departments have programs that collect old and unwanted prescription drugs. Call your local pharmacy or go to http://[employer].PetSmart/9W0Xo7l to find one close to you.3.Make use of household items: Use cat litter or old coffee grounds to dispose medications if other options are not available. Mix your drugs with these household products, seal them in an airtight container and throw it into the garbage. Call [facility] [place]: [phone] to be sure your drugs can be disposed of in this way. Some medicines may require a different approach.4.Never flush your medications down the toilet. IF YOU HAVE BEEN PRESCRIBED AN OPIOIDS FOR PAIN If you have been prescribed an opioid (such as hydrocodone, oxycodone or morphine), it is critical to understand the possible side effects and risks of opioid pain medications. Even when taken as directed, opioids can have several side effects including: Tolerance, meaning you might need to take more of a medication for the same pain relief. Nausea, vomiting and/or constipation. Sleepiness, dizziness, dry mouth, confusion, depression or itching. Physical dependence, meaning you have withdrawal symptoms when a medication is stopped ? this can develop within a few days. KNOW YOUR RESPONSIBILITIES It is important to know exactly how much and how often to take the opioid pain medications you are prescribed. Never take opioids in higher amounts or more often than prescribed. Do not combine opioids with alcohol or other drugs that cause drowsiness, such as benzodiazepines, also known as benzos, including diazepam and alprazolam, muscle relaxants or sleep aids. Never sell or share prescription opioids. This is illegal. Store opioids in a secure place and out of reach of others (including children, family, friends and visitors). The last page(s) of this document has been signed and retained as a CHART COPY Signatures Patient Education Materials Hives (Adult) Dysuria Medication Leaflets My discharge plan and instructions have been reviewed and explained to me and I,PETRONA SANTIZO understand my current condition and have read and understand these discharge instructions. I have received a written copy of the plan/instructions. If I have questions, I am aware that I should contact my doctor. 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 Author Type: Nurse Practitioner Type: Progress Notes Filed: 09/18/2024 12:16 Note Text: EXPRESS [facility] CLINIC NOTE Subjective Petrona Santizo is a 63 year old year old who presents to express care today with complaint of C/o Frequency, urgency, burning with urination. Presence of blood in urine none. Color is yellow in appearance without odor. Denies suprapubic pain, flank pain or back pain. History of UTI's over the past year 3+, denies any history of kidney/renal or genital health issues in the past. Sates she will be seeing a Urology specialist in the next month. Was given Sulfa for the last UTI last week, yet now she has skin rash as well- itchy and red. Denies headaches, fever, sore throat, cough, shortness of breath, chest pains, Nausea, vomiting, changes in bowel or skin rashes. Aside from symptoms as described above, patient has no other complaints at this time. HPI: see above Review of Systems Constitutional: Negative for chills, fatigue and fever. Respiratory: Negative for cough, shortness of breath and wheezing. Cardiovascular: Negative for chest pain, palpitations and leg swelling. Gastrointestinal: Negative for diarrhea, nausea and vomiting. Genitourinary: Positive for dysuria, frequency and urgency. Negative for vaginal discharge. Musculoskeletal: Negative for myalgias. Skin: Positive for rash (itchy red rash). ALLERGIES Allergen Reactions Penicillin Unknown Sulfa (Sulfonamide * Rash Current Outpatient Medications on File Prior to Visit Medication Sig SYNTHROID 137 mcg tablet 135 mcg. meloxicam (MOBIC) 15 mg tablet Take 1 tablet by mouth once daily. ascorbic acid, vitamin C, (VITAMIN C) 500 mg tablet Take 500 mg by mouth once daily. MULTI-VITAMIN ORAL Take by mouth. Cholecalciferol, Vitamin D3, 50 mcg (2,000 unit) cap Take by mouth. No current facility-administered medications on file prior to visit. 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 Physical Exam Constitutional: General: She is not in acute distress. Appearance: Normal appearance. She is not ill-appearing or toxic-appearing. Cardiovascular: Rate and Rhythm: Normal rate and regular rhythm. Pulses: Normal pulses. Heart sounds: Normal heart sounds. No murmur heard. Pulmonary: Effort: Pulmonary effort is normal. Breath sounds: Normal breath sounds. Abdominal: General: Bowel sounds are normal. There is no distension. Palpations: Abdomen is soft. Tenderness: There is no abdominal tenderness (no suprapubic tenderness). There is no right CVA tenderness, left CVA tenderness or rebound. Skin: General: Skin is warm and dry. Capillary Refill: Capillary refill takes less than 2 seconds. Findings: Erythema and rash present. Rash is macular and urticarial. Comments: Flat Macular/urticarial rash all over torso, and extremities very pruritic Neurological: Mental Status: She is alert and oriented to person, place, and time. Assessment/Plan 1. Recurrent UTI (urinary tract infection) (Primary) - UA DIP, URINE (POC)- Positive Urobilinogen and Trace Blood - BACTERIAL CULTURE, URINE - nitrofurantoin monohydrate and macrocrystal (MACROBID) 100 mg capsule; Take 1 capsule by mouth two times a day with meals for 7 days. Dispense: 14 capsule; Refill: 0 2. Allergic dermatitis - added Sulfa to allergen list with RASH Ok to use OTC Zyrtec and Pepcid if desired- education given - triamcinolone acetonide (KENALOG) 0.1 % cream; Apply 1 application to affected area three times a day. Apply sparingly to area for rash/itching. Dispense: 30 g; Refill: 0 Patient advised to drink fluids, get rest and take all meds as prescribed. Patient given educational materials - see instructions. Discussed use, benefit, and side effects of prescribed medications. All questions answered. Patient advised to follow up with PCP in one week, or sooner if symptoms worsen or persist. If symptoms become severe- GO TO ED. Patient verbalized understanding and agreeable with treatment plan. Mikal Gruber APRN [facility] 09/18/2024 11:04 AM [facility] 09-18-2024 History of Presen t illness Narrative Images from the original note were not included. [facility] CLINIC NOTE Subjective Petrona Santizo is a 63 year old year old who presents to [facility] care today with complaint of C/o Frequency, urgency, burning with urination. Presence of blood in urine none. Color is yellow in appearance without odor. Denies suprapubic pain, flank pain or back pain. History of UTI's over the past year 3+, denies any history of kidney/renal or genital health issues in the past. Sates she will be seeing a Urology specialist in the next month. Was given Sulfa for the last UTI last week, yet now she has skin rash as well- itchy and red. Denies headaches, fever, sore throat, cough, shortness of breath, chest pains, Nausea, vomiting, changes in bowel or skin rashes. Aside from symptoms as described above, patient has no other complaints at this time. HPI: see above Review of Systems Constitutional: Negative for chills, fatigue and fever. Respiratory: Negative for cough, shortness of breath and wheezing. Cardiovascular: Negative for chest pain, palpitations and leg swelling. Gastrointestinal: Negative for diarrhea, nausea and vomiting. Genitourinary: Positive for dysuria, frequency and urgency. Negative for vaginal discharge. Musculoskeletal: Negative for myalgias. Skin: Positive for rash (itchy red rash). ALLERGIES Allergen Reactions Penicillin Unknown Sulfa (Sulfonamide * Rash Current Outpatient Medications on File Prior to Visit Medication Sig SYNTHROID 137 mcg tablet 135 mcg. meloxicam (MOBIC) 15 mg tablet Take 1 tablet by mouth once daily. ascorbic acid, vitamin C, (VITAMIN C) 500 mg tablet Take 500 mg by mouth once daily. MULTI-VITAMIN ORAL Take by mouth. Cholecalciferol, Vitamin D3, 50 mcg (2,000 unit) cap Take by mouth. No current facility-administered medications on file prior to visit. 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 Appearance: Normal appearance. She is not ill-appearing or toxic-appearing. Cardiovascular: Rate and Rhythm: Normal rate and regular rhythm. Pulses: Normal pulses. Heart sounds: Normal heart sounds. No murmur heard. Pulmonary: Effort: Pulmonary effort is normal. Breath sounds: Normal breath sounds. Abdominal: General: Bowel sounds are normal. There is no distension. Palpations: Abdomen is soft. Tenderness: There is no abdominal tenderness (no suprapubic tenderness). There is no right CVA tenderness, left CVA tenderness or rebound. Skin: General: Skin is warm and dry. Capillary Refill: Capillary refill takes less than 2 seconds. Findings: Erythema and rash present. Rash is macular and urticarial. Comments: Flat Macular/urticarial rash all over torso, and extremities very pruritic Neurological: Mental Status: She is alert and oriented to person, place, and time. Assessment/Plan 1. Recurrent UTI (urinary tract infection) (Primary) - UA DIP, URINE (POC)- Positive Urobilinogen and Trace Blood - BACTERIAL CULTURE, URINE - nitrofurantoin monohydrate and macrocrystal (MACROBID) 100 mg capsule; Take 1 capsule by mouth two times a day with meals for 7 days. Dispense: 14 capsule; Refill: 0 2. Allergic dermatitis - added Sulfa to allergen list with RASH Ok to use OTC Zyrtec and Pepcid if desired- education given - triamcinolone acetonide (KENALOG) 0.1 % cream; Apply 1 application to affected area three times a day. Apply sparingly to area for rash/itching. Dispense: 30 g; Refill: 0 Patient advised to drink fluids, get rest and take all meds as prescribed. Patient given educational materials - see instructions. Discussed use, benefit, and side effects of prescribed medications. All questions answered. Patient advised to follow up with PCP in one week, or sooner if symptoms worsen or persist. If symptoms become severe- GO TO ED. Patient verbalized understanding and agreeable with treatment plan. Mikal Gruber APRN, CNP 09/18/2024 11:04 AM documented in this encounter [facility] 09-18-2024 Instructions Mikal Gruber APRN.MIRA - 09/18/2024 10:58 AM EDT Images from the original note were not included. Urinary Problem-When to Seek Help? Symptoms of a urinary problem may lead to a bladder infection. Women are at greater risk of a urinary tract infection than are men. Most urinary tract infections in women are caused by bacteria and involve the lower urinary tract including the bladder and urethra. Symptoms: Pain or burning when passing urine, urgency, frequency, blood in the urine, difficult emptying your bladder, and lower abdominal fullness or pressure. Common Causes: Sexual intercourse, menopause, constipation, uncontrolled diabetes, dehydration and feminine products such as tampons, and kidney stones. When to Get Help: Seek medical attention if you get frequent bladder infections, urinary concerns such as leakage, blood in the urine or frequent need to urinate. You may be recommended to get help from a specialist, such as a urologist. Diagnosis & Treatment: Lab testing may include: urinalysis, and urine culture that can be collected in the lab or walk-in clinic. Most bladder infections can easily be treated. A physician, nurse practitioner or physician assistant professor of anthropology may treat with a short course of an antibiotic. Delaying treatment can lead to worsening symptoms, like a kidney infection. Self-Care: Avoid a full bladder, bubble baths, bath oils, food and beverages that may irritate the bladder such as caffeine. Avoid spermicide foam and diaphragms Void before and after sexual intercourse Wipe front to back after using the bathroom. Stay hydrated Stop Smoking Follow-up Care: Follow up testing is not needed in healthy young women if symptoms resolve. documented in this encounter [facility] 04-17-2024 Telephone encounter Note Patient notified. Declined for now. Will call back for orders if she chooses to proceed. Alissa Nichols RN [facility] 04-17-2024 Miscellaneous Notes Patient notified. Declined for now. Will call back for orders if she chooses to proceed. Alissa Nichols RN Left message for patient to call office. Starr Briceno RN Please notify patient: Normal mammo. Because your breast tissue is dense, you are eligible for supplemental imaging with whole breast ultrasound. This test improves breast cancer detection and may result in the need for additional testing (biopsy, six-month follow up imaging or both). If you want to have this supplemental screening test, please check with your insurance to see if it is covered and what your [id number] expense will be. Please reach out through [facility] or by phone if you would like an order placed or if you would like to schedule an appointment to discuss further with an available provider. Whole breast ultrasound does not replace annual mammograms; this test is in addition to regular mammograms which are the most important way to screen for breast cancer. Can plan for annual mammo if US is declined. Fan Chan APRN.CNP documented in this encounter [facility] 04-17-2024 Telephone encounter Note Left message for patient to call office. Starr Briceno RN [facility] 04-17-2024 Telephone encounter Note Please notify patient: Normal mammo. Because your breast tissue is dense, you are eligible for supplemental imaging with whole breast ultrasound. This test improves breast cancer detection and may result in the need for additional testing (biopsy, six-month follow up imaging or both). If you want to have this supplemental screening test, please check with your insurance to see if it is covered and what your [id number] expense will be. Please reach out through [employer] or by phone if you would like an order placed or if you would like to schedule an appointment to discuss further with an available provider. Whole breast ultrasound does not replace annual mammograms; this test is in addition to regular mammograms which are the most important way to screen for breast cancer. Can plan for annual mammo if US is declined. Fan Chan APRN.CNP [facility] Work Phone: 04-15-2024 History of Presen t illness Narrative Radiology Service Progress Note PATIENT NAME: Petrona Santizo DATE OF SERVICE: April 15, 2024 TIME: 10:01 AM PATIENT IDENTITY VERIFICATION COMPLETED USING TWO (2) IDENTIFIERS: Name and Date of confirmed by patient verbally. FALL SCREENING: Has the patient had 2 falls in the last year or 1 fall with injury or currently using an Ambulatory Assistive Device (Walker, Cane, Wheelchair, Crutches, etc.)? No PATIENT GENDER DATA: Female. status: : No status: NO. PATIENT RELEVANT IMPLANT DATA REVIEWED: Not Applicable PATIENT PRESENTS WITH AN IMPLANTABLE OR ATTACHED FERN CUTTER: No RADIOLOGY DEPARTMENT: Mammography PERIPHERAL IV DATA: Not applicable SIGNED BY: RT Evangelist(R) April 15, 2024 10:01 AM documented in this encounter [facility] 04-15-2024 Note HNO ID: [id number] Author: KELSEY SHARP RT(John) Service: ? Author Type: Virtual Office Assistant Type: Progress Notes Filed: 04/15/2024 10:01 Note Text: Radiology Service Progress Note PATIENT NAME: Petrona Santizo DATE OF SERVICE: April 15, 2024 TIME: 10:01 AM PATIENT IDENTITY VERIFICATION COMPLETED USING TWO (2) IDENTIFIERS: Name and Date of confirmed by patient verbally. FALL SCREENING: Has the patient had 2 falls in the last year or 1 fall with injury or currently using an Ambulatory Assistive Device (Walker, Cane, Wheelchair, Crutches, etc.)? No PATIENT GENDER DATA: Female. status: : No status: NO. PATIENT RELEVANT IMPLANT DATA REVIEWED: Not Applicable PATIENT PRESENTS WITH AN IMPLANTABLE OR ATTACHED FERN CUTTER: No RADIOLOGY DEPARTMENT: Mammography PERIPHERAL IV DATA: Not applicable SIGNED BY: RT Evangelist(R) April 15, 2024 10:01 AM [facility] 04-01-2024 Evaluation + Plan note Diagnostic Tests PendingANA by IFA Screen 04/01/24 [facility] 03-29-2024 Telephone encounter Note Patient notified and transferred to breast imaging scheduling department. Alissa Nichols RN [facility] 03-29-2024 Miscellaneous Notes Patient notified and transferred to breast imaging scheduling department. Alissa Nichols RN Left message to call office. Debo Fishman RN Please call patient and make sure she knows diagnostic breast imaging has been ordered. Fan Chan APRN.CNP documented in this encounter [facility] 03-29-2024 Telephone encounter Note Left message to call office. Debo Fishman RN [facility] 03-29-2024 Telephone encounter Note Please call patient and make sure she knows diagnostic breast imaging has been ordered. Fan Chan APRN.CNP [facility] 03-24-2024 History of Presen t illness Narrative Radiology Service Progress Note PATIENT NAME: Petrona Santizo DATE OF SERVICE: March 24, 2024 TIME: 11:06 AM PATIENT IDENTITY VERIFICATION COMPLETED USING TWO (2) IDENTIFIERS: Name and Date of confirmed by patient verbally. FALL SCREENING: Has the patient had 2 falls in the last year or 1 fall with injury or currently using an Ambulatory Assistive Device (Walker, Cane, Wheelchair, Crutches, etc.)? No PATIENT GENDER DATA: Female. status: : No status: NO. PATIENT RELEVANT IMPLANT DATA REVIEWED: Not Applicable PATIENT PRESENTS WITH AN IMPLANTABLE OR ATTACHED FERN CUTTER: No RADIOLOGY DEPARTMENT: Mammography PERIPHERAL IV DATA: Not applicable SIGNED BY: RT Natalia(R) March 24, 2024 11:06 AM documented in this encounter [facility] 03-24-2024 Note HNO ID: [id number] Author: CICI ROJAS RT(R) Service: ? Author Type: Technologist Type: Progress Notes Filed: 03/24/2024 11:06 Note Text: Radiology Service Progress Note PATIENT NAME: Petrona Santizo DATE OF SERVICE: March 24, 2024 TIME: 11:06 AM PATIENT IDENTITY VERIFICATION COMPLETED USING TWO (2) IDENTIFIERS: Name and Date of confirmed by patient verbally. FALL SCREENING: Has the patient had 2 falls in the last year or 1 fall with injury or currently using an Ambulatory Assistive Device (Walker, Cane, Wheelchair, Crutches, etc.)? No PATIENT GENDER DATA: Female. status: : No status: NO. PATIENT RELEVANT IMPLANT DATA REVIEWED: Not Applicable PATIENT PRESENTS WITH AN IMPLANTABLE OR ATTACHED FERN CUTTER: No RADIOLOGY DEPARTMENT: Mammography PERIPHERAL IV DATA: Not applicable SIGNED BY: RT Natalia(John) March 24, 2024 11:06 AM [facility] 03-17-2024 Note HNO ID: [id number] Author: SHARLENE HUSSEIN APRN.QUALITY ASSURANCE SUPERVISOR TRIM Service: ? Author Type: Nurse Practitioner Type: Progress Notes Filed: 03/17/2024 11:29 Note Text: Glass Cutting Machine Feeder offered: Patient declines. Russ is a 63 year old who presents for an annual gynecologic exam without complaints. Postmenopausal: Yes mid 50's HRT use: No. Last Pap: 07/22/2018 normal HPV: 07/20/2018 negative History of abnormal pap: No Last mammogram: 2022 abnormal, follow up benign History of abnormal mammogram: Yes has needed additional imaging Sexually active: not currently OB History T2 L2 SAB1 IAB0 Ectopic0 Multiple0 Live Births2 Benefit Specialist History LMP: Postmenopausal Age at Menarche: Age at First : Age at Menopause: Benefit Specialist History Comments: Sexual Activity: Yes; Male Contraception: No contraception data on record PAST MEDICAL HISTORY Diagnosis Date Breast cyst, left Simple cyst 2023 Fibromyalgia Hypothyroidism Osteoarthritis PAST SURGICAL HISTORY Procedure [...] Never Smokeless tobacco: Never Vaping Use Vaping status: Never Used Substance Use Topics Alcohol use: No Drug use: No REVIEW OF SYSTEMS Abdomen: No abdominal pain, nausea, vomiting, diarrhea, or constipation. No bloating, early satiety, indigestion, or increased flatulence. Bladder: No dysuria, gross hematuria, urinary frequency, urinary urgency, or incontinence Breast: No breast lumps, nipple d/c, overlying skin changes, redness or skin retraction Allergies and current medication updated:Yes SENSITIVE EXAM: The sensitive examination was discussed with the Patient or Patient's Authorized Oyster Tonger. As applicable, any other physician, advance practice provider, medical student, or other health professional student that will be observing or involved in the sensitive examination for educational or training purposes was discussed with the Patient or Authorized Oyster Tonger. The Patient or Authorized Oyster Tonger has agreed to proceed with the sensitive examination. (Sensitive examination includes inspection and/or palpation of the breasts, pelvis, prostate and anorectal regions). EXAM: There were no vitals taken for this visit. GENERAL: pleasant, female in no apparent distress HEENT: Normocephalic, atraumatic, mucus membranes moist, and no lesions DERMATOLOGY: Normal, without lesions, non-icteric, and non-hirsute BREAST: soft, non-tender, symmetric, no dominant mass, normal nipple-areolar complex, no lymphadenopathy, and no nipple discharge CHEST: Normal inspiratory effort ABDOMEN: soft, non-tender, and no masses PELVIC: external genitalia normal, normal Bartholin's glands, urethra, [place]'s glands, no vulvar lesions, no cervical lesions, physiologic discharge present, normal appearing perineal body and perianal region, +possible Lichen sclerosus to the perineum and anus areas BIMANUAL: uterus normal size, shape and consistency, no adnexal masses, and non-tender RECTOVAGINAL: deferred. NEURO: alert and oriented x3,exam grossly non-focal EXTREMITIES: normal ASSESSMENT/PLAN: 1) Health maintenance: Pap done with HPV. Mammogram ordered Nutrition, exercise and routine health maintenance exams reviewed. Calcium/Vitamin D supplementation information provided. Colon cancer screening: up to date with screening BMD: ordered 2) Follow up one year or sooner as needed 3) Clobetasol cream ordered Sharlene Hussein APRN.CNP [facility] 03-17-2024 History of Presen t illness Narrative Glass Cutting Machine Feeder offered: Patient declinesAlanis Russ is a 63 year old who presents for an annual gynecologic exam without complaints. Postmenopausal: Yes mid 50's HRT use: No. Last Pap: 07/22/2018 normal HPV: 07/20/2018 negative History of abnormal pap: No Last mammogram: 2022 abnormal, follow up benign History of abnormal mammogram: Yes has needed additional imaging Sexually active: not currently OB History T2 L2 SAB1 IAB0 Ectopic0 Multiple0 Live Births2 Benefit Specialist History LMP: Postmenopausal Age at Menarche: Age at First : Age at Menopause: Benefit Specialist History Comments: Sexual Activity: Yes; Male Contraception: No contraception data on record PAST MEDICAL HISTORY Diagnosis Date Breast cyst, left Simple cyst 2023 Fibromyalgia Hypothyroidism Osteoarthritis PAST SURGICAL HISTORY Procedure [...] Never Smokeless tobacco: Never Vaping Use Vaping status: Never Used Substance Use Topics Alcohol use: No Drug use: No REVIEW OF SYSTEMS Abdomen: No abdominal pain, nausea, vomiting, diarrhea, or constipation. No bloating, early satiety, indigestion, or increased flatulence. Bladder: No dysuria, gross hematuria, urinary frequency, urinary urgency, or incontinence Breast: No breast lumps, nipple d/c, overlying skin changes, redness or skin retraction Allergies and current medication updated:Yes SENSITIVE EXAM: The sensitive examination was discussed with the Patient or Patient's Authorized Oyster Tonger. As applicable, any other physician, advance practice provider, medical student, or other health professional student that will be observing or involved in the sensitive examination for educational or training purposes was discussed with the Patient or Authorized Oyster Tonger. The Patient or Authorized Oyster Tonger has agreed to proceed with the sensitive examination. (Sensitive examination includes inspection and/or palpation of the breasts, pelvis, prostate and anorectal regions). EXAM: There were no vitals taken for this visit. GENERAL: pleasant, female in no apparent distress HEENT: Normocephalic, atraumatic, mucus membranes moist, and no lesions DERMATOLOGY: Normal, without lesions, non-icteric, and non-hirsute BREAST: soft, non-tender, symmetric, no dominant mass, normal nipple-areolar complex, no lymphadenopathy, and no nipple discharge CHEST: Normal inspiratory effort ABDOMEN: soft, non-tender, and no masses PELVIC: external genitalia normal, normal Bartholin's glands, urethra, [place]'s glands, no vulvar lesions, no cervical lesions, physiologic discharge present, normal appearing perineal body and perianal region, +possible Lichen sclerosus to the perineum and anus areas BIMANUAL: uterus normal size, shape and consistency, no adnexal masses, and non-tender RECTOVAGINAL: deferred. NEURO: alert and oriented x3,exam grossly non-focal EXTREMITIES: normal ASSESSMENT/PLAN: 1) Health maintenance: Pap done with HPV. Mammogram ordered Nutrition, exercise and routine health maintenance exams reviewed. Calcium/Vitamin D supplementation information provided. Colon cancer screening: up to date with screening BMD: ordered 2) Follow up one year or sooner as needed 3) Clobetasol cream ordered Sharlene Hussein APRN.CNP documented in this encounter [facility] 03-23-2023 Miscellaneous Notes March 23, 2023 PID: [id number] Petrona Santizo [address] [place] [address] Dear Ms. Santizo, Your recent breast imaging exam on 03/22/2023 [...] who ordered/prescribed your screening mammogram: Please call [phone] or EXT: [phone] to schedule an appointment for your additional [...] and reports are kept on file at [facility] as part of your permanent medical record, and are available for your continuing care. Thank you for allowing us to help in meeting your health care needs. Sincerely, Dr. Gruber Interpreting Radiologist [facility] (Additional imaging) documented in this encounter [facility] 03-22-2023 History of Presen t illness Narrative Radiology Service Progress Note PATIENT NAME: Petrona Santizo DATE OF SERVICE: March 22, 2023 TIME: [...] IV DATA: Not applicable SIGNED BY: Mukesh Mcguire [employer] Tech March 22, 2023 11:35 AM documented in this encounter [facility] 12-25-2022 Discharge summary Note Date/Time December 25, 2022 11:19am [facility] [address] [place] [address] / REHABILITATION SERVICES DISCHARGE SUMMARY MR#: [id number] Acct: [id number] Name: PETRONA SANTIZO Rep #: [id number] : 1960 62 From: Shira Dee Referring Dr.: Dr. Shital Cobian MD Status: REG RCR Insurance: [facility] SELF PAY INSURANCE Discharge Summary D/C summary: It has been my pleasure to treat PETRONA SANTIZO referred by Dr. Shital Cobian MD,with the diagnosis of LOW BACK PAIN for a total of 23 visit(s). Discharge Date: Please see the following information for a summary of their discharge status. Subjective Subjective: Patient reports that she feels that the pain medication keeps her going. She stopped taking the medication for 5 days and it was really bad. Shefeels that its summer and she is better. She has fibro so she knows that she will always have some soreness. She has a hard time getting to the pool- she feels that she can keep up the exercises when she can get there indep- she walksabout 30 min after work- to keep her bone density up- since she sits so much forwork. Pain LBP: Pain Intensity (Out of 10): 7 Left Foot: Pain Intensity (Out of 10): 0 Overall Improvement % Improvement: 80 Objective Objective/Function: Posture: FH, RS- can correct with verbal cues but does not maintain. Gait: no deviation- good arm swing and trunk rotation. HR/TR: able with UE A. SLS: weight shift but does not SLS ROM: lumbar: mod restriction, pain with flexion- all other motions WFL, Hip/Knee/Ankle: WFL Strength: Core: fair Hip: 4/5 throughout Knee: 4/5, Ankle: 5/5. Flex: HS: severe, Gastroc: severe. Palpation: tender to touch on the left parapsinals of L3-sacrum and along bilateral gluts. Reflex: WFL at bilateral patella. Sensation: WFL to gross touch bilateral LE Plan Plan: Discharge to HEP- continue in pool at availability and walking as tolerated. D/C Information d/c sentence: If there are questions or concerns regarding this patient's physical therapy, please feel free to call me at [phone]. Thank you for the referral of thispatient. Sincerely, Shira Hardy DPT Balance/Gait/Functional tests Balance/Special Test Scores Oswestry Low Back Score: 15 <Electronically signed by Shira Hardy DPT> 12/25/22 1113 CC: Dr. Shital Cobian MD; Dr. Jaspreet Carlton DO ~ ELR Signed [facility] Work Phone: 1(119) 257-666101-27-2023 Discharge summary Author Shira Hardy [facility] June 05, 2022 10:55am Note Date/Time June 05, 2022 1 0:55am [facility] [address] [place] [address]. [address] [place] [address] / REHABILITATION SERVICES DISCHARGE SUMMARY MR#: [id number] Acct: [id number] Name: PETRONA SANTIZO Rep #: [id number] : 1960 61 From: Shira Dee Referring Dr.: Dr. Shital Cobian MD Status: REG RCR Insurance: [facility] SELF PAY INSURANCE It has been my pleasure to treat PETRONA SANTIZO referred by Dr. Shital Cobian MD,with the diagnosis of Lumbar Back Pain for a total of 7 visit(s). Discharge Date: Please see the following information for a summary of their discharge status. Subjective: She reports that she doesn't really have pain in the back but does have numbness in her foot that comes and goes and achyness in her hip when she lays down. She does feel that therapy has helped some- and the numbness isnt there all day. She is using lumbar roll in her lumbar spine in the car. She is going to the gym in the AM and [place]. She would like to continue her gym program indep. LLE Pain Intensity (Out of 10): 8 % Improvement: 70 Objective/Function: Posture: FH, RS- can correct with verbal cues but does not maintain. Gait: no deviation- good arm swing and trunk rotation. HR/TR: able with UE A. SLS: weight shift but does not SLS ROM: lumbar: mod restriction, pain with flexion- all other motions WFL, Hip/Knee/Ankle: WFL Strength: Core: fair Hip: 4/5 throughout Knee: 4/5, Ankle: 5/5. Flex: HS: severe, Gastroc: severe. Palpation: tender to touch on the left parapsinals of L3-sacrum and along bilateral gluts. Reflex: WFL at bilateral patella. Sensation: WFL to gross touch bilateral LE Goal 1:: Patient will be I with HEP and progression Goal Progress: Progressing Goal 2:: Patient will maintain proper posture t/o tx session to demo increased core s/s Goal Progress: Progressing Goal 3:: Patient will report no radicular s/s for 1 week Goal Progress: Not Progressing Goal 4:: Patient will report 80% improvement Goal Progress: Progressing Plan: 06/05/22: Discharge to I HEP per pt request- encouraged HEP at [place] [facility]. *Add step ups and downs next. Aquatics: focus on LE and Core s/s If there are questions or concerns regarding this patient's physical therapy, please feel free to call me at [phone]. Thank you for the referral of thispatient. Sincerely, Shira Hardy, DPT Balance/Gait/Functional tests - Balance/Special Test Scores Oswestry Low Back Score: 11 <Electronically signed by Shira Hardy DPT> 06/05/22 1055 CC: Dr. Shital Cobian MD; Dr. Jaspreet Carlton, DO ~ ELR Signed [facility] Work Phone: 1(106) 615-490311-02-2022 Instructions* Patient Instructions* Cami Lin APRN.QUALITY ASSURANCE SUPERVISOR TRIM - 03/11/2022 10:42 AM EDT Silicone based lubricant like Astroglide. Replens vaginal moisturizer and lubricant. Revaree vaginal hyaluronic acid vaginal suppositories [facility] History of Present illness Narrative* Cami Lin APRN.CNP - 03/11/2022 10:09 AM EDT Glass Cutting Machine Feeder offered: Patient declinesAlanis Russ is a 61 year old who presents for an annual gynecologic exam with complaints, vaginaldryness. Postmenopausal: Yes HRT use: No. Last Pap: [...] L2 SAB1 IAB0 Ectopic0 Multiple0 Live Births2 Benefit Specialist History LMP: Postmenopausal Age at Menarche: Age at First : Age at Menopause: Benefit Specialist History Comments: Sexual Activity: No sexual activity [...] medication updated:Yes EXAM: BP 126/78 Ht 5' 0" (1.52m) Wt 164 lb (74.4kg) BMI 32.03 [...] external genitalia normal, normal Bartholin's glands, urethra, [place]'s glands, no vulvar lesions, no cervical lesions, [...] one year or sooner as needed Cami Lin APRN.MIRA [facility] History of Present illness Narrative* Damien Ding Tech - 01/06/2022 10:30 AM EDT Radiology Service Progress Note PATIENT NAME: Petrona Santizo DATE OF SERVICE: January 06, 2022 TIME: 10:30 AM PATIENT IDENTITY VERIFICATION COMPLETED USING TWO (2) IDENTIFIERS: Name and Date of confirmedby patient verbally. FALL SCREENING: Has the patient had 2 falls in the last year or 1 fall with injury or currently using an Ambulatory Assistive Device (Walker, Cane, Wheelchair, Crutches, etc.)? No PATIENT GENDER DATA: Female. status: : No status: NO. PATIENT RELEVANT IMPLANT DATA REVIEWED: Not Applicable RADIOLOGY DEPARTMENT: Mammography PERIPHERAL IV DATA: Not applicable SIGNED BY: Lesly iDngo Sugar January 06, 2022 10:30 AM [facility] Miscellaneous Notes* Letter - Mammography Coordinator - 10/24/2021 6:28 PM EDT October 24, 2021 PID: [id number] Petrona Newman[address] [place] [id number] Dear Alanis Santizo, Your recent breast imaging exam on 10/24/2021 [...] dense breast tissue in addition to other riskfactors. If you have a healthcare provider who ordered/prescribed your screening mammogram: Please call [phone] or [phone]: [phone] to schedule an appointment for your additional imaging (if youhave not already done so). If you DO [...] and reports are kept on file at [facility] as part of your permanent medical record, and are available for your continuing care. Thank you for allowing us to help in meeting your health care needs. Sincerely, Dr. Mitchell Interpreting Radiologist [facility] (Additional imaging) documented in this encounterS[facility]06-[facility] History of Present illness Narrative* Damien Samson - 10/24/2021 1:30 PM EDT Radiology Service Progress Note PATIENT NAME: Petrona Santizo DATE OF SERVICE: October 24, 2021 TIME: 2:03 PM PATIENT IDENTITY VERIFICATION COMPLETED USING TWO (2) IDENTIFIERS: Name and Date of confirmedby patient verbally. FALL SCREENING: Has the patient had 2 falls in the last year or 1 fall with injury or currently using an Ambulatory Assistive Device (Walker, Cane, Wheelchair, Crutches, etc.)? No PATIENT GENDER DATA: Female. status: : No status: NO. PATIENT RELEVANT IMPLANT DATA REVIEWED: Not Applicable RADIOLOGY DEPARTMENT: Mammography PERIPHERAL IV DATA: Not applicable SIGNED BY: Lesly Samsono Sugar October 24, 2021 2:03 PM documented in this encounterS[facility]05-28-[facility]22 Miscellaneous Notes* Telephone Encounter - Beba Banegas LPN - 10/04/2021 10:00 AM EDT Phone call placed patient advised (see prior provider encounter) Patient verbalized understanding, agreed with plan of care. Beba Banegas LPN * Telephone Encounter - Beba Banegas LPN - 10/04/2021 9:40 AM EDT ----- Message from Jeniffer Knapp APRN.QUALITY ASSURANCE SUPERVISOR TRIM sent at 10/04/2021 8:21 AM EDT ----- [...] passed since symptoms first appeared Jeniffer Knapp APRN.MIRA documented in [facility] History of Present illness Narrative* Alvaro Dumas APRN.MIRA - 10/03/2021 11:27 AM EDT CC: Patient presents with: Cough: chills, YOVANI ear pain, congestion x2 days HPI: Petrona Santizo is a 60 year old female who [...] SPEC WHEN PFRMD 08/26/2018 Colonoscopy LAPAROSCOPY DIAGNOSTIC 1995 ALLERGIES Penicillin MEDICATIONS meloxicam (MOBIC) 15 mg tablet Take 1 tablet by mouth once daily. levothyroxine (SYNTHROID) 150 mcg tablet Take 1 tablet by mouth daily before breakfast. glucosamine/msm/chondroitin A (BAJALXYILXX-CNCFZC-OHC ORAL) Take by mouth. ascorbic acid, vitamin [...] counter medication for supportive therapy. Waiting on viralswab results. Potential red flag symptoms discussed with the patient. Reviewed appropriate action plan to take if red flag symptoms occur. Patient agreeable to treatment plan. 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 [facility] Work Phone: Evaluation note* Diagnosis Cough- Primary Sore throat Acute pharyngitis documented in this encounter [facility] note* Diagnosis Encounter for gynecological examination (general) (routine) without abnormal findings Encounter for screening mammogram for breast cancer documented in this encounter [facility] note* Diagnosis Abnormal mammogram- Primary Abnormal mammogram, unspecified [facility]* Diagnosis Abnormal mammogram Abnormal mammogram, unspecified documented in this encounter [facility] noteNo assessment information availableWACMC [facility] Work Phone: Evtywation note* Diagnosis Encounter for gynecological examination with abnormal finding- Primary Routine gynecological examination Postmenopausal atrophic vaginitis Encounter for screening mammogram for breast cancer Dense breast tissue on mammogram documented in this encounter [facility] note* Diagnosis Onset Date Resolution Status 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 Spinal stenosis at L4-L5 level [facility] Work Phone: Evaluation note* Diagnosis Encounter for screening mammogram for breast cancer Dense breast tissue on mammogram documented in this encounter [facility] note* Diagnosis Encounter for gynecological examination (general) (routine) without abnormal findings- Primary Encounter for screening for human papillomavirus (HPV) Special screening examination for human papillomavirus (HPV) Pap smear for cervical cancer screening Screening for malignant neoplasm of the cervix Encounter for screening mammogram for breast cancer Encounter for screening for osteoporosis Special screening for osteoporosis documented in this encounter [facility] note* Diagnosis Encounter for screening mammogram for malignant neoplasm of breast Other screening mammogram [facility]* Diagnosis Abnormal mammogram- Primary Abnormal mammogram, unspecified documented in this encounter [facility] note* Diagnosis Abnormal mammogram Abnormal mammogram, unspecified documented in this encounter [facility] note* Diagnosis Recurrent UTI (urinary tract infection)- Primary Urinary tract infection, site not specified Allergic dermatitis Contact dermatitis and other eczema, due to unspecified cause documented in this encounter [facility] note* Diagnosis Encounter for screening for osteoporosis Special screening for osteoporosis [facility]* Diagnosis Urgency of urination- Primary Urinary tract infection without hematuria, site unspecified documented in this encounter [facility] course Narrative No data available for this section [facility] Discharge instructions No data available for this section [facility] Progress note No data available for this section [facility] Reason for referral (narrative)* Diagnostic Procedure Only (Routine) - Pending Review Specialty Diagnoses / Procedures Referred By Contac t Referred To Contact [facility] Diagnoses Abnormal mammogram Procedures MARCUS DIAGNOSTIC RT DIAGNOSTIC MAMMOGRAPHY COMPUTER-AIDED DETCJ UNI Sharlene Hussein APRN.CNP [address] [place] [address] [facility] [address] [place] [address] Referral ID Status Reason Start Date Expiration Date Visits Requested Visits Authorized [id number] Pending Review Auto-Generat ed Referral 10/27/2021 11/26/2022 1 1 * Diagnostic Procedure Only (Routine) - Pending Review Specialty Diagnoses / Procedures Referred By Leny t Referred To Contact [facility] Diagnoses Abnormal mammogram Procedures US BREAST LTD RT US BREAST UNI REAL TIME WITH IMAGE LIMITED Sharlene Hussein APRN.QUALITY ASSURANCE SUPERVISOR TRIM [address] [place] [address] [facility] [address] [place] [address] Referral ID Status Reason Start Date Expiration Date Visits Requested Visits Authorized [id number] Pending Review Auto-Generat ed Referral 10/27/2021 11/26/2022 1 1 [facility] for referral (narrative)* Diagnostic Procedure Only (Routine) - Pending Review Specialty Diagnoses / Procedures Referred By Contac t Referred To Contact [facility] Diagnoses Encounter for screening mammogram for breast cancer Dense breast tissue on mammogram Procedures MARCUS SCREENING W JULIANA SCREENING DIGITAL BREAST TOMOSYNTHESIS BI SCREENING MAMMOGRAPHY BI 2-VIEW BREAST INC Cami Stein APRN.QUALITY ASSURANCE SUPERVISOR TRIM [address] [place] [address] [facility] [address] [place] [address] Referral ID Status Reason Start Date Expiration Date Visits Requested Visits Authorized [id number] Pending Review Auto-Generat ed Referral 03/11/2022 04/10/2023 1 1 [facility] for referral (narrative)* Diagnostic Procedure Only (Routine) - Authorized Specialty Diagnoses / Procedures Referred By Edyac t Referred To Contact XR IMAGING Diagnoses Encounter for screening for osteoporosis Procedures DXA-AXIAL SKELETON DXA BONE DENSITY STUDY 1/ SITES AXIAL SKEL Sharlene Hussein APRN.QUALITY ASSURANCE SUPERVISOR TRIM [address] [place] [address] [place] [id number] Referral ID Status Reason Start Date Expiration Date Visits Requested Visits Authorized [id number] Authorized Auto-Generat ed Referral 03/17/2024 04/16/2025 1 1 * Diagnostic Procedure Only (Routine) - Authorized Specialty Diagnoses / Procedures Referred By Leny t Referred To Contact [facility] Diagnoses Encounter for screening mammogram for breast cancer Procedures MARCUS SCREENING W JULIANA SCREENING DIGITAL BREAST TOMOSYNTHESIS BI SCREENING MAMMOGRAPHY BI 2-VIEW BREAST INC CAD Sharlene Hussein APRN.QUALITY ASSURANCE SUPERVISOR TRIM [address] [place] [address] [facility] [address] [place] [address] Referral ID Status Reason Start Date Expiration Date Visits Requested Visits Authorized [id number] Authorized Auto-Generat ed Referral 04/16/2025 1 1 [facility] for referral (narrative)* Diagnostic Procedure Only (Routine) - Authorized Specialty Diagnoses / Procedures Referred By Contac t Referred To Contact [facility] Diagnoses Abnormal mammogram Procedures MARCUS DIAGNOSTIC LEFT DIAGNOSTIC MAMMOGRAPHY COMPUTER-AIDED DETCJ Fan Luz APRN.QUALITY ASSURANCE SUPERVISOR TRIM [address] [place] [address] [facility] [address] [place] [address] Referral ID Status Reason Start Date Expiration Date Visits Requested Visits Authorized [id number] Authorized Auto-Generat ed Referral 4 04/28/2025 1 1 * Diagnostic Procedure Only (Routine) - Authorized Specialty Diagnoses / Procedures Referred By Contac t Referred To Contact [facility] Diagnoses Abnormal mammogram Procedures US BREAST LTD LEFT US BREAST UNI REAL TIME WITH IMAGE LIMITED Fan Chan APRN.CNP [address] [place] [address] [facility] [address] [place] [address] Referral ID Status Reason Start Date Expiration Date Visits Requested Visits Authorized [id number] Authorized Auto-Generat ed Referral 4 04/28/2025 1 1 [facility] (n[facility]ative)No reason for referral information availableWACMC Healthcare System [facility] Work Phone: Reason for visit Narrative* Diagnostic Procedure Only (Routine) - Closed Specialty Diagnoses / Procedures Referred By Contac t Referred To Contact [facility] Diagnoses Abnormal mammogram Procedures MARCUS DIAGNOSTIC RT DIAGNOSTIC MAMMOGRAPHY COMPUTER-AIDED DETCJ Sharlene Hanson APRN.QUALITY ASSURANCE SUPERVISOR TRIM [address] [place] [address] [facility] [address] [place] [address] Referral ID Status Reason Start Date Expiration Date V isits Requested Visits Authorized [id number] Closed Auto-Generate d Referral 10/27/2021 11/26/2022 1 1 [facility] for visit Narrative* Diagnostic Procedure Only (Routine) - Closed Specialty Diagnoses / Procedures Referred By Contac t Referred To Contact [facility] Diagnoses Encounter for screening mammogram for breast cancer Dense breast tissue on mammogram Procedures MARCUS SCREENING W JULIANA SCREENING DIGITAL BREAST TOMOSYNTHESIS BI SCREENING MAMMOGRAPHY BI 2-VIEW BREAST INC Cami Stein APRN.QUALITY ASSURANCE SUPERVISOR TRIM [address] [place] [address] [facility] [address] [place] [address] Referral ID Status Reason Start Date Expiration Date V isits Requested Visits Authorized [id number] Closed Auto-Generate d Referral 03/11/2022 04/10/2023 1 1 [facility] for visit Narrative* Diagnostic Procedure Only (Routine) - Closed Specialty Diagnoses / Procedures Referred By Contac t Referred To Contact [facility] Diagnoses Encounter for screening mammogram for malignant neoplasm of breast Procedures MARCUS SCREENING W JULIANA SCREENING DIGITAL BREAST TOMOSYNTHESIS BI SCREENING MAMMOGRAPHY BI 2-VIEW BREAST INC CAD Fan Chan FAMILY MEDIATOR.QUALITY ASSURANCE SUPERVISOR TRIM [address] [place] [address] [facility] [address] [place] [address] Referral ID Status Reason Start Date Expiration Date V isits Requested Visits Authorized [id number] Closed Auto-Generate d Referral 05/20/2023 06/18/2024 1 1 [facility] for visit Narrative* Diagnostic Procedure Only (Routine) - Closed Specialty Diagnoses / Procedures Referred By Contac t Referred To Contact [facility] Diagnoses Abnormal mammogram Procedures US BREAST LTD LEFT US BREAST UNI REAL TIME WITH IMAGE LIMITED Fan Chan APRN.QUALITY ASSURANCE SUPERVISOR TRIM [address] [place] [address] [facility] [address] [place] [address] Referral ID Status Reason Start Date Expiration Date V isits Requested Visits Authorized [id number] Closed Auto-Generate d Referral 03/29/2024 04/28/2025 1 1 [facility] for visit Narrative* Diagnostic Procedure Only (Routine) - Closed Specialty Diagnoses / Procedures Referred By Contac t Referred To Contact XR IMAGING Diagnoses Encounter for screening for osteoporosis Procedures DXA-AXIAL SKELETON DXA BONE DENSITY STUDY / SITES AXIAL Sharlene Askew, FAMILY MEDIATOR.QUALITY ASSURANCE SUPERVISOR TRIM [address] [place] [address] Phone: tel: fax: [place] [id number] Referral ID Status Reason Start Date Expiration Date V isits Requested Visits Authorized [id number] Closed Auto-Generate d Referral 03/17/2024 04/16/2025 1 1 [facility] Summary Purpose Family History No Family History Records Found Relationship Condition Age at Onset Recorded Date/T yun mother Arthritis Unknown Hypertension Unknown Cerebrovascular accident (CVA) Unknown aunt Diabetes mellitus Unknown Disorder of thyroid Unknown Advance Directives No Advanced Directives Records FoundDocuments on File Type Date Recorded Patient Oyster Tonger Expl anation Advance Directive(s) 08/26/2018 8:46 AM Documents on File Type Date Recorded Patient Oyster Tonger Expl anation Advance Directive(s) 08/26/2018 8:46 AM [...] has not been provided by the sender. Chief Complaint and Reason for Visit Chief Complaint F/U LAST SEEN Reason for Visit Hypothyroidism due t o David's thyroiditis Chief Complaint E ORDERS Chief Complaint LOWER LEFT BACK AND HIP- LOWER SPINE PAIN LOW BACK PAIN/RX HERE Chief Complaint LOWER LEFT BACK AND HIP- LOWER SPINE PAIN LOW BACK PAIN/RX HERE 1 Y FU E-ORDER Reason for Visit Hypothyroidism due t o David's thyroiditis Chief Complaint LOWER LEFT BACK AND HIP- LOWER SPINE PAIN LOW BACK PAIN/RX HERE 1 Y FU E-ORDER LT LUMBAR RADICULOPATHY Reason for Visit Hypothyroidism due t o David's thyroiditis Chief Complaint LOWER LEFT BACK AND HIP- LOWER SPINE PAIN LOW BACK PAIN/RX HERE 1 Y FU E-ORDER LT LUMBAR RADICULOPATHY LOW BACK PAIN / RX HERE Reason for Visit Hypothyroidism due t o David's thyroiditis Chief Complaint 1 Y FU E-ORDER LT LUMBAR RADICULOPATHY LOW BACK PAIN / RX HERE LUMBAR LOW BACK PAIN/RX HERE Reason for Visit Hypothyroidism due t o David's thyroiditis Spinal stenosis at L4-L5 level Chief Complaint LOW BACK PAIN/RX HER E Unspecified injury of thorax, initial encounter LOW BACK PAIN/RX HERE Chief Complaint LOW BACK PAIN/RX HER E Chief Complaint Admit Date BACK RX HERE April 11, 2024 1 0:30am CERVICAL RAD May 04, 2024 9:58am Chief Complaint Admit Date CERVICAL RAD May 04, 2024 9:58am Health Concerns Infection Onset Date Last Indicated Resolved Time COVID-19 Rule-Out 10/03/2021 10/03/2021 Infection Onset Date Last Indicated Resolved Time COVID-19 Confirmed 10/03/2021 10/03/2021 Additional Source Comments INFORMATION SOURCE (unrecogn ized section and content) DATE CREATED AUTHOR 12/05/2018 [facility] DATE CREATED AUTHOR AUTHOR'S ORGANIZ ATION 12/05/2018 [facility] DATE CREATED AUTHOR AUTHOR'S ORGANIZ ATION 11/22/2020 [facility] ([place]) DATE CREATED AUTHOR AUTHOR'S ORGANIZ ATION 04/18/2024 [facility] DATE CREATED AUTHOR AUTHOR'S ORGANIZ ATION 09/22/2024 [facility] DATE CREATED AUTHOR AUTHOR'S ORGANIZ ATION 11/23/2024 [facility] DATE CREATED AUTHOR AUTHOR'S ORGANIZ ATION 11/26/2024 [facility] Reason for Visit (unrecogniz ed section and content) Reason For Visit Description New - 1st visit with practice Preliminary reason f or visit data, not yet signed by the author as of right foot pain Reason Comments Cough chills, YOVANI ear pain , congestion x2 days Reason Comments Results Reason Comments Orders Reason Comments Well Woman Reason Comments Mammogram Result Call Back Reason Comments Well Woman Reason Comments Results Reason Comments Mammogram Result Call Back left breast d iag mamm cb per ah Reason Comments Urinary Urgency Urgency, pressure, h jennifer and nausea x 4 days Reason Comments Urinary Problem Possible bladder inf ection, urgency, pain Goals (unrecognized section and content) Goals may be documented in a n alternate sectionGoals may be documented in an alternate sectionGoals may be documented in an alternate sectionGoals may be documented in an alternate sectionGoals may be documented in an alternate sectionGoals may be documented in an alternate sectionGoals may be documented in an alternate sectionGoals may be documented in an alternate sectionGoals may be documented in an alternate sectionGoals may be documented in an alternate sectionGoals may be documented in an alternate sectionGoals may be documented in an alternate section No data available for this sectionGoals may be documented in an alternate sectionGoals may be documented in an alternate section No data available for this section Source Comments (unrecognize d section and content) In the event this informatio n is protected by the Federal Confidentiality of Alcohol and Drug Abuse Patient Records regulations: The Federal rules restrict any use of the information to criminally investigate or prosecute any alcohol or drug abuse patient.[facility] the event this information is protected by the Federal Confidentiality of Alcohol and Drug Abuse Patient Records regulations: The Federal rules restrict any use of the information to criminally investigate or prosecute any alcohol or drug abuse patient.[facility] Hospital[facility] the event this information is protected by the Federal Confidentiality of Alcohol and Drug Abuse Patient Records regulations: The Federal rules restrict any use of the information to criminally investigate or prosecute any alcohol or drug abuse patient.[facility] the event this information is protected by the Federal Confidentiality of Alcohol and Drug Abuse Patient Records regulations: The Federal rules restrict any use of the information to criminally investigate or prosecute any alcohol or drug abuse patient.[facility] the event this information is protected by the Federal Confidentiality of Alcohol and Drug Abuse Patient Records regulations: The Federal rules restrict any use of the information to criminally investigate or prosecute any alcohol or drug abuse patient.[facility] Hospital[facility] the event this information is protected by the Federal Confidentiality of Alcohol and Drug Abuse Patient Records regulations: The Federal rules restrict any use of the information to criminally investigate or prosecute any alcohol or drug abuse patient.[facility] the event this information is protected by the Federal Confidentiality of Alcohol and Drug Abuse Patient Records regulations: The Federal rules restrict any use of the information to criminally investigate or prosecute any alcohol or drug abuse patient.[facility] the event this information is protected by the Federal Confidentiality of Alcohol and Drug Abuse Patient Records regulations: The Federal rules restrict any use of the information to criminally investigate or prosecute any alcohol or drug abuse patient.[facility] Hospital[facility] the event this information is protected by the Federal Confidentiality of Alcohol and Drug Abuse Patient Records regulations: The Federal rules restrict any use of the information to criminally investigate or prosecute any alcohol or drug abuse patient.[facility] Hospital[facility] the event this information is protected by the Federal Confidentiality of Alcohol and Drug Abuse Patient Records regulations: The Federal rules restrict any use of the information to criminally investigate or prosecute any alcohol or drug abuse patient.[facility] Hospital[facility] the event this information is protected by the Federal Confidentiality of Alcohol and Drug Abuse Patient Records regulations: The Federal rules restrict any use of the information to criminally investigate or prosecute any alcohol or drug abuse patient.[facility] Hospital[facility] the event this information is protected by the Federal Confidentiality of Alcohol and Drug Abuse Patient Records regulations: The Federal rules restrict any use of the information to criminally investigate or prosecute any alcohol or drug abuse patient.[facility] Hospital[facility] the event this information is protected by the Federal Confidentiality of Alcohol and Drug Abuse Patient Records regulations: The Federal rules restrict any use of the information to criminally investigate or prosecute any alcohol or drug abuse patient.[facility] Hospital[facility] the event this information is protected by the Federal Confidentiality of Alcohol and Drug Abuse Patient Records regulations: The Federal rules restrict any use of the information to criminally investigate or prosecute any alcohol or drug abuse patient.[facility] Hospital[facility] the event this information is protected by the Federal Confidentiality of Alcohol and Drug Abuse Patient Records regulations: The Federal rules restrict any use of the information to criminally investigate or prosecute any alcohol or drug abuse patient.[facility] HospitalIn the event this information is protected by the Federal Confidentiality of Alcohol and Drug Abuse Patient Records regulations: The Federal rules restrict any use of the information to criminally investigate or prosecute any alcohol or drug abuse patient.[facility] HospitalIn the event this information is protected by the Federal Confidentiality of Alcohol and Drug Abuse Patient Records regulations: The Federal rules restrict any use of the information to criminally investigate or prosecute any alcohol or drug abuse patient.[facility] Hospital[facility] the event this information is protected by the Federal Confidentiality of Alcohol and Drug Abuse Patient Records regulations: The Federal rules restrict any use of the information to criminally investigate or prosecute any alcohol or drug abuse patient.[facility] HospitalIn the event this information is protected by the Federal Confidentiality of Alcohol and Drug Abuse Patient Records regulations: The Federal rules restrict any use of the information to criminally investigate or prosecute any alcohol or drug abuse patient.[facility] HospitalIn the event this information is protected by the Federal Confidentiality of Alcohol and Drug Abuse Patient Records regulations: The Federal rules restrict any use of the information to criminally investigate or prosecute any alcohol or drug abuse patient.[facility] HospitalIn the event this information is protected by the Federal Confidentiality of Alcohol and Drug Abuse Patient Records regulations: The Federal rules restrict any use of the information to criminally investigate or prosecute any alcohol or drug abuse patient.[facility] HospitalIn the event this information is protected by the Federal Confidentiality of Alcohol and Drug Abuse Patient Records regulations: The Federal rules restrict any use of the information to criminally investigate or prosecute any alcohol or drug abuse patient.[facility] HospitalIn the event this information is protected by the Federal Confidentiality of Alcohol and Drug Abuse Patient Records regulations: The Federal rules restrict any use of the information to criminally investigate or prosecute any alcohol or drug abuse patient.[facility] Teams (unrecognized sec tion and content) Road Crew Member Relationship Specialty Start Date End Date Jaspreet Carlton DO [address] [place], [place] [id number] PCP - General Family Practice 10/03/21 Road Crew Member Relationship Specialty Start Date End Date Jaspreet Carlton DO [address] [place], [place] [id number] PCP - General Family Practice 10/03/21 Road Crew Member Relationship Specialty Start Date End Date Jaspreet Carlton DO [address] [place], [place] [id number] PCP - General Family Practice 10/03/21 Road Crew Member Relationship Specialty Start Date End Date Jaspreet Carlton DO [address] [place], [place] [id number] PCP - General Family Practice 10/03/21 Road Crew Member Relationship Specialty Start Date End Date Jaspreet Carlton DO [address] [place], [place] [id number] PCP - General Family Practice 10/03/21 Road Crew Member Relationship Specialty Start Date End Date Jaspreet Carlton DO [address] [place], [place] [id number] PCP - General Family Practice 10/03/21 Road Crew Member Relationship Specialty Start Date End Date Jaspreet Carlton DO [address] [place], [place] [id number] PCP - General Family Medicine 10/03/21 Team Status: Active Member Role Status Dates Dr. Srini Farooq MD Family Provider Active Dr. Jaspreet Carlton DO Primary Care Provider Active Team Status: Inactive Member Role Status Dates Dr. Jaspreet Carlton DO Primary Care Provider, Attendin g Provider Active Team Status: Inactive Member Role Status Dates Dr. Jaspreet Carlton DO Primary Care Prov ider, Attending Provider, Referring Provider Active Team Status: Inactive Member Role Status Dates Dr. Jaspreet Carlton DO Primary Care Provider Active Dr. Shital Cobian MD Attending Provider, Referring P rovider Active Team Status: Inactive Member Role Status Dates Dr. Srini Farooq MD Referring Provider Active Dr. Mateus Dixon MD Attending Provider Active Dr. Jaspreet Carlton DO Primary Care Provider Active Team Status: Inactive Member Role Status Dates Dr. Jaspreet Carlton DO Primary Care Provider Active Dr. Mateus Dixon MD Attending Provider, Referring Provi alexy Active Team Status: Active Member Role Status Dates Dr. Jaspreet Carlton DO Primary Care Provider Active Dr. Shital Cobian MD Attending Provider, Referring P rovider Active Team Status: Inactive Member Role Status Dates Dr. Jaspreet Carlton DO Primary Care Provider, Referrin g Provider Active Dr. Yuriy Wallace , Attending Provider Active Team Status: Active Member Role Status Dates Dr. Srini Farooq MD Family Provider Active PETE Hedrick Primary Care Provider Active Team Status: Inactive Member Role Status Dates PETE Hedrick Primary Care Provide r, Attending Provider, Referring Provider Active Road Crew Member Relationship Specialty Start Date End Date Jaspreet Carlton DO [address] [place] [address] PCP - General Family Medicine 10/03/21 Road Crew Member Relationship Specialty Start Date End Date Jaspreet Carlton DO [address] [place] [address] PCP - General Family Medicine 10/03/21 Road Crew Member Relationship Specialty Start Date End Date Jaspreet Carlton DO [address] [place] [address] PCP - General Family Medicine 10/03/21 Road Crew Member Relationship Specialty Start Date End Date Jaspreet Carlton DO [address] [place] [address] PCP - General Family Medicine 10/03/21 Road Crew Member Relationship Specialty Start Date End Date Jaspreet Carlton DO [address] [place], [place] [address] PCP - General Family Medicine 10/03/21 Road Crew Member Relationship Specialty Start Date End Date Jaspreet Carlton [address] [place] [address] PCP - General Family Medicine 10/03/21 Road Crew Member Relationship Specialty Start Date End Date Jaspreet Carlton [address] [place], [place] [address] PCP - General Family Medicine 10/03/21 Team Status: Active Member Role Status Dates PETE Hedrick Primary Care Provider Active Start: April 11, 2024 PETE Hedrick Attending Provider Active St art: April 11, 2024 PETE Hedrick Referring Provider Active St art: April 11, 2024 Team Status: Inactive Member Role Status Dates PETE Hedrick Primary Care Provider Active Start: April 18, 2024 End: April 18, 2024 Dr. Jaspreet Carlton DO Attending Provider Active Start: April 18, 2024 End: April 18, 2024 Dr. Jaspreet Carlton DO Referring Provider Active Start: April 18, 2024 End: April 18, 2024 Team Status: Inactive Member Role Status Dates Dr. Jaspreet Carlton DO Primary Care Provider Active Start: May 04, 2024 End: May 04, 2024 Dr. Jaspreet Carlton DO Attending Provider Active Start: May 04, 2024 End: May 04, 2024 Dr. Jaspreet Carlton DO Referring Provider Active Start: May 04, 2024 End: May 04, 2024 Team Status: Inactive Member Role Status Dates Dr. 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 Member Relationship Specialty Start Date End Date Jaspreet Carlton OdetteDO [address] [place] [address] PCP - General Family Medicine 10/03/21 Road Crew Member Relationship Specialty Start Date End Date Jaspreet Carlton DO [address] [place] [address] PCP - General Family Medicine 10/03/21 Road Crew Member Relationship Specialty Start Date End Date BiankaJaspreet almeidaDO [address] [place] [address] PCP - General Family Medicine 10/03/21 Road Crew Member Relationship Specialty Start Date End Date BiankaJaspreet OdetteDO [address] [place] [address] PCP - General Family Medicine 10/03/21 Road Crew Member Relationship Specialty Start Date End Date Jaspreet Carlton DO [address] [place] [address] PCP - General Family Medicine 10/03/21 Road Crew Member Relationship Specialty Start Date End Date Jaspreet Carlton DO [address] [place] [address] PCP - General Family Medicine 10/03/21 FOR [...] BE BASED ON THE PRIMARY CLINICAL RECORDS. [employer] provides no warranty or guarantee of the accuracy or completeness of information in this document.
== END | disposition home or self-care (01) ==
LOC: US 10:28
PROVIDERS: PCP Family Medicine; Referring Provider Urology; Visit Provider Urology
DX: N39.0 Urinary tract infection, site not specified (principal)
CPT/HCPCS: 76770